=== PATIENT | male | born 1965 | race Caucasian/White ===

== ENCOUNTER 2019-08-20 15:54 | Outpatient (CLI) | payer OTHER, SELFPAY ==
--- NOTE | ~2019-08-20 | XR_ITS ---
EXAMINATION: XR knee LT 3V DATE: 08/20/2019 16:21 INDICATION: Left knee pain. TECHNIQUE: 4 views of left knee were obtained. COMPARISON: None. FINDINGS: Bone alignment is normal. There is mild osteoarthritis of patellofemoral compartment. No kn ee joint effusion. There is anterior knee soft tissue swelling. IMPRESSION: 1. Mild left knee osteoarthritis. Reviewed, dictated and finalized at location A.
== END 2019-08-20 15:55 | disposition home or self-care (01) ==
LOC: CHSIMG 15:58
PROVIDERS: PCP Family Medicine; Visit Provider Family Medicine
DX: M25.462 Effusion, left knee (principal)
CPT/HCPCS: 73562

== ENCOUNTER 2020-04-21 17:16 | Outpatient (CLI) | payer OTHER, SELFPAY ==
--- NOTE | ~2020-04-21 | XR_ITS ---
XR shoulder RT min 2V DATE: 04/21/2020 17:40 INDICATION: Worsening right shoulder pain following a fall 2-3 years ago TECHNIQUE: 4 views COMPARISON: None FINDINGS: No fracture or dislocation, periosteal reaction or bone destruction or abnormal soft tissue calcification of the right shoulder. There is mild degenerative spurring of the right acromioclavicu lar joint. IMPRESSION: Mild degenerative change at the right acromioclavicular joint Reviewed, dictated and finalized at location A.
--- NOTE | ~2020-04-21 | XR_ITS ---
XR lumbar spine 2-3V DATE: 04/21/2020 17:39 INDICATION: Chronic low back pain following a fall 2-3 years ago TECHNIQUE: AP, lateral, coned lateral lumbosacral views COMPARISON: 04/21/2010 lumbar spine FINDINGS: Mild levoscoliosis of the lower thoracic and lumbar spine. There is mild degenerative disc disease with mild degenerative spurring of the lumbar vertebra throu ghout the lumbar spine. No fracture or bone destruction or spondylolisthesis. The included lower thoracic and lumbar pedicles are intact. The sacroiliac joints are intact. IMPRESSION: Mild levoscoliosis Mild degenerative disc disease Reviewed, dictated and finalized at location A.
== END 2020-04-21 17:17 | disposition home or self-care (01) ==
LOC: CHSIMG 17:18
PROVIDERS: PCP Family Medicine; Visit Provider Family Medicine
DX: M25.511 Pain in right shoulder (principal); M54.5 Low back pain
CPT/HCPCS: 72100; 73030

== ENCOUNTER 2021-02-12 17:34 | Emergency (ER) | payer OTHER, SELFPAY ==
--- NOTE | ~2021-02-12 | XR_ITS ---
EXAMINATION: XR shoulder RT min 2V INDICATION: Right shoulder pain TECHNIQUE: Four views of the right shoulder are submitted. COMPARISON: 04/21/2020 FINDINGS: Normal alignment. No fracture. Glenohumeral and acromioclavicular joint spaces are normal. Soft tissues are unremarkable. IMPRESSION: 1. No acute osseous abnormality. Reviewed, dictated and finalized at location F. O ELECTRONICS TECHNICIAN
--- NOTE | ~2021-02-12 | XR_ITS ---
EXAMINATION: XR shoulder LT min 2V INDICATION: Left shoulder pain TECHNIQUE: Four views of the left shoulder are submitted. COMPARISON: None FINDINGS: Normal alignment. No fracture. Glenohumeral and acromioclavicular joint spaces are normal. There is lateral soft tissue swelling of the shoulder. IMPRESSION: 1. No acute osseous abnormality. Reviewed, dictated and finalized at location F. IRATORY TECHNICIAN
[2021-02-12 17:51] VITALS: BP 169/88; PULSE 82; RESP 20; TEMP 36.1; O2SAT 97
--- NOTE | 2021-02-12 18:56 | ED.UPPEXIN ---
HPI - Extremity Injury (Upper) General Chief Complaint: Extremity Injury, Upper Stated Complaint: fell afternoon/wants shoulder xray Source: patient Mode of arrival: ambulatory Limitations: no limitations History of Present Illness HPI narrative: this is a 55-year-old gentleman that fell on outstretched arms forward causing injury to his bilateral shoulders has good range of motion although slightly diminished on the right side there is no bicipital tenderness his good brisk radial pulses does have some numbness and tingling with no neck pain for the past week has tried some [id number] preparations with minimal relief. complaint: injury to: left, right and shoulder Onset (ago): day(s) Other injuries: none Handedness: right Place: outdoors Related Data Home Medications Medication Instructions Recorded Confirmed citalopram 20 mg tablet 20 mg PO DAILY 09/23/19 lisinopril 20 1 tablet PO DAILY 09/23/19 mg-hydrochlorothiazide 12.5 mg tablet metformin 500 mg tablet 500 mg PO BID 09/23/19 sitagliptin 100 mg tablet 100 mg PO DAILY 09/23/19 atorvastatin 20 mg PO DAILY 02/12/21 02/12/21 pioglitazone 30 mg PO DAILY 02/12/21 02/12/21 Allergies Allergy/AdvReac Type Severity Reaction Status Date / Time No Known Allergies Allergy Unverified 02/12/21 17:55 Review of Systems Review of Systems: All systems reviewed & are unremarkable except as noted in HPI and below PMFSH Past Medical History Medical History Seasonal allergies Family History Family History Other Diabetes mellitus Heart disease Hypertension Social History Social History Smoking status: Current some day smoker Alcohol intake: current Alcohol use details: Occasional Exam Const: General: no acute distress Orientation/consciousness: patient oriented x3 HENMT: Head: normal to inspection Eyes: Conjunctivae: conjunctivae normal Pupils: Equal, round and reactive pupils present EOM: EOMs intact bilaterally Neck: Neck: normal visual inspection Chest: Chest palpation & inspection: normal inspection of the chest Resp: Effort & Inspection: normal respiratory effort Cardio: Rate: regular rate Rhythm: regular rhythm GI: GI Palp: Yes Soft to palpation Percussion: Yes normal to percussion Back/Spine/Pelvis: Back: no CVA tenderness Skin: General skin exam: normal color Rashes: no rashes Neuro: General: patient oriented x3 and moves all extremities Extrem: Other: Bilateral shoulder tenderness with movement although has good range of motion bilaterally Psych: Mental Status: mental status grossly normal Affect: normal affect Attitude: cooperative Course Course Emergency Course: x-ray findings reviewed with patient, patient declined any pain medication at this time. Vital Signs Vital signs: Vital Signs Temperature 36.1 C L 02/12/21 17:51 Pulse Rate 82 02/12/21 17:51 Respiratory Rate 20 02/12/21 17:51 Blood Pressure 169/88 H 02/12/21 17:51 Pulse Oximetry 97 02/12/21 17:51 Temperature 36.1 C L 02/12/21 17:51 Pulse Rate 82 02/12/21 17:51 Respiratory Rate 20 02/12/21 17:51 Blood Pressure 169/88 H 02/12/21 17:51 Pulse Oximetry 97 02/12/21 17:51 Critical Care Time Critical Care Time Critical Care Time: No Discharge Plan Discharge Clinical Impression: Muscle strain, shoulder region Qualifiers: Encounter type: initial encounter Laterality: unspecified laterality Qualified Code(s): S46.919A - Strain of unspecified muscle, fascia and tendon at shoulder and upper arm level, unspecified arm, initial encounter Patient Disposition: Home, Self-Care Condition: Stable Instructions: Antibiotic Form, Shoulder Sprain (ED) Additional Instructions: take Tylenol or Motrin as needed and follow-up with primary
[2021-02-12 19:33] VITALS: BP 157/87; PULSE 77; RESP 18; TEMP 36.3; O2SAT 99
== END 2021-02-12 19:34 | disposition home or self-care (01) ==
PROVIDERS: Emergency Provider Emergency Medicine; PCP Family Medicine
DX: S46.919A Strain of unspecified muscle, fascia and tendon at shoulder and upper arm level, unspecified arm, initial encounter (principal); W19.XXXA Unspecified fall, initial encounter
CPT/HCPCS: 73030; 99282; 99284

== ENCOUNTER 2021-05-04 17:48 | Outpatient (CLI) | payer OTHER, SELFPAY ==
--- NOTE | ~2021-05-04 | XR_ITS ---
EXAMINATION: XR chest 2V DATE: 05/04/2021 18:16 INDICATION: Back pain radiating down right arm. TECHNIQUE: Frontal and lateral views of the chest were obtained. COMPARISON: Chest 2 views 09/20/2018 FINDINGS: The chest demonstrates clear lungs without pneumonia, pleural effusion, or pneumothorax. Th e heart size is normal. IMPRESSION: 1. No acute cardiopulmonary disease. Reviewed, dictated and finalized at location A.
--- NOTE | ~2021-05-04 | XR_ITS ---
EXAMINATION: XR lumbar spine 2-3V DATE: 05/04/2021 18:17 INDICATION: Low back pain. TECHNIQUE: 3 views of lumbar spine were obtained. COMPARISON: Lumbar spine radiographs 04/21/2020 FINDINGS: There is 9 degrees levocurvature of thoracolumbar spine. Vertebral body heights are normal. There is mildly decreased disc height at L3-L4. There are endplate osteophytes at most levels. There is multilevel mild facet joint osteoarthritis. IMPRESSION: 1. Mild lumbar spondylosis. Reviewed, dictated and finalized at location A. IMPRESSION: 1. Mild lumbar spondylosis.
--- NOTE | ~2021-05-04 | XR_ITS ---
EXAMINATION: XR thoracic spine 3V DATE: 05/04/2021 18:16 INDICATION: Back pain. TECHNIQUE: 3 views of thoracic spine were obtained. COMPARISON: Chest 2 views 09/20/2018 FINDINGS: There is 3 degrees levocurvature of upper thoracic spine and 3 degrees dextrocurvature of l ower thoracic spine. Vertebral body heights are normal. Intervertebral disc heights are normal. There are endplate osteophytes at most levels. IMPRESSION: 1. Mild thoracic spondylosis. Reviewed, dictated and finalized at location A.
[2021-05-04 18:05] LABS: Basophils Absolute Auto 0.05 K/mm3 (0.00-0.10); Basophils Percent Auto 0.6 % (0.0-1.0); Eosinophils Absolute Auto 0.21 K/mm3 (0.02-0.50); Eosinophils Percent Auto 2.6 % (1.0-6.0); Hematocrit 34.5 % (40.0-54.0); Hemoglobin 12.1 g/dL (14.0-18.0); Immature Granulocyte Absolute 0.03 K/mm3 (0.00-0.00); Immature Granulocyte Percent A 0.4 % (0.0-0.0); Lymphocytes Percent Auto 21.2 % (18.0-42.0); Mean Corpuscular HGB Conc 35.1 g/dL (32.0-36.0); Mean Corpuscular Hemoglobin 29.2 pg (27.0-31.0); Mean Corpuscular Volume 83.3 fL (78.0-102.0); Mean Platelet Volume 9.9 fl (8.7-11.0); Monocytes Absolute Auto 0.56 K/mm3 (0.10-0.90); Neutrophils Absolute Auto 5.5 K/mm3 (1.7-7.2); Neutrophils Percent Auto 68.2 % (50.0-70.0); Platelet Count Result 282 K/mm3 (150-420); Red Blood Count 4.14 M/mm3 (4.70-6.10); Red Cell Distribution Width 12.2 % (11.6-14.4)
[2021-05-04 18:48] LABS: Alanine Aminotransferase 20 U/L (16-63); Albumin Level 3.4 g/dL (3.4-5.0); Alkaline Phosphatase 80 U/L (46-116); Anion Gap 8 mmol/L (8-16); Aspartate Amino Transferase 10 U/L (15-37); Bilirubin,Total 0.5 mg/dL (0.00-1.00); Blood Urea Nitrogen 29 mg/dL (7-18); Calcium 8.5 mg/dL (8.5-10.1); Carbon Dioxide 29 mmol/L (21-32); Chloride 97 mmol/L (98-108); Creatine Kinase 52 U/L (39-308); Estimated Glomerular Filt Rate 41; Glucose 318 mg/dL (70-99); Osmolality Calculated 295 mOsm/kg (285-295); Potassium 3.7 mmol/L (3.5-5.1); Sodium 134 mmol/L (136-145); Total Protein 6.4 g/dL (6.4-8.2)
== END 2021-05-04 17:49 | disposition home or self-care (01) ==
LOC: CHSLAB 17:50
PROVIDERS: PCP Family Medicine; Visit Provider Family Medicine
DX: M54.50 Low back pain, unspecified (principal); M54.6 Pain in thoracic spine; I10 Essential (primary) hypertension; R94.31 Abnormal electrocardiogram [ECG] [EKG]
CPT/HCPCS: 36415; 71046; 72072; 72100; 80053; 82550; 82553; 84484; 85025

== ENCOUNTER 2021-05-13 13:40 | Outpatient (CLI) | payer OTHER, SELFPAY ==
[2021-05-13 13:52] LABS: Basophils Absolute Auto 0.06 K/mm3 (0.00-0.10); Basophils Percent Auto 0.7 % (0.0-1.0); Eosinophils Absolute Auto 0.29 K/mm3 (0.02-0.50); Eosinophils Percent Auto 3.3 % (1.0-6.0); Hematocrit 34.5 % (40.0-54.0); Hemoglobin 12.3 g/dL (14.0-18.0); Immature Granulocyte Absolute 0.05 K/mm3 (0.00-0.00); Immature Granulocyte Percent A 0.6 % (0.0-0.0); Lymphocytes Absolute Auto 1.19 K/mm3 (1.10-4.50); Lymphocytes Percent Auto 13.6 % (18.0-42.0); Mean Corpuscular HGB Conc 35.7 g/dL (32.0-36.0); Mean Corpuscular Hemoglobin 29.6 pg (27.0-31.0); Mean Corpuscular Volume 83.1 fL (78.0-102.0); Mean Platelet Volume 10.2 fl (8.7-11.0); Monocytes Absolute Auto 0.58 K/mm3 (0.10-0.90); Monocytes Percent Auto 6.6 % (2.0-11.0); Neutrophils Absolute Auto 6.6 K/mm3 (1.7-7.2); Neutrophils Percent Auto 75.2 % (50.0-70.0); Platelet Count Result 283 K/mm3 (150-420); Red Blood Count 4.15 M/mm3 (4.70-6.10); Red Cell Distribution Width 12.3 % (11.6-14.4); White Blood Count 8.7 K/mm3 (4.8-10.8)
[2021-05-13 14:05] LABS: Creatinine Urine 29.98 mg/dL (40-278)
[2021-05-13 14:38] LABS: Alanine Aminotransferase 19 U/L (16-63); Albumin Level 3.5 g/dL (3.4-5.0); Alkaline Phosphatase 94 U/L (46-116); Anion Gap 6 mmol/L (8-16); Aspartate Amino Transferase < 10 U/L (15-37); Bilirubin,Total 0.4 mg/dL (0.00-1.00); Blood Urea Nitrogen 21 mg/dL (7-18); Calcium 8.5 mg/dL (8.5-10.1); Carbon Dioxide 29 mmol/L (21-32); Chloride 95 mmol/L (98-108); Estimated Glomerular Filt Rate 42; Potassium 4.4 mmol/L (3.5-5.1); Sodium 130 mmol/L (136-145); Total Protein 6.4 g/dL (6.4-8.2)
[2021-05-13 14:42] LABS: Glucose 630 mg/dL (70-99); Osmolality Calculated 303 mOsm/kg (285-295)
== END 2021-05-13 13:41 | disposition home or self-care (01) ==
PROVIDERS: PCP Family Medicine; Visit Provider Family Medicine
DX: D64.9 Anemia, unspecified (principal); I12.9 Hypertensive chronic kidney disease with stage 1 through stage 4 chronic kidney disease, or unspecified chronic kidney disease; N18.30 Chronic kidney disease, stage 3 unspecified
CPT/HCPCS: 36415; 80053; 82043; 85025

== ENCOUNTER 2021-07-27 10:53 | Outpatient (CLI) | payer OTHER, SELFPAY ==
[2021-07-27 11:21] LABS: Basophils Absolute Auto 0.05 K/mm3 (0.00-0.10); Basophils Percent Auto 0.6 % (0.0-1.0); Eosinophils Absolute Auto 0.36 K/mm3 (0.02-0.50); Eosinophils Percent Auto 4.4 % (1.0-6.0); Hematocrit 36.4 % (40.0-54.0); Hemoglobin 12.9 g/dL (14.0-18.0); Immature Granulocyte Absolute 0.03 K/mm3 (0.00-0.00); Immature Granulocyte Percent A 0.4 % (0.0-0.0); Lymphocytes Absolute Auto 1.45 K/mm3 (1.10-4.50); Lymphocytes Percent Auto 17.7 % (18.0-42.0); Mean Corpuscular HGB Conc 35.4 g/dL (32.0-36.0); Mean Corpuscular Hemoglobin 29.7 pg (27.0-31.0); Mean Corpuscular Volume 83.7 fL (78.0-102.0); Mean Platelet Volume 10.1 fl (8.7-11.0); Monocytes Absolute Auto 0.57 K/mm3 (0.10-0.90); Neutrophils Absolute Auto 5.7 K/mm3 (1.7-7.2); Neutrophils Percent Auto 69.9 % (50.0-70.0); Platelet Count Result 233 K/mm3 (150-420); Red Blood Count 4.35 M/mm3 (4.70-6.10); Red Cell Distribution Width 12.3 % (11.6-14.4); White Blood Count 8.2 K/mm3 (4.8-10.8)
[2021-07-27 11:43] LABS: Hemoglobin A1C 8.3 % (<5.7)
[2021-07-27 12:16] LABS: Alanine Aminotransferase 35 U/L (16-63); Albumin Level 3.6 g/dL (3.4-5.0); Alkaline Phosphatase 86 U/L (46-116); Anion Gap 6 mmol/L (8-16); Aspartate Amino Transferase 14 U/L (15-37); Bilirubin,Total 0.6 mg/dL (0.00-1.00); Blood Urea Nitrogen 29 mg/dL (7-18); Calcium 8.6 mg/dL (8.5-10.1); Carbon Dioxide 29 mmol/L (21-32); Chloride 102 mmol/L (98-108); Estimated Glomerular Filt Rate 30; Glucose 231 mg/dL (70-99); Osmolality Calculated 296 mOsm/kg (285-295); Potassium 4.2 mmol/L (3.5-5.1); Sodium 137 mmol/L (136-145); Thyroid Stimulating Hormone 4.21 uIU/mL (0.36-3.74); Total Protein 6.4 g/dL (6.4-8.2)
[2021-07-28 10:05] LABS: Free T4 Free Thyroxine 0.86 ng/dL (0.76-1.46)
[2021-08-01 04:31] LABS: Metanephrine, Free 41 pg/mL (<=57); Normetanephrine, Free 45 pg/mL (<=148); Total, Free (MN + NMN) 86 pg/mL (<=205)
== END 2021-07-27 10:54 | disposition home or self-care (01) ==
LOC: CHSLAB 10:54
PROVIDERS: PCP Family Medicine; Visit Provider Family Medicine
DX: E11.42 Type 2 diabetes mellitus with diabetic polyneuropathy (principal); I10 Essential (primary) hypertension; R94.6 Abnormal results of thyroid function studies
CPT/HCPCS: 36415; 80053; 83036; 83835; 84439; 84443; 85025

== ENCOUNTER 2021-08-20 16:06 | Emergency (ER) | payer OTHER, SELFPAY ==
[2021-08-20 16:20] VITALS: BP 202/99; PULSE 67; RESP 20; TEMP 36.6; O2SAT 97
--- NOTE | 2021-08-20 16:36 | ECG_ITS ---
Measurements Intervals [place] Rate: 57 P: 25 FL: 142 QRS: 17 QRSD: 93 T: 70 QT: 393 QTc: 383 Interpretive Statements SINUS BRADYCARDIA INCOMPLETE RIGHT BUNDLE BRANCH BLOCK LEFT VENTRICULAR HYPERTROPHY WITH ST-T CHANGE MINIMAL Q WAVES- INFERIOR LEADS BORDERLINE ECG Electronically Signed On 08-20-2021 21:23:43 CDT by Bj Rocha D.O.
--- NOTE | 2021-08-20 16:39 | ED.WEAKNESS ---
HPI - Weakness General Chief complaint: Weakness Stated complaint: fatigue Time Seen by Provider: 08/20/21 16:39 Source: patient History of Present Illness HPI Narrative: 49-year-old male, ex-smoker, with hypertension, diabetes mellitusl, depression presents to the ER with a 3 month history of -- feeling tired and sluggish -- hypersomnia and unable to get up on time for his work. He overslept and did not go for work this morning. -- Hypertension with a current blood pressure of 202/99. He did not take his medicines this morning. -- His primary care physician has advised sleep studies which he has not done till date. MD Complaint: generalized weakness and lack of energy Onset (ago): month(s) ( For past 3 months) Duration: intermittent Location: generalized Migration: none Severity: mild Relieving factors: none Exacerbating factors: none Related Data Home Medications Medication Instructions Recorded Confirmed citalopram 20 mg tablet 20 mg PO DAILY 09/23/19 08/20/21 lisinopril 20 1 tablet PO BID 09/23/19 08/20/21 mg-hydrochlorothiazide 12.5 mg tablet amlodipine 10 mg tablet 1 tablet PO DAILY 08/20/21 08/20/21 atorvastatin 80 mg tablet 1 tablet PO DAILY 08/20/21 08/20/21 doxazosin 4 mg tablet 1 tablet PO DAILY 08/20/21 08/20/21 insulin detemir U-100 100 unit/mL 110 unit subcut DAILY 08/20/21 08/20/21 (3 mL) subcutaneous pen (Levemir FlexTouch U-100 Insulin) metoprolol succinate 100 mg 1 tablet PO DAILY 08/20/21 08/20/21 tablet,extended release 24 hr Allergies Allergy/AdvReac Type Severity Reaction Status Date / Time No Known Allergies Allergy Unverified 02/12/21 17:55 Review of Systems Review of Systems: All systems reviewed & are unremarkable except as noted in HPI and below Constitutional: Constitutional: Reports as per HPI and Reports no additional constitutional complaints Eyes: Eyes: Reports as per HPI and Reports no additional eye complaints ENT: Reports system reviewed and no additional complaints, except as documented and Reports as per HPI Cardiovascular: Cardiovascular: Reports as per HPI and Reports no additional cardiovascular complaints Respiratory: Respiratory: Reports as per HPI and Reports no additional respiratory complaints Comments: history of snoring and daytime hypersomnolence Gastrointestinal: Gastrointestinal: Reports as per HPI and Reports no additional gastrointestinal complaints Genitourinary: Genitourinary: Reports no additional male genitourinary complaints and Reports as per HPI Musculoskeletal: Musculoskeletal: Reports no additional musculoskeletal complaints and Reports as per HPI Integumentary/Breasts: Skin/Breast: Reports system reviewed and no additional complaints, except as docu and Reports as per HPI Neurologic: Reports system reviewed and no additional complaints, except as documented and Reports as per HPI Psychiatric: Psychiatric: Reports no additional psychiatric complaints and Reports as per HPI Endocrine: Endocrine: Reports no additional endocrine complaints and Reports as per HPI Hematologic/Lymphatic: Hematologic/Lymphatic: Reports no additional hematologic/lymphatic complaints and Reports as per HPI Allergic/Immunologic: Allergic/Immunologic: Reports no additional allergic/immunologic complaints and Reports as per HPI PMFSH Past Medical History Medical History Seasonal allergies Family History Family History Other Diabetes mellitus Heart disease Hypertension Social History Social History Smoking status: Current some day smoker Alcohol intake: current Alcohol use details: Occasional Exam Const: General: healthy appearing and no acute distress Nutritional Appearance: well nourished Orientation/consciousness: patient oriented x3 Limitations: no limi
[2021-08-20] MEDS: cloNIDine HCL 0.2 MG TABLET PO (16:57)
[2021-08-20 17:08] LABS: Basophils Absolute Auto 0.06 K/mm3 (0.00-0.10); Basophils Percent Auto 0.8 % (0.0-1.0); Eosinophils Absolute Auto 0.34 K/mm3 (0.02-0.50); Eosinophils Percent Auto 4.3 % (1.0-6.0); Hematocrit 33.1 % (40.0-54.0); Hemoglobin 11.7 g/dL (14.0-18.0); Immature Granulocyte Absolute 0.02 K/mm3 (0.00-0.00); Immature Granulocyte Percent A 0.3 % (0.0-0.0); Lymphocytes Absolute Auto 1.43 K/mm3 (1.10-4.50); Lymphocytes Percent Auto 17.9 % (18.0-42.0); Mean Corpuscular HGB Conc 35.3 g/dL (32.0-36.0); Mean Corpuscular Hemoglobin 29.8 pg (27.0-31.0); Mean Corpuscular Volume 84.2 fL (78.0-102.0); Mean Platelet Volume 10.4 fl (8.7-11.0); Monocytes Absolute Auto 0.61 K/mm3 (0.10-0.90); Monocytes Percent Auto 7.6 % (2.0-11.0); Neutrophils Absolute Auto 5.5 K/mm3 (1.7-7.2); Neutrophils Percent Auto 69.1 % (50.0-70.0); Platelet Count Result 237 K/mm3 (150-420); Red Blood Count 3.93 M/mm3 (4.70-6.10); Red Cell Distribution Width 11.9 % (11.6-14.4)
[2021-08-20 17:14] LABS: Add Urine Microscopic? YES; Appearance Urine Clear (Clear); Bilirubin Urine Negative (Negative); Blood Urine Negative (Negative); Color Urine Light Yellow (Yellow); Glucose Urine UA 3+ (Negative); Ketones Urine Negative (Negative); Leukocyte Esterase Ur Negative (Negative); Nitrate Urine Negative (Negative); Protein Urine 1+ (Negative); Urobilinogen Urine 0.2 mg/dL (0.2-1.0)
[2021-08-20 17:20] LABS: INR 0.9; Partial Thromboplastin Time 25.6 SEC (23.90-30.70); Prothrombin Time 9.9 Seconds (9.50-12.10)
[2021-08-20 17:21] LABS: Other Sediment Urine Spermatazoa /hpf; RBC Urine 0-2 /hpf (0-2)
[2021-08-20 17:25] LABS: Lactic Acid Reflex 1.4 mmol/L (0.4-2.0)
[2021-08-20 17:30] VITALS: BP 190/89; PULSE 57; RESP 18; O2SAT 98
[2021-08-20 17:40] LABS: Alanine Aminotransferase 21 U/L (16-63); Albumin Level 3.2 g/dL (3.4-5.0); Alkaline Phosphatase 87 U/L (46-116); Anion Gap 8 mmol/L (8-16); Aspartate Amino Transferase 15 U/L (15-37); Bilirubin,Total 0.4 mg/dL (0.00-1.00); Blood Urea Nitrogen 23 mg/dL (7-18); Calcium 8.5 mg/dL (8.5-10.1); Carbon Dioxide 26 mmol/L (21-32); Chloride 105 mmol/L (98-108); Estimated CRCL calculation 42 ml/min; Estimated Glomerular Filt Rate 41; Glucose 274 mg/dL (70-99); NT Pro B Type Natriuretic Pept 493 pg/mL (0-125); Osmolality Calculated 301 mOsm/kg (285-295); Sodium 139 mmol/L (136-145); Total Protein 6.4 g/dL (6.4-8.2)
[2021-08-20 17:41] LABS: Lipase 168 U/L (73-393); Thyroid Stimulating Hormone 2.85 uIU/mL (0.36-3.74); Troponin I 10.5 ng/L (0.00-60.4)
[2021-08-20 17:49] VITALS: BP 194/103; PULSE 60; RESP 20; O2SAT 97
[2021-08-20 17:50] VITALS: BP 179/90; PULSE 58; RESP 18; TEMP 36.2; O2SAT 99
== END 2021-08-20 17:56 | disposition home or self-care (01) ==
PROVIDERS: Emergency Provider Internal Medicine Critical Care Medicine; PCP Family Medicine
DX: I16.0 Hypertensive urgency (principal); N18.9 Chronic kidney disease, unspecified
CPT/HCPCS: 36415; 80053; 81001; 83605; 83690; 83880; 84443; 84484; 85025; 85610; 85730; 93005; 99284; A9270

== ENCOUNTER 2021-09-06 08:07 | Outpatient (CLI) | payer OTHER, SELFPAY ==
--- NOTE | ~2021-09-06 | MR_ITS ---
EXAMINATION: MR brain/brain stem wo/w con DATE: 09/06/2021 09:23 INDICATION: Headache. TECHNIQUE: Magnetic resonance imaging (MRI) of the brain and brainstem was performed without and with 15 mL MultiHance intravenous contrast. COMPARISON: Head CT 09/20/2018 FINDINGS: There are scattered areas of nonspecific increased T2-weighted signal intensity in the cere bral white matter, which is within normal limits for the patient's age. There is no intracranial hemo rrhage, acute infarction, or abnormal intracranial mass lesion. The ventricles are normal in size. Th e mastoid air cells are normal. There is mild mucosal thickening in the paranasal sinuses. The orbits are normal. IMPRESSION: 1. Normal aging brain. Reviewed, dictated and finalized at location A. IMPRESSION: 1. Normal aging brain.
== END 2021-09-06 08:08 | disposition home or self-care (01) ==
PROVIDERS: PCP Family Medicine; Visit Provider Family Medicine
DX: R51.9 Headache, unspecified (principal)
CPT/HCPCS: 70553; A9577

== ENCOUNTER 2021-10-04 11:38 | Outpatient (CLI) | payer OTHER, SELFPAY ==
--- NOTE | ~2021-10-04 | XR_ITS ---
XR cervical spine 4-5V DATE: 10/04/2021 12:05 INDICATION: Radiculopathy, right arm numbness. TECHNIQUE: AP, lateral, open-mouth and bilateral oblique views COMPARISON: None FINDINGS: There is straightening of cervical spine which may be due to muscle spasm. C1 and C2 are normally aligned and the odontoid process is intact. No fracture or dislocation, locked facet or prevertebral soft tissue swelling. There is mild loss of height of interspace at C5-6. There is moderately severe degenerative disease a t C6-7. Uncovertebral joint spurring is noted bilaterally at C6-7, encroaching upon the C7 neural foramina.. IMPRESSION: Moderately severe degenerative disc disease and uncovertebral joint spurring at C6-7 Mild loss of height at C5-6 interspace Straightening, which may be due to muscle spasm Reviewed, dictated and finalized at location B.
[2021-10-04 12:00] LABS: Basophils Absolute Auto 0.05 K/mm3 (0.00-0.10); Basophils Percent Auto 0.9 % (0.0-1.0); Eosinophils Absolute Auto 0.21 K/mm3 (0.02-0.50); Eosinophils Percent Auto 3.9 % (1.0-6.0); Hematocrit 33.6 % (40.0-54.0); Hemoglobin 11.7 g/dL (14.0-18.0); Immature Granulocyte Absolute 0.02 K/mm3 (0.00-0.00); Immature Granulocyte Percent A 0.4 % (0.0-0.0); Lymphocytes Absolute Auto 1.17 K/mm3 (1.10-4.50); Lymphocytes Percent Auto 21.5 % (18.0-42.0); Mean Corpuscular HGB Conc 34.8 g/dL (32.0-36.0); Mean Corpuscular Hemoglobin 29.9 pg (27.0-31.0); Mean Corpuscular Volume 85.9 fL (78.0-102.0); Mean Platelet Volume 10.2 fl (8.7-11.0); Monocytes Absolute Auto 0.77 K/mm3 (0.10-0.90); Monocytes Percent Auto 14.1 % (2.0-11.0); Neutrophils Absolute Auto 3.2 K/mm3 (1.7-7.2); Neutrophils Percent Auto 59.2 % (50.0-70.0); Platelet Count Result 221 K/mm3 (150-420); Red Blood Count 3.91 M/mm3 (4.70-6.10); White Blood Count 5.5 K/mm3 (4.8-10.8)
[2021-10-04 12:34] LABS: Alanine Aminotransferase 39 U/L (16-63); Albumin Level 3.6 g/dL (3.4-5.0); Alkaline Phosphatase 105 U/L (46-116); Anion Gap 5 mmol/L (8-16); Aspartate Amino Transferase 16 U/L (15-37); Bilirubin,Total 0.6 mg/dL (0.00-1.00); Blood Urea Nitrogen 38 mg/dL (7-18); Calcium 8.8 mg/dL (8.5-10.1); Carbon Dioxide 26 mmol/L (21-32); Chloride 103 mmol/L (98-108); Creatine Kinase 72 U/L (39-308); Estimated Glomerular Filt Rate 38; Glucose 176 mg/dL (70-99); Osmolality Calculated 291 mOsm/kg (285-295); Potassium 3.9 mmol/L (3.5-5.1); Sodium 134 mmol/L (136-145); Total Protein 6.9 g/dL (6.4-8.2); Troponin I 8.6 ng/L (0.00-60.4)
== END 2021-10-04 11:39 | disposition home or self-care (01) ==
LOC: CHSLAB 11:41
PROVIDERS: PCP Family Medicine; Visit Provider Family Medicine
DX: M79.601 Pain in right arm (principal); M54.12 Radiculopathy, cervical region
CPT/HCPCS: 36415; 72050; 80053; 82550; 82553; 84484; 85025

== ENCOUNTER 2021-10-18 09:48 | Outpatient (CLI) | payer OTHER, SELFPAY ==
--- NOTE | ~2021-10-18 | MR_ITS ---
EXAMINATION: MR cervical spine wo con DATE: 10/18/2021 10:40 INDICATION: Cervical radiculopathy. TECHNIQUE: Magnetic resonance imaging (MRI) of the cervical spine was performed without intravenous c ontrast. Sequences included sagittal T2-weighted FSE, sagittal T2-weighted FS FSE, sagittal T1-weight ed FSE, axial MERGE, and axial T2-weighted FSE. COMPARISON: Cervical spine radiographs 10/04/2021 FINDINGS: Bone alignment is normal. Vertebral body heights are normal. There is mildly decreased disc height at C5-C6 and moderately decreased disc height at C6-C7. The spinal cord signal intensity is n ormal. The following disc levels are specifically discussed: C2-C3: The disc does not extend beyond the endplate margin. There is no uncovertebral joint osteoarth ritis. There is mild right and severe left facet joint osteoarthritis. There is mild left neural fora jacek stenosis. There is no central canal stenosis. C3-C4: The disc is bulging. There is no uncovertebral joint osteoarthritis. There is moderate right a nd severe left facet joint osteoarthritis. There is mild bilateral neural foraminal stenosis. There i s no central canal stenosis. C4-C5: The disc is bulging. There is no uncovertebral joint osteoarthritis. There is moderate bilater al facet joint osteoarthritis. There is mild right neural foraminal stenosis. There is no central can al stenosis. C5-C6: The disc is bulging. There is no uncovertebral joint osteoarthritis. There is mild bilateral f acet joint osteoarthritis. There is no neural foraminal stenosis. There is mild central canal stenosi s. C6-C7: The disc is bulging. There is moderate right and mild left uncovertebral joint osteoarthritis. There is moderate bilateral facet joint osteoarthritis. There is mild bilateral neural foraminal bijan nosis. There is mild central canal stenosis. C7-T1: The disc does not extend beyond the endplate margin. There is no uncovertebral joint osteoarth ritis. There is moderate and mild left facet joint osteoarthritis. There is no neural foraminal steno sis. There is no central canal stenosis. IMPRESSION: 1. Moderate cervical spondylosis. Reviewed, dictated and finalized at location A.
== END 2021-10-18 09:49 | disposition home or self-care (01) ==
LOC: CHSIMG 09:50
PROVIDERS: PCP Family Medicine; Visit Provider Family Medicine
DX: M54.12 Radiculopathy, cervical region (principal)
CPT/HCPCS: 72141

== ENCOUNTER 2021-10-25 11:45 | Outpatient (CLI) | payer OTHER, SELFPAY ==
--- NOTE | ~2021-10-25 | US_ITS ---
EXAMINATION: US carotid duplex BI DATE: 10/25/2021 12:28 INDICATION: Hypertension. Dizziness. Right arm numbness. TECHNIQUE: Grayscale, color Doppler, and pulsed Doppler images of the cervical carotid arteries were obtained. The degree of vessel stenosis is placed in one of the following categories: normal, <50%, 5 0-69%, >=70% but less than near-occlusion, near-occlusion, or total occlusion. Note that percent sten osis relative to normal distal artery lumen diameter is indirectly measured from velocity measurement s as described by Jc, et al. Radiology 2003; 229:340-346. Notes: Normal: Peak systolic velocity <125 centimeters/sec and no plaque <50%. Peak systolic velocity <125 ( EDV <40; ICA/CCA PSV ratio <2.0; used these factors only a tandem lesions or low cardiac output or co ntralateral disease) 50-69 %: PSV 125-230 (EDV 40-100; ratio 2-4) >= 70% but less than near occlusion: PSV greater than 230 (EDV > 100; ratio> 4.0) Near Occlusion: PSV that is variable; markedly narrowed lumen Occlusion: Absent flow on color/spectral Doppler and no lumen on cunha scale. COMPARISON: None. FINDINGS: RIGHT: The right common carotid artery (CCA) peak systolic velocity (PSV) is 86 cm/s. The right internal car otid artery (ICA) PSV is 68 cm/s. The right ICA end-diastolic velocity (EDV) is 25 cm/s. The right IC A/CCA PSV ratio is 0.8. The external carotid artery (ECA) PSV is 86 cm/s. There is antegrade flow in the right vertebral artery. LEFT: The left CCA PSV is 62 cm/s. The left ICA PSV is 140 cm/s. The left ICA EDV is 49 cm/s. The left ICA/ CCA PSV ratio is 2.3. The ECA PSV is 127 cm/s. There is antegrade flow in the left vertebral artery. IMPRESSION: 1. Less than 50% stenosis in the right internal carotid artery by sonographic criteria. 2. 50-69% stenosis in the left internal carotid artery by sonographic criteria. Reviewed, dictated and finalized at location A. IMPRESSION: 1. Less than 50% stenosis in the right internal carotid artery by sonographic c riteria. 2. 50-69% stenosis in the left internal carotid artery by sonographic criteria.
== END 2021-10-25 11:46 | disposition home or self-care (01) ==
LOC: CHSIMG 11:45
PROVIDERS: PCP Family Medicine; Visit Provider Family Medicine
DX: R42 Dizziness and giddiness (principal); I10 Essential (primary) hypertension
CPT/HCPCS: 93880

== ENCOUNTER 2021-11-04 12:21 | Outpatient (CLI) | payer OTHER, SELFPAY ==
--- NOTE | ~2021-11-04 | CT_ITS ---
EXAMINATION: CT lung screening DATE: 11/04/2021 13:23 INDICATION: Personal history of nicotine dependence. Cough. TECHNIQUE: Computed tomography (CT) of the chest was performed without intravenous contrast. The dose -length product was 104.01 mGy-cm. Automated exposure control and iterative reconstruction technique were employed. COMPARISON: None FINDINGS: Small pericardial effusion. Borderline heart size. No significant pleural effusion. Small h iatal hernia. No thoracic lymphadenopathy. There is gynecomastia. Calcified granuloma left upper lobe . There is dependent atelectasis. Low lung volumes with crowding of the pulmonary vasculature. No end obronchial lesions. No pneumothorax. No noncalcified pulmonary nodules are identified. IMPRESSION: 1. Lung-RADS category 1: Negative. Continue annual screening with noncontrast low-dose chest CT in 12 months. 2: Small pericardial effusion. Reviewed, dictated and finalized at location B. IMPRESSION: 1. Lung-RADS category 1: Negative. Continue annual screening with noncontrast l ow-dose chest CT in 12 months. 2: Small pericardial effusion.
--- NOTE | 2021-11-04 01:00 | ECHO_ITS ---
Patient Info Name: Medhat Alonso Age: 55 years : 1965 Gender: Male Ht: 66 in Wt: 160 lbs BSA: 1.85 m2 HR: 84 bpm BP: 113 / 67 mmHg Heart Rhythm: Sinus Rhythm Technical Quality: Fair Exam Date: 11/04/2021 12:23 PM Exam Location: [facility] Patient Status: Outpatient Admit Date: 11/04/2021 Staff Ordering Physician: Tobias Mckenzie MD Access Liaison: Le Bhandari RDCS Attending Provider: Tobias Mckenzie MD Referring Physician: Magaly PADILLA; Exam Type: CA echo doppler color flow Study Info Indications - HTN, DIZZINESS Complete two-dimensional, color flow and Doppler transthoracic echocardiogram is performed. Summary 1. Complete two-dimensional, color flow and Doppler transthoracic echocardiogram is performed. 2. Left ventricular chamber dimension is normal. 3. Left ventricular systolic function is normal, estimated at 65-70%. 4. There is mildly increased left ventricular wall thickness. 5. The left ventricular diastolic function is grade I diastolic dysfunction. 6. E/e' 12 is mildly elevated. 7. There is mild aortic valve sclerosis. 8. The mitral valve has moderately calcified annulus. 9. There is trace mitral valve regurgitation. 10. There is trace tricuspid valve regurgitation. 11. No pulmonary hypertension, estimated pulmonary arterial systolic pressure is 23 mmHg. 12. There is trace pulmonic regurgitation. Left Ventricle E/e' 12 is mildly elevated. Left ventricular chamber dimension is normal. Left ventricular systolic function is normal, estimated at 65-70%. There is mildly increased left ventricular wall thickness. The left ventricular diastolic function is grade I diastolic dysfunction. Right Ventricle Right ventricular systolic function is normal and with normal TAPSE 1.8 cm. Right ventricular chamber dimension is normal. Left Atria Left atrial chamber dimension is normal. Right Atria Right atrial chamber dimension is normal. Aortic Valve The aortic valve is trileaflet. There is mild aortic valve sclerosis. There is no aortic valve stenosis. There is no aortic valve regurgitation. Pulmonic Valve There is trace pulmonic regurgitation. Mitral Valve The mitral valve has moderately calcified annulus. There is no mitral valve stenosis. There is trace mitral valve regurgitation. Tricuspid Valve There is trace tricuspid valve regurgitation. No pulmonary hypertension, estimated pulmonary arterial systolic pressure is 23 mmHg. Pericardium/Pleural There is no pericardial effusion. Inferior Vena Cava Normal inferior vena cava with >50% collapse upon inspiration consistent with normal right atrial pressure, 5 mmHg. Aorta The aortic root size at the sinus of Valsalva is normal. Left Ventricular Outflow Tract Name Value Normal LVOT 2D LVOT Diameter 1.9 cm LVOT Doppler LVOT Peak Velocity 109 cm/s LVOT Peak Gradient 5 mmHg LVOT Mean Gradient 2 mmHg LVOT VTI 21 cm LVOT VTI/AV VTI Ratio 0.8
== END 2021-11-04 12:22 | disposition home or self-care (01) ==
LOC: CHSIMG 12:22
PROVIDERS: PCP Family Medicine; Visit Provider Family Medicine
DX: R42 Dizziness and giddiness (principal); I10 Essential (primary) hypertension; Z12.2 Encounter for screening for malignant neoplasm of respiratory organs; Z87.891 Personal history of nicotine dependence
CPT/HCPCS: 71271; 93306

== ENCOUNTER 2022-08-07 09:22 | Outpatient (CLI) | payer OTHER, SELFPAY ==
[2022-08-07 09:34] LABS: Basophils Absolute Auto 0.06 K/mm3 (0.00-0.10); Basophils Percent Auto 0.6 % (0.0-1.0); Hematocrit 37.7 % (40.0-54.0); Hemoglobin 13.2 g/dL (14.0-18.0); Immature Granulocyte Absolute 0.03 K/mm3 (0.00-0.00); Immature Granulocyte Percent A 0.3 % (0.0-0.0); Lymphocytes Absolute Auto 1.53 K/mm3 (1.10-4.50); Lymphocytes Percent Auto 15.2 % (18.0-42.0); Mean Corpuscular Hemoglobin 29.2 pg (27.0-31.0); Mean Corpuscular Volume 83.4 fL (78.0-102.0); Mean Platelet Volume 10.2 fl (8.7-11.0); Monocytes Absolute Auto 0.62 K/mm3 (0.10-0.90); Monocytes Percent Auto 6.1 % (2.0-11.0); Neutrophils Absolute Auto 7.7 K/mm3 (1.7-7.2); Neutrophils Percent Auto 75.8 % (50.0-70.0); Platelet Count Result 229 K/mm3 (150-420); Red Blood Count 4.52 M/mm3 (4.70-6.10); Red Cell Distribution Width 12.5 % (11.6-14.4); White Blood Count 10.1 K/mm3 (4.8-10.8)
[2022-08-07 10:13] LABS: Alanine Aminotransferase 34 U/L (16-63); Albumin Level 3.4 g/dL (3.4-5.0); Alkaline Phosphatase 120 U/L (46-116); Anion Gap 6 mmol/L (8-16); Aspartate Amino Transferase 16 U/L (15-37); Bilirubin,Total 0.9 mg/dL (0.00-1.00); Blood Urea Nitrogen 27 mg/dL (7-18); Calcium 8.8 mg/dL (8.5-10.1); Carbon Dioxide 31 mmol/L (21-32); Chloride 99 mmol/L (98-108); Estimated Glomerular Filt Rate 40; Glucose 209 mg/dL (70-99); Osmolality Calculated 293 mOsm/kg (285-295); Potassium 4.1 mmol/L (3.5-5.1); Sodium 136 mmol/L (136-145); Thyroid Stimulating Hormone 1.48 uIU/mL (0.36-3.74); Total Protein 6.6 g/dL (6.4-8.2)
== END 2022-08-07 09:23 | disposition home or self-care (01) ==
LOC: CHSLAB 09:23
PROVIDERS: PCP Family Medicine; Visit Provider Family Medicine
DX: R55 Syncope and collapse (principal)
CPT/HCPCS: 36415; 80053; 84443; 85025

== ENCOUNTER 2022-08-24 07:09 | Outpatient (CLI) | payer OTHER, SELFPAY ==
--- NOTE | ~2022-08-24 | US_ITS ---
Procedure: Duplex Doppler examination of the bilateral carotids. Indication: Carotid artery stenosis or occlusion COMPARISON: 10/25/2021 Technique: Real time, color-flow and pulse wave Doppler examination of the bilateral carotids was performed. Findings: Robin scale ultrasonography of the right neck demonstrated small plaques at the proximal right interna l carotid artery. There was demonstration of normal color-flow and Doppler waveforms within the right common, internal and external carotid arteries. The peak systolic velocities in the right common, in ternal and external carotid arteries were demonstrated to be 97 cm/sec, 76 cm/sec and 80 cm/sec respe ctively. The right ICA/CCA ratio was 0.8.The proximal right internal carotid artery demonstrates 20% stenosis relative to the normal distal artery lumen diameter. Robin scale sonography of the left neck demonstrated moderate plaques at the left carotid bifurcation region. There was demonstration of normal color-flow and wave forms within the left common, internal and external carotid arteries. The peak systolic velocities in the left common, internal and external carotid arteries were demonstrated to be 71cm/sec, 181 cm/sec and 145 cm/sec respectively. The left ICA/CCA ratio was 2.9. The proximal left internal carotid artery demonstrates 60% stenosis relative t o the normal distal artery lumen diameter. There was antegrade flow demonstrated in the bilateral vertebral arteries. Impression: Findings consistent with moderate degree stenosis (50-69%) of the proximal left internal carotid fernando ry. Consider CTA for further evaluation as indicated. Antegrade flow in the bilateral vertebral arteries. Note: The methodology used is an indirect measurement validated against a direct method (such as the NASCET criteria) that compares diameters at the stenosis to the distal ICA. Reviewed, dictated and finalized at location M. Impression: Findings consistent with moderate degree stenosis (50-69%) of the proximal left internal carotid artery. Consider CTA for further evaluation as indicated. Antegrade flow in the bilateral vertebral arteries. Note: The methodology used is an indirect measurement validated against a direct meth od (such as the NASCET criteria) that compares diameters at the stenosis to the distal ICA.
== END 2022-08-24 07:10 | disposition home or self-care (01) ==
LOC: CHSIMG 07:11
PROVIDERS: PCP Family Medicine; Visit Provider Family Medicine
DX: I65.29 Occlusion and stenosis of unspecified carotid artery (principal)
CPT/HCPCS: 93880

== ENCOUNTER 2022-09-02 09:12 | Outpatient (CLI) | payer OTHER, SELFPAY ==
--- NOTE | ~2022-09-02 | MR_ITS ---
EXAMINATION: MRA neck wo con DATE: 09/02/2022 09:45 INDICATION: Moderate stenosis of left carotid artery. TECHNIQUE: Magnetic resonance angiography (MRA) of the neck was performed without intravenous contras t. COMPARISON: Ultrasound 08/24/2022 FINDINGS: There is 0% stenosis of the proximal right internal carotid artery relative to normal distal artery l umen diameter (NASCET criteria). There is 30% stenosis of the proximal left internal carotid artery relative to normal distal artery lumen diameter. IMPRESSION: 1. 0% stenosis of the proximal right internal carotid artery relative to normal distal artery lumen d iameter (NASCET criteria). 2. 30% stenosis of the proximal left internal carotid artery relative to normal distal artery lumen d iameter. Reviewed, dictated and finalized at location A. IMPRESSION: 1. 0% stenosis of the proximal right internal carotid artery relative to normal distal artery lumen diameter (NASCET criteria). 2. 30% stenosis of the proximal left internal carotid artery relative to normal distal artery lumen diameter.
== END 2022-09-02 09:13 | disposition home or self-care (01) ==
LOC: CHSIMG 09:13
PROVIDERS: PCP Family Medicine; Visit Provider Family Medicine
DX: I65.22 Occlusion and stenosis of left carotid artery (principal)
CPT/HCPCS: 70547

== ENCOUNTER 2023-05-10 07:15 | Outpatient (CLI) | payer OTHER, SELFPAY ==
[2023-05-10 07:31] LABS: Basophils Absolute Auto 0.08 K/mm3 (0.00-0.10); Basophils Percent Auto 0.8 % (0.0-1.0); Eosinophils Absolute Auto 0.36 K/mm3 (0.02-0.50); Eosinophils Percent Auto 3.7 % (1.0-6.0); Hematocrit 41.6 % (40.0-54.0); Hemoglobin 13.9 g/dL (14.0-18.0); Immature Granulocyte Absolute 0.03 K/mm3 (0.00-0.00); Immature Granulocyte Percent A 0.3 % (0.0-0.0); Lymphocytes Absolute Auto 1.27 K/mm3 (1.10-4.50); Lymphocytes Percent Auto 12.9 % (18.0-42.0); Mean Corpuscular HGB Conc 33.4 g/dL (32-36); Mean Corpuscular Hemoglobin 28.2 pg (27.0-31.0); Mean Corpuscular Volume 84.4 fL (78.0-102.0); Mean Platelet Volume 10.2 fl (8.7-11.0); Monocytes Percent Auto 8.1 % (2.0-11.0); Neutrophils Absolute Auto 7.32 K/mm3 (1.70-7.20); Neutrophils Percent Auto 74.2 % (50.0-70.0); Platelet Count Result 219 K/mm3 (150-420); Red Blood Count 4.93 M/mm3 (4.70-6.10); Red Cell Distribution Width 12.6 % (11.6-14.4); White Blood Count 9.9 K/mm3 (4.8-10.8)
[2023-05-10 07:42] LABS: Hemoglobin A1C 7.9 % (<5.7)
[2023-05-10 08:29] LABS: Alanine Aminotransferase 40 U/L (16-63); Albumin Level 3.5 g/dL (3.4-5.0); Alkaline Phosphatase 117 U/L (46-116); Anion Gap 6 mmol/L (4-12); Aspartate Amino Transferase 16 U/L (15-37); Bilirubin,Total 0.7 mg/dL (0.00-1.00); Blood Urea Nitrogen 26 mg/dL (7-18); Carbon Dioxide 31 mmol/L (21-32); Chloride 100 mmol/L (98-108); Estimated Glomerular Filt Rate 48; Glucose 213 mg/dL (70-99); Osmolality Calculated 294 mOsm/kg (285-295); Potassium 4.8 mmol/L (3.5-5.1); Sodium 137 mmol/L (136-145); Thyroid Stimulating Hormone 1.88 uIU/mL (0.36-3.74); Total Protein 6.3 g/dL (6.4-8.2)
== END 2023-05-10 07:16 | disposition home or self-care (01) ==
LOC: CHSLAB 07:17
PROVIDERS: PCP Family Medicine; Visit Provider Family Medicine
DX: E11.42 Type 2 diabetes mellitus with diabetic polyneuropathy (principal)
CPT/HCPCS: 36415; 80053; 83036; 84443; 85025

== ENCOUNTER 2024-04-07 06:51 | Outpatient (CLI) | payer MEDICARE, MEDICAID, SELFPAY ==
[2024-04-07 07:06] LABS: Basophils Absolute Auto 0.07 K/mm3 (0.00-0.10); Basophils Percent Auto 0.8 % (0.0-1.0); Eosinophils Absolute Auto 0.48 K/mm3 (0.02-0.50); Eosinophils Percent Auto 5.2 % (1.0-6.0); Hematocrit 35.7 % (40.0-54.0); Hemoglobin 11.9 g/dL (14.0-18.0); Immature Granulocyte Absolute 0.03 K/mm3 (0.00-0.00); Immature Granulocyte Percent A 0.3 % (0.0-0.0); Lymphocytes Absolute Auto 1.53 K/mm3 (1.10-4.50); Lymphocytes Percent Auto 16.7 % (18.0-42.0); Mean Corpuscular HGB Conc 33.3 g/dL (32-36); Mean Corpuscular Hemoglobin 29.3 pg (27.0-31.0); Mean Corpuscular Volume 87.9 fL (78.0-102.0); Mean Platelet Volume 9.6 fl (8.7-11.0); Monocytes Absolute Auto 0.62 K/mm3 (0.10-0.90); Monocytes Percent Auto 6.8 % (2.0-11.0); Neutrophils Absolute Auto 6.42 K/mm3 (1.70-7.20); Neutrophils Percent Auto 70.2 % (50.0-70.0); Platelet Count Result 231 K/mm3 (150-420); Red Blood Count 4.06 M/mm3 (4.70-6.10); Red Cell Distribution Width 12.4 % (11.6-14.4); White Blood Count 9.2 K/mm3 (4.8-10.8)
[2024-04-07 07:07] LABS: Add Urine Microscopic? YES; Appearance Urine Clear (Clear); Bilirubin Urine Negative (Negative); Blood Urine Negative (Negative); Color Urine Light Yellow (Yellow); Glucose Urine UA 2+ (Negative); Ketones Urine Negative (Negative); Leukocyte Esterase Ur Negative (Negative); Nitrate Urine Negative (Negative); Protein Urine 2+ (Negative); Urobilinogen Urine 0.2 mg/dL (0.2-1.0)
[2024-04-07 07:53] LABS: Creatinine Urine 76.64 mg/dL (40-278)
[2024-04-07 07:56] LABS: Bacteria Urine Trace /hpf; RBC Urine 0-2 /hpf (0-2); Squamous Epithelial Cell Urine None Seen /hpf (Few); WBC Urine 0-3 /hpf (0-3)
[2024-04-07 08:04] LABS: Alanine Aminotransferase 34 U/L (16-63); Alkaline Phosphatase 91 U/L (46-116); Anion Gap 5 mmol/L (4-12); Aspartate Amino Transferase 18 U/L (15-37); Bilirubin,Total 0.5 mg/dL (0.00-1.00); Blood Urea Nitrogen 21 mg/dL (7-18); Calcium 8.6 mg/dL (8.5-10.1); Carbon Dioxide 35 mmol/L (21-32); Chloride 102 mmol/L (98-108); Estimated Glomerular Filt Rate 49; Glucose 87 mg/dL (70-99); Osmolality Calculated 296 mOsm/kg (285-295); Potassium 3.8 mmol/L (3.5-5.1); Sodium 142 mmol/L (136-145); Total Protein 5.8 g/dL (6.4-8.2)
[2024-04-07 08:06] LABS: Microalbumin Urine Random 305.8 mg/L
[2024-04-07 08:56] LABS: Hemoglobin A1C > 13.0 % (<5.7)
== END 2024-04-07 06:52 | disposition home or self-care (01) ==
PROVIDERS: PCP Family Medicine; Visit Provider Family Medicine
DX: E11.9 Type 2 diabetes mellitus without complications (principal); I10 Essential (primary) hypertension
CPT/HCPCS: 36415; 80053; 81001; 82043; 83036; 85025

== ENCOUNTER 2024-04-17 11:54 | Inpatient (IN) | payer MEDICARE, MEDICAID, SELFPAY ==
[2024-04-17] VITALS (18 sets, daily range): BP systolic 139–193; BP diastolic 65–98; PULSE 55–71; RESP 13–19; TEMP 36.7–37; O2SAT 19–100
--- NOTE | 2024-04-17 12:00 | PC.NURSE ---
patient blood glucose 59 on arrival. patient given juice at this time. will recheck blood glucose after drinking juice.
[2024-04-17 12:13] LABS: Glucose Point of Care 59 mg/dl (65-105)
[2024-04-17 12:16] LABS: Basophils Percent Auto 0.6 % (0.2-1.2); Eosinophils Absolute Auto 0.2 K/mm3 (0-0.3); Eosinophils Percent Auto 2.9 % (0-4.4); Hematocrit 33.8 % (42.0-52.0); Immature Granulocyte Absolute 0.03 K/mm3 (0.00-0.031); Immature Granulocyte Percent A 0.4 % (0-0.5); Lymphocytes Absolute Auto 0.98 K/mm3 (0.9-3.2); Lymphocytes Percent Auto 13.7 % (18.3-44.2); Mean Corpuscular HGB Conc 32.5 g/dl (32-36); Mean Corpuscular Hemoglobin 29.7 pg (26-34); Mean Corpuscular Volume 91.4 fl (80-100); Mean Platelet Volume 9.8 fl (7.4-10.4); Monocytes Absolute Auto 0.6 K/mm3 (0.1-0.6); Monocytes Percent Auto 8.5 % (2.6-8.5); Neutrophils Absolute Auto 5.3 K/mm3 (1.3-6.7); Neutrophils Percent Auto 73.9 % (45.5-73.1); Platelet Count Result 202 k/mm3 (150-375); Red Cell Distribution Width 13.2 % (11.5-14.5); White Blood Count 7.2 K/mm3 (4.5-10.0)
[2024-04-17] MEDS: GLUCOSE ORAL GEL 15 GM OF GLUCSE IN 37.5 GM TUBE PO (12:36)
[2024-04-17] MEDS: DEXTROSE 50% 25 GM/50 ML SYRINGE IV PUSH ×3 (12:40→14:39)
--- NOTE | 2024-04-17 12:40 | PC.NURSE ---
patient requested that i call his children and they come to the hospital. spoke with Hernando, the patients son at this time.
[2024-04-17 12:49] LABS: Anion Gap 8 mmol/L (4-12); Blood Urea Nitrogen 24 mg/dL (9-20); Calcium 8.7 mg/dL (8.4-10.2); Carbon Dioxide 27 mmol/L (22-30); Chloride 104 mmol/L (98-107); Estimated CRCL calculation 45 ml/min; Estimated Glomerular Filt Rate 51; Glucose 32 mg/dL (65-110); Potassium 3.2 mmol/L (3.4-5.0); Sodium 139 mmol/L (137-145)
[2024-04-17 12:55] LABS: Glucose Point of Care 31 mg/dl (65-105)
[2024-04-17 12:55] LABS: Glucose Point of Care 238 mg/dl (65-105)
--- NOTE | 2024-04-17 12:55 | PC.NURSE ---
educated pt to use call light with any urge to provide UA.
[2024-04-17 13:17] LABS: Glucose Point of Care 142 mg/dl (65-105)
[2024-04-17 13:37] LABS: Glucose Point of Care 114 mg/dl (65-105)
[2024-04-17] MEDS: DEXTROSE 5% 1,000 ML 1,000 ML 100 ML IVPB (13:46)
[2024-04-17] MEDS: KCL 20 MEQ/SW 100 ML 100 ML 50 MEQ IVPB (14:04)
--- NOTE | 2024-04-17 14:04 | ED_ITS ---
HPI - Recheck/Abnormal Lab/Rx General Chief Complaint: Recheck/Abnormal Lab/Rx Stated Complaint: low blood sugar resolved Time Seen by Provider: 04/17/24 13:20 History of Present Illness HPI narrative: 58-year-old male with a past medical history including insulin-dependent diabetes with a regimen including 130 units of morning Lantus, 36 units of short-acting lispro t.i.d. a.c.. Patient presents to the emergency department today with altered mental status and hypoglycemia. At work he was found have a blood glucose of 22, did take his dose of Lantus and list for this morning but did have a meal. He was recently started on his high-dose list pro on Sunday just 3 days ago by his primary care provider after previously being off of it for multiple years. Patient has been on his 130 units Lantus dose for many years without difficulty or complication. He was found have a blood sugar 22 received D10 EN route and improved his blood sugar to 248. Patient's mentation significantly improved. Presently states he is awake and not having any complaints such as nausea, vomiting, abdominal pain, diarrhea. Repeat blood sugar shows precipitous drop once again so he was provide D25. Brought back to room 14. For medical resuscitation and evaluation. No head trauma or fall. Otherwise appears well not any acute distress. No labored breathing or altered respiration pattern. Related Data Home Medications ?Medication ?Instructions ?Recorded ?Confirmed ?Last Taken ?Type citalopram 20 mg tablet 20 mg PO DAILY 09/23/19 04/17/24 02/12/21 History lisinopril 20 1 tablet PO BID 09/23/19 04/17/24 02/12/21 History mg-hydrochlorothiazide 12.5 mg tablet atorvastatin 80 mg tablet 1 tablet PO DAILY 08/20/21 04/17/24 Unknown History doxazosin 4 mg tablet 1 tablet PO DAILY 08/20/21 04/17/24 Unknown History metoprolol succinate 100 mg 1 tablet PO DAILY 08/20/21 04/17/24 Unknown History tablet,extended release 24 hr amoxicillin 875 mg tablet 875 mg PO Q12H 04/17/24 04/17/24 04/17/24 History insulin glargine 100 unit/mL (3 130 unit subcut DAILY 04/17/24 04/17/24 04/17/24 History mL) subcutaneous pen (Lantus Solostar U-100 Insulin) insulin lispro 100 unit/mL 36 unit subcut TIDWM 04/17/24 04/17/24 04/17/24 History subcutaneous pen (Humalog KwikPen (U-100) Insulin) Allergies Allergy/AdvReac Type Severity Reaction Status Date / Time No Known Allergies Allergy Verified 04/17/24 12:07 Review of Systems 2 Review of Systems: As reviewed above in [facility] Past Medical History Medical History Depression Cataracts, bilateral Hyperlipidemia Hypertension Type 2 diabetes mellitus Seasonal allergies Family History Family History Other Diabetes mellitus Heart disease Hypertension Social History Social History Smoking status: Never smoker Alcohol intake: never Alcohol use details: Occasional Substance use: never Do You Feel Safe in your Home?: Yes Lack of Transportation: No Lack of Food: Never True Current Housing: I Have Housing Concerned About Future Housing: No Difficulty Paying Gas/Electric Bills: No Difficulty Paying for Meds: No Currently Unemployed: No Education: High School Diploma/GED Difficulty w/ Childcare or Family Care: No Spiritual care concerns: No Exam 2 Narrative: GENERAL: [Well-appearing, well-nourished, and in no acute distress.] HEAD: [Normocephalic, atraumatic.] EYES: [PERRLA and EOMI.] ENT: Nares clear, no rhinorrhea or epistaxis. Mucous membranes moist. NECK: Supple. CHEST: [Clear to auscultation. No respiratory distress.] HEART: [Regular rate and rhythm]. No murmur heard. [Normal peripheral pulses.] ABDOMEN: [Soft, nondistended], [nontender], [No rigidity or guarding] EXTREMITIES: Normal range of motion. [No edema.] SKIN: Warm and dry extremities, dirt and Grime and the fingers and hands bilaterally. NEURO: [No focal deficits]. Alert and oriented [x3.] PSYCH: [Normal mood and affect.] Course Vital Signs Vital signs: Vital Signs Temperature 36.7 C 04/17/24 11:54 Pulse Rate 59 L 04/17/24 11:54 Respiratory Rate 13 04/17/24 11:54 Blood Pressure 178/85 H 04/17/24 11:54 Pulse Oximetry 97 04/17/24 11:54 Oxygen Delivery Room Air 04/17/24 11:54 Temperature 36.9 C 04/17/24 22:00 Pulse Rate 68 04/17/24 22:00 Respiratory Rate 14 04/17/24 22:00 Blood Pressure 153/77 H 04/17/24 22:00 Pulse Oximetry 99 04/17/24 22:00 Oxygen Delivery Room Air 04/17/24 20:00 MDM - Recheck/Abnormal Lab/Rx MDM Narrative Medical decision making narrative: 58-year-old male with a history of insulin-dependent diabetes with regimen including 130 units of Lantus q.a.m., 36 units of list pro t.i.d. a.c.. Recently started the list pro 3 days ago after being previously off of it for multiple years. Presents to the ER today with altered mental status and found to be profoundly hypoglycemic at 22. Received D10 and the 25 in route with improvement to 248 however upon repeat checks in the emergency department precipitous drop back down into the low range were detected he was given additional D25 and started on a D5 infusion. Differential includes hypoglycemia secondary to insulin overdose, infectious pathology less likely, no clinical signs of sepsis, no suspicion for adrenal insufficiency. Workup including CBC, CMP, EKG and chest x-ray obtained. He was placed on cardiac exercise physiologist and pulse oximetry. Acute 30 minute glucose checks were ordered and he was placed on D5 drip after several rounds of glucose checks showing rapidly decreasing glucose. No other diabetic agents such as metformin or sulfonylurea are in his medications supply list, will hold off on octreotide at this time. Workup shows no leukocytosis or anemia worse than baseline. Normal platelet count. Electrolytes show minor hypokalemia, BUN and creatinine similar to his baseline. Urinalysis without signs of infection. Patient free, re-evaluated with maintaining good mentation and vital signs, did require additional boluses of dextrose and uptitration is D5 drip. Will repeat evaluations until stable glucose regimen achieved. Patient's repeat blood sugars kept continuously dropping so his D5 was upgraded to D10 at 100 cc/hour. Given his q.1 hour glucose checks and D10 infusion for refractory hypoglycemia likely secondary is insulin he will require ICU admission at this time. Spoke to the fiber optic technician who accepted him to the ICU at this time and spoke to the hospitalist currently being covered by the midlevel provider Barbara who agreed with the admission. Medical Records Attestation: I reviewed the patient's medical records. Lab Data Attestation: I reviewed the patient's lab results. 04/17/24 12:08 04/17/24 12:08 Labs: Lab Results 04/17/24 04/17/24 04/17/24 Range/Units 11:59 12:08 12:34 WBC 7.2 (4.5-10.0) K/mm3 RBC 3.70 L (4.6-6.20) M/mm3 Hgb 11.0 L (14.0-18.0) g/dL Hct 33.8 L (42.0-52.0) % MCV 91.4 (80-100) fl MCH 29.7 (26-34) pg MCHC 32.5 (32-36) g/dl RDW 13.2 (11.5-14.5) % Plt Count 202 (150-375) k/mm3 MPV 9.8 (7.4-10.4) fl Immature Gran % (Auto) 0.4 (0-0.5) % Neut % (Auto) 73.9 H (45.5-73.1) % Lymph % (Auto) 13.7 L (18.3-44.2) % [place] % (Auto) 8.5 (2.6-8.5) % Eos % (Auto) 2.9 (0-4.4) % Baso % (Auto) 0.6 (0.2-1.2) % Lymph # (Auto) 0.98 (0.9-3.2) K/mm3 [place] # (Auto) 0.6 (0.1-0.6) K/mm3 Eos # (Auto) 0.2 (0-0.3) K/mm3 Baso # (Auto) 0.0 (0.0-0.1) K/mm3 Abs Immat Gran (auto) 0.03 (0.00-0.031) K/mm3 Absolute Neuts (auto) 5.3 (1.3-6.7) K/mm3 Absolute Nucleated RBC 0.000 (0.0-0.012) K/mm3 Nucleated RBC % 0.0 (0.0-0.2) % Sodium 139 (137-145) mmol/L Potassium 3.2 L (3.4-5.0) mmol/L Chloride 104 (98-107) mmol/L Carbon Dioxide 27 (22-30) mmol/L Anion Gap 8 (4-12) mmol/L BUN 24 H (9-20) mg/dL Creatinine 1.42 H (0.7-1.3) mg/dL Estim Creat Clear Calc 45 ml/min Estimated GFR 51 L (59 - ) Glucose 32 L* (65-110) mg/dL POC Capillary Glucose 59 L* 31 L* (65-105) mg/dl Calcium 8.7 (8.4-10.2) mg/dL 04/17/24 04/17/24 04/17/24 Range/Units 12:52 13:15 13:34 WBC (4.5-10.0) K/mm3 RBC (4.6-6.20) M/mm3 Hgb (14.0-18.0) g/dL Hct (42.0-52.0) % MCV (80-100) fl MCH (26-34) pg MCHC (32-36) g/dl RDW (11.5-14.5) % Plt Count (150-375) k/mm3 MPV (7.4-10.4) fl Immature Gran % (Auto) (0-0.5) % Neut % (Auto) (45.5-73.1) % Lymph % (Auto) (18.3-44.2) % [place] % (Auto) (2.6-8.5) % Eos % (Auto) (0-4.4) % Baso % (Auto) (0.2-1.2) % Lymph # (Auto) (0.9-3.2) K/mm3 [place] # (Auto) (0.1-0.6) K/mm3 Eos # (Auto) (0-0.3) K/mm3 Baso # (Auto) (0.0-0.1) K/mm3 Abs Immat Gran (auto) (0.00-0.031) K/mm3 Absolute Neuts (auto) (1.3-6.7) K/mm3 Absolute Nucleated RBC (0.0-0.012) K/mm3 Nucleated RBC % (0.0-0.2) % Sodium (137-145) mmol/L Potassium (3.4-5.0) mmol/L Chloride (98-107) mmol/L Carbon Dioxide (22-30) mmol/L Anion Gap (4-12) mmol/L BUN (9-20) mg/dL Creatinine (0.7-1.3) mg/dL Estim Creat Clear Calc ml/min Estimated GFR (59 - ) Glucose (65-110) mg/dL POC Capillary Glucose 238 H 142 H 114 H (65-105) mg/dl Calcium (8.4-10.2) mg/dL 04/17/24 04/17/24 Range/Units 14:04 14:33 WBC (4.5-10.0) K/mm3 RBC (4.6-6.20) M/mm3 Hgb (14.0-18.0) g/dL Hct (42.0-52.0) % MCV (80-100) fl MCH (26-34) pg MCHC (32-36) g/dl RDW (11.5-14.5) % Plt Count (150-375) k/mm3 MPV (7.4-10.4) fl Immature Gran % (Auto) (0-0.5) % Neut % (Auto) (45.5-73.1) % Lymph % (Auto) (18.3-44.2) % [place] % (Auto) (2.6-8.5) % Eos % (Auto) (0-4.4) % Baso % (Auto) (0.2-1.2) % Lymph # (Auto) (0.9-3.2) K/mm3 [place] # (Auto) (0.1-0.6) K/mm3 Eos # (Auto) (0-0.3) K/mm3 Baso # (Auto) (0.0-0.1) K/mm3 Abs Immat Gran (auto) (0.00-0.031) K/mm3 Absolute Neuts (auto) (1.3-6.7) K/mm3 Absolute Nucleated RBC (0.0-0.012) K/mm3 Nucleated RBC % (0.0-0.2) % Sodium (137-145) mmol/L Potassium (3.4-5.0) mmol/L Chloride (98-107) mmol/L Carbon Dioxide (22-30) mmol/L Anion Gap (4-12) mmol/L BUN (9-20) mg/dL Creatinine (0.7-1.3) mg/dL Estim Creat Clear Calc ml/min Estimated GFR (59 - ) Glucose (65-110) mg/dL POC Capillary Glucose 98 62 L (65-105) mg/dl Calcium (8.4-10.2) mg/dL Critical Care Time Critical Care Time Critical Care Time: Yes Total Critical Care Time: 75 Discharge Plan Discharge Clinical Impression: Hypoglycemia due to insulin, Acute alteration in mental status, Mental status change resolved Patient Disposition: Still a Patient Condition: Improved Time of Disposition: 14:40
[2024-04-17 14:12] LABS: Glucose Point of Care 98 mg/dl (65-105)
--- NOTE | 2024-04-17 14:12 | PC.NURSE ---
checked patient blood glucose and it was 96. notified provider who states to continue checking it every 30min and continue D5% infusion.
[2024-04-17] MEDS: DEXTROSE 10% 500 ML 100 ML IV CONT (14:39)
[2024-04-17] MEDS: POTASSIUM CHLORIDE 20 MEQ PACKET (FOR LIQUID) 40 MEQ PO (14:57)
[2024-04-17 15:08] LABS: Glucose Point of Care 62 mg/dl (65-105)
[2024-04-17 15:08] LABS: Glucose Point of Care 140 mg/dl (65-105)
--- OUTSIDE RECORDS SUMMARY | 2024-04-17 15:23 | XMS_ITS | Clinical Summary ---
Author Organization [facility] Address [address] [place] [address] Phone Care Team Providers Care Relay Shop Supervisor Name Role Phone Tobias Mckenzie MD Primary Care Provider [phone] Allergies No known active allergies Medications Medication Sig Dispensed Refills Start Date End Date Status Blood Glucose Monitoring Suppl (ONE TOUCH ULTRA 2) w/Device kit TEST BLOOD SUGAR ONCE DAILY DX. 250.00 E11.9 05/13/2021 Active OneTouch Ultra test strip USE FOR GLUCOSE TESTING 1 TIME DAILY AND RECORD E11.9 05/13/2021 Active Levemir FlexTouch 100 UNIT/ML injection INJECT 20 UNITS SUBCUTANEOUS ROUTE DAILY 05/15/2021 Active NovoFine Plus Pen Needle 32G X 4 MM misc 05/15/2021 Active OneTouch Delica Lancets 30G misc USE TO TEST BLOOD SUGAR UP TO ONCE DAILY E11.9 05/13/2021 Active lisinopril-hydroCHL OROthiazide (PRINZIDE) 20-12.5 MG per tablet 05/17/2021 Active metoprolol succinate XL (TOPROL-XL) 100 MG 24 hr tablet Take 100 mg by mouth 1 (one) time each day 05/13/2021 Active Rybelsus 7 MG tablet TAKE 1 TABLET BY MOUTH IN THE MORNING 30 MINS BEFORE ANY FOOD, DRINK, OR MEDS WITH PLAIN WATER 05/13/2021 Active Active Problems Problem Noted Date Diagnosed Date Nonspecific abnormal results of function study o f kidney 05/25/2021 Essential hypertension 05/25/2021 Diabetes mellitus without me ntion of complication, type II or unspecified type, not stated as uncontrolled 05/25/2021 Social History Tobacco Use Types Packs/Day Years Used Date Smoking Tobacco: Former Smokeless Tobacco: Never Alcohol Use Standard Drinks/Week Comments Yes 1 (1 standard drink = 0.6 oz pur e alcohol) Sex and Gender Information Value Date Recorded Sex Assigned at Not on file Gender Identity Not on file Sexual Orientation Not on file Last Filed Vital Signs Vital Sign Reading Time Taken Comments Blood Pressure 132/70 05/25/2021 1:49 PM CDT Pulse 72 05/25/2021 1:49 PM CDT Temperature 36.9 C (98.4 F) 05/25/2021 1:49 PM CDT Respiratory Rate - - Oxygen Saturation - - Inhaled Oxygen Concentration - - Weight 73 kg (161 lb) 05/25/2021 1:49 PM CDT Height 167.6 cm (5' 6 ) 05/25/2021 1:49 PM CDT Body Mass Index 25.99 05/25/2021 1:49 PM CDT Plan of Treatment Health Maintenance Due Date Last Done Comments Influenza Vaccine (#1) 2023 Care Teams Relay Shop Supervisor Relationship Specialty Start Date End Date Tobias Mckenzie MD [address] [place], [place] [id number] PCP - General Internal Medicine 05/17/21
[2024-04-17 15:39] LABS: Glucose Point of Care 105 mg/dl (65-105)
--- NOTE | 2024-04-17 16:14 | ADMGEN ---
This patient, Medhat Alonso , was admitted to Intensive Care Unit-7. Patient/family oriented to hospital policies and general routines including ID bracelet, bed and alarms, visiting hours, pain management, procedures, bathroom and other care routines, personal items, smoking policy, room service/diet, and visiting hours. Information on how to activate the Rapid Response Team has been discussed. Patient/Family are encouraged to report perceived risks to care and to ask questions if they do not understand what they are told or what they should do.
--- NOTE | 2024-04-17 16:34 | P.HP_ITS ---
H&P: HPI History of Present Illness Date/Time: 04/17/24 16:34 Chief Complaint: hypoglycemia Narrative: This is a 58-year-old male with a significant past medical history of insulin- dependent diabetes who presented to the hospital with low blood sugar reading and altered mental status. Patient states that his insulin regimen includes 130 units of morning Lantus, 36 units of short-acting list pro t.i.d. with meals which was recently prescribed by his primary care doctor on of last week. Patient admits to taking all of his insulin this morning as prescribed. He then ate waffles with syrup for breakfast and even snacked on some crackers on the way to work. While at work he said that is when he fell out and was Altered. EMS was called and patient was found to have a blood sugar of 22 and he received D10 EN route with improvement in his blood sugar to 248. His mentation also improved at that time. He continued to drop while in the ED and was given multiple amps of D25 ultimately grew requiring a D10 infusion. Workup in the hospital included initial labs which showed a normal white blood cell count of 7.2, hemoglobin 11.0, potassium 3.2, creatinine 1.42, EGFR 51, blood sugars ranging 32-59. Patient was given 60 mEq of potassium while in the ED along with dextrose. he will be admitted to ICU due to frequent blood glucose checks on a D10 infusion. Assistant Manager Of Operations, Dr. Trinidad was informed of admission by ED physician. Review of Systems Review of Systems: All systems reviewed & are unremarkable except as noted in HPI and below PMFSH Past Medical History Medical History Depression Cataracts, bilateral Hyperlipidemia Hypertension Type 2 diabetes mellitus Seasonal allergies Family History Family History Other Diabetes mellitus Heart disease Hypertension Social History Social History Smoking status: Never smoker Alcohol intake: never Alcohol use details: Occasional Substance use: never Do You Feel Safe in your Home?: Yes Lack of Transportation: No Lack of Food: Never True Current Housing: I Have Housing Concerned About Future Housing: No Difficulty Paying Gas/Electric Bills: No Difficulty Paying for Meds: No Currently Unemployed: No Education: High School Diploma/GED Difficulty w/ Childcare or Family Care: No Spiritual care concerns: No Meds Home Medications and Allergies Home Medications ?Medication ?Instructions ?Recorded ?Confirmed ?Type citalopram 20 mg tablet 20 mg PO DAILY 09/23/19 04/17/24 History lisinopril 20 1 tablet PO BID 09/23/19 04/17/24 History mg-hydrochlorothiazide 12.5 mg tablet atorvastatin 80 mg tablet 1 tablet PO DAILY 08/20/21 04/17/24 History doxazosin 4 mg tablet 1 tablet PO DAILY 08/20/21 04/17/24 History metoprolol succinate 100 mg 1 tablet PO DAILY 08/20/21 04/17/24 History tablet,extended release 24 hr amoxicillin 875 mg tablet 875 mg PO Q12H 04/17/24 04/17/24 History insulin glargine 100 unit/mL (3 130 unit subcut DAILY 04/17/24 04/17/24 History mL) subcutaneous pen (Lantus Solostar U-100 Insulin) insulin lispro 100 unit/mL 36 unit subcut TIDWM 04/17/24 04/17/24 History subcutaneous pen (Humalog KwikPen (U-100) Insulin) Allergies Allergy/AdvReac Type Severity Reaction Status Date / Time No Known Allergies Allergy Verified 04/17/24 12:07 Vital Signs Vital Signs - 24 hr 04/17/24 11:54 04/17/24 12:44 04/17/24 12:45 Temperature 98.1 F Pulse Rate 59 L 60 61 Respiratory Rate 13 14 13 Blood Pressure 178/85 H Pulse Oximetry 97 100 100 Oxygen Delivery Room Air 04/17/24 12:49 04/17/24 12:55 04/17/24 13:01 Temperature Pulse Rate 61 59 L Respiratory Rate 16 14 Blood Pressure 155/75 H 160/79 H Pulse Oximetry 99 99 99 Oxygen Delivery 04/17/24 13:16 04/17/24 13:31 04/17/24 13:33 Temperature Pulse Rate 58 L 55 L 58 L Respiratory Rate 14 14 14 Blood Pressure 159/75 H 169/80 H Pulse Oximetry 99 100 99 Oxygen Delivery 04/17/24 14:09 04/17/24 14:16 04/17/24 14:46 Temperature Pulse Rate 61 62 59 L Respiratory Rate 13 14 15 Blood Pressure 176/85 H 139/92 H 193/93 H Pulse Oximetry 99 100 99 Oxygen Delivery 04/17/24 15:18 04/17/24 15:38 04/17/24 15:45 Temperature Pulse Rate 62 61 66 Respiratory Rate 19 13 15 Blood Pressure 189/98 H Pulse Oximetry 19 L Oxygen Delivery Exam Narrative: General: In no acute distress, well nourished Head: atraumatic, no encephalopathy Eyes: PERRLA, sclera clear ENT: moist mucous membranes, nasal passages clear Neck: supple, no JVD, no adenopathy, trachea midline Cardiac: Normal S1 and S2. No murmur, gallops or friction rubs, peripheral pulses intact. Respiratory: Lungs clear to auscultation, no adventitious lung sounds, currently on room air Gastrointestinal: soft, non-distended, non-tender, normoactive bowel sounds. Reported diarrhea this morning. : voiding without difficulty. Extremities: moves all extremities well, no edema Skin: clean, dry, intact. No wounds or lesions. Neuro: Alert and oriented x4, cranial nerves intact, no neuro deficits. Psych: normal mood, normal affect, interactive H&P: Results Labs Labs: Short CBC 04/17/24 Range/Units 12:08 WBC 7.2 (4.5-10.0) K/mm3 Hgb 11.0 L (14.0-18.0) g/dL Hct 33.8 L (42.0-52.0) % Plt Count 202 (150-375) k/mm3 BMP 04/17/24 12:08 Sodium 139 Potassium 3.2 L Chloride 104 Carbon Dioxide 27 BUN 24 H Creatinine 1.42 H Glucose 32 L* Calcium 8.7 Assessment and Plan Assessment and plan (1) Hypoglycemia: Code(s): E16.2 - Hypoglycemia, unspecified Status: Acute Assessment and Plan: patient's home regimen for insulin is 130 units of Lantus in the morning along with 36 units of short-acting list pro t.i.d. with meals which was recently prescribed by his PCP. * initial blood sugar 22 * patient was given multiple amps of D50 while in the ED with improvement in mentation * continue D10 infusion * encourage p.o. intake * q.1 hour Accu-Cheks * admit to ICU for closer monitoring * Hold insulins for now (2) Type 2 diabetes mellitus: Code(s): E11.9 - Type 2 diabetes mellitus without complications Status: Acute Assessment and Plan: recently increased insulin needs by primary care doctor 3 days ago. * Blood sugars ranging 97-105 on D10 infusion * Hgb A1C >13.0 on 04/07/2024 * q.1 hour Accu-Cheks * holding insulin for now due to hypoglycemic episode, see above plan of care * continue D10 infusion * hypoglycemic protocol in place * Diabetic diet ordered * admit to ICU for closer monitoring (3) Hypokalemia: Code(s): E87.6 - Hypokalemia Status: Acute Assessment and Plan: * potassium initially 3.2 * patient given 60 mEq of potassium while in the ED * continue to trend (4) Hypertension: Code(s): I10 - Essential (primary) hypertension Status: Acute Assessment and Plan: * blood pressures ranging 139/92 to 193/93 * continue amlodipine, lisinopril/hydrochlorothiazide, metoprolol (5) CKD (chronic kidney disease): Code(s): N18.9 - Chronic kidney disease, unspecified Status: Inactive Assessment and Plan: * creatinine 1.42, EGFR 51 * appears to be at baseline (6) Hyperlipidemia: Code(s): E78.5 - Hyperlipidemia, unspecified Status: Acute Assessment and Plan: * continue atorvastatin Quality VTE Prophylaxis VTE prophylaxis: pharmacologic ordered Hospitalist MIPS Advance Care Plan I have confirmed that the patient's Advanced Care Plan is present, code status is documented, or surrogate decision maker is listed in patient medical record.: Yes Medication Reconciliation I have utilized all available resources to obtain, update and review the patients current medications (includes all prescriptions, OTC, herbals, cannabis, and nutritional supplements).: Yes
[2024-04-17 16:38] LABS: Glucose Point of Care 97 mg/dl (65-105)
[2024-04-17 16:47] LABS: Add Urine Microscopic? YES; Appearance Urine Clear (Clear); Bacteria Urine None Seen /hpf; Bilirubin Urine Negative (Negative); Blood Urine Negative (Negative); Color Urine Yellow (Yellow); Glucose Urine UA 2+ mg/dL (Negative); Ketones Urine Negative (Negative); Leukocyte Esterase Ur Negative LEU/UL (Negative); Nitrate Urine Negative (Negative); Non Pathogenic Casts 0-2; Protein Urine 2+ mg/dL (Negative); RBC Urine 0-2 /hpf (0-2); Specific Grav Ur 1.011 (1.001-1.035); Squamous Epithelial Cell Urine None Seen /hpf (Few); WBC Urine 0-5 /hpf (0-3); pH Urine 6.5 (5.0-9.0)
[2024-04-17 17:13] LABS: Glucose Point of Care 88 mg/dl (65-105)
[2024-04-17 17:54] LABS: MRSA (PCR) NOT DETECTED (NOT DETECTE)
[2024-04-17 18:08] LABS: Glucose Point of Care 142 mg/dl (65-105)
[2024-04-17 19:17] LABS: Glucose Point of Care 117 mg/dl (65-105)
[2024-04-17] MEDS: DEXTROSE 10% 500 ML 70 ML IV CONT (20:19)
[2024-04-17 20:24] LABS: Glucose Point of Care 110 mg/dl (65-105)
[2024-04-17 21:25] LABS: Glucose Point of Care 125 mg/dl (65-105)
[2024-04-17] MEDS: lisinopriL 20 MG TABLET PO (22:00)
[2024-04-17] MEDS: hydroCHLOROthiazide 12.5 MG CAPSULE PO (22:00)
[2024-04-17 22:23] LABS: Glucose Point of Care 133 mg/dl (65-105)
[2024-04-17 23:26] LABS: Glucose Point of Care 112 mg/dl (65-105)
[2024-04-18] VITALS (12 sets, daily range): BP systolic 131–178; BP diastolic 60–94; PULSE 63–79; RESP 12–18; TEMP 36.6–37.1; O2SAT 19–99; BMI 26.3
[2024-04-18 01:34] LABS: Glucose Point of Care 131 mg/dl (65-105)
[2024-04-18 01:41] LABS: Glucose Point of Care 141 mg/dl (65-105)
[2024-04-18 03:56] LABS: Basophils Absolute Auto 0.1 K/mm3 (0.0-0.1); Basophils Percent Auto 0.7 % (0.2-1.2); Eosinophils Absolute Auto 0.3 K/mm3 (0-0.3); Eosinophils Percent Auto 3.1 % (0-4.4); Hematocrit 33.1 % (42.0-52.0); Immature Granulocyte Absolute 0.03 K/mm3 (0.00-0.031); Immature Granulocyte Percent A 0.4 % (0-0.5); Lymphocytes Percent Auto 14.4 % (18.3-44.2); Mean Corpuscular HGB Conc 33.2 g/dl (32-36); Mean Corpuscular Hemoglobin 29.9 pg (26-34); Mean Corpuscular Volume 89.9 fl (80-100); Mean Platelet Volume 10.2 fl (7.4-10.4); Monocytes Absolute Auto 0.6 K/mm3 (0.1-0.6); Monocytes Percent Auto 7.2 % (2.6-8.5); Neutrophils Absolute Auto 6.2 K/mm3 (1.3-6.7); Neutrophils Percent Auto 74.2 % (45.5-73.1); Platelet Count Result 209 k/mm3 (150-375); Red Blood Count 3.68 M/mm3 (4.6-6.20); Red Cell Distribution Width 13.2 % (11.5-14.5); White Blood Count 8.4 K/mm3 (4.5-10.0)
[2024-04-18 04:07] LABS: Alanine Aminotransferase 20 U/L (6-50); Albumin Level 3.4 g/dL (3.5-5.1); Alkaline Phosphatase 72 U/L (38-126); Anion Gap 9 mmol/L (4-12); Aspartate Amino Transferase 18 U/L (17-59); Bilirubin,Total 0.8 mg/dL (0.2-1.3); Blood Urea Nitrogen 22 mg/dL (9-20); Calcium 8.5 mg/dL (8.4-10.2); Carbon Dioxide 23 mmol/L (22-30); Chloride 104 mmol/L (98-107); Estimated CRCL calculation 45 ml/min; Estimated Glomerular Filt Rate 51; Glucose 112 mg/dL (65-110); Magnesium 1.8 mg/dL (1.6-2.3); Phosphorus 3.5 mg/dL (2.5-4.5); Sodium 136 mmol/L (137-145)
[2024-04-18 04:48] LABS: Glucose Point of Care 114 mg/dl (65-105)
[2024-04-18 05:46] LABS: Glucose Point of Care 134 mg/dl (65-105)
[2024-04-18 06:52] LABS: Glucose Point of Care 154 mg/dl (65-105)
[2024-04-18] MEDS: METOPROLOL SUCCINATE EXT REL 100 MG TABCR PO (07:57)
[2024-04-18] MEDS: lisinopriL 20 MG TABLET PO ×2 (07:57→21:42)
[2024-04-18] MEDS: DOXAZOSIN MESYLATE 4 MG TABLET PO (07:58)
[2024-04-18] MEDS: hydroCHLOROthiazide 12.5 MG CAPSULE PO ×2 (07:58→21:42)
[2024-04-18] MEDS: ACETAMINOPHEN 325 MG TABLET 650 MG PO ×2 (07:58→21:41)
[2024-04-18] MEDS: ATORVASTATIN 40 MG TABLET 80 MG PO (07:58)
[2024-04-18] MEDS: CITALOPRAM HYDROBROMIDE 20 MG TABLET PO (07:59)
[2024-04-18] MEDS: ENOXAPARIN 40 MG/0.4 ML SYRINGE SUB-Q (07:59)
[2024-04-18 08:14] LABS: Glucose Point of Care 162 mg/dl (65-105)
[2024-04-18 11:16] LABS: Glucose Point of Care 198 mg/dl (65-105)
--- NOTE | 2024-04-18 12:31 | WPDCNINT ---
Assessment and Plan Assessment and plan (1) Hypoglycemia: Code(s): E16.2 - Hypoglycemia, unspecified Status: Acute Assessment and Plan: Patient presented with low blood sugars, altered mental status, upon arrival of the EMS blood sugars was 22, patient was given D50. In the ER patient remained hypoglycemic, received another amp of D 50, started on D10 infusion and transferred to the ICU for further management -patient was also given glucagon -OFF D10 infusion (2) Type 2 diabetes mellitus: Code(s): E11.9 - Type 2 diabetes mellitus without complications Status: Acute Assessment and Plan: Patient with resistant diabetes, takes Lantus 130 units daily at home, 30 units of humalog with meals -discussed with wellness educator -will start patient on high-dose sliding scale and Lantus of 40 -will calculate his basal rate according to how much sliding scale meantime insulin he requires. 04/07/24: Hemoglobin A1c >13.0 (3) Hypertension: Code(s): I10 - Essential (primary) hypertension Status: Acute Assessment and Plan: Continue hydrochlorothiazide, metoprolol, lisinopril (4) Hyperlipidemia: Code(s): E78.5 - Hyperlipidemia, unspecified Status: Acute Assessment and Plan: Continue atorvastatin Plan DVT prophylaxis: Lovenox Stress ulcer prophylaxis: Not indicated Nutrition: Diabetic diet Code Status: Full code Critical Care Time Spent: 47 minutes Due to a high probability of clinically significant, life threatening deterioration, the patient required my highest level of preparedness to intervene emergently and I personally spent this critical care time directly and personally managing the patient. This critical care time included obtaining a history; examining the patient; pulse oximetry; ordering and review of studies; arranging urgent treatment with development of a management plan; evaluation of patient's response to treatment; frequent reassessment; and discussions with other providers. It was exclusive of separately billable procedures and treating other patients and teaching time. Please see Assessment and Plan section and the rest of the note for further information on patient assessment and treatment This dictation may have been done utilizing a voice recognition system. Attempts have been made to correct errors. However, there may be uncorrected grammatical, spelling, and recognitions errors present. Occupational Health Technician Consult Note Consult date: 04/18/24 Reason for consult: Hyperglycemia, excessive insulin intake HPI: Medhat Alonso is a 58 year old male past medical history of depression, hyperlipidemia, essential hypertension, diabetes type 2 presented the ED with low blood sugar reading on his machine and altered mental status. In the ER he stated that he takes Lantus 130 units in the morning and 36 units of short-acting lispro 3 times a day with meals. This was recently prescribed by his primary care doctor on 04/10/24. EMS was called and patient was found have a blood sugar of 22, received D10 EN route with improvement in his blood sugars. Patient was started on D10 infusion in the ER and was transferred to the ICU. In the ER WBC count was 87.2, hemoglobin of 11, platelets of 202. Sodium was 139, potassium 3.2, CO2 27, BUN 24, creatinine 1.42, blood sugars 32. UA was unremarkable except for 2+ protein 2+ glucose. Patient was started on D10 infusion in the ICU. Blood sugars improved, patient is off the D10 infusion. 04/18/2024: Patient seen and examined the ICU, is awake, alert, oriented. He denies any alcohol, illicit drugs or tobacco use. Denies any chest pain, shortness of breath, abdominal pain, nausea, vomiting at this time. He requests names of primary care doctors. Urine output has been adequate, patient is afebrile, blood sugars have been stable Review of Systems Review of Systems: All systems reviewed & are unremarkable except as noted in HPI and below PMFSH Past Medical History Medical History Depression Cataracts, bilateral Hyperlipidemia Hypertension Type 2 diabetes mellitus Seasonal allergies Family History Family History Other Diabetes mellitus Heart disease Hypertension Social History Social History Smoking status: Never smoker Alcohol intake: never Alcohol use details: Occasional Substance use: never Do You Feel Safe in your Home?: Yes Lack of Transportation: No Lack of Food: Never True Current Housing: I Have Housing Concerned About Future Housing: No Difficulty Paying Gas/Electric Bills: No Difficulty Paying for Meds: No Currently Unemployed: No Education: High School Diploma/GED Difficulty w/ Childcare or Family Care: No Spiritual care concerns: No Meds Home Medications and Allergies Home Medications ?Medication ?Instructions ?Recorded ?Confirmed ?Type citalopram 20 mg tablet 20 mg PO DAILY 09/23/19 04/17/24 History lisinopril 20 1 tablet PO BID 09/23/19 04/17/24 History mg-hydrochlorothiazide 12.5 mg tablet atorvastatin 80 mg tablet 1 tablet PO DAILY 08/20/21 04/17/24 History doxazosin 4 mg tablet 1 tablet PO DAILY 08/20/21 04/17/24 History metoprolol succinate 100 mg 1 tablet PO DAILY 08/20/21 04/17/24 History tablet,extended release 24 hr amoxicillin 875 mg tablet 875 mg PO Q12H 04/17/24 04/17/24 History insulin glargine 100 unit/mL (3 130 unit subcut DAILY 04/17/24 04/17/24 History mL) subcutaneous pen (Lantus Solostar U-100 Insulin) insulin lispro 100 unit/mL 36 unit subcut TIDWM 04/17/24 04/17/24 History subcutaneous pen (Humalog KwikPen (U-100) Insulin) Allergies Allergy/AdvReac Type Severity Reaction Status Date / Time No Known Allergies Allergy Verified 04/17/24 12:07 Vital Signs Vital Signs - 24 hr 04/17/24 12:44 04/17/24 12:45 04/17/24 12:49 Temperature Pulse Rate 60 61 Respiratory Rate 14 13 Blood Pressure Pulse Oximetry 100 100 99 Oxygen Delivery 04/17/24 12:55 04/17/24 13:01 04/17/24 13:16 Temperature Pulse Rate 61 59 L 58 L Respiratory Rate 16 14 14 Blood Pressure 155/75 H 160/79 H 159/75 H Pulse Oximetry 99 99 99 Oxygen Delivery 04/17/24 13:31 04/17/24 13:33 04/17/24 14:09 Temperature Pulse Rate 55 L 58 L 61 Respiratory Rate 14 14 13 Blood Pressure 169/80 H 176/85 H Pulse Oximetry 100 99 99 Oxygen Delivery 04/17/24 14:16 04/17/24 14:46 04/17/24 15:18 Temperature Pulse Rate 62 59 L 62 Respiratory Rate 14 15 19 Blood Pressure 139/92 H 193/93 H Pulse Oximetry 100 99 Oxygen Delivery 04/17/24 15:38 04/17/24 15:45 04/17/24 18:00 Temperature Pulse Rate 61 66 66 Respiratory Rate 13 15 Blood Pressure 189/98 H Pulse Oximetry 19 L Oxygen Delivery 04/17/24 20:00 04/17/24 20:00 04/17/24 20:00 Temperature 98.6 F Pulse Rate 66 71 71 Respiratory Rate 15 18 Blood Pressure 157/65 H Pulse Oximetry 19 L 98 Oxygen Delivery Room Air 04/17/24 22:00 04/17/24 22:00 04/18/24 00:00 Temperature 98.4 F Pulse Rate 68 68 66 Respiratory Rate 14 15 Blood Pressure 153/77 H Pulse Oximetry 99 19 L Oxygen Delivery Room Air 04/18/24 00:00 04/18/24 00:00 04/18/24 02:00 Temperature 97.9 F Pulse Rate 73 73 63 Respiratory Rate 13 Blood Pressure 154/69 H Pulse Oximetry 96 Oxygen Delivery 04/18/24 02:00 04/18/24 04:00 04/18/24 04:00 Temperature Pulse Rate 63 66 65 Respiratory Rate 13 15 Blood Pressure 139/60 Pulse Oximetry 94 19 L Oxygen Delivery Room Air 04/18/24 04:00 04/18/24 06:00 04/18/24 06:00 Temperature 98.7 F Pulse Rate 65 68 68 Respiratory Rate 12 12 Blood Pressure 156/84 H 166/94 H Pulse Oximetry 93 96 Oxygen Delivery 04/18/24 07:57 04/18/24 08:00 04/18/24 08:00 Temperature 98.2 F Pulse Rate 71 72 Respiratory Rate 16 Blood Pressure 178/94 H Pulse Oximetry 96 97 Oxygen Delivery Room Air 04/18/24 09:19 Temperature Pulse Rate Respiratory Rate Blood Pressure Pulse Oximetry 97 Oxygen Delivery Room Air Exam Narrative: General: Pleasant gentleman in no acute distress HEENT:? Pupils equal and reactive, sclera is clear Neck:? Supple Respiratory:? Clear to auscultation bilaterally, no wheezing, adequate air entry Cardiac:? S1-S2 is normal, regular rate and rhythm Abdomen:? Soft, nontender, nondistended, normoactive bowel sounds Extremities:? No edema, palpable pedal pulses Neuro:? Patient is awake, alert, oriented, nonfocal Skin:? No skin lesions noted Psych:? Normal mentation and affect Results Labs 04/18/24 03:46 04/18/24 03:45 Labs: Short CBC 04/18/24 Range/Units 03:46 WBC 8.4 (4.5-10.0) K/mm3 Hgb 11.0 L (14.0-18.0) g/dL Hct 33.1 L (42.0-52.0) % Plt Count 209 (150-375) k/mm3 BMP 04/17/24 04/18/24 12:08 03:45 Sodium 139 136 L Potassium 3.2 L 4.0 Chloride 104 104 Carbon Dioxide 27 23 BUN 24 H 22 H Creatinine 1.42 H 1.43 H Glucose 32 L* 112 H Calcium 8.7 8.5 Liver Function 04/18/24 Range/Units 03:45 Total Bilirubin 0.8 (0.2-1.3) mg/dL AST 18 (17-59) U/L ALT 20 (6-50) U/L Alkaline Phosphatase 72 (38-126) U/L Albumin 3.4 L (3.5-5.1) g/dL Urine 04/17/24 Range/Units 16:34 Urine Color Yellow (Yellow) Urine Appearance Clear (Clear) Urine pH 6.5 (5.0-9.0) Ur Specific [place] 1.011 (1.001-1.035) Urine Protein 2+ H (Negative) mg/dL Urine Glucose (UA) 2+ H (Negative) mg/dL Quality VTE Prophylaxis VTE prophylaxis: pharmacologic ordered Hospitalist MIPS Advance Care Plan I have confirmed that the patient's Advanced Care Plan is present, code status is documented, or surrogate decision maker is listed in patient medical record.: Yes Medication Reconciliation I have utilized all available resources to obtain, update and review the patients current medications (includes all prescriptions, OTC, herbals, cannabis, and nutritional supplements).: Yes
--- NOTE | 2024-04-18 13:12 | PC.NURSE ---
This RN gave report to receiving RNToni. The patient transferred to [facility] [place] room 322-02.
--- NOTE | 2024-04-18 13:15 | ADMGEN ---
This patient, Medhat Alonso, was transferred to [facility]. Patient/family oriented to hospital policies and general routines including ID bracelet, bed and alarms, visiting hours, pain management, procedures, bathroom and other care routines, personal items, smoking policy, room service/diet, and visiting hours. Information on how to activate the Rapid Response Team has been discussed. Patient/Family are encouraged to report perceived risks to care and to ask questions if they do not understand what they are told or what they should do.
--- OUTSIDE RECORDS SUMMARY | 2024-04-18 13:36 | XMS_ITS | Clinical Summary ---
Author Organization [facility] Address [address] [place] [address] Phone Care Team Providers Care Auditor Internal Name Role Phone Tobias Mckenzie MD Primary Care Provider [phone] Allergies No known active allergies Medications Medication [...] Comments Influenza Vaccine (#1) 2023 Care Teams Auditor Internal Relationship Specialty Start Date End Date Tobias Mckenzie MD [address], [place] [id number] PCP - General Internal Medicine 05/17/21
[2024-04-18] MEDS: hydrALAZINE HCL 20 MG/ML VIAL IV PUSH (14:18)
[2024-04-18] MEDS: INSULIN GLARGINE (*BKC) 100 UNITS/ML 40 UNITS SUB-Q (14:18)
[2024-04-18 16:42] LABS: Glucose Point of Care 237 mg/dl (65-105)
--- NOTE | 2024-04-18 16:49 | P.PNIM_ITS ---
Progress Note: A&P Assessment and Plan (1) Hypoglycemia: Code(s): E16.2 - Hypoglycemia, unspecified Status: Acute Assessment and Plan: patient's home regimen for insulin is 130 units of Lantus in the morning along with 36 units of short-acting list pro t.i.d. with meals which was recently prescribed by his PCP. * initial blood sugar 22 * patient was given multiple amps of D50 while in the ED with improvement in mentation * continue D10 infusion * encourage p.o. intake * q.1 hour Accu-Cheks * admit to ICU for closer monitoring * Hold insulins for now (2) Type 2 diabetes mellitus: Code(s): E11.9 - Type 2 diabetes mellitus without complications Status: Acute Assessment and Plan: recently increased insulin needs by primary care doctor 3 days ago. * Blood sugars ranging 97-105 on D10 infusion * Hgb A1C >13.0 on 04/07/2024 * q.1 hour Accu-Cheks * holding insulin for now due to hypoglycemic episode, see above plan of care * continue D10 infusion * hypoglycemic protocol in place * Diabetic diet ordered * admit to ICU for closer monitoring (3) Hypokalemia: Code(s): E87.6 - Hypokalemia Status: Acute Assessment and Plan: * potassium initially 3.2 * patient given 60 mEq of potassium while in the ED * continue to trend (4) Hypertension: Code(s): I10 - Essential (primary) hypertension Status: Acute Assessment and Plan: * blood pressures ranging 139/92 to 193/93 * continue amlodipine, lisinopril/hydrochlorothiazide, metoprolol (5) CKD (chronic kidney disease): Code(s): N18.9 - Chronic kidney disease, unspecified Status: Inactive Assessment and Plan: * creatinine 1.42, EGFR 51 * appears to be at baseline (6) Hyperlipidemia: Code(s): E78.5 - Hyperlipidemia, unspecified Status: Acute Assessment and Plan: * continue atorvastatin Plan patient presented with hypoglycemia with history diabetes patient is taking takes Lantus 130 units daily at home, 30 units of humalog with meals, when patient was seen by EMS his blood sugar was 22, patient was given D10 and started on D10 infusion, initially admitted into ICU, now his blood sugars trending up, will had adult educator consult the patient and will monitor. Subjective Date/time seen: 04/18/24 16:49 Interval history: patient presented with hypoglycemia with history diabetes patient is taking takes Lantus 130 units daily at home, 30 units of humalog with meals, when patient was seen by EMS his blood sugar was 22, patient was given D10 and started on D10 infusion, initially admitted into ICU, now his blood sugars trending up, will had adult educator consult the patient and will monitor. Review of Systems Review of Systems: All systems reviewed & are unremarkable except as noted in HPI and below Exam Narrative: Patient is comfortable, NAD HEENT: eyes are clear and none icteric LUNGS:CTA HEART: RR S1S2 ABD: BS+, Soft and nontender Lower extremities: no edema SKIN: nonjaundiced Neuro: grossly intact. Objective Data Vital Signs Vital Signs: Vital Signs - 24 hr 04/17/24 18:00 04/17/24 20:00 04/17/24 20:00 Temperature Pulse Rate 66 66 71 Respiratory Rate 15 Blood Pressure Pulse Oximetry 19 L Oxygen Delivery Room Air 04/17/24 20:00 04/17/24 22:00 04/17/24 22:00 Temperature 37.0 C 36.9 C Pulse Rate 71 68 68 Respiratory Rate 18 14 Blood Pressure 157/65 H 153/77 H Pulse Oximetry 98 99 Oxygen Delivery 04/18/24 00:00 04/18/24 00:00 04/18/24 00:00 Temperature 36.6 C Pulse Rate 66 73 73 Respiratory Rate 15 13 Blood Pressure 154/69 H Pulse Oximetry 19 L 96 Oxygen Delivery Room Air 04/18/24 02:00 04/18/24 02:00 04/18/24 04:00 Temperature Pulse Rate 63 63 66 Respiratory Rate 13 15 Blood Pressure 139/60 Pulse Oximetry 94 19 L Oxygen Delivery Room Air 04/18/24 04:00 04/18/24 04:00 04/18/24 06:00 Temperature 37.1 C Pulse Rate 65 65 68 Respiratory Rate 12 Blood Pressure 156/84 H Pulse Oximetry 93 Oxygen Delivery 04/18/24 06:00 04/18/24 07:57 04/18/24 08:00 Temperature 36.8 C Pulse Rate 68 71 72 Respiratory Rate 12 16 Blood Pressure 166/94 H 178/94 H Pulse Oximetry 96 96 Oxygen Delivery 04/18/24 08:00 04/18/24 09:19 04/18/24 13:29 Temperature Pulse Rate 72 Respiratory Rate 16 Blood Pressure Pulse Oximetry 97 97 97 Oxygen Delivery Room Air Room Air Room Air 04/18/24 13:50 04/18/24 14:15 04/18/24 14:51 Temperature 36.9 C Pulse Rate 66 79 Respiratory Rate Blood Pressure 158/74 H 160/87 H 131/63 Pulse Oximetry 99 97 Oxygen Delivery Intake/Output Intake/Output: Intake & Output 04/15/24 04/16/24 04/17/24 04/18/24 23:59 23:59 23:59 23:59 Intake Total 1006.2 608.3 Output Total 1400 750 Balance -393.8 -141.7 Meds/Results Medications: Active Medications Generic Name Dose Route Start Last Admin Trade Name Freq PRN Reason Stop Dose Admin Acetaminophen 650 mg 04/17/24 14:40 04/18/24 07:58 Acetaminophen 325 Mg Tablet PO 650 mg Q4H PRN Administration Mild Pain (1-3) or Fever Atorvastatin Calcium 80 mg 04/18/24 09:00 04/18/24 07:58 Atorvastatin 40 Mg Tablet PO 80 mg DAILY BART Administration Citalopram Hydrobromide 20 mg 04/18/24 09:00 04/18/24 07:59 Citalopram Hydrobromide 20 Mg Tablet PO 20 mg DAILY BART Administration Dextrose 12.5 gm 04/18/24 12:45 Dextrose 50% 25 Gm/50 Ml Syringe IV PUSH PRN PRN Hypoglycemia Protocol Doxazosin Mesylate 4 mg 04/18/24 09:00 04/18/24 07:58 Doxazosin Mesylate 4 Mg Tablet PO 4 mg DAILY BART Administration Enoxaparin Sodium 40 mg 04/18/24 09:00 04/18/24 07:59 Enoxaparin 40 Mg/0.4 Ml Syringe SUB-Q 40 mg DAILY BART Administration Glucagon 1 mg 04/18/24 12:45 Glucagon For Inj 1 Mg Vial IM PRN PRN Hypoglycemia Protocol Glucose 15 gm 04/18/24 12:45 Glucose Oral Gel 15 Gm Of Glucse In 37.5 Gm Tube PO PRN PRN Hypoglycemia Protocol Hydralazine HCl 20 mg 04/17/24 17:00 04/18/24 14:18 Hydralazine Hcl 20 Mg/Ml Vial IV PUSH 20 mg Q4HR PRN Administration Hypertension Hydrochlorothiazide 12.5 mg 04/17/24 21:00 04/18/24 07:58 Hydrochlorothiazide 12.5 Mg Capsule PO 12.5 mg Q12HR BART Administration Dextrose 1,000 mls @ 100 mls/hr 04/18/24 12:45 Dextrose 5% 1,000 Ml IVPB PRN PRN Hypoglycemia Protocol Insulin Aspart 2 - 4 units 04/18/24 21:00 Insulin Aspart (*Bkc) 100 Units/Ml SUB-Q HS [facility] Protocol Insulin Aspart 4 - 8 units 04/18/24 13:00 04/18/24 13:19 Insulin Aspart (*Bkc) 100 Units/Ml SUB-Q Not Given TIDWM [facility] Protocol Insulin Glargine 40 units 04/18/24 12:54 04/18/24 14:18 Insulin Glargine (*Bkc) 100 Units/Ml SUB-Q 40 units DAILY BART Administration Lisinopril 20 mg 04/17/24 21:00 04/18/24 07:57 Lisinopril 20 Mg Tablet PO 20 mg Q12HR BART Administration Metoprolol Succinate 100 mg 04/18/24 09:00 04/18/24 07:57 Metoprolol Succinate Ext Rel 100 Mg Tabcr PO 100 mg DAILY BART Administration Ondansetron HCl 4 mg 04/17/24 14:40 Ondansetron Inj 4 Mg/2 Ml Vial IV PUSH Q4H PRN Nausea Labs Labs: Laboratory Results - last 24 hr 04/17/24 04/17/24 04/17/24 16:34 17:06 18:04 WBC RBC Hgb Hct MCV MCH MCHC RDW Plt Count MPV Immature Gran % (Auto) Neut % (Auto) Lymph % (Auto) [place] % (Auto) Eos % (Auto) Baso % (Auto) Lymph # (Auto) [place] # (Auto) Eos # (Auto) Baso # (Auto) Abs Immat Gran (auto) Absolute Neuts (auto) Absolute Nucleated RBC Nucleated RBC % Sodium Potassium Chloride Carbon Dioxide Anion Gap BUN Creatinine Estim Creat Clear Calc Estimated GFR Glucose POC Capillary Glucose 88 142 H Calcium Phosphorus Magnesium Total Bilirubin AST ALT Alkaline Phosphatase Total Protein Albumin Urine Color Yellow Urine Appearance Clear Urine pH 6.5 Ur Specific [place] 1.011 Urine Protein 2+ H Urine Glucose (UA) 2+ H Urine Ketones Negative Ur Blood (Man) Negative Urine Nitrate Negative Urine Bilirubin Negative Urine Urobilinogen 1.0 Leukocyte Esterase Rfl Negative Urine RBC 0-2 Urine WBC 0-5 Ur Squamous Epith Cells None seen Urine Bacteria None seen Urine Casts 0-2 Nasal MRSA (PCR) Not detected 04/17/24 04/17/24 04/17/24 19:14 20:22 21:23 WBC RBC Hgb Hct MCV MCH MCHC RDW Plt Count MPV Immature Gran % (Auto) Neut % (Auto) Lymph % (Auto) [place] % (Auto) Eos % (Auto) Baso % (Auto) Lymph # (Auto) [place] # (Auto) Eos # (Auto) Baso # (Auto) Abs Immat Gran (auto) Absolute Neuts (auto) Absolute Nucleated RBC Nucleated RBC % Sodium Potassium Chloride Carbon Dioxide Anion Gap BUN Creatinine Estim Creat Clear Calc Estimated GFR Glucose POC Capillary Glucose 117 H 110 H 125 H Calcium Phosphorus Magnesium Total Bilirubin AST ALT Alkaline Phosphatase Total Protein Albumin Urine Color Urine Appearance Urine pH Ur Specific [place] Urine Protein Urine Glucose (UA) Urine Ketones Ur Blood (Man) Urine Nitrate Urine Bilirubin Urine Urobilinogen Leukocyte Esterase Rfl Urine RBC Urine WBC Ur Squamous Epith Cells Urine Bacteria Urine Casts Nasal MRSA (PCR) 04/17/24 04/17/24 04/18/24 22:17 23:24 00:40 WBC RBC Hgb Hct MCV MCH MCHC RDW Plt Count MPV Immature Gran % (Auto) Neut % (Auto) Lymph % (Auto) [place] % (Auto) Eos % (Auto) Baso % (Auto) Lymph # (Auto) [place] # (Auto) Eos # (Auto) Baso # (Auto) Abs Immat Gran (auto) Absolute Neuts (auto) Absolute Nucleated RBC Nucleated RBC % Sodium Potassium Chloride Carbon Dioxide Anion Gap BUN Creatinine Estim Creat Clear Calc Estimated GFR Glucose POC Capillary Glucose 133 H 112 H 141 H Calcium Phosphorus Magnesium Total Bilirubin AST ALT Alkaline Phosphatase Total Protein Albumin Urine Color Urine Appearance Urine pH Ur Specific [place] Urine Protein Urine Glucose (UA) Urine Ketones Ur Blood (Man) Urine Nitrate Urine Bilirubin Urine Urobilinogen Leukocyte Esterase Rfl Urine RBC Urine WBC Ur Squamous Epith Cells Urine Bacteria Urine Casts Nasal MRSA (PCR) 04/18/24 04/18/24 04/18/24 01:32 02:47 03:45 WBC RBC Hgb Hct MCV MCH MCHC RDW Plt Count MPV Immature Gran % (Auto) Neut % (Auto) Lymph % (Auto) [place] % (Auto) Eos % (Auto) Baso % (Auto) Lymph # (Auto) [place] # (Auto) Eos # (Auto) Baso # (Auto) Abs Immat Gran (auto) Absolute Neuts (auto) Absolute Nucleated RBC Nucleated RBC % Sodium 136 L Potassium 4.0 Chloride 104 Carbon Dioxide 23 Anion Gap 9 BUN 22 H Creatinine 1.43 H Estim Creat Clear Calc 45 Estimated GFR 51 L Glucose 112 H POC Capillary Glucose 131 H 114 H Calcium 8.5 Phosphorus 3.5 Magnesium 1.8 Total Bilirubin 0.8 AST 18 ALT 20 Alkaline Phosphatase 72 Total Protein 6.0 L Albumin 3.4 L Urine Color Urine Appearance Urine pH Ur Specific [place] Urine Protein Urine Glucose (UA) Urine Ketones Ur Blood (Man) Urine Nitrate Urine Bilirubin Urine Urobilinogen Leukocyte Esterase Rfl Urine RBC Urine WBC Ur Squamous Epith Cells Urine Bacteria Urine Casts Nasal MRSA (PCR) 04/18/24 04/18/24 04/18/24 03:46 05:44 06:50 WBC 8.4 RBC 3.68 L Hgb 11.0 L Hct 33.1 L MCV 89.9 MCH 29.9 MCHC 33.2 RDW 13.2 Plt Count 209 MPV 10.2 Immature Gran % (Auto) 0.4 Neut % (Auto) 74.2 H Lymph % (Auto) 14.4 L [place] % (Auto) 7.2 Eos % (Auto) 3.1 Baso % (Auto) 0.7 Lymph # (Auto) 1.20 [place] # (Auto) 0.6 Eos # (Auto) 0.3 Baso # (Auto) 0.1 Abs Immat Gran (auto) 0.03 Absolute Neuts (auto) 6.2 Absolute Nucleated RBC 0.000 Nucleated RBC % 0.0 Sodium Potassium Chloride Carbon Dioxide Anion Gap BUN Creatinine Estim Creat Clear Calc Estimated GFR Glucose POC Capillary Glucose 134 H 154 H Calcium Phosphorus Magnesium Total Bilirubin AST ALT Alkaline Phosphatase Total Protein Albumin Urine Color Urine Appearance Urine pH Ur Specific [place] Urine Protein Urine Glucose (UA) Urine Ketones Ur Blood (Man) Urine Nitrate Urine Bilirubin Urine Urobilinogen Leukocyte Esterase Rfl Urine RBC Urine WBC Ur Squamous Epith Cells Urine Bacteria Urine Casts Nasal MRSA (PCR) 04/18/24 04/18/24 04/18/24 07:57 11:13 16:35 WBC RBC Hgb Hct MCV MCH MCHC RDW Plt Count MPV Immature Gran % (Auto) Neut % (Auto) Lymph % (Auto) [place] % (Auto) Eos % (Auto) Baso % (Auto) Lymph # (Auto) [place] # (Auto) Eos # (Auto) Baso # (Auto) Abs Immat Gran (auto) Absolute Neuts (auto) Absolute Nucleated RBC Nucleated RBC % Sodium Potassium Chloride Carbon Dioxide Anion Gap BUN Creatinine Estim Creat Clear Calc Estimated GFR Glucose POC Capillary Glucose 162 H 198 H 237 H Calcium Phosphorus Magnesium Total Bilirubin AST ALT Alkaline Phosphatase Total Protein Albumin Urine Color Urine Appearance Urine pH Ur Specific [place] Urine Protein Urine Glucose (UA) Urine Ketones Ur Blood (Man) Urine Nitrate Urine Bilirubin Urine Urobilinogen Leukocyte Esterase Rfl Urine RBC Urine WBC Ur Squamous Epith Cells Urine Bacteria Urine Casts Nasal MRSA (PCR) Quality VTE Prophylaxis VTE prophylaxis: pharmacologic ordered
[2024-04-18] MEDS: INSULIN ASPART (*BKC) 100 UNITS/ML SUB-Q ×2 (16:57→21:42)
[2024-04-18 21:37] LABS: Glucose Point of Care 238 mg/dl (65-105)
[2024-04-19 03:48] VITALS: BP 176/78; PULSE 66; RESP 16; TEMP 36.8; O2SAT 100
[2024-04-19 05:51] VITALS: BP 180/88
[2024-04-19] MEDS: hydrALAZINE HCL 20 MG/ML VIAL IV PUSH (05:55)
[2024-04-19 06:42] VITALS: BP 139/59
[2024-04-19 06:57] LABS: Basophils Absolute Auto 0.1 K/mm3 (0.0-0.1); Basophils Percent Auto 0.7 % (0.2-1.2); Eosinophils Absolute Auto 0.3 K/mm3 (0-0.3); Eosinophils Percent Auto 4.4 % (0-4.4); Hematocrit 34.5 % (42.0-52.0); Hemoglobin 11.5 g/dL (14.0-18.0); Immature Granulocyte Absolute 0.03 K/mm3 (0.00-0.031); Immature Granulocyte Percent A 0.4 % (0-0.5); Lymphocytes Absolute Auto 1.14 K/mm3 (0.9-3.2); Lymphocytes Percent Auto 16.6 % (18.3-44.2); Mean Corpuscular HGB Conc 33.3 g/dl (32-36); Mean Corpuscular Hemoglobin 29.9 pg (26-34); Mean Corpuscular Volume 89.6 fl (80-100); Monocytes Absolute Auto 0.6 K/mm3 (0.1-0.6); Monocytes Percent Auto 8.9 % (2.6-8.5); Neutrophils Absolute Auto 4.7 K/mm3 (1.3-6.7); Platelet Count Result 194 k/mm3 (150-375); Red Blood Count 3.85 M/mm3 (4.6-6.20); Red Cell Distribution Width 13.2 % (11.5-14.5); White Blood Count 6.9 K/mm3 (4.5-10.0)
[2024-04-19 07:09] LABS: Alanine Aminotransferase 22 U/L (6-50); Albumin Level 3.5 g/dL (3.5-5.1); Alkaline Phosphatase 84 U/L (38-126); Anion Gap 8 mmol/L (4-12); Aspartate Amino Transferase 17 U/L (17-59); Blood Urea Nitrogen 26 mg/dL (9-20); Calcium 8.8 mg/dL (8.4-10.2); Carbon Dioxide 25 mmol/L (22-30); Chloride 105 mmol/L (98-107); Estimated CRCL calculation 46 ml/min; Estimated Glomerular Filt Rate 52; Glucose 156 mg/dL (65-110); Potassium 3.8 mmol/L (3.4-5.0); Sodium 138 mmol/L (137-145)
[2024-04-19 08:07] LABS: Glucose Point of Care 160 mg/dl (65-105)
[2024-04-19] MEDS: INSULIN GLARGINE (*BKC) 100 UNITS/ML 40 UNITS SUB-Q (09:11)
[2024-04-19] MEDS: CITALOPRAM HYDROBROMIDE 20 MG TABLET PO (09:15)
[2024-04-19] MEDS: ATORVASTATIN 40 MG TABLET 80 MG PO (09:15)
[2024-04-19] MEDS: lisinopriL 20 MG TABLET PO (09:15)
[2024-04-19] MEDS: hydroCHLOROthiazide 12.5 MG CAPSULE PO (09:15)
[2024-04-19] MEDS: DOXAZOSIN MESYLATE 4 MG TABLET PO (09:15)
[2024-04-19 09:16] VITALS: PULSE 72
[2024-04-19] MEDS: METOPROLOL SUCCINATE EXT REL 100 MG TABCR PO (09:16)
--- NOTE | 2024-04-19 09:21 | PM.DS ---
DS: Summary Time Spent with Patient Time attestation: Total time spent providing and/or coordinating discharge services: DS: Data Data Completed and Pending Labs on day of discharge: Labs from last 24 hours 04/19/24 04/19/24 04/18/24 07:53 06:38 21:27 WBC 6.9 RBC 3.85 L Hgb 11.5 L Hct 34.5 L MCV 89.6 MCH 29.9 MCHC 33.3 RDW 13.2 Plt Count 194 MPV 10.0 Immature Gran % (Auto) 0.4 Neut % (Auto) 69.0 Lymph % (Auto) 16.6 L [place] % (Auto) 8.9 H Eos % (Auto) 4.4 Baso % (Auto) 0.7 Lymph # (Auto) 1.14 [place] # (Auto) 0.6 Eos # (Auto) 0.3 Baso # (Auto) 0.1 Abs Immat Gran (auto) 0.03 Absolute Neuts (auto) 4.7 Absolute Nucleated RBC 0.000 Nucleated RBC % 0.0 Sodium 138 Potassium 3.8 Chloride 105 Carbon Dioxide 25 Anion Gap 8 BUN 26 H Creatinine 1.39 H Estim Creat Clear Calc 46 Estimated GFR 52 L Glucose 156 H POC Capillary Glucose 160 H 238 H Calcium 8.8 Total Bilirubin 1.0 AST 17 ALT 22 Alkaline Phosphatase 84 Total Protein 6.0 L Albumin 3.5 04/18/24 04/18/24 16:35 11:13 WBC RBC Hgb Hct MCV MCH MCHC RDW Plt Count MPV Immature Gran % (Auto) Neut % (Auto) Lymph % (Auto) [place] % (Auto) Eos % (Auto) Baso % (Auto) Lymph # (Auto) [place] # (Auto) Eos # (Auto) Baso # (Auto) Abs Immat Gran (auto) Absolute Neuts (auto) Absolute Nucleated RBC Nucleated RBC % Sodium Potassium Chloride Carbon Dioxide Anion Gap BUN Creatinine Estim Creat Clear Calc Estimated GFR Glucose POC Capillary Glucose 237 H 198 H Calcium Total Bilirubin AST ALT Alkaline Phosphatase Total Protein Albumin Discharge Plan Discharge Attending physician on discharge: Keyanna Keller Consulting providers: Dickson Pena Discharging Clinician: Tayo Barba Patient Disposition: Home, Self-Care Activity: as tolerated Diet: diabetic Discharge Instructions: patient to follow discharge care instruction from personal development educator, patient to follow up with primary care provider as soon possible, patient is instructed to avoid heavy meals, and carbs, (breads, pasta, rice and sweets) eat more fruits, vegetable, and fiber, patient is instructed if any symptoms redevelop to go to nearest. Patient Instructions: Antibiotic Form Patient Language: Romansh Stand Alone Forms: General Discharge Information Follow-up/Referrals: Tobias Mckenzie MD [Primary Care Provider] - Discharge Medications: New insulin aspart U-100 [Novolog U-100 Insulin aspart] 100 unit/mL Solution 2 - 4 unit subcut HS Qty: 10 0RF Protocol: Insulin Corrective High-Dose Condition: glucose < 70 mg/dl Dose/Route: Follow hypoglycemia order Condition: glucose 70-200 mg/dl Dose/Route: No additional insulin Condition: glucose 201-250 mg/dl Dose/Route: 2 units sub-Q Condition: glucose 251-300 mg/dl Dose/Route: 2 units sub-Q Condition: glucose 301-350 mg/dl Dose/Route: 3 units sub-Q Condition: glucose 351-400 mg/dl Dose/Route: 4 units sub-Q Condition: glucose > 400 mg/dl Dose/Route: Call dextrose [Glutose-15] 40 % Gel 15 g PO PRN PRN (Reason: Hypoglycemia) Qty: 1 0RF insulin aspart U-100 [Novolog U-100 Insulin aspart] 100 unit/mL Solution 4 - 8 unit subcut TIDWM Qty: 10 0RF Protocol: Insulin Corrective High-Dose Condition: glucose < 70 mg/dl Dose/Route: Follow hypoglycemia order Condition: glucose 70-200 mg/dl Dose/Route: No additional insulin Condition: glucose 201-250 mg/dl Dose/Route: 4 units sub-Q Condition: glucose 251-300 mg/dl Dose/Route: 5 units sub-Q Condition: glucose 301-350 mg/dl Dose/Route: 6 units sub-Q Condition: glucose 351-400 mg/dl Dose/Route: 8 units sub-Q Condition: glucose > 400 mg/dl Dose/Route: Call Protocol Text: *No Correction Dose at Bedtime* insulin glargine [Lantus U-100 Insulin] 100 unit/mL Solution 60 unit subcut QHS Qty: 10 0RF Glucagon Emergency Kit (human) 1 mg recon soln 1 mg subcut Q20M PRN (Reason: hypoglycemia) Qty: 1 0RF Rx Instructions: until target blood sugar attained Continued atorvastatin 80 mg tablet 1 tablet PO DAILY metoprolol succinate 100 mg tablet extended release 24 hr 1 tablet PO DAILY doxazosin 4 mg tablet 1 tablet PO DAILY lisinopril-hydrochlorothiazide 20-12.5 mg tablet 1 tablet PO BID citalopram 20 mg tablet 20 mg PO DAILY Held insulin glargine [Lantus Solostar U-100 Insulin] 100 unit/mL (3 mL) insulin pen 130 unit SUBCUT DAILY Hold Instructions: hold until seen by primary care. insulin lispro [Humalog KwikPen Insulin] 100 unit/mL insulin pen 36 unit SUBCUT TIDWM Hold Instructions: hold until seen by primary care. Discontinued amoxicillin 875 mg tablet 875 mg PO Q12H Date of admission: 04/18/24 13:31 Primary Care Provider: Tobias Mckenzie Admitting Provider: Keyanna Keller Attending physician on admission: Keyanna Keller Condition: Improved
[2024-04-19 11:53] LABS: Glucose Point of Care 263 mg/dl (65-105)
== END 2024-04-19 12:05 | disposition home or self-care (01) | DRG 639 ==
LOC: ANHED 13:38 → ANHICU 18:29 → ANH3MEDSUR 04-18 13:34 → ANHICU 04-18 13:34
PROVIDERS: Emergency Medicine; Hospitalist; Internal Medicine; Nurse Practitioner Acute Care; Admitting Provider Family Medicine; Emergency Provider Student in an Organized Health Care Education/Training Program; PCP Family Medicine; Visit Provider Family Medicine
DX: E11.649 Type 2 diabetes mellitus with hypoglycemia without coma (principal); I12.9 Hypertensive chronic kidney disease with stage 1 through stage 4 chronic kidney disease, or unspecified chronic kidney disease; N18.9 Chronic kidney disease, unspecified; E87.6 Hypokalemia; E11.22 Type 2 diabetes mellitus with diabetic chronic kidney disease; E78.5 Hyperlipidemia, unspecified; F32.A Depression, unspecified; Z79.4 Long term (current) use of insulin
CPT/HCPCS: 36415; 80048; 80053; 81001; 82948; 83735; 84100; 85025; 87641; 96365; 96366; 96375; 96376; 99285; A9270; G0378; J0360; J1650; J1815; J3480; J7070

== ENCOUNTER 2024-04-26 21:42 | Emergency (ER) | payer MEDICARE, MEDICAID, SELFPAY ==
[2024-04-26 21:43] VITALS: BP 198/83; PULSE 86; RESP 17; TEMP 36.8; O2SAT 99
[2024-04-26 21:49] VITALS: PULSE 86; RESP 17; O2SAT 99
[2024-04-26 21:55] LABS: Glucose Point of Care > 500 mg/dl (65-105)
--- OUTSIDE RECORDS SUMMARY | 2024-04-26 21:57 | XMS_ITS | Clinical Summary ---
Author Organization [facility] Address [address] [place] [address] Phone Care Team Providers Care Tablet Machine Operator Name Role Phone Tobias Mckenzie MD Primary Care Provider [phone] Allergies No known active allergies Medications Medication [...] Comments Influenza Vaccine (#1) 2023 Care Teams Tablet Machine Operator Relationship Specialty Start Date End Date Tobias Mckenzie MD [address] [place] [place], [place] [id number] PCP - General Internal Medicine 05/17/21
[2024-04-26 22:00] VITALS: PULSE 81; RESP 17; O2SAT 96
[2024-04-26 22:15] VITALS: PULSE 80; RESP 15; O2SAT 96
--- NOTE | 2024-04-26 22:18 | PC.NURSE ---
this RN called poison control at [id number] to report incident. they state peak onset is 1-2 hours and to monitor patient for at least 4 hours. notified provider of this
[2024-04-26 22:31] LABS: Glucose Point of Care 409 mg/dl (65-105)
[2024-04-26 22:32] LABS: Basophils Percent Auto 0.6 % (0.2-1.2); Eosinophils Absolute Auto 0.2 K/mm3 (0-0.3); Hematocrit 31.7 % (42.0-52.0); Hemoglobin 11.2 g/dL (14.0-18.0); Immature Granulocyte Absolute 0.01 K/mm3 (0.00-0.031); Immature Granulocyte Percent A 0.1 % (0-0.5); Lymphocytes Absolute Auto 1.18 K/mm3 (0.9-3.2); Lymphocytes Percent Auto 16.7 % (18.3-44.2); Mean Corpuscular HGB Conc 35.3 g/dl (32-36); Mean Corpuscular Hemoglobin 30.2 pg (26-34); Mean Corpuscular Volume 85.4 fl (80-100); Mean Platelet Volume 10.3 fl (7.4-10.4); Monocytes Absolute Auto 0.5 K/mm3 (0.1-0.6); Monocytes Percent Auto 6.4 % (2.6-8.5); Neutrophils Absolute Auto 5.2 K/mm3 (1.3-6.7); Neutrophils Percent Auto 73.2 % (45.5-73.1); Platelet Count Result 206 k/mm3 (150-375); Red Blood Count 3.71 M/mm3 (4.6-6.20); Red Cell Distribution Width 13.1 % (11.5-14.5); White Blood Count 7.1 K/mm3 (4.5-10.0)
--- NOTE | 2024-04-26 22:36 | ED.GENADULT ---
HPI - General Adult General Chief complaint: Recheck/Abnormal Lab/Rx Stated complaint: mixed up insulin pens Time Seen by Provider: 04/26/24 21:47 History of Present Illness HPI narrative: Patient 58-year-old gentleman presents emergency department with chief complaint of accidental overdose on insulin. The patient states he grabbed his short-acting insulin instead of lantus patient states he took 60 units of Humalog instead of 60 minutes Lantus patient's blood sugar was in the 400s patient currently has no complaint Related Data Home Medications ?Medication ?Instructions ?Recorded ?Confirmed ?Last Taken ?Type citalopram 20 mg tablet 20 mg PO DAILY 09/23/19 04/17/24 02/12/21 History lisinopril 20 1 tablet PO BID 09/23/19 04/17/24 02/12/21 History mg-hydrochlorothiazide 12.5 mg tablet atorvastatin 80 mg tablet 1 tablet PO DAILY 08/20/21 04/17/24 Unknown History doxazosin 4 mg tablet 1 tablet PO DAILY 08/20/21 04/17/24 Unknown History metoprolol succinate 100 mg 1 tablet PO DAILY 08/20/21 04/17/24 Unknown History tablet,extended release 24 hr insulin glargine 100 unit/mL (3 130 unit subcut DAILY 04/17/24 04/17/24 04/17/24 History mL) subcutaneous pen (Lantus Solostar U-100 Insulin) insulin lispro 100 unit/mL 36 unit subcut TIDWM 04/17/24 04/17/24 04/17/24 History subcutaneous pen (Humalog KwikPen (U-100) Insulin) Allergies Allergy/AdvReac Type Severity Reaction Status Date / Time No Known Allergies Allergy Verified 04/26/24 21:50 Review of Systems Review of Systems: A 10 system review of systems was completed on the patient and is negative except for what is stated in the HPI. Nursing and ancillary documentation was reviewed. [facility] Past Medical History Medical History Depression Cataracts, bilateral Hyperlipidemia Hypertension Type 2 diabetes mellitus Seasonal allergies Family History Family History Other Diabetes mellitus Heart disease Hypertension Social History Social History Smoking status: Never smoker Alcohol intake: never Alcohol use details: Occasional Substance use: never Do You Feel Safe in your Home?: Yes Lack of Transportation: No Lack of Food: Never True Current Housing: I Have Housing Concerned About Future Housing: No Difficulty Paying Gas/Electric Bills: No Difficulty Paying for Meds: No Currently Unemployed: No Education: High School Diploma/GED Difficulty w/ Childcare or Family Care: No Spiritual care concerns: No Exam Narrative: GENERAL: Well-appearing, well-nourished, and in no acute distress. HEAD: Normocephalic, atraumatic. EYES: PERRLA and EOMI. ENT: Nares clear, no rhinorrhea or epistaxis. Mucous membranes moist. NECK: Supple. CHEST: Clear to auscultation. No respiratory distress. HEART: Regular rate and rhythm. No murmur heard. Normal peripheral pulses. ABDOMEN: Soft, nontender, nondistended, normal active bowel sounds. EXTREMITIES: Normal range of motion. No edema. SKIN: Warm, dry, no rash. NEURO: No focal deficits. Alert and oriented x3. PSYCH: Normal mood and affect. Course Vital Signs Vital signs: Vital Signs Temperature 36.8 C 04/26/24 21:43 Pulse Rate 86 04/26/24 21:43 Respiratory Rate 17 04/26/24 21:43 Blood Pressure 198/83 H 04/26/24 21:43 Pulse Oximetry 99 04/26/24 21:43 Oxygen Delivery Room Air 04/26/24 21:43 Temperature 36.9 C 04/26/24 23:16 Pulse Rate 71 04/27/24 01:09 Respiratory Rate 18 04/27/24 01:09 Blood Pressure 145/75 H 04/27/24 01:09 Pulse Oximetry 98 04/27/24 01:09 Oxygen Delivery Room Air 04/26/24 21:43 Medical Decision Making Vital Signs Vital Signs: Vital Signs Temperature 36.8 C 04/26/24 21:43 Pulse Rate 86 04/26/24 21:43 Respiratory Rate 17 04/26/24 21:43 Blood Pressure 198/83 H 04/26/24 21:43 Pulse Oximetry 99 04/26/24 21:43 Oxygen Delivery Room Air 04/26/24 21:43 Temperature 36.9 C 04/26/24 23:16 Pulse Rate 71 04/27/24 01:09 Respiratory Rate 18 04/27/24 01:09 Blood Pressure 145/75 H 04/27/24 01:09 Pulse Oximetry 98 04/27/24 01:09 Oxygen Delivery Room Air 04/26/24 21:43 Lab Data 04/26/24 22:26 04/26/24 22:26 Labs: Lab Results 04/26/24 04/26/24 04/26/24 Range/Units 21:53 22:26 22:27 WBC 7.1 (4.5-10.0) K/mm3 RBC 3.71 L (4.6-6.20) M/mm3 Hgb 11.2 L (14.0-18.0) g/dL Hct 31.7 L (42.0-52.0) % MCV 85.4 (80-100) fl MCH 30.2 (26-34) pg MCHC 35.3 (32-36) g/dl RDW 13.1 (11.5-14.5) % Plt Count 206 (150-375) k/mm3 MPV 10.3 (7.4-10.4) fl Immature Gran % (Auto) 0.1 (0-0.5) % Neut % (Auto) 73.2 H (45.5-73.1) % Lymph % (Auto) 16.7 L (18.3-44.2) % [place] % (Auto) 6.4 (2.6-8.5) % Eos % (Auto) 3.0 (0-4.4) % Baso % (Auto) 0.6 (0.2-1.2) % Lymph # (Auto) 1.18 (0.9-3.2) K/mm3 [place] # (Auto) 0.5 (0.1-0.6) K/mm3 Eos # (Auto) 0.2 (0-0.3) K/mm3 Baso # (Auto) 0.0 (0.0-0.1) K/mm3 Abs Immat Gran (auto) 0.01 (0.00-0.031) K/mm3 Absolute Neuts (auto) 5.2 (1.3-6.7) K/mm3 Absolute Nucleated RBC 0.000 (0.0-0.012) K/mm3 Nucleated RBC % 0.0 (0.0-0.2) % Sodium 131 L (137-145) mmol/L Potassium 3.3 L (3.4-5.0) mmol/L Chloride 97 L (98-107) mmol/L Carbon Dioxide 22 (22-30) mmol/L Anion Gap 12 (4-12) mmol/L BUN 43 H D (9-20) mg/dL Creatinine 1.73 H (0.7-1.3) mg/dL Estim Creat Clear Calc Not Reportable Estimated GFR 41 L (59 - ) Glucose 427 H (65-110) mg/dL POC Capillary Glucose > 500 H* 409 H (65-105) mg/dl Calcium 8.2 L (8.4-10.2) mg/dL Total Bilirubin 0.8 (0.2-1.3) mg/dL AST 23 (17-59) U/L ALT 24 (6-50) U/L Alkaline Phosphatase 89 (38-126) U/L Total Protein 6.0 L (6.3-8.2) g/dL Albumin 3.6 (3.5-5.1) g/dL Urine Color (Yellow) Urine Appearance (Clear) Urine pH (5.0-9.0) Ur Specific [place] (1.001-1.035) Urine Protein (Negative) mg/dL Urine Glucose (UA) (Negative) mg/dL Urine Ketones (Negative) mg/dL Ur Blood (Man) (Negative) Urine Nitrate (Negative) Urine Bilirubin (Negative) Urine Urobilinogen (<2.0) mg/dL Leukocyte Esterase Rfl (Negative) SHERYL/UL Urine RBC (0-2) /hpf Urine WBC (0-3) /hpf Ur Squamous Epith Cells (Few) /hpf Urine Bacteria /hpf Urine Casts 04/26/24 04/26/24 04/26/24 Range/Units 22:49 22:50 23:34 WBC (4.5-10.0) K/mm3 RBC (4.6-6.20) M/mm3 Hgb (14.0-18.0) g/dL Hct (42.0-52.0) % MCV (80-100) fl MCH (26-34) pg MCHC (32-36) g/dl RDW (11.5-14.5) % Plt Count (150-375) k/mm3 MPV (7.4-10.4) fl Immature Gran % (Auto) (0-0.5) % Neut % (Auto) (45.5-73.1) % Lymph % (Auto) (18.3-44.2) % [place] % (Auto) (2.6-8.5) % Eos % (Auto) (0-4.4) % Baso % (Auto) (0.2-1.2) % Lymph # (Auto) (0.9-3.2) K/mm3 [place] # (Auto) (0.1-0.6) K/mm3 Eos # (Auto) (0-0.3) K/mm3 Baso # (Auto) (0.0-0.1) K/mm3 Abs Immat Gran (auto) (0.00-0.031) K/mm3 Absolute Neuts (auto) (1.3-6.7) K/mm3 Absolute Nucleated RBC (0.0-0.012) K/mm3 Nucleated RBC % (0.0-0.2) % Sodium (137-145) mmol/L Potassium (3.4-5.0) mmol/L Chloride (98-107) mmol/L Carbon Dioxide (22-30) mmol/L Anion Gap (4-12) mmol/L BUN (9-20) mg/dL Creatinine (0.7-1.3) mg/dL Estim Creat Clear Calc Estimated GFR (59 - ) Glucose (65-110) mg/dL POC Capillary Glucose 376 H 314 H (65-105) mg/dl Calcium (8.4-10.2) mg/dL Total Bilirubin (0.2-1.3) mg/dL AST (17-59) U/L ALT (6-50) U/L Alkaline Phosphatase (38-126) U/L Total Protein (6.3-8.2) g/dL Albumin (3.5-5.1) g/dL Urine Color Yellow (Yellow) Urine Appearance Clear (Clear) Urine pH 5.5 (5.0-9.0) Ur Specific [place] 1.026 (1.001-1.035) Urine Protein 1+ H (Negative) mg/dL Urine Glucose (UA) 3+ H (Negative) mg/dL Urine Ketones Negative (Negative) mg/dL Ur Blood (Man) Negative (Negative) Urine Nitrate Negative (Negative) Urine Bilirubin Negative (Negative) Urine Urobilinogen 0.2 (<2.0) mg/dL Leukocyte Esterase Rfl Negative (Negative) SHERYL/UL Urine RBC 0-2 (0-2) /hpf Urine WBC 0-5 (0-3) /hpf Ur Squamous Epith Cells None seen (Few) /hpf Urine Bacteria None seen /hpf Urine Casts 0-2 04/27/24 04/27/24 Range/Units 00:29 01:34 WBC (4.5-10.0) K/mm3 RBC (4.6-6.20) M/mm3 Hgb (14.0-18.0) g/dL Hct (42.0-52.0) % MCV (80-100) fl MCH (26-34) pg MCHC (32-36) g/dl RDW (11.5-14.5) % Plt Count (150-375) k/mm3 MPV (7.4-10.4) fl Immature Gran % (Auto) (0-0.5) % Neut % (Auto) (45.5-73.1) % Lymph % (Auto) (18.3-44.2) % [place] % (Auto) (2.6-8.5) % Eos % (Auto) (0-4.4) % Baso % (Auto) (0.2-1.2) % Lymph # (Auto) (0.9-3.2) K/mm3 [place] # (Auto) (0.1-0.6) K/mm3 Eos # (Auto) (0-0.3) K/mm3 Baso # (Auto) (0.0-0.1) K/mm3 Abs Immat Gran (auto) (0.00-0.031) K/mm3 Absolute Neuts (auto) (1.3-6.7) K/mm3 Absolute Nucleated RBC (0.0-0.012) K/mm3 Nucleated RBC % (0.0-0.2) % Sodium (137-145) mmol/L Potassium (3.4-5.0) mmol/L Chloride (98-107) mmol/L Carbon Dioxide (22-30) mmol/L Anion Gap (4-12) mmol/L BUN (9-20) mg/dL Creatinine (0.7-1.3) mg/dL Estim Creat Clear Calc Estimated GFR (59 - ) Glucose (65-110) mg/dL POC Capillary Glucose 260 H 254 H (65-105) mg/dl Calcium (8.4-10.2) mg/dL Total Bilirubin (0.2-1.3) mg/dL AST (17-59) U/L ALT (6-50) U/L Alkaline Phosphatase (38-126) U/L Total Protein (6.3-8.2) g/dL Albumin (3.5-5.1) g/dL Urine Color (Yellow) Urine Appearance (Clear) Urine pH (5.0-9.0) Ur Specific [place] (1.001-1.035) Urine Protein (Negative) mg/dL Urine Glucose (UA) (Negative) mg/dL Urine Ketones (Negative) mg/dL Ur Blood (Man) (Negative) Urine Nitrate (Negative) Urine Bilirubin (Negative) Urine Urobilinogen (<2.0) mg/dL Leukocyte Esterase Rfl (Negative) SHERYL/UL Urine RBC (0-2) /hpf Urine WBC (0-3) /hpf Ur Squamous Epith Cells (Few) /hpf Urine Bacteria /hpf Urine Casts Discharge Plan Discharge Clinical Impression: Accidental overdose of insulin Patient Disposition: Home, Self-Care Condition: Stable Instructions: Antibiotic Form, Normal Exam (ED) Additional Instructions: Please make sure that you use the correct insulin pen when giving yourself insulin Patient Language: Y[place]ut Prescriptions: No Action atorvastatin 80 mg tablet 1 tablet PO DAILY metoprolol succinate 100 mg tablet extended release 24 hr 1 tablet PO DAILY doxazosin 4 mg tablet 1 tablet PO DAILY lisinopril-hydrochlorothiazide 20-12.5 mg tablet 1 tablet PO BID citalopram 20 mg tablet 20 mg PO DAILY insulin glargine [Lantus Solostar U-100 Insulin] 100 unit/mL (3 mL) insulin pen 130 unit SUBCUT DAILY insulin lispro [Humalog KwikPen Insulin] 100 unit/mL insulin pen 36 unit SUBCUT TIDWM Glucagon Emergency Kit (human) 1 mg recon soln 1 mg subcut Q20M PRN (Reason: hypoglycemia) Qty: 1 0RF Rx Instructions: until target blood sugar attained insulin glargine [Lantus U-100 Insulin] 100 unit/mL Solution 60 unit subcut QHS Qty: 10 0RF dextrose [Glutose-15] 40 % Gel 15 g PO PRN PRN (Reason: Hypoglycemia) Qty: 1 0RF insulin aspart U-100 [Novolog U-100 Insulin aspart] 100 unit/mL Solution 4 - 8 unit subcut TIDWM Qty: 10 0RF Protocol: Insulin Corrective High-Dose Condition: glucose < 70 mg/dl Dose/Route: Follow hypoglycemia order Condition: glucose 70-200 mg/dl Dose/Route: No additional insulin Condition: glucose 201-250 mg/dl Dose/Route: 4 units sub-Q Condition: glucose 251-300 mg/dl Dose/Route: 5 units sub-Q Condition: glucose 301-350 mg/dl Dose/Route: 6 units sub-Q Condition: glucose 351-400 mg/dl Dose/Route: 8 units sub-Q Condition: glucose > 400 mg/dl Dose/Route: Call MD Protocol Text: *No Correction Dose at Bedtime* insulin aspart U-100 [Novolog U-100 Insulin aspart] 100 unit/mL Solution 2 - 4 unit subcut HS Qty: 10 0RF Protocol: Insulin Corrective High-Dose Condition: glucose < 70 mg/dl Dose/Route: Follow hypoglycemia order Condition: glucose 70-200 mg/dl Dose/Route: No additional insulin Condition: glucose 201-250 mg/dl Dose/Route: 2 units sub-Q Condition: glucose 251-300 mg/dl Dose/Route: 2 units sub-Q Condition: glucose 301-350 mg/dl Dose/Route: 3 units sub-Q Condition: glucose 351-400 mg/dl Dose/Route: 4 units sub-Q Condition: glucose > 400 mg/dl Dose/Route: Call MD Follow-up/Referrals: UNKNOWN,DOCTOR [Primary Care Provider] - Time of Disposition: 01:58
--- NOTE | 2024-04-26 22:39 | PC.NURSE ---
pt reports that they are unable to urinate at this time and kindly declines a straight catheter.
[2024-04-26 22:42] LABS: Alanine Aminotransferase 24 U/L (6-50); Albumin Level 3.6 g/dL (3.5-5.1); Alkaline Phosphatase 89 U/L (38-126); Anion Gap 12 mmol/L (4-12); Aspartate Amino Transferase 23 U/L (17-59); Bilirubin,Total 0.8 mg/dL (0.2-1.3); Blood Urea Nitrogen 43 mg/dL (9-20); Calcium 8.2 mg/dL (8.4-10.2); Carbon Dioxide 22 mmol/L (22-30); Chloride 97 mmol/L (98-107); Estimated Glomerular Filt Rate 41; Glucose 427 mg/dL (65-110); Potassium 3.3 mmol/L (3.4-5.0); Sodium 131 mmol/L (137-145)
[2024-04-26 22:54] LABS: Glucose Point of Care 376 mg/dl (65-105)
[2024-04-26 22:59] LABS: Add Urine Microscopic? YES; Appearance Urine Clear (Clear); Bacteria Urine None Seen /hpf; Bilirubin Urine Negative (Negative); Blood Urine Negative (Negative); Color Urine Yellow (Yellow); Glucose Urine UA 3+ mg/dL (Negative); Ketones Urine Negative (Negative); Leukocyte Esterase Ur Negative LEU/UL (Negative); Nitrate Urine Negative (Negative); Non Pathogenic Casts 0-2; Protein Urine 1+ mg/dL (Negative); RBC Urine 0-2 /hpf (0-2); Specific Grav Ur 1.026 (1.001-1.035); Squamous Epithelial Cell Urine None Seen /hpf (Few); Urobilinogen Urine 0.2 mg/dL (<2.0); WBC Urine 0-5 /hpf (0-3); pH Urine 5.5 (5.0-9.0)
[2024-04-26 23:16] VITALS: BP 151/5; PULSE 85; RESP 20; TEMP 36.9; O2SAT 98
[2024-04-26] MEDS: ACETAMINOPHEN 500 MG TABLET 1000 MG PO (23:21)
[2024-04-26 23:36] LABS: Glucose Point of Care 314 mg/dl (65-105)
[2024-04-27 00:31] LABS: Glucose Point of Care 260 mg/dl (65-105)
[2024-04-27 01:09] VITALS: BP 145/75; PULSE 71; RESP 18; O2SAT 98
[2024-04-27 01:36] LABS: Glucose Point of Care 254 mg/dl (65-105)
== END 2024-04-27 02:08 | disposition home or self-care (01) ==
PROVIDERS: Emergency Provider Emergency Medicine
DX: T38.3X1A Poisoning by insulin and oral hypoglycemic [antidiabetic] drugs, accidental (unintentional), initial encounter (principal); I10 Essential (primary) hypertension; E11.9 Type 2 diabetes mellitus without complications; E78.5 Hyperlipidemia, unspecified; F32.A Depression, unspecified; H26.9 Unspecified cataract; Z79.4 Long term (current) use of insulin; Z79.899 Other long term (current) drug therapy
CPT/HCPCS: 36415; 80053; 81001; 82948; 85025; 99283; A9270

== ENCOUNTER 2024-07-12 14:13 | Emergency (ER) | payer MEDICARE, MEDICAID, SELFPAY ==
[2024-07-12] VITALS (13 sets, daily range): BP systolic 162–239; BP diastolic 84–105; PULSE 74–85; RESP 12–20; TEMP 36.7; O2SAT 94–98
--- NOTE | ~2024-07-12 | XR_ITS ---
EXAMINATION: XR chest 1V portable Exam Date/Time: 07/12/2024 14:53 CDT HISTORY: Onset this AM, Lt. side chest pain/ SOB Comparison: 05/04/2021; CT lung screening 11/04/2021. RESULT: Lines, tubes, and devices: None. Lungs and pleura: Low lines with crowding. Streaky subsegmental bibasilar opacities. Cardiomediastinal silhouette: Stable. Other: No acute osseous or upper abdominal finding. IMPRESSION: Subsegmental bibasilar atelectasis/consolidation. Reviewed, dictated and finalized at location K.
--- OUTSIDE RECORDS SUMMARY | 2024-07-12 14:14 | XMS_ITS | Clinical Summary ---
Author Organization [facility] Address [address] [place] [address] Phone Care Team Providers Care Director Data Analytics Name Role Phone Tobias Mckenzie MD Primary Care Provider [phone] Allergies No known active allergies Medications Blood Glucose Monitoring Suppl (ONE TOUCH ULTRA 2) w/Device kit TEST BLOOD SUGAR ONCE DAILY DX. 250.00 E11.9 2 Active OneTouch Ultra test strip USE FOR GLUCOSE TESTING 1 TIME DAILY AND RECORD E11.9 2 Active Levemir FlexTouch 100 UNIT/ML injection INJECT 20 UNITS SUBCUTANEOUS ROUTE DAILY 2 Active NovoFine Plus Pen Needle 32G X 4 MM misc 2 Active OneTouch Delica Lancets 30G misc USE TO TEST BLOOD SUGAR UP TO ONCE DAILY E11.9 2 Active lisinopril-hydr oCHLOROthiazide (PRINZIDE) 20-12.5 MG per tablet 2 Active metoprolol succinate XL (TOPROL-XL) 100 MG 24 hr tablet Take 100 mg by mouth 1 (one) time each day 2 Active Rybelsus 7 MG tablet TAKE 1 TABLET BY MOUTH IN THE MORNING 30 MINS BEFORE ANY FOOD, DRINK, OR MEDS WITH PLAIN WATER 2 Active Active Problems Problem Noted Date Diagnosed [...] Recorded Sex Assigned at Not on file Legal Sex Male 9:32 AM MDT Gender Identity Not on file Sexual Orientation [...] 1:49 PM CDT Height 167.6 cm (5' 6) 05/25/2021 1:49 PM CDT Body Mass Index 25.99 05/25/2021 1:49 PM CDT Plan of Treatment Health Maintenance Due Date Last Done Comments Influenza Vaccine (Season Ended) [address] [place] [address] [employer] Care Teams Director Data Analytics Relationship Specialty Start Date End Date Tobias Mckenzie MD [address] [place] [address] PCP - General Internal Medicine 05/17/21
--- NOTE | 2024-07-12 14:19 | ECG_ITS ---
Test Date: 2024-07-12 14:24:33 Measurements Intervals [place] Rate: 74 P: 28 IN: 139 QRS: 21 QRSD: 91 T: 99 QT: 392 QTc: 437 Interpretive Statements SINUS RHYTHM INCOMPLETE RIGHT BUNDLE BRANCH BLOCK LEFT VENTRICULAR HYPERTROPHY WITH ST-T CHANGE NONSPECIFIC ST & T-WAVE ABNORMALITY- LATERAL LEADS BORDERLINE ECG No previous ECG available for comparison Electronically Signed On 07-14-2024 06:07:29 CDT by Bj Rocha D.O.
--- NOTE | 2024-07-12 14:22 | ED_ITS ---
HPI - Chest Pain General Chief Complaint: Chest Pain Stated Complaint: chest pain Time Seen by Provider: 07/12/24 14:19 Source: patient Mode of arrival: ambulatory Limitations: no limitations History of Present Illness HPI narrative: 58-year-old male, ex-smoker with history of hypertension, CKD, diabetes mellitus, dyslipidemia, depression presents to the ED with -- left-sided chest pain which woke him up from his sleep at 2:00 a.m.. The pain radiated to the right shoulder. No nausea /vomiting. No shortness of breath. No lightheadedness. The pain resolved and he went back to sleep. -- Around 1 hour ago the patient was walking when he developed left-sided chest pain radiating to the right shoulder. No nausea/ vomiting. No lightheadedness. No shortness of breath. Pain was noted to be 8/10 and currently it is 3/10. -- Hypertension with a blood pressure of 197/98. MD complaint: chest pain Onset (ago): hour(s) ( 10 hours) Timing of current episode: episodic Prior episodes: No Onset: during rest Pain location: left chest Pain radiation: right shoulder Severity: moderate Pain scale (0-10): 8 Quality: aching Relieving factors: nothing Exacerbating factors: nothing Treatment prior to arrival: none Risk Factors Coronary artery disease risk factors: diabetes, smoking history, hyperlipidemia and hypertension Thoracic aortic dissection risk factors: longstanding hypertension Related Data Home Medications ?Medication ?Instructions ?Recorded ?Confirmed ?Last Taken ?Type citalopram 20 mg tablet 20 mg PO DAILY 09/23/19 04/17/24 02/12/21 History lisinopril 20 1 tablet PO BID 09/23/19 04/17/24 02/12/21 History mg-hydrochlorothiazide 12.5 mg tablet atorvastatin 80 mg tablet 1 tablet PO DAILY 08/20/21 04/17/24 Unknown History doxazosin 4 mg tablet 1 tablet PO DAILY 08/20/21 04/17/24 Unknown History metoprolol succinate 100 mg 1 tablet PO DAILY 08/20/21 04/17/24 Unknown History tablet,extended release 24 hr insulin glargine 100 unit/mL (3 130 unit subcut DAILY 04/17/24 04/17/24 04/17/24 History mL) subcutaneous pen (Lantus Solostar U-100 Insulin) insulin lispro 100 unit/mL 36 unit subcut TIDWM 04/17/24 04/17/24 04/17/24 History subcutaneous pen (Humalog KwikPen (U-100) Insulin) Allergies Allergy/AdvReac Type Severity Reaction Status Date / Time No Known Allergies Allergy Verified 04/26/24 21:50 Review of Systems 2 Review of Systems: All systems reviewed & are unremarkable except as noted in HPI and below Constitutional: Constitutional: Reports as per HPI and Reports no additional constitutional complaints Eyes: Eyes: Reports as per HPI and Reports no additional eye complaints ENT: Reports system reviewed and no additional complaints, except as documented and Reports as per HPI Cardiovascular: Cardiovascular: Reports as per HPI, Reports no additional cardiovascular complaints and Reports chest pain Respiratory: Respiratory: Reports as per HPI and Reports no additional respiratory complaints Gastrointestinal: Gastrointestinal: Reports as per HPI and Reports no additional gastrointestinal complaints Genitourinary: Genitourinary: Reports no additional male genitourinary complaints and Reports as per HPI Musculoskeletal: Musculoskeletal: Reports no additional musculoskeletal complaints and Reports as per HPI Integumentary/Breasts: Skin/Breast: Reports system reviewed and no additional complaints, except as docu and Reports as per HPI Neurologic: Reports system reviewed and no additional complaints, except as documented and Reports as per HPI Psychiatric: Psychiatric: Reports no additional psychiatric complaints and Reports as per HPI Endocrine: Endocrine: Reports no additional endocrine complaints and Reports as per HPI Hematologic/Lymphatic: Hematologic/Lymphatic: Reports no additional hematologic/lymphatic complaints and Reports as per HPI Allergic/Immunologic: Allergic/Immunologic: Reports no additional allergic/immunologic complaints and Reports as per HPI [facility] Past Medical History Medical History Depression Cataracts, bilateral Hyperlipidemia Hypertension Type 2 diabetes mellitus Seasonal allergies Family History Family History Other Diabetes mellitus Heart disease Hypertension Social History Social History Smoking status: Never smoker Alcohol intake: never Alcohol use details: Occasional Substance use: never Do You Feel Safe in your Home?: Yes Lack of Transportation: No Lack of Food: Never True Current Housing: I Have Housing Concerned About Future Housing: No Difficulty Paying Gas/Electric Bills: No Difficulty Paying for Meds: No Currently Unemployed: No Education: High School Diploma/GED Difficulty w/ Childcare or Family Care: No Spiritual care concerns: No Exam 2 Narrative: blood pressure is 197/98. With a heart rate of 80. Oxygen saturation of 96% on room air. Const: General: no acute distress Nutritional Appearance: well nourished Orientation/consciousness: patient oriented x3 Limitations: no limitations HENMT: Head: normal to inspection Ears: external ears normal F alexander/Nose/Sinus: Normal external nose present Face and sinus: normal facial exam Mouth: Yes Normal oral and palatal mucosa present Throat: posterior oropharynx normal Eyes: Conjunctivae: conjunctivae normal Pupils: Equal, round and reactive pupils present EOM: EOMs intact bilaterally Direct Ophthalmoscopy: no photophobia Neck: Neck: normal visual inspection, no lymphadenopathy and no meningeal signs Chest: Chest palpation & inspection: normal inspection of the chest Resp: Effort & Inspection: normal respiratory effort Auscultation: d iminished lung sounds Cardio: Rate: regular rate Rhythm: regular rhythm GI: Auscultation: normal bowel sounds Other: No tenderness/ rigidity /rebound. : General: Yes no CVA tenderness Back/Spine/Pelvis: Back: no CVA tenderness Skin: General skin exam: normal color Rashes: no rashes Wounds: no wounds Neuro: General: patient oriented x3, moves all extremities, no meningeal signs, no focal motor deficits and CN's II-XI intact bilaterally Cranial nerves: Yes Nystagmus not present Speech: normal speech Extrem: General: normal to inspection and no clubbing, cyanosis or edema Psych: Mental Status: mental status grossly normal Affect: normal affect Attitude: cooperative Course Course Emergency Course: Anterior STEMI hypertensive urgency Vital Signs Vital signs: Vital Signs Temperature 36.7 C 07/12/24 14:20 Pulse Rate 80 07/12/24 14:20 Respiratory Rate 20 07/12/24 14:20 Blood Pressure 197/98 H 07/12/24 14:20 Pulse Oximetry 96 07/12/24 14:20 Oxygen Delivery Room Air 07/12/24 14:20 Temperature 36.7 C 07/12/24 14:28 Pulse Rate 85 07/12/24 14:51 Respiratory Rate 15 07/12/24 14:31 Blood Pressure 206/101 H 07/12/24 14:30 Pulse Oximetry 97 07/12/24 14:31 Oxygen Delivery Room Air 07/12/24 14:28 MDM - Chest Pain MDM Narrative Medical decision making narrative: anterior STEMI hypertensive urgency Differential Diagnosis Differential diagnosis: Likely unstable angina pectoris Medical Records Data Attestation: I reviewed the patient's medical records. Lab Data Attestation: I reviewed the patient's lab results. 07/12/24 14:45 07/12/24 14:45 Labs: Lab Results 07/12/24 Range/Units 14:45 WBC Pending RBC Pending Hgb Pending Hct Pending MCV Pending MCH Pending MCHC Pending RDW Pending Plt Count Pending MPV Pending Immature Gran % (Auto) Pending Neut % (Auto) Pending Lymph % (Auto) Pending Ocean % (Auto) Pending Eos % (Auto) Pending Baso % (Auto) Pending Lymph # (Auto) Pending Ocean # (Auto) Pending Eos # (Auto) Pending Baso # (Auto) Pending Abs Immat Gran (auto) Pending Absolute Neuts (auto) Pending Absolute Nucleated RBC Pending Nucleated RBC % Pending PT 9.7 (9.50-12.1) Seconds INR 0.9 APTT 25.0 (23.9-30.70) Sec Sodium Pending Potassium Pending Chloride Pending Carbon Dioxide Pending Anion Gap Pending BUN Pending Creatinine Pending Estim Creat Clear Calc Pending Estimated GFR Pending Glucose Pending Calculated Osmolality Pending Lactic Acid Pending Calcium Pending Magnesium Pending Total Bilirubin Pending AST Pending ALT Pending Alkaline Phosphatase Pending Troponin I Pending NT-Pro-B Natriuret Pep Pending Total Protein Pending Albumin Pending Discharge Plan Discharge Clinical Impression: Acute ST elevation myocardial infarction (STEMI) of anterior wall, Hypertensive urgency Patient Disposition: Still a Patient Condition: Unstable Additional Instructions: transfer [facility] to [facility]. Patient has been accepted by micro computer data processor Dr. Rodriguez and Dr. Buchanan Patient Language: Urdu Prescriptions: No Action atorvastatin 80 mg tablet 1 tablet PO DAILY metoprolol succinate 100 mg tablet extended release 24 hr 1 tablet PO DAILY doxazosin 4 mg tablet 1 tablet PO DAILY lisinopril-hydrochlorothiazide 20-12.5 mg tablet 1 tablet PO BID citalopram 20 mg tablet 20 mg PO DAILY insulin glargine [Lantus Solostar U-100 Insulin] 100 unit/mL (3 mL) insulin pen 130 unit SUBCUT DAILY insulin lispro [Humalog KwikPen Insulin] 100 unit/mL insulin pen 36 unit SUBCUT TIDWM Glucagon Emergency Kit (human) 1 mg recon soln 1 mg subcut Q20M PRN (Reason: hypoglycemia) Qty: 1 0RF Rx Instructions: until target blood sugar attained insulin glargine [Lantus U-100 Insulin] 100 unit/mL Solution 60 unit subcut QHS Qty: 10 0RF dextrose [Glutose-15] 40 % Gel 15 g PO PRN PRN (Reason: Hypoglycemia) Qty: 1 0RF insulin aspart U-100 [Novolog U-100 Insulin aspart] 100 unit/mL Solution 4 - 8 unit subcut TIDWM Qty: 10 0RF Protocol: Insulin Corrective High-Dose Condition: glucose < 70 mg/dl Dose/Route: Follow hypoglycemia order Condition: glucose 70-200 mg/dl Dose/Route: No additional insulin Condition: glucose 201-250 mg/dl Dose/Route: 4 units sub-Q Condition: glucose 251-300 mg/dl Dose/Route: 5 units sub-Q Condition: glucose 301-350 mg/dl Dose/Route: 6 units sub-Q Condition: glucose 351-400 mg/dl Dose/Route: 8 units sub-Q Condition: glucose > 400 mg/dl Dose/Route: Call MD Protocol Text: *No Correction Dose at Bedtime* insulin aspart U-100 [Novolog U-100 Insulin aspart] 100 unit/mL Solution 2 - 4 unit subcut HS Qty: 10 0RF Protocol: Insulin Corrective High-Dose Condition: glucose < 70 mg/dl Dose/Route: Follow hypoglycemia order Condition: glucose 70-200 mg/dl Dose/Route: No additional insulin Condition: glucose 201-250 mg/dl Dose/Route: 2 units sub-Q Condition: glucose 251-300 mg/dl Dose/Route: 2 units sub-Q Condition: glucose 301-350 mg/dl Dose/Route: 3 units sub-Q Condition: glucose 351-400 mg/dl Dose/Route: 4 units sub-Q Condition: glucose > 400 mg/dl Dose/Route: Call Follow-up/Referrals: Juliane Dale MD [Primary Care Provider] - Time of Disposition: 15:01
[2024-07-12] MEDS: ASPIRIN 81 MG CHEWABLE TABLET 324 MG PO (14:42)
[2024-07-12] MEDS: NITROGLYCERIN SL 0.4 MG TABLET SUBLINGUAL (14:43)
--- NOTE | 2024-07-12 14:47 | PC.NURSE ---
nitro #1 pain 03/17 239/105
[2024-07-12 14:49] LABS: Basophils Absolute Auto 0.05 K/mm3 (0.00-0.10); Basophils Percent Auto 0.7 % (0.0-1.0); Eosinophils Absolute Auto 0.28 K/mm3 (0.02-0.50); Eosinophils Percent Auto 3.7 % (1.0-6.0); Hematocrit 36.8 % (40.0-54.0); Immature Granulocyte Absolute 0.03 K/mm3 (0.00-0.00); Immature Granulocyte Percent A 0.4 % (0.0-0.0); Lymphocytes Absolute Auto 1.17 K/mm3 (1.10-4.50); Lymphocytes Percent Auto 15.6 % (18.0-42.0); Mean Corpuscular HGB Conc 35.3 g/dL (32-36); Mean Corpuscular Hemoglobin 28.8 pg (27.0-31.0); Mean Corpuscular Volume 81.4 fL (78.0-102.0); Mean Platelet Volume 10.7 fl (8.7-11.0); Monocytes Absolute Auto 0.57 K/mm3 (0.10-0.90); Monocytes Percent Auto 7.6 % (2.0-11.0); Neutrophils Absolute Auto 5.38 K/mm3 (1.70-7.20); Platelet Count Result 222 K/mm3 (150-420); Red Blood Count 4.52 M/mm3 (4.70-6.10); Red Cell Distribution Width 11.9 % (11.6-14.4); White Blood Count 7.5 K/mm3 (4.8-10.8)
[2024-07-12] MEDS: METOPROLOL TARTRATE 25 MG TABLET PO (14:51)
[2024-07-12] MEDS: HEPARIN SODIUM 5,000 UNITS/ML VIAL 4000 UNITS IV PUSH (14:52)
[2024-07-12] MEDS: HEPARIN SOD/D5W 100 UNITS/ML 25,000 UNITS/250 ML BAG 9.14 UNITS IV CONT (14:53)
[2024-07-12 14:59] LABS: Alanine Aminotransferase 17 U/L (6-50); Albumin Level 3.3 g/dL (3.5-5.1); Alkaline Phosphatase 103 U/L (38-126); Anion Gap 3 mmol/L (4-12); Aspartate Amino Transferase 22 U/L (17-59); Blood Urea Nitrogen 23 mg/dL (9-20); Calcium 7.9 mg/dL (8.4-10.2); Carbon Dioxide 26 mmol/L (22-30); Chloride 99 mmol/L (98-107); Estimated CRCL calculation 39 ml/min; Estimated Glomerular Filt Rate 43; Glucose 468 mg/dL (65-110); INR 0.9; Lactic Acid Reflex 1.3 mmol/L (0.4-2.0); Magnesium 1.6 mg/dL (1.6-2.3); Osmolality Calculated 290 mOsm/kg (285-295); Prothrombin Time 9.7 Seconds (9.50-12.1); Sodium 128 mmol/L (137-145); Total Protein 6.1 g/dL (6.3-8.2)
[2024-07-12] MEDS: NITROGLYCERIN/D5W 200 MCG/ML 50 MG/250 ML BTL IV CONT (15:10)
[2024-07-12 15:11] LABS: NT Pro B Type Natriuretic Pept 2230 pg/mL (19.9-100)
[2024-07-12 15:17] LABS: Troponin I 0.092 ng/mL (0.000-0.034)
[2024-07-12] MEDS: INSULIN HUMAN REGULAR (*BKC) 1,000 UNITS/10 ML VIAL 10 UNITS IV PUSH (15:25)
--- NOTE | 2024-07-12 16:01 | PM.IMHP ---
H&P: HPI History of Present Illness Date/Time: Date of service 07/12/24 16:01 Chief Complaint: Chest pain Narrative: This is 58-year-old patient history of hypertension, diabetes, chronic kidney previous tobacco use disease who apparently woke up with chest pain today. Then pain resolved. He went for a walk and then he started to have severe central chest pain radiating to the left arm which made him come to the emergency room. EKG shows ST elevation V1, V2 and minimal ST depression 1 in aVL. His systolic blood pressure was severely elevated as well. Was started on IV nitroglycerin, given heparin as well as aspirin. He arrived to the geophysical laboratory chief and he was pain free. He stated that he takes his blood pressure medicine and insulin. Troponin 0.09. Creatinine 1.66, sodium 128 and glucose is elevated at 468. Review of Systems Review of Systems: All systems reviewed & are unremarkable except as noted in HPI and below Constitutional: Constitutional: Denies chills, Denies fatigue, Denies fever(s), Denies headache(s) and Denies snoring Eyes: Eyes: Denies eye discharge and Denies loss of vision ENT: Denies dizziness, Denies headache(s), Denies nasal discharge and Denies sore throat Cardiovascular: Cardiovascular: Reports as per HPI, Reports chest pain, Denies syncope, Denies rapid heart rate, Denies leg edema, Denies dyspnea, Denies dyspnea on exertion, Denies orthopnea and Denies paroxysmal nocturnal dyspnea Respiratory: Respiratory: Denies chest congestion, Denies cough, Denies dyspnea, Denies dyspnea on exertion, Denies snoring and Denies wheezing Gastrointestinal: Gastrointestinal: Denies abdominal pain, Denies diarrhea, Denies nausea and Denies vomiting Genitourinary: Genitourinary: Denies hematuria, Denies dysuria, Denies flank pain and Denies urinary frequency Musculoskeletal: Musculoskeletal: Denies myalgias, Denies arthralgias and Denies joint swelling Neurologic: Denies Abnormal speech present, Denies dizziness, Denies syncope, Denies headache(s), Denies focal weakness and Denies loss of vision Psychiatric: Psychiatric: Denies anxiety and Denies depression Endocrine: Endocrine: Denies cold intolerance, Denies fatigue and Denies heat intolerance Hematologic/Lymphatic: Hematologic/Lymphatic: Denies easy bleeding and Denies easy bruising Allergic/Immunologic: Allergic/Immunologic: Denies urticaria and Denies wheezing [facility] Past Medical History Medical History Depression Cataracts, bilateral Hyperlipidemia Hypertension Type 2 diabetes mellitus Seasonal allergies Family History Family History Other Diabetes mellitus Heart disease Hypertension Social History Social History Smoking status: Never smoker Alcohol intake: never Alcohol use details: Occasional Substance use: never Do You Feel Safe in your Home?: Yes Lack of Transportation: No Lack of Food: Never True Current Housing: I Have Housing Concerned About Future Housing: No Difficulty Paying Gas/Electric Bills: No Difficulty Paying for Meds: No Currently Unemployed: No Education: High School Diploma/GED Difficulty w/ Childcare or Family Care: No Spiritual care concerns: No Meds Home Medications and Allergies Home Medications ?Medication ?Instructions ?Recorded ?Confirmed ?Type citalopram 20 mg tablet 20 mg PO DAILY 09/23/19 04/17/24 History lisinopril 20 1 tablet PO BID 09/23/19 04/17/24 History mg-hydrochlorothiazide 12.5 mg tablet atorvastatin 80 mg tablet 1 tablet PO DAILY 08/20/21 04/17/24 History doxazosin 4 mg tablet 1 tablet PO DAILY 08/20/21 04/17/24 History metoprolol succinate 100 mg 1 tablet PO DAILY 08/20/21 04/17/24 History tablet,extended release 24 hr insulin glargine 100 unit/mL (3 130 unit subcut DAILY 04/17/24 04/17/24 History mL) subcutaneous pen (Lantus Solostar U-100 Insulin) insulin lispro 100 unit/mL 36 unit subcut TIDWM 04/17/24 04/17/24 History subcutaneous pen (Humalog KwikPen (U-100) Insulin) dextrose 40 % oral gel (Glutose-15) 15 g PO PRN PRN Hypoglycemia #1 04/19/24 Rx tube glucagon 1 mg solution for 1 mg subcut Q20M PRN hypoglycemia 04/19/24 Rx injection (Glucagon Emergency Kit) #1 ea insulin aspart U-100 100 unit/mL 2 - 4 unit subcut HS #10 mL 04/19/24 Rx subcutaneous solution (Novolog U-100 Insulin aspart) insulin aspart U-100 100 unit/mL 4 - 8 unit subcut TIDWM #10 mL 04/19/24 Rx subcutaneous solution (Novolog U-100 Insulin aspart) insulin glargine 100 unit/mL 60 unit (0.6 mL) subcut QHS #10 mL 04/19/24 Rx subcutaneous solution (Lantus U-100 Insulin) Allergies Allergy/AdvReac Type Severity Reaction Status Date / Time No Known Allergies Allergy Verified 07/12/24 15:15 Vital Signs Vital Signs - 24 hr 07/12/24 14:20 07/12/24 14:24 07/12/24 14:28 Temperature 36.7 C 36.7 C Pulse Rate 80 75 78 Respiratory Rate 20 13 18 Blood Pressure 197/98 H 197/98 H Pulse Oximetry 96 97 97 Oxygen Delivery Room Air Room Air 07/12/24 14:30 07/12/24 14:31 07/12/24 14:45 Temperature Pulse Rate 75 74 83 Respiratory Rate 17 15 17 Blood Pressure 206/101 H 239/105 H Pulse Oximetry 97 97 95 Oxygen Delivery 07/12/24 14:46 07/12/24 14:51 07/12/24 15:00 Temperature Pulse Rate 80 85 82 Respiratory Rate 12 20 Blood Pressure 163/88 H Pulse Oximetry 98 94 Oxygen Delivery 07/12/24 15:01 07/12/24 15:10 07/12/24 15:12 Temperature Pulse Rate 83 78 74 Respiratory Rate 13 Blood Pressure 162/84 H 163/88 H Pulse Oximetry 95 Oxygen Delivery 07/12/24 15:52 Temperature Pulse Rate 85 Respiratory Rate Blood Pressure Pulse Oximetry Oxygen Delivery H&P: Results Labs Labs: Short CBC 07/12/24 Range/Units 14:45 WBC 7.5 (4.8-10.8) K/mm3 Hgb 13.0 L (14.0-18.0) g/dL Hct 36.8 L (40.0-54.0) % Plt Count 222 (150-420) K/mm3 BMP 07/12/24 14:45 Sodium 128 L Potassium 4.0 Chloride 99 Carbon Dioxide 26 BUN 23 H D Creatinine 1.66 H Glucose 468 H Calcium 7.9 L Cardiac Enzymes 07/12/24 Range/Units 14:45 Troponin I 0.092 H* (0.000-0.034) ng/mL Liver Function 07/12/24 Range/Units 14:45 Total Bilirubin 1.0 (0.2-1.3) mg/dL AST 22 (17-59) U/L ALT 17 (6-50) U/L Alkaline Phosphatase 103 (38-126) U/L Albumin 3.3 L (3.5-5.1) g/dL Assessment and Plan Assessment and plan (1) Chest pain: Code(s): R07.9 - Chest pain, unspecified Status: Acute Assessment and Plan: In regards to chest pain, EKG is concerning because of a ST elevation lead V1 and V2 and therefore will hand him to the geophysical laboratory chief to define coronary anatomy. Risks and benefits of cardiac catheterization discussed with patient agrees to proceed. (2) Hypertensive urgency: Code(s): I16.0 - Hypertensive urgency Status: Acute (3) Type 2 diabetes mellitus: Code(s): E11.9 - Type 2 diabetes mellitus without complications Status: Acute
--- NOTE | 2024-07-12 16:08 | P.PCNCC_ITS ---
Cardiac Cath Procedure Note Date of procedure:: 07/12/24 Performing physician:: Norma Rodriguez MD Date of service 07/12/2024 Indication:: Possible knee anterior STEMI Brief clinical history:: This is 58-year-old patient history of hypertension, diabetes, chronic kidney previous tobacco use disease who apparently woke up with chest pain today. Then pain resolved. He went for a walk and then he started to have severe central chest pain radiating to the left arm which made him come to the emergency room. EKG shows ST elevation V1, V2 and minimal ST depression 1 in aVL. His systolic blood pressure was severely elevated as well. Was started on IV nitroglycerin, given heparin as well as aspirin. He arrived to the quality control lab technician and he was pain free. He stated that he takes his blood pressure medicine and insulin. Troponin 0.09. Creatinine 1.66, sodium 128 and glucose is elevated at 468. Procedure Procedure performed:: 1-Moderate sedation that started at 4:16 p.m. and ended at 4:33 p.m. total duration 17 minutes using 2mg of Versed and 50mcg fentanyl. The registered nurse was venkat ponce. 2-Selective left and right coronary angiogram. 3-Left heart catheterization with measurement of LVEDP and measurement of gradient across aortic valve. 4-Right common femoral arterial angiogram. 5-Deployment of 6 [place]og[place]ese Angio-Seal. Sedation/Medication given:: Moderate sedation. Access site:: Right common femoral artery. Estimated blood loss:: 10cc Procedure note:: After informed consent patient was brought in to quality control lab technician with the was draped and prepped in usual manner. Moderate sedation was given and the right groin was infiltrated using 1% lidocaine. Five Togolese sheath was obtained using micropuncture needle and the modified Seldinger technique. Selective left coronary angiogram was done using JL4 catheter with the tip of the catheter placed in the left main coronary artery. Selective right coronary angiogram was done using JR4 catheter with the tip of the catheter placed to the right coronary artery. After that 5 Tog[place]ese pigtail catheter was advanced across the aortic valve into the left ventricle with measurement of LVEDP and measurement of gradient across aortic valve. Right common femoral arterial angiogram was done. Findings:: 1- left coronary artery is a large artery that divides into large LAD, large circumflex artery. Left main has diffuse 20%. 2- left anterior descending artery is a large. High-grade stenosis in the mid segment. Prior to the stenosis is there is a medium diagonal branch that has ostial 90% followed by a 2nd diagonal branch that also has ostial 80%. 3- leftcircumflex artery is medium caliber. Mid to distal 90%. Medium-sized OM2 branch has diffuse 80-90% proximally. 4- right coronary artery is large and dominant. Diffuse 40% proximal. In the mid segment focal lesion of about 50-60%. High-grade stenosis proximal PDA about 70% and in the mid RPLV of about 70%. 5- LVEDP was 12 mmhgand no gradient across aortic valve. 6- opening arterial pressure was 112/77 and closing pressure was 115/59 7- right femoral artery angiogram shows no significant disease in the right common femoral artery. Conclusion:: -severe coronary artery disease involving LAD, major diagonal 1 and diagonal 2, mid left circumflex artery, medium-sized OM, right coronary artery, right PDA and RPL. Assessment and Plan Assessment and plan (1) Chest pain: Code(s): R07.9 - Chest pain, unspecified Status: Acute Assessment and Plan: Severe 3 vessel disease on cardiac catheterization Plan --given severe 3 vessel disease patient will need CABG. -family requested the patient to be transferred to [facility]. -will resume heparin 6 hours after cardiac catheterization. -continue aspirin. -continue IV nitroglycerin to control hypertension. -optimize sugar control.
--- NOTE | 2024-07-12 16:09 | P.SEDATION_ITS ---
Moderate Sedation Note-Pt Data Patient Data Diagnosis: Possible STEMI Present Complaint: Chest pain Procedure to be performed/Plan: Coronary angiogram Allergies Allergy/AdvReac Type Severity Reaction Status Date / Time No Known Allergies Allergy Verified 07/12/24 15:15 Home Medications ?Medication ?Instructions ?Recorded ?Confirmed ?Type citalopram 20 mg tablet 20 mg PO DAILY 09/23/19 04/17/24 History lisinopril 20 1 tablet PO BID 09/23/19 04/17/24 History mg-hydrochlorothiazide 12.5 mg tablet atorvastatin 80 mg tablet 1 tablet PO DAILY 08/20/21 04/17/24 History doxazosin 4 mg tablet 1 tablet PO DAILY 08/20/21 04/17/24 History metoprolol succinate 100 mg 1 tablet PO DAILY 08/20/21 04/17/24 History tablet,extended release 24 hr insulin glargine 100 unit/mL (3 130 unit subcut DAILY 04/17/24 04/17/24 History mL) subcutaneous pen (Lantus Solostar U-100 Insulin) insulin lispro 100 unit/mL 36 unit subcut TIDWM 04/17/24 04/17/24 History subcutaneous pen (Humalog KwikPen (U-100) Insulin) dextrose 40 % oral gel (Glutose-15) 15 g PO PRN PRN Hypoglycemia #1 04/19/24 Rx tube glucagon 1 mg solution for 1 mg subcut Q20M PRN hypoglycemia 04/19/24 Rx injection (Glucagon Emergency Kit) #1 ea insulin aspart U-100 100 unit/mL 2 - 4 unit subcut HS #10 mL 04/19/24 Rx subcutaneous solution (Novolog U-100 Insulin aspart) insulin aspart U-100 100 unit/mL 4 - 8 unit subcut TIDWM #10 mL 04/19/24 Rx subcutaneous solution (Novolog U-100 Insulin aspart) insulin glargine 100 unit/mL 60 unit (0.6 mL) subcut QHS #10 mL 04/19/24 Rx subcutaneous solution (Lantus U-100 Insulin) Sedation/Anesthesia: No previous sedation/anesthesia problems (including family history). [facility] Past Medical History Medical History Depression Cataracts, bilateral Hyperlipidemia Hypertension Type 2 diabetes mellitus Seasonal allergies Family History Family History Other Diabetes mellitus Heart disease Hypertension Social History Social History Smoking status: Never smoker Alcohol intake: never Alcohol use details: Occasional Substance use: never Do You Feel Safe in your Home?: Yes Lack of Transportation: No Lack of Food: Never True Current Housing: I Have Housing Concerned About Future Housing: No Difficulty Paying Gas/Electric Bills: No Difficulty Paying for Meds: No Currently Unemployed: No Education: High School Diploma/GED Difficulty w/ Childcare or Family Care: No Spiritual care concerns: No Mod Sed Physical Exam Physical Exam Pre Procedural Exam: Normal: Appearance, Eyes, Ears, Nose, Neck, Throat, Airway, Lungs, Heart Size, Heart Rate, Heart Rhythm, Neuro Exam, Abdomen, Liver, Kidneys, Spleen, Breasts, Genitalia, Extremities and Skin Hours since solid foods: 8 Hours since liquid intake: 8 Mallampati Classification: class 1 Internal Medicine - PN: Obj Da Vital Signs Vital Signs: Vital Signs - 24 hr 07/12/24 14:20 07/12/24 14:24 07/12/24 14:28 Temperature 36.7 C 36.7 C Pulse Rate 80 75 78 Respiratory Rate 20 13 18 Blood Pressure 197/98 H 197/98 H Pulse Oximetry 96 97 97 Oxygen Delivery Room Air Room Air 07/12/24 14:30 07/12/24 14:31 07/12/24 14:45 Temperature Pulse Rate 75 74 83 Respiratory Rate 17 15 17 Blood Pressure 206/101 H 239/105 H Pulse Oximetry 97 97 95 Oxygen Delivery 07/12/24 14:46 07/12/24 14:51 07/12/24 15:00 Temperature Pulse Rate 80 85 82 Respiratory Rate 12 20 Blood Pressure 163/88 H Pulse Oximetry 98 94 Oxygen Delivery 07/12/24 15:01 07/12/24 15:10 07/12/24 15:12 Temperature Pulse Rate 83 78 74 Respiratory Rate 13 Blood Pressure 162/84 H 163/88 H Pulse Oximetry 95 Oxygen Delivery 07/12/24 15:52 Temperature Pulse Rate 85 Respiratory Rate Blood Pressure Pulse Oximetry Oxygen Delivery Meds/Results Radiology Results: ITS Impressions Chest X-Ray 07/12/24 14:58 IMPRESSION: Subsegmental bibasilar atelectasis/consolidation. Labs 07/12/24 14:45 07/12/24 14:45 Labs: Laboratory Results - last 24 hr 07/12/24 14:45 WBC 7.5 RBC 4.52 L Hgb 13.0 L Hct 36.8 L MCV 81.4 MCH 28.8 MCHC 35.3 RDW 11.9 Plt Count 222 MPV 10.7 Immature Gran % (Auto) 0.4 H Neut % (Auto) 72.0 H Lymph % (Auto) 15.6 L [place] % (Auto) 7.6 Eos % (Auto) 3.7 Baso % (Auto) 0.7 Lymph # (Auto) 1.17 [place] # (Auto) 0.57 Eos # (Auto) 0.28 Baso # (Auto) 0.05 Abs Immat Gran (auto) 0.03 H Absolute Neuts (auto) 5.38 Absolute Nucleated RBC 0.00 Nucleated RBC % 0.0 PT 9.7 INR 0.9 APTT 25.0 Sodium 128 L Potassium 4.0 Chloride 99 Carbon Dioxide 26 Anion Gap 3 L BUN 23 H D Creatinine 1.66 H Estim Creat Clear Calc 39 Estimated GFR 43 L Glucose 468 H Calculated Osmolality 290 Lactic Acid 1.3 Calcium 7.9 L Magnesium 1.6 Total Bilirubin 1.0 AST 22 ALT 17 Alkaline Phosphatase 103 Troponin I 0.092 H* NT-Pro-B Natriuret Pep 2230 H Total Protein 6.1 L Albumin 3.3 L ASA Classification/Sedation ASA Classification/Sedation ASA Class: I Emergent: No Risks: Risks, benefits and alternatives explained and patient/family accepted plan for sedation. Patient re-evaluated immediately prior to sedation.
== END 2024-07-12 15:25 | disposition short-term general hospital (02) ==
PROVIDERS: Emergency Provider Internal Medicine Critical Care Medicine; PCP Internal Medicine
DX: I21.09 ST elevation (STEMI) myocardial infarction involving other coronary artery of anterior wall (principal); I16.0 Hypertensive urgency; E78.5 Hyperlipidemia, unspecified; I12.9 Hypertensive chronic kidney disease with stage 1 through stage 4 chronic kidney disease, or unspecified chronic kidney disease; E11.22 Type 2 diabetes mellitus with diabetic chronic kidney disease; N18.9 Chronic kidney disease, unspecified; Z87.891 Personal history of nicotine dependence
CPT/HCPCS: 36415; 71045; 80053; 83605; 83735; 83880; 84484; 85025; 85610; 85730; 93005; 96374; 96375; 99285; A9270; J1644; J1815; J2305

== ENCOUNTER 2024-07-12 16:06 | Inpatient (IN) | payer MEDICARE, SELFPAY ==
[2024-07-12] VITALS (26 sets, daily range): BP systolic 125–197; BP diastolic 55–100; PULSE 59–73; RESP 12–22; TEMP 36.5–36.8; O2SAT 93–99; BMI 29.4
--- NOTE | 2024-07-12 16:02 | HP_ITS ---
This report was moved to the correct visit on 07/25/2024. The original report was signed by Norma Rodriguez MD on 07/12/24 9434. H&P: HPI History of Present Illness Date/Time: Date of service 07/12/24 16:01 Chief Complaint: Chest pain Narrative: This is 58-year-old patient history of hypertension, diabetes, chronic kidney previous tobacco use disease who apparently woke up with chest pain today. Then pain resolved. He went for a walk and then he started to have severe central chest pain radiating to the left arm which made him come to the emergency room. EKG shows ST elevation V1, V2 and minimal ST depression 1 in aVL. His systolic blood pressure was severely elevated as well. Was started on IV nitroglycerin, given heparin as well as aspirin. He arrived to the tailings dam laborer and he was pain free. He stated that he takes his blood pressure medicine and insulin. Troponin 0.09. Creatinine 1.66, sodium 128 and glucose is elevated at 468. Review of Systems Review of Systems: All systems reviewed & are unremarkable except as noted in HPI and below Constitutional: Constitutional: Denies chills, Denies fatigue, Denies fever(s), Denies headache(s) and Denies snoring Eyes: Eyes: Denies eye discharge and Denies loss of vision ENT: Denies dizziness, Denies headache(s), Denies nasal discharge and Denies sore throat Cardiovascular: Cardiovascular: Reports as per HPI, Reports chest pain, Denies syncope, Denies rapid heart rate, Denies leg edema, Denies dyspnea, Denies dyspnea on exertion, Denies orthopnea and Denies paroxysmal nocturnal dyspnea Respiratory: Respiratory: Denies chest congestion, Denies cough, Denies dyspnea, Denies dyspnea on exertion, Denies snoring and Denies wheezing Gastrointestinal: Gastrointestinal: Denies abdominal pain, Denies diarrhea, Denies nausea and Denies vomiting Genitourinary: Genitourinary: Denies hematuria, Denies dysuria, Denies flank pain and Denies urinary frequency Musculoskeletal: Musculoskeletal: Denies myalgias, Denies arthralgias and Denies joint swelling Neurologic: Denies Abnormal speech present, Denies dizziness, Denies syncope, Denies headache(s), Denies focal weakness and Denies loss of vision Psychiatric: Psychiatric: Denies anxiety and Denies depression Endocrine: Endocrine: Denies cold intolerance, Denies fatigue and Denies heat intolerance Hematologic/Lymphatic: Hematologic/Lymphatic: Denies easy bleeding and Denies easy bruising Allergic/Immunologic: Allergic/Immunologic: Denies urticaria and Denies wheezing PMFSH Past Medical History Medical History Depression Cataracts, bilateral Hyperlipidemia Hypertension Type 2 diabetes mellitus Seasonal allergies Family History Family History Other Diabetes mellitus Heart disease Hypertension Social History Social History Smoking status: Never smoker Alcohol intake: never Alcohol use details: Occasional Substance use: never Do You Feel Safe in your Home?: Yes Lack of Transportation: No Lack of Food: Never True Current Housing: I Have Housing Concerned About Future Housing: No Difficulty Paying Gas/Electric Bills: No Difficulty Paying for Meds: No Currently Unemployed: No Education: High School Diploma/GED Difficulty w/ Childcare or Family Care: No Spiritual care concerns: No Meds Home Medications and Allergies Home Medications ?Medication ?Instructions ?Recorded ?Confirmed ?Type citalopram 20 mg tablet 20 mg PO DAILY 09/23/19 04/17/24 History lisinopril 20 1 tablet PO BID 09/23/19 04/17/24 History mg-hydrochlorothiazide 12.5 mg tablet atorvastatin 80 mg tablet 1 tablet PO DAILY 08/20/21 04/17/24 History doxazosin 4 mg tablet 1 tablet PO DAILY 08/20/21 04/17/24 History metoprolol succinate 100 mg 1 tablet PO DAILY 08/20/21 04/17/24 History tablet,extended release 24 hr insulin glargine 100 unit/mL (3 130 unit subcut DAILY 04/17/24 04/17/24 History mL) subcutaneous pen (Lantus Solostar U-100 Insulin) insulin lispro 100 unit/mL 36 unit subcut TIDWM 04/17/24 04/17/24 History subcutaneous pen (Humalog KwikPen (U-100) Insulin) dextrose 40 % oral gel (Glutose-15) 15 g PO PRN PRN Hypoglycemia #1 04/19/24 Rx tube glucagon 1 mg solution for 1 mg subcut Q20M PRN hypoglycemia 04/19/24 Rx injection (Glucagon Emergency Kit) #1 ea insulin aspart U-100 100 unit/mL 2 - 4 unit subcut HS #10 mL 04/19/24 Rx subcutaneous solution (Novolog U-100 Insulin aspart) insulin aspart U-100 100 unit/mL 4 - 8 unit subcut TIDWM #10 mL 04/19/24 Rx subcutaneous solution (Novolog U-100 Insulin aspart) insulin glargine 100 unit/mL 60 unit (0.6 mL) subcut QHS #10 mL 04/19/24 Rx subcutaneous solution (Lantus U-100 Insulin) Allergies Allergy/AdvReac Type Severity Reaction Status Date / Time No Known Allergies Allergy Verified 07/12/24 15:15 Vital Signs Vital Signs - 24 hr 07/12/2513:20 07/12/2513:24 07/12/2513:28 Temperature 36.7 C 36.7 C Pulse Rate 80 75 78 Respiratory Rate 20 13 18 Blood Pressure 197/98 H 197/98 H Pulse Oximetry 96 97 97 Oxygen Delivery Room Air Room Air 07/12/2513:30 07/12/2513:31 07/12/2513:45 Temperature Pulse Rate 75 74 83 Respiratory Rate 17 15 17 Blood Pressure 206/101 H 239/105 H Pulse Oximetry 97 97 95 Oxygen Delivery 07/12/2513:46 07/12/2513:51 07/12/2514:00 Temperature Pulse Rate 80 85 82 Respiratory Rate 12 20 Blood Pressure 163/88 H Pulse Oximetry 98 94 Oxygen Delivery 07/12/2514:01 07/12/2514:10 07/12/2514:12 Temperature Pulse Rate 83 78 74 Respiratory Rate 13 Blood Pressure 162/84 H 163/88 H Pulse Oximetry 95 Oxygen Delivery 07/12/2514:52 Temperature Pulse Rate 85 Respiratory Rate Blood Pressure Pulse Oximetry Oxygen Delivery H&P: Results Labs Labs: Short CBC 07/12/24 Range/Units 14:45 WBC 7.5 (4.8-10.8) K/mm3 Hgb 13.0 L (14.0-18.0) g/dL Hct 36.8 L (40.0-54.0) % Plt Count 222 (150-420) K/mm3 BMP 07/12/24 14:45 Sodium 128 L Potassium 4.0 Chloride 99 Carbon Dioxide 26 BUN 23 H D Creatinine 1.66 H Glucose 468 H Calcium 7.9 L Cardiac Enzymes 07/12/24 Range/Units 14:45 Troponin I 0.092 H* (0.000-0.034) ng/mL Liver Function 07/12/24 Range/Units 14:45 Total Bilirubin 1.0 (0.2-1.3) mg/dL AST 22 (17-59) U/L ALT 17 (6-50) U/L Alkaline Phosphatase 103 (38-126) U/L Albumin 3.3 L (3.5-5.1) g/dL Assessment and Plan Assessment and plan (1) Chest pain: Code(s): R07.9 - Chest pain, unspecified Status: Acute Assessment and Plan: In regards to chest pain, EKG is concerning because of a ST elevation lead V1 and V2 and therefore will hand him to the tailings dam laborer to define coronary anatomy. Risks and benefits of cardiac catheterization discussed with patient agrees to proceed. (2) Hypertensive urgency: Code(s): I16.0 - Hypertensive urgency Status: Acute (3) Type 2 diabetes mellitus: Code(s): E11.9 - Type 2 diabetes mellitus without complications Status: Acute Please be advised this is a medical document. It is intended for [id number] communication. It is written in medical language and may contain unfamiliar abbreviations or verbiage. Medical documents are intended to carry relevant information, facts as evident, and the clinical opinion of the practitioner at the time of the encounter. This report may have been done utilizing a voice recognition system. Attempts have been made to correct errors. However, there may be uncorrected grammatical, spelling, and recognition errors present. The file time of this note does not necessarily represent the time the patient was seen. Report Initialized date/time: Norma Rodriguez MD 07/12/24 / 1606 Electronically signed by: Norma Rodriguez MD 07/12/24 3913
--- NOTE | 2024-07-12 16:09 | HP_ITS ---
This report was moved to the correct visit on 07/25/2024. The original report was signed by Norma Rodriguez MD on 07/12/24 1609.. Moderate Sedation Note-Pt Data Patient Data Diagnosis: Possible STEMI Present Complaint: Chest pain Procedure to be performed/Plan: Coronary angiogram Allergies Allergy/AdvReac Type Severity Reaction Status Date / Time No Known Allergies Allergy Verified 07/12/24 15:15 Home Medications ?Medication ?Instructions ?Recorded ?Confirmed ?Type citalopram 20 mg tablet 20 mg PO DAILY 09/23/19 04/17/24 History lisinopril 20 1 tablet PO BID 09/23/19 04/17/24 History mg-hydrochlorothiazide 12.5 mg tablet atorvastatin 80 mg tablet 1 tablet PO DAILY 08/20/21 04/17/24 History doxazosin 4 mg tablet 1 tablet PO DAILY 08/20/21 04/17/24 History metoprolol succinate 100 mg 1 tablet PO DAILY 08/20/21 04/17/24 History tablet,extended release 24 hr insulin glargine 100 unit/mL (3 130 unit subcut DAILY 04/17/24 04/17/24 History mL) subcutaneous pen (Lantus Solostar U-100 Insulin) insulin lispro 100 unit/mL 36 unit subcut TIDWM 04/17/24 04/17/24 History subcutaneous pen (Humalog KwikPen (U-100) Insulin) dextrose 40 % oral gel (Glutose-15) 15 g PO PRN PRN Hypoglycemia #1 04/19/24 Rx tube glucagon 1 mg solution for 1 mg subcut Q20M PRN hypoglycemia 04/19/24 Rx injection (Glucagon Emergency Kit) #1 ea insulin aspart U-100 100 unit/mL 2 - 4 unit subcut HS #10 mL 04/19/24 Rx subcutaneous solution (Novolog U-100 Insulin aspart) insulin aspart U-100 100 unit/mL 4 - 8 unit subcut TIDWM #10 mL 04/19/24 Rx subcutaneous solution (Novolog U-100 Insulin aspart) insulin glargine 100 unit/mL 60 unit (0.6 mL) subcut QHS #10 mL 04/19/24 Rx subcutaneous solution (Lantus U-100 Insulin) Sedation/Anesthesia: No previous sedation/anesthesia problems (including family history). PMFSH Past Medical History Medical History Depression Cataracts, bilateral Hyperlipidemia Hypertension Type 2 diabetes mellitus Seasonal allergies Family History Family History Other Diabetes mellitus Heart disease Hypertension Social History Social History Smoking status: Never smoker Alcohol intake: never Alcohol use details: Occasional Substance use: never Do You Feel Safe in your Home?: Yes Lack of Transportation: No Lack of Food: Never True Current Housing: I Have Housing Concerned About Future Housing: No Difficulty Paying Gas/Electric Bills: No Difficulty Paying for Meds: No Currently Unemployed: No Education: High School Diploma/GED Difficulty w/ Childcare or Family Care: No Spiritual care concerns: No Mod Sed Physical Exam Physical Exam Pre Procedural Exam: Normal: Appearance, Eyes, Ears, Nose, Neck, Throat, Airway, Lungs, Heart Size, Heart Rate, Heart Rhythm, Neuro Exam, Abdomen, Liver, Kidneys, Spleen, Breasts, Genitalia, Extremities and Skin Hours since solid foods: 8 Hours since liquid intake: 8 Mallampati Classification: class 1 Internal Medicine - PN: Obj Da Vital Signs Vital Signs: Vital Signs - 24 hr 07/12/2513:20 07/12/2513:24 07/12/2513:28 Temperature 36.7 C 36.7 C Pulse Rate 80 75 78 Respiratory Rate 20 13 18 Blood Pressure 197/98 H 197/98 H Pulse Oximetry 96 97 97 Oxygen Delivery Room Air Room Air 07/12/2513:30 07/12/2513:31 07/12/2513:45 Temperature Pulse Rate 75 74 83 Respiratory Rate 17 15 17 Blood Pressure 206/101 H 239/105 H Pulse Oximetry 97 97 95 Oxygen Delivery 07/12/2513:46 07/12/2513:51 07/12/2514:00 Temperature Pulse Rate 80 85 82 Respiratory Rate 12 20 Blood Pressure 163/88 H Pulse Oximetry 98 94 Oxygen Delivery 07/12/2514:01 07/12/2514:10 07/12/2514:12 Temperature Pulse Rate 83 78 74 Respiratory Rate 13 Blood Pressure 162/84 H 163/88 H Pulse Oximetry 95 Oxygen Delivery 07/12/2514:52 Temperature Pulse Rate 85 Respiratory Rate Blood Pressure Pulse Oximetry Oxygen Delivery Meds/Results Radiology Results: ITS Impressions Chest X-Ray 07/12/24 14:58 IMPRESSION: Subsegmental bibasilar atelectasis/consolidation. Labs 07/12/24 14:45 07/12/24 14:45 Labs: Laboratory Results - last 24 hr 07/12/24 14:45 WBC 7.5 RBC 4.52 L Hgb 13.0 L Hct 36.8 L MCV 81.4 MCH 28.8 MCHC 35.3 RDW 11.9 Plt Count 222 MPV 10.7 Immature Gran % (Auto) 0.4 H Neut % (Auto) 72.0 H Lymph % (Auto) 15.6 L [place] % (Auto) 7.6 Eos % (Auto) 3.7 Baso % (Auto) 0.7 Lymph # (Auto) 1.17 [place] # (Auto) 0.57 Eos # (Auto) 0.28 Baso # (Auto) 0.05 Abs Immat Gran (auto) 0.03 H Absolute Neuts (auto) 5.38 Absolute Nucleated RBC 0.00 Nucleated RBC % 0.0 PT 9.7 INR 0.9 APTT 25.0 Sodium 128 L Potassium 4.0 Chloride 99 Carbon Dioxide 26 Anion Gap 3 L BUN 23 H D Creatinine 1.66 H Estim Creat Clear Calc 39 Estimated GFR 43 L Glucose 468 H Calculated Osmolality 290 Lactic Acid 1.3 Calcium 7.9 L Magnesium 1.6 Total Bilirubin 1.0 AST 22 ALT 17 Alkaline Phosphatase 103 Troponin I 0.092 H* NT-Pro-B Natriuret Pep 2230 H Total Protein 6.1 L Albumin 3.3 L ASA Classification/Sedation ASA Classification/Sedation ASA Class: I Emergent: No Risks: Risks, benefits and alternatives explained and patient/family accepted plan for sedation. Patient re-evaluated immediately prior to sedation. Please be advised this is a medical document. It is intended for [id number] communication. It is written in medical language and may contain unfamiliar abbreviations or verbiage. Medical documents are intended to carry relevant information, facts as evident, and the clinical opinion of the practitioner at the time of the encounter. This report may have been done utilizing a voice recognition system. Attempts have been made to correct errors. However, there may be uncorrected grammatical, spelling, and recognition errors present. The file time of this note does not necessarily represent the time the patient was seen. Report Initialized date/time: Norma Rodriguez MD 07/12/241608 Electronically signed by: Norma Rodriguez MD 07/12/24 2513
--- NOTE | 2024-07-12 16:09 | CARDIO_ITS ---
This report was moved to the correct visit on 07/25/2024. The original report was signed by Norma Rodriguez MD on 07/12/24 1580. ADDENDUMalso patient has medium to large size ramus that has proximal 70% Addendum Documented By: Norma Rodriguez MD 07/12/241833 Addendum Signed By: <Electronically signed by Norma Rodriguez MD> 07/12/241833 Cardiac Cath Procedure Note Date of procedure:: 07/12/24 Performing physician:: Norma Rodriguez MD Date of service 07/12/2024 Indication:: Possible knee anterior STEMI Brief clinical history:: This is 58-year-old patient history of hypertension, diabetes, chronic kidney previous tobacco use disease who apparently woke up with chest pain today. Then pain resolved. He went for a walk and then he started to have severe central chest pain radiating to the left arm which made him come to the emergency room. EKG shows ST elevation V1, V2 and minimal ST depression 1 in aVL. His systolic blood pressure was severely elevated as well. Was started on IV nitroglycerin, given heparin as well as aspirin. He arrived to the helper animal laboratory and he was pain free. He stated that he takes his blood pressure medicine and insulin. Troponin 0.09. Creatinine 1.66, sodium 128 and glucose is elevated at 468. Procedure Procedure performed:: 1-Moderate sedation that started at 4:16 p.m. and ended at 4:33 p.m. total duration 17 minutes using 2mg of Versed and 50mcg fentanyl. The registered nurse was venkat ponce. 2-Selective left and right coronary angiogram. 3-Left heart catheterization with measurement of LVEDP and measurement of gradient across aortic valve. 4-Right common femoral arterial angiogram. 5-Deployment of 6 Israeli Angio-Seal. Sedation/Medication given:: Moderate sedation. Access site:: Right common femoral artery. Estimated blood loss:: 10cc Procedure note:: After informed consent patient was brought in to helper animal laboratory with the was draped and prepped in usual manner. Moderate sedation was given and the right groin was infiltrated using 1% lidocaine. Five Israeli sheath was obtained using micropuncture needle and the modified Seldinger technique. Selective left coronary angiogram was done using JL4 catheter with the tip of the catheter placed in the left main coronary artery. Selective right coronary angiogram was done using JR4 catheter with the tip of the catheter placed to the right coronary artery. After that 5 Israeli pigtail catheter was advanced across the aortic valve into the left ventricle with measurement of LVEDP and measurement of gradient across aortic valve. Right common femoral arterial angiogram was done. Findings:: 1- left coronary artery is a large artery that divides into large LAD, large circumflex artery. Left main has diffuse 20%. 2- left anterior descending artery is a large. High-grade stenosis in the mid segment. Prior to the stenosis is there is a medium diagonal branch that has ostial 90% followed by a 2nd diagonal branch that also has ostial 80%. 3- leftcircumflex artery is medium caliber. Mid to distal 90%. Medium-sized OM2 branch has diffuse 80-90% proximally. 4- right coronary artery is large and dominant. Diffuse 40% proximal. In the mid segment focal lesion of about 50-60%. High-grade stenosis proximal PDA about 70% and in the mid RPLV of about 70%. 5- LVEDP was 12 mmhgand no gradient across aortic valve. 6- opening arterial pressure was 112/77 and closing pressure was 115/59 7- right femoral artery angiogram shows no significant disease in the right common femoral artery. Conclusion:: -severe coronary artery disease involving LAD, major diagonal 1 and diagonal 2, mid left circumflex artery, medium-sized OM, right coronary artery, right PDA and RPL. Assessment and Plan Assessment and plan (1) Chest pain: Code(s): R07.9 - Chest pain, unspecified Status: Acute Assessment and Plan: Severe 3 vessel disease on cardiac catheterization Plan --given severe 3 vessel disease patient will need CABG. -family requested the patient to be transferred to [facility]. -will resume heparin 6 hours after cardiac catheterization. -continue aspirin. -continue IV nitroglycerin to control hypertension. -optimize sugar control. Please be advised this is a medical document. It is intended for [id number] communication. It is written in medical language and may contain unfamiliar abbreviations or verbiage. Medical documents are intended to carry relevant information, facts as evident, and the clinical opinion of the practitioner at the time of the encounter. This report may have been done utilizing a voice recognition system. Attempts have been made to correct errors. However, there may be uncorrected grammatical, spelling, and recognition errors present. The file time of this note does not necessarily represent the time the patient was seen. Report Initialized date/time: Norma Rodriguez MD 07/12/24 / 1608 Electronically signed by: Norma Rodriguez MD 07/12/24 3918
--- OUTSIDE RECORDS SUMMARY | 2024-07-12 16:11 | XMS_ITS | Clinical Summary ---
Author Organization [facility] Address [address] [place] [address] Phone Care Team Providers Care Resource Efficiency Manager Name Role Phone Tobias Mckenzie MD Primary Care Provider [phone] Allergies No known active allergies Medications Blood [...] Comments Influenza Vaccine (Season Ended) [address] [place] [address] [place] [employer] Care Teams Resource Efficiency Manager Relationship Specialty Start Date End Date Tobias Mckenzie MD [address] [place] [address] PCP - General Internal Medicine 05/17/21
--- NOTE | 2024-07-12 17:44 | ADMGEN ---
This patient, Medhat Alonso Sr., was admitted to Intensive Care Unit-3 at 1700 from the cardiac label press operator. Patient/family oriented to hospital policies and general routines including ID bracelet, bed and alarms, visiting hours, pain management, procedures, bathroom and other care routines, personal items, smoking policy, room service/diet, and visiting hours. Information on how to activate the Rapid Response Team has been discussed. Patient/Family are encouraged to report perceived risks to care and to ask questions if they do not understand what they are told or what they should do.
[2024-07-12 18:01] LABS: Basophils Absolute Auto 0.1 K/mm3 (0.0-0.1); Basophils Percent Auto 0.7 % (0.2-1.2); Eosinophils Absolute Auto 0.3 K/mm3 (0-0.3); Eosinophils Percent Auto 3.8 % (0-4.4); Hematocrit 37.9 % (42.0-52.0); Hemoglobin 13.5 g/dL (14.0-18.0); Immature Granulocyte Absolute 0.02 K/mm3 (0.00-0.031); Immature Granulocyte Percent A 0.2 % (0-0.5); Lymphocytes Absolute Auto 1.84 K/mm3 (0.9-3.2); Mean Corpuscular HGB Conc 35.6 g/dl (32-36); Mean Corpuscular Hemoglobin 29.4 pg (26-34); Mean Corpuscular Volume 82.6 fl (80-100); Mean Platelet Volume 10.4 fl (7.4-10.4); Monocytes Absolute Auto 0.7 K/mm3 (0.1-0.6); Neutrophils Absolute Auto 5.8 K/mm3 (1.3-6.7); Neutrophils Percent Auto 66.3 % (45.5-73.1); Platelet Count Result 242 k/mm3 (150-375); Red Blood Count 4.59 M/mm3 (4.6-6.20); Red Cell Distribution Width 12.2 % (11.5-14.5); White Blood Count 8.8 K/mm3 (4.5-10.0)
--- NOTE | 2024-07-12 18:14 | PC.NURSE ---
Dr. Rodriguez called at 1811 and would like Heparin gtt. stated [id number] after cardiac cath instead of 6 hours. RN to change heparin order and start gtt. x2 hours after cardiac cath.
[2024-07-12] MEDS: SODIUM CHLORIDE 0.9% IV 1,000 ML 125 ML IV CONT (18:23)
[2024-07-12] MEDS: NITROGLYCERIN/D5W 200 MCG/ML 50 MG/250 ML BTL IV CONT (18:24)
[2024-07-12] MEDS: HEPARIN SOD/D5W 100 UNITS/ML 25,000 UNITS/250 ML BAG 9 UNITS IV CONT (19:20)
[2024-07-12] MEDS: lisinopriL 20 MG TABLET PO (19:21)
[2024-07-12] MEDS: METOPROLOL SUCCINATE EXT REL 100 MG TABCR PO (19:21)
--- NOTE | 2024-07-12 19:25 | ECG_ITS ---
Test Date: 2024-07-12 19:17:25 Measurements Intervals [place] Rate: 60 P: 23 DE: 150 QRS: 7 QRSD: 91 T: 154 QT: 407 QTc: 408 Interpretive Statements SINUS RHYTHM INCOMPLETE RIGHT BUNDLE BRANCH BLOCK LEFT VENTRICULAR HYPERTROPHY WITH ST-T CHANGE BORDERLINE ECG No previous ECG available for comparison Electronically Signed On 07-13-2024 07:01:48 CDT by Bj Rocha D.O.
[2024-07-12] MEDS: hydroCHLOROthiazide 12.5 MG CAPSULE PO (19:38)
[2024-07-12] MEDS: DOXAZOSIN MESYLATE 4 MG TABLET PO (19:38)
[2024-07-12 19:51] LABS: MRSA (PCR) NOT DETECTED (NOT DETECTE)
--- NOTE | 2024-07-12 20:07 | PC.NURSE ---
Dr Rodriguez called to make aware that [facility] will not release bed until the patient is off the nitro drip. Order received to stop nitro drip NOW and to order hydralazine 10mg q3H PRN for systolic BP >170.
--- NOTE | 2024-07-12 20:25 | PC.NURSE ---
2015 attempted to call report to Ez CANSECO at [facility]. Nurse in room, charge nurse stated he will call back. Charge nurse made aware that we are calling for ambulance transport.
--- NOTE | 2024-07-12 20:36 | PC.NURSE ---
Report given to Ez CANSECO. will call when ambulance arrives for transfer; current ETA 2100.
[2024-07-12] MEDS: CITALOPRAM HYDROBROMIDE 20 MG TABLET PO (20:46)
[2024-07-12] MEDS: INSULIN GLARGINE (*BKC) 100 UNITS/ML 40 UNITS SUB-Q (20:46)
[2024-07-12] MEDS: ATORVASTATIN 40 MG TABLET 80 MG PO (20:46)
[2024-07-12] MEDS: INSULIN ASPART (*BKC) 100 UNITS/ML SUB-Q (20:46)
[2024-07-12 20:58] LABS: Glucose Point of Care 342 mg/dl (65-105)
--- NOTE | 2024-07-12 21:51 | PC.NURSE ---
Report given to [email or web address] personnel.
--- NOTE | 2024-07-12 22:19 | PC.NURSE ---
Patient left per [facility] ambulance at 2203, son Medhat Orta and daughter Yolanda called to make aware.
--- NOTE | 2024-07-13 12:13 | P.TS_ITS ---
Transfer Discharge Sum: Prov Provider Date of admission: 07/12/24 16:06 Primary care physician: Juliane Dale MD Admitting clinician: Norma Rodriguez MD Consults: ICU Attending physician on discharge: Norma Rodriguez Discharging clinician: Norma Rodriguez Anticipated date of transfer: 07/12/24 Receiving [facility]facility[facility] DS: Admitting Diagnosis Discharge Date 07/12/24 Admitting Diagnosis STEMI DS: Discharge Diagnosis Discharge Diagnosis (1) STEMI (ST elevation myocardial infarction): Code(s): I21.3 - ST elevation (STEMI) myocardial infarction of unspecified site Status: Acute Assessment and Plan: Patient underwent cardiac catheterization that showed severe three-vessel disease. Plan -[facility] Discharge Sum: Med Medications Active and Home Medications: Home Medications citalopram 20 mg tablet 20 mg PO HS 09/23/19 [History Confirmed 07/12/24] lisinopril 20 mg-hydrochlorothiazide 12.5 mg tablet 1 tablet PO BID 09/23/19 [History Confirmed 07/12/24] atorvastatin 80 mg tablet 1 tablet PO HS 08/20/21 [History Confirmed 07/12/24] doxazosin 4 mg tablet 1 tablet PO DAILY 08/20/21 [History Confirmed 07/12/24] metoprolol succinate 100 mg tablet,extended release 24 hr 1 tablet PO DAILY 08/20/21 [History Confirmed 07/12/24] insulin glargine 100 unit/mL (3 mL) subcutaneous pen (Lantus Solostar U-100 Insulin) 130 unit subcut DAILY 04/17/24 [History Confirmed 07/12/24] insulin lispro 100 unit/mL subcutaneous pen (Humalog KwikPen (U-100) Insulin) 36 unit subcut TIDWM 04/17/24 [History Confirmed 07/12/24] dextrose 40 % oral gel (Glutose-15) 15 g PO PRN PRN Hypoglycemia #1 tube 04/19/24 [Rx Confirmed 07/12/24] glucagon 1 mg solution for injection (Glucagon Emergency Kit) 1 mg subcut Q20M PRN hypoglycemia #1 ea 04/19/24 [Rx Confirmed 07/12/24] insulin aspart U-100 100 unit/mL subcutaneous solution (Novolog U-100 Insulin aspart) 2 - 4 unit subcut HS #10 mL 04/19/24 [Rx Confirmed 07/12/24] insulin aspart U-100 100 unit/mL subcutaneous solution (Novolog U-100 Insulin aspart) 4 - 8 unit subcut TIDWM #10 mL 04/19/24 [Rx Confirmed 07/12/24] insulin glargine 100 unit/mL subcutaneous solution (Lantus U-100 Insulin) 60 unit (0.6 mL) subcut QHS #10 mL 04/19/24 [Rx Confirmed 07/12/24] Transfer Discharge Sum: Hosp Hospital Course Hospital course: Medhat Alonso Sr. is a 58 year old male with history of diabetes, hypertension, hyperlipidemia chronic kidney disease who presented to the hospital with chest pain. It woke him up from sleep. Then it went away. He went out for a walk and then came back with severe crushing pain. Came to the ER his blood pressure was severely elevated. Started on IV nitroglycerin. EKG showed V1 and V2 elevation. He was transferred from [facility] to [facility] and underwent cardiac catheterization that showed severe 3 vessel disease as described in details in the cardiac catheterization. Initially I called [place] transfer system and spend significant amount of time and then the family informed me that they do not want to go to [place] and then decided to go to [place]. I did extensive phone calls to transfer the patient to [place]. I was on the phone for almost 2 hours coordinating transfer. I did speak to Dr. bo CT surgery at [place] and explained to him the case. Then I did speak to the accepting hospitalist Dr. Sanders in details as well. In addition to that I did extensive history explanation to the receiving call center. Then after that I spent a lot of time with his nurses to try verification of his home medications. Also clarifying the orders post catheterization. Time Spent with Patient Time attestation: Total time spent providing and/or coordinating transfer services was 180 minutes. Time spent here coordination of care and transfer. Time also spent here on managing his medications. Exam Const: General: comfortable Orientation/consciousness: patient oriented x3 HENMT: Head: normocephalic and atraumatic Ears: external ears normal Face/Nose/Sinus: Normal nares present Face and sinus: no erythema Mouth: No mouth trauma Eyes: Eyelids: no eyelid abnormalities Neck: Thyroid: thyroid normal Chest: Chest palpation & inspection: normal inspection of the chest Resp: Effort & Inspection: no nasal flaring and not tachypneic Cardio: Jugular venous distension: no JVD Heart sounds: no murmurs GI: Inspection: no abdominal wall ecchymosis : Male General Exam: Yes edema Back/Spine/Pelvis: Back: No CVA tenderness Skin: General skin exam: normal color Neuro: General: patient oriented x3 Cognition (Neuro): normal cognition Extrem: General: no edema Psych: Appearance: grossly normal DS: Data Data Completed and Pending Completed studies during hospitalization: Cardiac catheterization Labs on day of discharge: Labs from last 24 hours 07/12/24 07/12/24 07/12/24 20:44 18:32 17:55 WBC 8.8 RBC 4.59 L Hgb 13.5 L Hct 37.9 L MCV 82.6 MCH 29.4 MCHC 35.6 RDW 12.2 Plt Count 242 MPV 10.4 Immature Gran % (Auto) 0.2 Neut % (Auto) 66.3 Lymph % (Auto) 21.0 [place] % (Auto) 8.0 Eos % (Auto) 3.8 Baso % (Auto) 0.7 Lymph # (Auto) 1.84 [place] # (Auto) 0.7 H Eos # (Auto) 0.3 Baso # (Auto) 0.1 Abs Immat Gran (auto) 0.02 Absolute Neuts (auto) 5.8 Absolute Nucleated RBC 0.000 Nucleated RBC % 0.0 POC Capillary Glucose 342 H Nasal MRSA (PCR) Not detected Procedures/Treatments: Cardiac catheterization
[2024-07-16 08:53] LABS: Glucose Point of Care 267 mg/dl (65-105)
== END 2024-07-12 22:22 | disposition short-term general hospital (02) | DRG 282 ==
LOC: ANHICU 16:10
PROVIDERS: Admitting Provider Internal Medicine Cardiovascular Disease; PCP Internal Medicine; Visit Provider Internal Medicine Cardiovascular Disease
PROC: 4A023N7 Measurement of Cardiac Sampling and Pressure, Left Heart, Percutaneous Approach (ICD-10-PCS; CPT 93452; principal; 2024-07-12 16:20)
PROC: 4A023N7 Measurement of Cardiac Sampling and Pressure, Left Heart, Percutaneous Approach (ICD-10-PCS; 2024-07-12 16:20)
DX: I21.09 ST elevation (STEMI) myocardial infarction involving other coronary artery of anterior wall (principal); I16.0 Hypertensive urgency; I25.10 Atherosclerotic heart disease of native coronary artery without angina pectoris; E78.5 Hyperlipidemia, unspecified; I12.9 Hypertensive chronic kidney disease with stage 1 through stage 4 chronic kidney disease, or unspecified chronic kidney disease; E11.22 Type 2 diabetes mellitus with diabetic chronic kidney disease; N18.9 Chronic kidney disease, unspecified; Z87.891 Personal history of nicotine dependence; Z79.4 Long term (current) use of insulin
CPT/HCPCS: 36415; 82948; 85025; 87641; 93005; 93458; A9270; C1760; C1887; C1894; G0269; J1644; J1815; J2003; J2250; J2305; J3010; J7030; J7040

== ENCOUNTER 2024-08-03 10:27 | Emergency (ER) | payer MEDICARE, MEDICAID, SELFPAY ==
[2024-08-03] VITALS (68 sets, daily range): BP systolic 144–184; BP diastolic 85–100; PULSE 67–88; RESP 10–19; TEMP 36.4–36.7; O2SAT 95–99
--- NOTE | ~2024-08-03 | XR_ITS ---
Portable chest x-ray Comparison: 07/12/2024 Clinical History: Chest pain Findings: There is retrocardiac airspace disease. Right lung clear. Cardiomediastinal silhouette is stable. Bones and soft tissues are unremarkable. Impression: Left lower lobe atelectasis versus pneumonia. Correlate clinically. Reviewed, dictated and finalized at [facility]. Impression: Left lower lobe atelectasis versus pneumonia. Correlate clinically.
--- NOTE | ~2024-08-03 | CT_ITS ---
Clinical Indication: Chest pain, shortness of breath CT Scan of the Chest with Contrast: Technique: Contiguous sections were acquired throughout the chest after intravenous administration of 100 cc of Omnipaque 350. Dose reduction technique was used on this scan by utilizing automated expos ure control and iterative reconstruction technique. The dose-length product (DLP) was 462.10 mGy-cm. COMPARISON: 11/04/2021 Findings: There is no evidence of any significant mediastinal, hilar or axillary lymphadenopathy. There is no f illing defect in the pulmonary arterial tree to suggest pulmonary embolus. There is no evidence of ao rtic dissection or aneurysm. No pericardial effusion. Moderate left pleural effusion present. Small right pleural effusion present. There is associated mil d bibasilar atelectatic change. Images through the upper abdomen reveal no abnormalities. Impression: No evidence of pulmonary embolus, aortic dissection, or aortic aneurysm. Moderate left pleural effusion and small right pleural effusion, with mild bibasilar atelectatic lilly ge. Reviewed, dictated and finalized at location . Impression: No evidence of pulmonary embolus, aortic dissection, or aortic aneurysm. Moderate left pleural effusion and small right pleural effusion, with mild biba silar atelectatic change.
--- NOTE | 2024-08-03 10:31 | ECG_ITS ---
Test Date: 2024-08-03 10:29:46 Measurements Intervals [place] Rate: 80 P: 17 GA: 144 QRS: 3 QRSD: 96 T: 202 QT: 405 QTc: 470 Interpretive Statements SINUS RHYTHM POSSIBLE LEFT ATRIAL ENLARGEMENT INCOMPLETE RIGHT BUNDLE BRANCH BLOCK ST-T WAVE ABNORMALITY IN DIFFUSE LEADS- CONSIDER ISCHEMIA BASELINE ARTIFACT- I, II, III, AVL ABNORMAL ECG Compared to ECG 07/12/2024 19:17:25 ST-T wave abnormality now present Possible ischemia now present Electronically Signed On 08-04-2024 06:30:41 CDT by Bj Rocha D.O.
[2024-08-03 11:06] LABS: Basophils Absolute Auto 0.06 K/mm3 (0.00-0.10); Basophils Percent Auto 0.7 % (0.0-1.0); Eosinophils Absolute Auto 0.25 K/mm3 (0.02-0.50); Eosinophils Percent Auto 3.1 % (1.0-6.0); Hematocrit 32.1 % (40.0-54.0); Hemoglobin 10.9 g/dL (14.0-18.0); Immature Granulocyte Absolute 0.02 K/mm3 (0.00-0.00); Immature Granulocyte Percent A 0.2 % (0.0-0.0); Lymphocytes Absolute Auto 0.94 K/mm3 (1.10-4.50); Lymphocytes Percent Auto 11.5 % (18.0-42.0); Mean Corpuscular Hemoglobin 28.4 pg (27.0-31.0); Mean Corpuscular Volume 83.6 fL (78.0-102.0); Mean Platelet Volume 9.3 fl (8.7-11.0); Monocytes Absolute Auto 0.56 K/mm3 (0.10-0.90); Monocytes Percent Auto 6.9 % (2.0-11.0); Neutrophils Absolute Auto 6.33 K/mm3 (1.70-7.20); Neutrophils Percent Auto 77.6 % (50.0-70.0); Platelet Count Result 453 K/mm3 (150-420); Red Blood Count 3.84 M/mm3 (4.70-6.10); Red Cell Distribution Width 13.7 % (11.6-14.4); White Blood Count 8.2 K/mm3 (4.8-10.8)
--- NOTE | 2024-08-03 11:13 | ED.CHESTPAIN ---
HPI - Chest Pain General Chief Complaint: Chest Pain Stated Complaint: chest pain Time Seen by Provider: 08/03/24 10:29 Source: patient Mode of arrival: ambulatory Limitations: no limitations History of Present Illness HPI narrative: Patient is a 58-year-old male with 5 times bypass in the past month. Patient is here with a chest pain that crossed his chest a couple of times this morning and is resolved at this time. No shortness of breath or cough. No nausea vomiting or diarrhea. No numbness is or tingling. MD complaint: chest pain Pertinent past history: coronary artery disease and other ( Lipids, hypertension, diabetes 2) Onset (ago): day(s) ( 1) Timing of current episode: episodic and now resolved Prior episodes: Yes Onset: during rest Pain location: substernal, left chest and right chest Pain radiation: none Severity: mild Pain scale (0-10): 3 Quality: heaviness and sharp Relieving factors: nothing Exacerbating factors: nothing Context: recent surgery and recent immobilization Associated symptoms: other ( none however he did feel little under the weather yesterday) Treatment prior to arrival: none Risk Factors Coronary artery disease risk factors: diabetes, smoking history, hyperlipidemia and hypertension Thoracic aortic dissection risk factors: none Related Data Home Medications ?Medication ?Instructions ?Recorded ?Confirmed ?Last Taken ?Type citalopram 20 mg tablet 20 mg PO HS 09/23/19 07/12/24 07/11/24 History lisinopril 20 1 tablet PO BID 09/23/19 07/12/24 07/11/24 History mg-hydrochlorothiazide 12.5 mg tablet atorvastatin 80 mg tablet 1 tablet PO HS 08/20/21 07/12/24 07/11/24 History doxazosin 4 mg tablet 1 tablet PO DAILY 08/20/21 07/12/24 07/11/24 History metoprolol succinate 100 mg 1 tablet PO DAILY 08/20/21 07/12/24 07/11/24 History tablet,extended release 24 hr insulin glargine 100 unit/mL (3 130 unit subcut DAILY 04/17/24 07/12/24 04/17/24 History mL) subcutaneous pen (Lantus Solostar U-100 Insulin) insulin lispro 100 unit/mL 36 unit subcut TIDWM 04/17/24 07/12/24 04/17/24 History subcutaneous pen (Humalog KwikPen (U-100) Insulin) Allergies Allergy/AdvReac Type Severity Reaction Status Date / Time No Known Allergies Allergy Verified 08/03/24 10:34 Review of Systems Review of Systems: All systems reviewed & are unremarkable except as noted in HPI and below Constitutional: Constitutional: Reports no additional constitutional complaints Eyes: Eyes: Reports no additional eye complaints ENT: Reports system reviewed and no additional complaints, except as documented Cardiovascular: Cardiovascular: Reports no additional cardiovascular complaints Respiratory: Respiratory: Reports no additional respiratory complaints Gastrointestinal: Gastrointestinal: Reports no additional gastrointestinal complaints Genitourinary: Genitourinary: Reports no additional male genitourinary complaints Musculoskeletal: Musculoskeletal: Reports no additional musculoskeletal complaints Integumentary/Breasts: Skin/Breast: Reports system reviewed and no additional complaints, except as docu Neurologic: Reports system reviewed and no additional complaints, except as documented Psychiatric: Psychiatric: Reports no additional psychiatric complaints Endocrine: Endocrine: Reports no additional endocrine complaints Hematologic/Lymphatic: Hematologic/Lymphatic: Reports no additional hematologic/lymphatic complaints Allergic/Immunologic: Allergic/Immunologic: Reports no additional allergic/immunologic complaints [facility] Past Medical History Medical History Depression Cataracts, bilateral Hyperlipidemia Hypertension Type 2 diabetes mellitus Seasonal allergies Family History Family History Father Cerebrovascular accident Other Diabetes mellitus Heart disease Hypertension Social History Social History Smoking packs per day: 1 Smoking cigarettes per day: 20.0 Years smoked: 40 Smoking pack-years: 40.00 Smoking status: Former smoker Tobacco type: cigarettes Additional smoking assessment comments: Off and on 1 PPD smoker x40 years. Alcohol intake: never Alcohol use details: Occasional Substance use: never Substance use type: does not use Do You Feel Safe in your Home?: Yes Lack of Transportation: No Lack of Food: Never True Current Housing: I Have Housing Concerned About Future Housing: No Difficulty Paying Gas/Electric Bills: No Difficulty Paying for Meds: No Currently Unemployed: No Education: Decline to Answer Difficulty w/ Childcare or Family Care: No Spiritual care concerns: No Exam Const: General: healthy appearing Nutritional Appearance: well nourished Orientation/consciousness: patient oriented x3 Limitations: no limitations HENMT: Head: normal to inspection Ears: external ears normal Face/Nose/Sinus: Normal external nose present Eyes: Conjunctivae: conjunctivae normal Pupils: Equal, round and reactive pupils present EOM: EOMs intact bilaterally Neck: Neck: normal visual inspection Chest: Chest palpation & inspection: normal inspection of the chest Resp: Effort & Inspection: normal respiratory effort, not labored, no retractions, not tachypneic and no use of accessory muscles Auscultation: not clear to auscultation bilaterally, no crackles, no rales, no rhonchi, no wheezes, breath sounds absent ( left lower lobe region) and diminished lung sounds ( left lower lobe region) Cardio: Rate: regular rate Rhythm: regular rhythm Heart sounds: no murmurs GI: Inspection: non-distended GI Palp: Yes Soft to palpation and No Tenderness to palpation present (GI) Auscultation: normal bowel sounds : General: Yes bladder normal to palpation Back/Spine/Pelvis: Back: no CVA tenderness Skin: General skin exam: normal color Rashes: no rashes Wounds: no wounds Neuro: General: patient oriented x3, moves all extremities, no meningeal signs, no focal motor deficits and CN's II-XI intact bilaterally Extrem: General: normal to inspection Psych: Mental Status: mental status grossly normal Affect: normal affect Attitude: cooperative Course Vital Signs Vital signs: Vital Signs Temperature 36.7 C 08/03/24 10:27 Pulse Rate 80 08/03/24 10:27 Respiratory Rate 16 08/03/24 10:27 Blood Pressure 180/99 H 08/03/24 10:27 Pulse Oximetry 98 08/03/24 10:27 Oxygen Delivery Room Air 08/03/24 10:27 Temperature 36.7 C 08/03/24 10:27 Pulse Rate 70 08/03/24 14:12 Respiratory Rate 18 08/03/24 13:32 Blood Pressure 169/86 H 08/03/24 14:05 Pulse Oximetry 97 08/03/24 14:05 Oxygen Delivery Room Air 08/03/24 10:27 MDM - Chest Pain MDM Narrative Medical decision making narrative: patient is a 58-year-old male with some chest pain after CABG in the past month. Chest pain has resolved at this time. We will do a cardiac workup at this time. cardiothoracic surgeon wanted this patient to be admitted so we will proceed with transfer. Lab Data Attestation: I reviewed the patient's lab results. 08/03/24 11:01 08/03/24 11:01 Labs: Lab Results 08/03/24 08/03/24 08/03/24 Range/Units 10:51 11:01 13:00 WBC 8.2 (4.8-10.8) K/mm3 RBC 3.84 L (4.70-6.10) M/mm3 Hgb 10.9 L (14.0-18.0) g/dL Hct 32.1 L (40.0-54.0) % MCV 83.6 (78.0-102.0) fL MCH 28.4 (27.0-31.0) pg MCHC 34.0 (32-36) g/dL RDW 13.7 (11.6-14.4) % Plt Count 453 H (150-420) K/mm3 MPV 9.3 (8.7-11.0) fl Immature Gran % (Auto) 0.2 H (0.0-0.0) % Neut % (Auto) 77.6 H (50.0-70.0) % Lymph % (Auto) 11.5 L (18.0-42.0) % [place] % (Auto) 6.9 (2.0-11.0) % Eos % (Auto) 3.1 (1.0-6.0) % Baso % (Auto) 0.7 (0.0-1.0) % Lymph # (Auto) 0.94 L (1.10-4.50) K/mm3 [place] # (Auto) 0.56 (0.10-0.90) K/mm3 Eos # (Auto) 0.25 (0.02-0.50) K/mm3 Baso # (Auto) 0.06 (0.00-0.10) K/mm3 Abs Immat Gran (auto) 0.02 H (0.00-0.00) K/mm3 Absolute Neuts (auto) 6.33 (1.70-7.20) K/mm3 Absolute Nucleated RBC 0.00 (0.00-0.00) K/mm3 Nucleated RBC % 0.0 (0-0.0) % PT 10.9 (9.50-12.1) Seconds INR 1.0 APTT 26.2 (23.9-30.70) Sec D-Dimer 3.65 H (0.19-0.50) mg/L Sodium 135 L (137-145) mmol/L Potassium 3.3 L (3.4-5.0) mmol/L Chloride 103 (98-107) mmol/L Carbon Dioxide 25 (22-30) mmol/L Anion Gap 7 (4-12) mmol/L BUN 20 (9-20) mg/dL Creatinine 1.22 (0.7-1.3) mg/dL Estim Creat Clear Calc 53 ml/min Estimated GFR > 60 (59 - ) Glucose 237 H (65-110) mg/dL Calculated Osmolality 290 (285-295) mOsm/kg Calcium 8.6 (8.4-10.2) mg/dL Total Bilirubin 0.8 (0.2-1.3) mg/dL AST 24 (17-59) U/L ALT 19 (6-50) U/L Alkaline Phosphatase 116 (38-126) U/L Troponin I 0.394 H* 0.373 H* (0.000-0.034) ng/mL NT-Pro-B Natriuret Pep 5830 H (19.9-100) pg/mL Total Protein 6.3 (6.3-8.2) g/dL Albumin 3.5 (3.5-5.1) g/dL Lipase 45 (23-300) U/L Imaging Data Attestation: I personally reviewed and interpreted this imaging study as follows: Radiologist's impression: chest x-ray shows left lower lobe atelectasis versus pneumonia process CTA chest shows Impression: No evidence of pulmonary embolus, aortic dissection, or aortic aneurysm. Moderate left pleural effusion and small right pleural effusion, with mild bibasilar atelectatic change. ECG Data EKG #1: Attestation: I personally reviewed and interpreted this ECG as follows: ECG completion date: 08/03/24 ECG completion time: 11:36 Prior ECG tracings: available for review Interpretation: Multiple T-wave inversions which are similar to prior EKG; also ST elevation in V1 is chronic EKG Interpretation: normal rate, sinus rhythm, no ectopy, non-specific ST changes, normal QRS, normal QT and left axis Discharge Plan Discharge Clinical Impression: Pleural effusion, Elevated troponin, Elevated brain natriuretic peptide (BNP) level CAD (coronary artery disease) Qualifiers: Coronary Disease-Associated Artery/Lesion type: unspecified vessel or lesion type [place] vs. transplanted heart: [place] heart Associated angina: unspecified whether angina present Qualified Code(s): I25.10 - Atherosclerotic heart disease of [place] coronary artery without angina pectoris Chest pain Qualifiers: Chest pain type: unspecified Qualified Code(s): R07.9 - Chest pain, unspecified Patient Disposition: Acute Care Hospital Condition: Stable Patient Language: Lithuanian Prescriptions: No Action atorvastatin 80 mg tablet 1 tablet PO HS metoprolol succinate 100 mg tablet extended release 24 hr 1 tablet PO DAILY doxazosin 4 mg tablet 1 tablet PO DAILY lisinopril-hydrochlorothiazide 20-12.5 mg tablet 1 tablet PO BID citalopram 20 mg tablet 20 mg PO HS insulin glargine [Lantus Solostar U-100 Insulin] 100 unit/mL (3 mL) insulin pen 130 unit SUBCUT DAILY insulin lispro [Humalog KwikPen Insulin] 100 unit/mL insulin pen 36 unit SUBCUT TIDWM Glucagon Emergency Kit (human) 1 mg recon soln 1 mg subcut Q20M PRN (Reason: hypoglycemia) Qty: 1 0RF Rx Instructions: until target blood sugar attained insulin glargine [Lantus U-100 Insulin] 100 unit/mL Solution 60 unit subcut QHS Qty: 10 0RF dextrose [Glutose-15] 40 % Gel 15 g PO PRN PRN (Reason: Hypoglycemia) Qty: 1 0RF insulin aspart U-100 [Novolog U-100 Insulin aspart] 100 unit/mL Solution 4 - 8 unit subcut TIDWM Qty: 10 0RF Protocol: Insulin Corrective High-Dose Condition: glucose < 70 mg/dl Dose/Route: Follow hypoglycemia order Condition: glucose 70-200 mg/dl Dose/Route: No additional insulin Condition: glucose 201-250 mg/dl Dose/Route: 4 units sub-Q Condition: glucose 251-300 mg/dl Dose/Route: 5 units sub-Q Condition: glucose 301-350 mg/dl Dose/Route: 6 units sub-Q Condition: glucose 351-400 mg/dl Dose/Route: 8 units sub-Q Condition: glucose > 400 mg/dl Dose/Route: Call MD Protocol Text: *No Correction Dose at Bedtime* insulin aspart U-100 [Novolog U-100 Insulin aspart] 100 unit/mL Solution 2 - 4 unit subcut HS Qty: 10 0RF Protocol: Insulin Corrective High-Dose Condition: glucose < 70 mg/dl Dose/Route: Follow hypoglycemia order Condition: glucose 70-200 mg/dl Dose/Route: No additional insulin Condition: glucose 201-250 mg/dl Dose/Route: 2 units sub-Q Condition: glucose 251-300 mg/dl Dose/Route: 2 units sub-Q Condition: glucose 301-350 mg/dl Dose/Route: 3 units sub-Q Condition: glucose 351-400 mg/dl Dose/Route: 4 units sub-Q Condition: glucose > 400 mg/dl Dose/Route: Call Follow-up/Referrals: UNKNOWN,DOCTOR [Primary Care Provider] - Time of Disposition: 14:43
[2024-08-03 11:20] LABS: Alanine Aminotransferase 19 U/L (6-50); Albumin Level 3.5 g/dL (3.5-5.1); Alkaline Phosphatase 116 U/L (38-126); Anion Gap 7 mmol/L (4-12); Aspartate Amino Transferase 24 U/L (17-59); Bilirubin,Total 0.8 mg/dL (0.2-1.3); Blood Urea Nitrogen 20 mg/dL (9-20); Calcium 8.6 mg/dL (8.4-10.2); Carbon Dioxide 25 mmol/L (22-30); Chloride 103 mmol/L (98-107); Estimated CRCL calculation 53 ml/min; Estimated Glomerular Filt Rate > 60; Glucose 237 mg/dL (65-110); Lipase 45 U/L (23-300); Osmolality Calculated 290 mOsm/kg (285-295); Potassium 3.3 mmol/L (3.4-5.0); Sodium 135 mmol/L (137-145); Total Protein 6.3 g/dL (6.3-8.2)
[2024-08-03 11:29] LABS: NT Pro B Type Natriuretic Pept 5830 pg/mL (19.9-100)
[2024-08-03 11:34] LABS: Troponin I 0.394 ng/mL (0.000-0.034)
[2024-08-03] MEDS: AZITHROMYCIN 250 MG TABLET 500 MG PO (11:37)
[2024-08-03] MEDS: POTASSIUM CHLORIDE 20 MEQ ER TABLET PO (11:37)
[2024-08-03 13:04] LABS: D Dimer 3.65 mg/L (0.19-0.50)
[2024-08-03 13:28] LABS: Partial Thromboplastin Time 26.2 Sec (23.9-30.70); Prothrombin Time 10.9 Seconds (9.50-12.1)
[2024-08-03 13:31] LABS: Troponin I 0.373 ng/mL (0.000-0.034)
[2024-08-03] MEDS: ASPIRIN 81 MG CHEWABLE TABLET PO (14:58)
[2024-08-03] MEDS: FUROSEMIDE INJ 40 MG/4 ML VIAL IV PUSH (15:42)
--- NOTE | 2024-08-04 12:54 | PC.NURSE ---
blood culture, no growth preliminary
--- NOTE | 2024-08-09 12:43 | PC.NURSE ---
final blood culture report; no growth after 5 days.
== END 2024-08-03 17:44 | disposition short-term general hospital (02) ==
PROVIDERS: Emergency Provider Emergency Medicine
DX: J90 Pleural effusion, not elsewhere classified (principal); R79.89 Other specified abnormal findings of blood chemistry; I25.810 Atherosclerosis of coronary artery bypass graft(s) without angina pectoris; I25.10 Atherosclerotic heart disease of native coronary artery without angina pectoris; E11.9 Type 2 diabetes mellitus without complications; I10 Essential (primary) hypertension; Z87.891 Personal history of nicotine dependence; Z95.1 Presence of aortocoronary bypass graft
CPT/HCPCS: 36415; 71045; 71275; 80053; 83690; 83880; 84484; 85025; 85380; 85610; 85730; 87040; 93005; 96374; 99285; A9270; J1938; Q9967

== ENCOUNTER 2024-08-23 07:00 | Emergency (ER) | payer MEDICARE, SELFPAY ==
[2024-08-23] VITALS (44 sets, daily range): BP systolic 153–198; BP diastolic 91–118; PULSE 71–79; RESP 0–20; TEMP 36.3–37; O2SAT 96–100
--- NOTE | ~2024-08-23 | XR_ITS ---
EXAMINATION: XR chest 2V 08/23/2024 08:03 INDICATION: Left-sided chest pain PROCEDURE: 2 view chest COMPARISON: 08/03/2024 FINDINGS: Bibasilar infiltrates, suspicious for pneumonia. The cardiomediastinal silhouette is within normal limits. There are no pleural effusions. There is no pneumothorax suspected. Status post me ottoniel sternotomy for CABG. IMPRESSION: 1: Bibasilar infiltrates, suspicious for pneumonia.. Reviewed, dictated and finalized at location A.
--- NOTE | ~2024-08-23 | CT_ITS ---
EXAMINATION: CTA chest PE protocol DATE: 08/23/2024 11:35 CDT INDICATION: Left-sided chest pain TECHNIQUE: Computed tomographic angiography (CTA) of the chest was performed with 100 mL Omnipaque-35 0 intravenous contrast. The dose-length product was 230.97 mGy-cm. Maximum intensity projection 3D-re constructions of the aorta and other arteries were constructed by the technologist on a separate work station. Automated exposure control and iterative reconstruction technique were employed. COMPARISON: CT dated 08/03/2024 FINDINGS: Cardiomegaly. Small left pleural effusion. Trace pericardial effusion. Study is technically adequate without evidence for pulmonary embolism. Small hiatal hernia. No thoracic lymphadenopathy. There are faint groundglass opacities of both lungs which may reflect mild edema or hypersensitivity pneumonitis. Status post median sternotomy for CABG. Mild thoracic spondylosis. No acute osseous abno rmality. IMPRESSION: 1. Faint groundglass opacities of both lungs which may represent mild edema or hypersensitivity pneum onitis. 2: No evidence for pulmonary embolism. 3: Small left pleural effusion. Reviewed, dictated and finalized at location A. IMPRESSION: 1. Faint groundglass opacities of both lungs which may represent mild edema or hypersensitivity pneumonitis. 2: No evidence for pulmonary embolism. 3: Small left pleural effusion.
--- NOTE | 2024-08-23 07:00 | ECG_ITS ---
Test Date: 2024-08-23 07:03:48 Measurements Intervals [place] Rate: 77 P: 27 [place]: 151 QRS: 22 QRSD: 113 T: 209 QT: 359 QTc: 407 Interpretive Statements SINUS RHYTHM MODERATE T-WAVE ABNORMALITY, CONSIDER LATERAL ISCHEMIA [-0.1+ mV T-WAVE IN I/aVL/V5/V6] Compared to ECG 08/03/2024 10:29:46 Incomplete right bundle-branch block no longer present T-wave abnormality still present Possible ischemia still present Electronically Signed On 08-25-2024 10:41:52 CDT by Charlie Espinosa M.D.
--- OUTSIDE RECORDS SUMMARY | 2024-08-23 07:02 | XMS_ITS | Clinical Summary ---
Author Organization [facility] Address [address] [place] [address] Phone Care Team Providers Care Supervisor Testing Name Role Phone Tobias Mckenzie MD Primary Care Provider [phone] Allergies No known active allergies Medications Blood [...] Date Last Done Comments Influenza Vaccine (#1) 2024 [place] [address] [place] Care Teams Supervisor Testing Relationship Specialty Start Date End Date Tobias Mckenzie MD [address] [place] [address] PCP - General Internal Medicine 05/17/21
--- OUTSIDE RECORDS SUMMARY | 2024-08-23 07:02 | XMS_ITS | Clinical Summary ---
Author Organization [facility] Address [address] [place] [address] Care Team Providers Care [employer] Chemist Name Role Phone None, Provider MD Primary Care Provider Unavaila ble Allergies No known active allergies Medications Insulin Glargine-yfgn 100 UNIT/ML SolutionIndic ations:Diabet es Mellitus Inject 60 Units into the skin nightly. Indications: Diabetes 04/20/19 25 Active doxazosin (CARDURA) 4 MG tabletIndicat ions:Hyperten batool Take 1 tablet (4 mg total) by mouth nightly at bedtime. Indications: High Blood Pressure 04/13/19 25 Active citalopram (CELEXA) 20 MG tabletIndicat ions:Depressi on Take 1 tablet (20 mg total) by mouth daily. Indications: Depression 04/13/19 25 Active atorvastatin (LIPITOR) 80 MG tabletIndicat ions:Hypercho lesterolemia Take 1 tablet (80 mg total) by mouth daily. Indications: High Amount of Cholesterol in the Blood 04/13/19 25 Active metoprolol succinate ER (TOPROL-XL) 50 MG 24 hr tabletIndicat ions:Coronary Artery Bypass Graft Take 1 tablet (50 mg total) by mouth daily. Indications: Coronary Bypass Surgery 30 tablet 2 07/23/19 25 Active aspirin 81 MG chewable tabletIndicat ions:Coronary Artery Bypass Graft Chew 1 tablet (81 mg total) by mouth daily. Indications: Coronary Bypass Surgery 30 tablet 2 07/23/19 25 Active ferrous sulfate EC 324 (65 Fe) MG tabletIndicat ions:Anemia Associated With Surgery Take 1 tablet (324 mg total) by mouth 2 (two) times daily with meals. Indications: Anemia Associated With Surgery 30 tablet 07/22/19 25 Active pantoprazole EC (PROTONIX) 40 MG tabletIndicat ions:Coronary Artery Bypass Graft Take 1 tablet (40 mg total) by mouth daily. Indications: Coronary Bypass Surgery 30 tablet 07/23/19 25 Active traMADol (ULTRAM) 50 MG tabletIndicat ions:Acute Pain < 7 Day Supply Take 1 tablet (50 mg total) by mouth every 6 (six) hours as needed for Pain. Indications: Acute Pain < 7 Day Supply 28 tablet 07/22/19 25 Active insulin lispro (HUMALOG/ADME LOG) 100 UNIT/ML injection (VIAL)Indicat ions:Diabetes Mellitus Inject 10 Units into the skin 3 (three) times daily before meals. 6-10 units according to meals 07/23/19 25 Active insulin glargine (LANTUS) 100 UNIT/ML injection (VIAL)Indicat ions:Diabetes Mellitus Inject 60 Units into the skin nightly at bedtime. Indications: Diabetes 07/23/19 25 Active acetaminophen (TYLENOL) 500 MG tabletIndicat ions:Pain Take 2 tablets (1,000 mg total) by mouth every 6 (six) hours as needed. Indications: Pain 07/23/19 25 Active lisinopril (PRINIVIL) 2.5 MG tabletIndicat ions:Hyperten batool Take 1 tablet (2.5 mg total) by mouth daily. Indications: High Blood Pressure 30 tablet 08/06/19 25 Active ONETOUCH ULTRA test strip 1 strip by Other route as needed. 07/24/19 25 Active nitroglycerin (NITROSTAT) 0.[address] 1 tablet (0.4 mg total) under the tongue every 5 (five) minutes as needed for Chest Pain. Maximum of 3 doses. 25 tablet 08/15/19 25 026 Active furosemide (LASIX) 40 MG tabletIndicat ions:Edema Take 1 tablet (40 mg total) by mouth every other day. Indications: Edema Pt may take an additional tablet as needed for swelling and shortness of breath. Or 3 to 5 pound weight gain 135 tablet 08/16/19 25 Active HUMALOG KWIKPEN 100 UNIT/ML injection (PEN) Inject 36 Units into the skin 3 (three) times daily before meals. 04/15/19 25 025 Discontinued(Er ror) furosemide (LASIX) 40 MG tabletIndicat ions:Edema Take 1 tablet (40 mg total) by mouth daily. Indications: Edema 30 tablet 1 07/22/19 25 025 Discontinued furosemide (LASIX) 40 MG tabletIndicat ions:Edema TAKE 1 TABLET (40 MG TOTAL) BY MOUTH DAILY. INDICATIONS: EDEMA 90 tablet 08/13/19 25 025 Discontinued furosemide (LASIX) 40 MG tabletIndicat ions:Edema Take 1 tablet (40 mg total) by mouth every other day. Indications: Edema 90 tablet 08/15/19 25 025 Discontinued(Re order) Active Problems Problem Noted Date Diagnosed Date Coronary artery disease invo lving zuni coronary artery of zuni heart without angina pectoris 08/14/2024 Mixed hyperlipidemia 08/14/2024 Chest pain 08/03/2024 STEMI (ST elevation myocardi al infarction) ([facility]) 07/12/2024 Essential hypertension 05/25/2021 Nonspecific abnormal results of function study o f kidney 05/25/2021 Encounters Date Type Department Care Team Description 08/14/2024 10:32 AM CDT - 08/14/2024 11:59 PM CDT Hospital Encounter [facility] [address] Charis Harden PA-C Discharge Disposition: Home or Self Care (Routine Discharge) 08/14/2024 10:30 AM CDT - 08/14/2024 10:31 AM CDT Hospital Encounter [facility] [place] [address] Charis Harden PA-C Discharge Disposition: Home or Self Care (Routine Discharge) 08/14/2024 10:00 AM CDT Office Visit [address] [address] Catalino Louie MD Follow Up (07/15/24 CABG x 5 ) 08/14/2024 9:30 AM CDT Office Visit [address] [address] Patrick Reyes MD France, Hallie A, PA-C Follow Up (hosp) 08/14/2024 Telephone [facility], [address] [address] Manda Taylor RN Results; Medication Request (See notes) 08/14/2024 Travel 08/07/2024 10:00 AM CDT Home Care Visit [address] [address] Catrina Harwdick RN SN OASIS DISCHARGE/ASSESSMENT 08/07/2024 Hospital Follow-up Call [facility] [place] [address] Jennifer Dave LPN Follow Up Call (REESE 08/03-08/05/24) 08/04/2024 8:15 AM CDT Home Care Visit [address] [address] Nida Saleh, SYSTEMS PROGRAM MANAGER VISIT 08/03/2024 6:36 PM CDT - 08/05/2024 12:08 PM CDT Hospital Encounter [facility] [place] [address] Jaz George MD Daniels, Darcy L, NP Discharge Disposition: Home or Self Care (Routine Discharge) 08/03/2024 Travel 07/31/2024 10:15 AM CDT Home Care Visit [address] [place], [place] [id number] Mela Amin LPN SN HOME VISIT 07/28/2024 3:44 PM CDT - 07/28/2024 11:59 PM CDT Hospital Encounter [address] [address] Catalino Louie MD Discharge Disposition: Home or Self Care (Routine Discharge) 07/28/2024 10:00 AM CDT Home Care Visit [facility] Home Care [address] [place] [address] Valentine Perez LPN SN HOME VISIT 07/28/2024 Orders Only [facility] [address] [place] [address] Catalino Louie MD 07/24/2024 9:00 AM CDT Home Care Visit [facility] Home Care [address] [place] [address] Mela Amin LPN SN HOME VISIT 07/23/2024 Hospital Follow-up Call [facility] [place] [address] Jennifer Dave LPN 07/22/2024 8:45 AM CDT Home Care Visit [facility] Home [address] [address] Nida Saleh, SYSTEMS PROGRAM MANAGER VISIT 07/22/2024 8:30 AM CDT Home Care Visit [address] [address] Annamaria Dunn RN SN OASIS START OF CARE 07/22/[address] [facility], [address] [address] Catalino Louie MD Follow Up Call 07/22/2024 Plan of Care Documentation [facility] Home [address] Care [place], [place] [id number] 07/18/2024 9:00 AM CDT Home Care Visit [facility] Care [address] [address] Nida Saleh, SYSTEMS PROGRAM MANAGER VISIT 07/15/2024 7:30 AM CDT - 07/15/2024 2:19 PM CDT Surgery [facility] [place] [address] Catalino Louie MD CORONARY ARTERY BYPASS GRAFTS TIMES FIVE USING LEFT INTERNAL MAMMARY ARTERY AND ENDOSCOPICALLY HARVESTED BILATERAL GREATER SAPHENOUS VEINS; TRANSESOPHAGEAL ECHOCARDIOGRAM, AORTIC SCAN, CARDIOPULMONARY BYPASS 07/15/2024 7:28 AM CDT Anesthesia Event [facility] [place] [address] Eusebia Sánchez MD 07/12/2024 10:36 PM CDT - 07/21/2024 3:55 PM CDT Hospital Encounter [facility] [place] [address] Jaida Sanders MD Malcolm, MD Manny Daniel, Sher Ceballos, HAZEL Collier, Charity Carrasquillo, STEPHON Bernabe, Bari Dominguez MD Discharge Disposition: Home with Home Health Care 07/12/2024 Travel from Last 3 Months Family History Medical History Relation Comments Coronary artery disease Father in his 6 0's Relation Status Comments Father Social History Tobacco Use Types Packs/Day Years Used Date Smoking Tobacco: Former Cigarettes Smokeless Tobacco: Never Tobacco Cessation:Counseling Given: No Comments:Quit c 2020 Alcohol Use Standard Drinks/Week Comments Not Currently 0 (1 standard drink = 0.6 oz pur e alcohol) quit c 2020 OASIS D0700: Social Isolation Answer Da te Recorded Frequency of experiencing loneliness or isolatio n Sometimes 08/07/2024 OASIS A1250: Transportation Answer Date Recorded Lack of Transportation (Medical) No 08/07/2024 Lack of Transportation (Non-Medical) No 08/07/2024 Patient Unable or Declines to Respond No 08/07/2024 OASIS B1300: Health Literacy Answer Rolo e Recorded Frequency of needing help to read materials from doctor or pharmacy Rarely 08/07/2024 [facility] Utilities Answer Date Recorded In the past 12 months has e [employer], gas, oil, or water [employer] threatened to shut off services in your home? Patient declined 08/03/2024 Humiliation, Afraid, Rape, and Kick questionnair e Answer Date Recorded Within the last year, have y ou been afraid of your partner or ex-partner? No 08/03/2024 Within the last year, have y ou been humiliated or emotionally abused in other ways by your partner or ex-partner? No Within the last year, have y ou been kicked, hit, slapped, or otherwise physically hurt by your partner or ex-partner? No 08/03/2024 Within the last year, have y ou been raped or forced to have any kind of sexual activity by your partner or ex-partner? No 08/03/2024 Overall Financial Resource Strain (CARDIA) Answe r Date Recorded How hard is it for you to pa y for the very basics like food, housing, medical care, and heating? Not hard at all 08/03/2024 Hunger Vital Sign Answer Date Recorded Within the past 12 months, y ou worried that your food would run out before you got the money to buy more. Never true 08/04/19 25 Within the past 12 months, t he food you bought just didn't last and you didn't have money to get more. Never true 08/03/2024 PRAPARE - Transportation Answer Date Re corded In the past 12 months, has l ack of transportation kept you from medical appointments or from getting medications? No 07/07 In the past 12 months, has l ack of transportation kept you from meetings, work, or from getting things needed for daily living? No 08/03/2024 Housing Stability Vital Sign Answer Rolo e Recorded In the last 12 months, was t here a time when you were not able to pay the mortgage or rent on time? Yes 08/03/2024 In the past 12 months, how m any times have you moved where you were living? 1 08/03/2024 At any time in the past 12 m [facility], were you homeless or living in a fdc (including now)? No 08/03/2024 Sex and Gender Information Value Date Recorded Sex Assigned at Male 07/12/2024 10:54 PM CDT Legal Sex Male 7:04 PM CDT Gender Identity Male 07/12/2024 10:54 PM CDT Sexual Orientation Straight 07/12/2024 10 :54 PM CDT Last Filed Vital Signs Vital Sign Reading Time Taken Comments Blood Pressure 142/84 08/14/2024 9:47 AM CDT Pulse 83 08/14/2024 9:47 AM CDT Temperature 36.7 C (98 F) 08/14/2024 9:47 AM CDT Respiratory Rate 18 08/14/2024 9:47 AM CDT Oxygen Saturation 98% 08/14/2024 9:47 AM CDT Inhaled Oxygen Concentration - - Weight 74.4 kg (164 lb 0.4 oz) 08/14/2024 9:47 A M CDT Height 167.6 cm (5' 6) 08/14/2024 9:47 AM CDT Body Mass Index 26.47 08/14/2024 9:47 AM CDT Plan of Treatment Upcoming Encounters Date Type Department Care Team (Late st Contact Info) Description 02/19/2025 10:15 AM THERMODYNAMICS TEACHER [facility] [address] [place], [place] [phone] Patrick Reyes MD [facility] [address] [place], [place] [id number] Health Maintenance Due Date Last Done Comments Colorectal Cancer Screening Colonoscopy (10 Years) 1964 Annual Physical 12/30/1967 Hepatitis C 1982 DTaP, Tdap and Td Vaccines ( 1 - Tdap) 12/30/1983 Pneumococcal Vaccine: 50+ Ye ars (1 of 2 - PCV) 12/30/1983 Zoster Vaccines (1 of 2) 2014 COVID-19 Vaccine ( - 2023-2 5 season) 2023 Meningococcal B Vaccine Aged Out No l onger eligible based on patient's age to complete this topic Meningococcal Vaccine Aged Out No eduar cale eligible based on patient's age to complete this topic RSV Immunizations Under 20 Months Aged Out No longer eligible based on patient's age to complete this topic Goals Goal Patient Goal Type Associated Problems Recent Progress Patient-Stated? Author Family - family caregiver with be involved in care transitions and discharge planning Lifestyle No Huang Henson, RN Medical Devices Implanted Type Area Bottom Wheeler Device Identifier Shelf Expiration Date Model / Serial / Lot Wire Sterum Suture Kit Myowire #7 1/2 Ccs-1 - [id number] Implanted:Qty: 1 on 07/15/2024 by Chaparro Cloud RNFA at [facility] Wire N/A: Sternum [employer] 09/06/2027 [id number] / / [id number] Description:2 WIRES IMPLANTE D Wire Sternotomy Suture Kit - [id number] Implanted:Qty: 1 on 07/15/2024 by Catalino Louie MD at [facility] Wire N/A: Sternum [employer] 03/08/2027 [id number] / / [id number] Description:5 WIRES IMPLANTE D Procedures Procedure Name Priority Date/Time Associated Diagnosis Comments XR CHEST PA+LAT Routine 08/14/2024 10:48 AM CDT Acute cough PRO-BRAIN NATRIURETIC PEPTIDE Routine 08/14/2024 10:41 AM CDT Acute cough Shortness of breath BASIC METABOLIC PANEL Routine 08/14/2024 10:41 AM CDT Coronary artery disease involving zuni coronary artery of zuni heart without angina pectoris POCT GLUCOSE - DOCKED DEVICE Routine 08/05/2024 11:25 AM CDT POCT GLUCOSE - DOCKED DEVICE Routine 08/05/2024 5:35 AM CDT MAGNESIUM Routine 08/05/2024 4:02 AM CDT BASIC METABOLIC PANEL Routine 08/05/2024 4:02 AM CDT CBC W/DIFF AUTOMATED Routine 08/05/2024 4:02 AM CDT TROPONIN, QUANT TIMED 08/05/2024 4:02 AM CDT TROPONIN, QUANT TIMED 08/04/2024 7:50 PM CDT POCT GLUCOSE - DOCKED DEVICE Routine 08/04/2024 7:06 PM CDT POCT GLUCOSE - DOCKED DEVICE Routine 08/04/2024 4:43 PM CDT USE ECHO 2D FU LTD W CON Today 08/04/2024 4:24 PM CDT POCT GLUCOSE - DOCKED DEVICE Routine 08/04/2024 11:26 AM CDT TROPONIN, QUANT TIMED 08/04/2024 11:12 AM CDT ECG 12-LEAD Routine 08/04/2024 10:33 AM CDT POCT GLUCOSE - DOCKED DEVICE Routine 08/04/2024 6:36 AM CDT XR CHEST PORTABLE TIMED 08/04/2024 5:4 6 AM CDT HEMOGLOBIN, GLYCOSYLATED Routine 08/04/2024 5:33 AM CDT LIPID PANEL Routine 08/04/2024 5:33 AM CDT TROPONIN, QUANT Routine 08/04/2024 5:33 AM CDT CBC W/DIFF AUTOMATED Routine 08/04/2024 5:33 AM CDT BASIC METABOLIC PANEL Routine 08/04/2024 5:33 AM CDT PROCALCITONIN (PCT) Routine 08/04/2024 5 :30 AM CDT MAGNESIUM Routine 08/04/2024 5:30 AM CDT TROPONIN, QUANT TIMED 08/03/2024 9:15 PM CDT MAGNESIUM Routine 08/03/2024 9:15 PM CDT CBC W/DIFF AUTOMATED Routine 08/03/2024 9:15 PM CDT BASIC METABOLIC PANEL Routine 08/03/2024 9:15 PM CDT POCT GLUCOSE - DOCKED DEVICE Routine 08/03/2024 7:30 PM CDT POCT GLUCOSE - DOCKED DEVICE Routine 08/03/2024 6:47 PM CDT BASIC METABOLIC PANEL Routine 07/28/2024 11:15 AM CDT Cardiac pacemaker in situ Coronary atherosclerosis of zuni coronary artery CBC W/DIFF AUTOMATED Routine 07/28/2024 11:15 AM CDT Cardiac pacemaker in situ Coronary atherosclerosis of zuni coronary artery POCT GLUCOSE - DOCKED DEVICE Routine 07/21/2024 12:29 PM CDT POCT GLUCOSE - DOCKED DEVICE Routine 07/21/2024 10:59 AM CDT XR CHEST PA+LAT Routine 07/21/2024 9:58 AM CDT COMPREHENSIVE METABOLIC PANEL Routine 07/21/2024 4:45 AM CDT CBC W/DIFF AUTOMATED Routine 07/21/2024 4:45 AM CDT POCT GLUCOSE - DOCKED DEVICE Routine 07/20/2024 8:40 PM CDT POCT GLUCOSE - DOCKED DEVICE Routine 07/20/2024 5:35 PM CDT POCT GLUCOSE - DOCKED DEVICE Routine 07/20/2024 12:01 PM CDT POCT GLUCOSE - DOCKED DEVICE Routine 07/20/2024 8:17 AM CDT COMPREHENSIVE METABOLIC PANEL Routine 07/20/2024 4:42 AM CDT CBC W/DIFF AUTOMATED Routine 07/20/2024 4:42 AM CDT POCT GLUCOSE - DOCKED DEVICE Routine 07/19/2024 9:12 PM CDT POTASSIUM, SERUM STAT 07/19/2024 4:11 PM CDT POCT GLUCOSE - DOCKED DEVICE Routine 07/19/2024 4:06 PM CDT POCT GLUCOSE - DOCKED DEVICE Routine 07/19/2024 12:52 PM CDT XR CHEST PORTABLE STAT 07/19/2024 8:5 5 AM CDT POCT GLUCOSE - DOCKED DEVICE Routine 07/19/2024 8:47 AM CDT COMPREHENSIVE METABOLIC PANEL Routine 07/19/2024 4:18 AM CDT CBC W/DIFF AUTOMATED Routine 07/19/2024 4:18 AM CDT MAGNESIUM Routine 07/19/2024 4:18 AM CDT POCT GLUCOSE - DOCKED DEVICE Routine 07/18/2024 8:49 PM CDT POCT GLUCOSE - DOCKED DEVICE Routine 07/18/2024 4:28 PM CDT POCT GLUCOSE - DOCKED DEVICE Routine 07/18/2024 1:02 PM CDT POCT GLUCOSE - DOCKED DEVICE Routine 07/18/2024 11:59 AM CDT POCT GLUCOSE - DOCKED DEVICE Routine 07/18/2024 11:04 AM CDT POCT GLUCOSE - DOCKED DEVICE Routine 07/18/2024 9:01 AM CDT POCT GLUCOSE - DOCKED DEVICE Routine 07/18/2024 7:58 AM CDT POCT GLUCOSE - DOCKED DEVICE Routine 07/18/2024 6:55 AM CDT POCT GLUCOSE - DOCKED DEVICE Routine 07/18/2024 6:05 AM CDT COMPREHENSIVE METABOLIC PANEL Routine 07/18/2024 4:07 AM CDT CBC W/DIFF AUTOMATED Routine 07/18/2024 4:07 AM CDT MAGNESIUM Routine 07/18/2024 4:07 AM CDT POCT GLUCOSE - DOCKED DEVICE Routine 07/18/2024 3:59 AM CDT POCT GLUCOSE - DOCKED DEVICE Routine 07/18/2024 3:08 AM CDT POCT GLUCOSE - DOCKED DEVICE Routine 07/18/2024 2:03 AM CDT POCT GLUCOSE - DOCKED DEVICE Routine 07/17/2024 11:58 PM CDT POCT GLUCOSE - DOCKED DEVICE Routine 07/17/2024 10:52 PM CDT POCT GLUCOSE - DOCKED DEVICE Routine 07/17/2024 9:46 PM CDT POCT GLUCOSE - DOCKED DEVICE Routine 07/17/2024 7:40 PM CDT POCT GLUCOSE - DOCKED DEVICE Routine 07/17/2024 6:03 PM CDT POCT GLUCOSE - DOCKED DEVICE Routine 07/17/2024 4:25 PM CDT POCT GLUCOSE - DOCKED DEVICE Routine 07/17/2024 3:12 PM CDT POCT GLUCOSE - DOCKED DEVICE Routine 07/17/2024 2:04 PM CDT POCT GLUCOSE - DOCKED DEVICE Routine 07/17/2024 1:11 PM CDT POCT GLUCOSE - DOCKED DEVICE Routine 07/17/2024 12:17 PM CDT POCT GLUCOSE - DOCKED DEVICE Routine 07/17/2024 10:00 AM CDT POCT GLUCOSE - DOCKED DEVICE Routine 07/17/2024 7:14 AM CDT POCT GLUCOSE - DOCKED DEVICE Routine 07/17/2024 5:18 AM CDT POCT GLUCOSE - DOCKED DEVICE Routine 07/17/2024 4:07 AM CDT POCT GLUCOSE - DOCKED DEVICE Routine 07/17/2024 3:13 AM CDT COMPREHENSIVE METABOLIC PANEL Routine 07/17/2024 3:13 AM CDT CBC W/DIFF AUTOMATED Routine 07/17/2024 3:13 AM CDT MAGNESIUM Routine 07/17/2024 3:13 AM CDT POCT GLUCOSE - DOCKED DEVICE Routine 07/17/2024 1:34 AM CDT POCT GLUCOSE - DOCKED DEVICE Routine 07/16/2024 11:14 PM CDT POCT GLUCOSE - DOCKED DEVICE Routine 07/16/2024 9:09 PM CDT POCT GLUCOSE - DOCKED DEVICE Routine 07/16/2024 7:13 PM CDT POCT GLUCOSE - DOCKED DEVICE Routine 07/16/2024 5:02 PM CDT POCT GLUCOSE - DOCKED DEVICE Routine 07/16/2024 3:19 PM CDT XR CHEST PORTABLE STAT 07/16/2024 3:1 0 PM CDT POCT GLUCOSE - DOCKED DEVICE Routine 07/16/2024 1:19 PM CDT POCT GLUCOSE - DOCKED DEVICE Routine 07/16/2024 12:09 PM CDT POCT GLUCOSE - DOCKED DEVICE Routine 07/16/2024 11:06 AM CDT POCT GLUCOSE - DOCKED DEVICE Routine 07/16/2024 9:58 AM CDT POCT GLUCOSE - DOCKED DEVICE Routine 07/16/2024 8:09 AM CDT POCT GLUCOSE - DOCKED DEVICE Routine 07/16/2024 6:21 AM CDT ECG 12-LEAD Routine 07/16/2024 4:40 AM CDT POCT GLUCOSE - DOCKED DEVICE Routine 07/16/2024 4:11 AM CDT CG8 PLUS-ISTAT Routine 07/16/2024 3:47 AM CDT MAGNESIUM Routine 07/16/2024 3:45 AM CDT COMPREHENSIVE METABOLIC PANEL Routine 07/16/2024 3:45 AM CDT CBC, AUTO, NO DIFF Routine 07/16/2024 3: 45 AM CDT POCT GLUCOSE - DOCKED DEVICE Routine 07/16/2024 1:53 AM CDT POCT GLUCOSE - DOCKED DEVICE Routine 07/15/2024 11:43 PM CDT POCT GLUCOSE - DOCKED DEVICE Routine 07/15/2024 10:01 PM CDT POCT GLUCOSE - DOCKED DEVICE Routine 07/15/2024 8:03 PM CDT POCT GLUCOSE - DOCKED DEVICE Routine 07/15/2024 6:30 PM CDT CG8 PLUS-ISTAT Routine 07/15/2024 5:56 PM CDT POCT GLUCOSE - DOCKED DEVICE Routine 07/15/2024 5:00 PM CDT POCT GLUCOSE - DOCKED DEVICE Routine 07/15/2024 4:08 PM CDT CG8 PLUS-ISTAT Routine 07/15/2024 4:05 PM CDT LACTIC ACID STAT 07/15/2024 3:30 PM CDT GLUCOSE BLOOD, QNT STAT 07/15/2024 3: 30 PM CDT ELECTROLYTE PANEL STAT 07/15/2024 3:3 0 PM CDT PLATELET COUNT, AUTO STAT 07/15/2024 3:30 PM CDT HEMOGLOBIN AND HEMATOCRIT STAT 07/15/2024 3:30 PM CDT XR CHEST PORTABLE STAT 07/15/2024 3:2 6 PM CDT USE TRANSESOPHAGEAL ECHO Routine 07/15/2024 3:20 PM CDT BLOOD GAS, ARTERIAL LAB STAT 07/15/2024 3:11 PM CDT POCT GLUCOSE - DOCKED DEVICE Routine 07/15/2024 3:01 PM CDT CG8 PLUS-ISTAT Routine 07/15/2024 1:43 PM CDT POCT ACTIVATED CLOTTING TIME - DOCKED DEVICE Routine 07/15/2024 1:41 PM CDT CG8 PLUS-ISTAT Routine 07/15/2024 12:49 PM CDT POCT ACTIVATED CLOTTING TIME - DOCKED DEVICE Routine 07/15/2024 12:40 PM CDT CG8 PLUS-ISTAT Routine 07/15/2024 12:14 PM CDT POCT ACTIVATED CLOTTING TIME - DOCKED DEVICE Routine 07/15/2024 12:10 PM CDT CG8 PLUS-ISTAT Routine 07/15/2024 11:52 AM CDT POCT ACTIVATED CLOTTING TIME - DOCKED DEVICE Routine 07/15/2024 11:40 AM CDT CG8 PLUS-ISTAT Routine 07/15/2024 11:13 AM CDT POCT ACTIVATED CLOTTING TIME - DOCKED DEVICE Routine 07/15/2024 11:10 AM CDT CG8 PLUS-ISTAT Routine 07/15/2024 10:33 AM CDT POCT ACTIVATED CLOTTING TIME - DOCKED DEVICE Routine 07/15/2024 10:25 AM CDT POCT ACTIVATED CLOTTING TIME - DOCKED DEVICE Routine 07/15/2024 9:22 AM CDT CG8 PLUS-ISTAT Routine 07/15/2024 7:59 AM CDT POCT ACTIVATED CLOTTING TIME - DOCKED DEVICE Routine 07/15/2024 7:57 AM CDT INTRODUCER Routine 07/15/2024 7:50 AM CDT ART LINE PLACEMENT Routine 07/15/2024 7: 35 AM CDT CORONARY ARTERY BYPASS 7:28 AM CDT STEMI (ST elevation myocardial infarction) ([facility]) POCT GLUCOSE - DOCKED DEVICE Routine 07/15/2024 6:31 AM CDT POCT GLUCOSE - DOCKED DEVICE Routine 07/15/2024 5:07 AM CDT HEPARIN, ANTI XA, UFH TIMED 07/15/2024 3:00 AM CDT PARTIAL THROMBOPLASTIN TIME,PTT Routine 07/15/2024 3:00 AM CDT LIPID PANEL Routine 07/15/2024 3:00 AM CDT HEMOGLOBIN, GLYCOSYLATED Routine 07/15/2024 3:00 AM CDT COMPREHENSIVE METABOLIC PANEL Routine 07/15/2024 3:00 AM CDT CBC W/DIFF AUTOMATED Routine 07/15/2024 3:00 AM CDT PROTHROMBIN TIME, VENOUS Routine 07/15/2024 3:00 AM CDT BLOOD GAS, ARTERIAL LAB Routine 07/15/2024 12:25 AM CDT XR CHEST PA+LAT Today 07/14/2024 8:39 PM CDT POCT GLUCOSE - DOCKED DEVICE Routine 07/14/2024 7:55 PM CDT POCT GLUCOSE - DOCKED DEVICE Routine 07/14/2024 3:29 PM CDT MRSA SCREENING Routine 07/14/2024 2:10 PM CDT TYPE & SCREEN Routine 07/14/2024 1:03 PM CDT BASIC METABOLIC PANEL Routine 07/14/2024 1:03 PM CDT CBC W/DIFF AUTOMATED Routine 07/14/2024 1:03 PM CDT HEPARIN, ANTI XA, UFH TIMED 07/14/2024 1:03 PM CDT POCT GLUCOSE - DOCKED DEVICE Routine 07/14/2024 10:34 AM CDT USE ECHOCARDIOGRAM W CON Today 07/14/2024 9:19 AM CDT HEPARIN, ANTI XA, UFH TIMED 07/14/2024 6:03 AM CDT PROTHROMBIN TIME, VENOUS Routine 07/14/2024 6:03 AM CDT POCT GLUCOSE - DOCKED DEVICE Routine 07/14/2024 5:38 AM CDT HEPARIN, ANTI XA, UFH TIMED 07/13/2024 11:15 PM CDT POCT GLUCOSE - DOCKED DEVICE Routine 07/13/2024 7:51 PM CDT POCT GLUCOSE - DOCKED DEVICE Routine 07/13/2024 3:30 PM CDT HEPARIN, ANTI XA, UFH TIMED 07/13/2024 2:55 PM CDT TROPONIN, QUANT TIMED 07/13/2024 12:43 PM CDT POCT GLUCOSE - DOCKED DEVICE Routine 07/13/2024 11:43 AM CDT USV CAROTID DUPLEX TODD Today 11:32 AM CDT HEPARIN, ANTI XA, UFH TIMED 07/13/2024 8:19 AM CDT TSH W/REFLEX Routine 07/13/2024 8:19 AM CDT BASIC METABOLIC PANEL Routine 07/13/2024 8:19 AM CDT PROTHROMBIN TIME, VENOUS Routine 07/13/2024 8:19 AM CDT CBC W/DIFF AUTOMATED Routine 07/13/2024 8:19 AM CDT POCT GLUCOSE - DOCKED DEVICE Routine 07/13/2024 6:26 AM CDT TROPONIN, QUANT TIMED 07/13/2024 3:20 AM CDT LIPID PANEL Routine 07/13/2024 3:20 AM CDT ECG 12-LEAD Routine 07/13/2024 3:00 AM CDT XR CHEST PORTABLE Routine 07/13/2024 1:1 1 AM CDT HEPARIN, ANTI XA, UFH TIMED 07/13/2024 1:10 AM CDT PRO-BRAIN NATRIURETIC PEPTIDE Routine 07/12/2024 11:45 PM CDT TROPONIN, QUANT TIMED 07/12/2024 11:45 PM CDT HEMOGLOBIN, GLYCOSYLATED Routine 07/12/2024 11:45 PM CDT MAGNESIUM Routine 07/12/2024 11:45 PM CDT COMPREHENSIVE METABOLIC PANEL Routine 07/12/2024 11:45 PM CDT PROTHROMBIN TIME, VENOUS STAT 07/12/2024 11:45 PM CDT HEPARIN, ANTI XA, UFH STAT 07/12/2024 11:45 PM CDT CBC W/DIFF AUTOMATED STAT 07/12/2024 11:45 PM CDT POCT GLUCOSE - DOCKED DEVICE Routine 07/12/2024 10:58 PM CDT from Last 3 Months Results * XR CHEST PA+LAT (08/14/2024 10:48 AM CDT) Only the most recent of3 resultswithin the time period is included. Anatomical Region Laterality Modality Chest Radiographic Litzy ging 08/14/2024 10:5 3 AM CDT Impressions 08/14/2024 10:53 AM CDT IMPRESSION: No acute findings Ordered By: CHARIS HARDEN Interpreted By: Robbie Carrasco MD, 08/14/2024 10:53 AM Narrative 08/14/2024 10:53 AM CDT [place] [id number] 2 VIEWS OF THE CHEST Clinical history: Cough Comparison: August 04, 2024 2 views of the chest demonstrate the cardiac silhouette to be normal in size and appears stable. The pulmonary vessels appear normal. The Lungs are clear. No consolidations or effusions are seen. Procedure Note Robbie Carrasco MD - 08/14/[address] [id number] 2 VIEWS OF THE CHEST Clinical history: Cough Comparison: August 04, 2024 2 views of the chest demonstrate the cardiac silhouette to be normal insize and appears stable. The pulmonary vessels appear normal. The Lungsare clear. No consolidations or effusions are seen. IMPRESSION: No acute findings Ordered By: CHARIS HARDEN Interpreted By: Robbie Carrasco MD, 08/14/2024 10:53 AM us Charis Harden PA-C GENERAL IMAGING Final Resul t * (ABNORMAL) PRO BNP ([facility]) (08/14/2024 10:41 AM CDT) Only the most recent of2 resultswithin the time period is included. PRO-B TYPE NATRIURETIC PEPTIDE 4,479(H) <125 PG/ML 08/14/2024 11:26 AM CDT [facility] Comment: CUT POINTS ESTABLISHED BY [employer] ON NT PROBNP (ICON) STUDY (2006). AGE INDEPENDENT: <300 PG/ML HAS A 99% NEGATIVE PREDICTIVE VALUE FOR EXCLUDING ACUTE CHF <50 YEARS: >450 PG/ML IS CONSISTENT WITH ACUTE CHF 50-75 YEARS: >900 PG/ML IS CONSISTENT WITH ACUTE CHF >75 YEARS: >1800 PG/ML IS CONSISTENT WITH ACUTE CHF IN PATIENTS WITH RENAL INSUFFICIENCY (GFR <60), >1200 PG/ML YIELDS A DIAGNOSTIC SENSITIVITY AND SPECIFICITY OF 89% AND 72% FOR ACUTE CHF. 08/14/2024 10:4 1 AM CDT us Charis Harden PA-C LABORATORY Final Resul t [facility] [address] [place] [address], * (ABNORMAL) BASIC METABOLIC PANEL (08/14/2024 10:41 AM CDT) Only the most recent of7 resultswithin the time period is included. GLUCOSE 394(H) 70 - 99 MG/DL 08/14/2024 11:26 AM CDT [facility] BUN 30(H) 7 - 18 MG/DL 08/14/2024 11:26 AM CDT [facility] CREATININE S/P/B 1.78(H) 0.7 - 1.3 MG/DL 08/14/2024 11:26 AM CDT [facility] SODIUM S/P/B 133(L) 136 - 145 MMOL/L 08/14/2024 11:26 AM CDT [facility] POTASSIUM S/P/B 4.4 3.5 - 5.1 MMOL/L 08/14/2024 11:26 AM CDT [facility] CHLORIDE S/P/B 102 97 - 115 MMOL/L 08/14/2024 11:26 AM CDT [facility] CO2 27.5 21 - 32 MMOL/L 08/14/2024 11:26 AM CDT [facility] CALCIUM S/P/B 9.0 8.5 - 10.1 MG/DL 08/14/2024 11:26 AM CDT [facility] ANION GAP 3.5 2 - 10 MMOL/L 08/14/2024 11:26 AM CDT [facility] BUN CREATININE RATIO 16.9 6 - 26 08/14/2024 11:26 AM CDT [facility] GFR ESTIMATE 43(L) >90 ML/MIN/1.7 3 M2 08/14/2024 11:26 AM CDT [facility] Comment: NOTE: eGFR is not calculated for patients <18 years of age or gender unknown. This is an estimated GFR calculation using the new CKD EPI creatinine equation without race and so does not require a correction factor for race. This estimated GFR should not be used for calculating drug doses. 08/14/2024 10:4 1 AM CDT Charis Harden PA-C LABORATORY Final Resul t [facility] [address] [place] [address], [place] [phone] * (ABNORMAL) POCT glucose (08/05/2024 11:25 AM CDT) Only the most recent of77 resultswithin the time period is included. GLUCOSE POC 125(H) 70 - 99 mg/dL 08/05/2024 11:29 AM CDT [facility] 08/05/2024 11:2 5 AM CDT Charity Collier [employer] POCT ORDERABLES - DEVICE Pam carrasquillo Result [facility] [address] [place] [address], * (ABNORMAL) CBC W/DIFF AUTOMATED (08/05/2024 4:02 AM CDT) Only the most recent of13 resultswithin the time period is included. WBC 6.69 4.5 - 11.0 x10'3/uL 08/05/2024 4:16 AM CDT [facility] RBC 3.55(L) 4.70 - 6.10 x10'6/uL 08/05/2024 4:16 AM CDT [facility] HGB 10.0(L) 14.0 - 18.0 G/DL 08/05/2024 4:16 AM CDT [facility] HCT 30.1(L) 43.0 - 54.0 % 08/05/2024 4:16 AM CDT [facility] MCV 84.8 80.0 - 94.0 FL 08/05/2024 4:16 AM CDT [facility] MCH 28.2 27.0 - 31.0 PG 08/05/2024 4:16 AM CDT [facility] MCHC 33.2 32.0 - 36.0 G/DL 08/05/2024 4:16 AM CDT [facility] RDW 13.9 11.5 - 14.5 % 08/05/2024 4:16 AM CDT [facility] PLT 369 130 - 400 x10'3/uL 08/05/2024 4:16 AM CDT [facility] MPV 9.7 9.3 - 12.2 FL 08/05/2024 4:16 AM CDT [facility] DIFFERENTIAL TYPE AUTOMATED DIFFERENTIAL 08/05/2024 4:16 AM CDT [facility] NEUTROPHILS % 65.2 % 08/05/2024 4:16 AM CDT [facility] LYMPHOCYTES % 19.4 % 08/05/2024 4:16 AM CDT [facility] MONOCYTES % 8.8 % 08/05/2024 4:16 AM CDT [facility] EOSINOPHILS 5.8 % 08/05/2024 4:16 AM CDT [facility] BASOPHILS 0.7 % 08/05/2024 4:16 AM CDT [facility] IMMATURE GRANS % 0.1 % 08/06/19 4:16 AM CDT [facility] ABS. NEUTROPHILS 4.35 1.80 - 7.70 x10'3/uL 08/05/2024 4:16 AM CDT [facility] ABS. LYMPHOCYTES 1.30 1.00 - 4.80 x10'3/uL 08/05/2024 4:16 AM CDT [facility] ABS. MONOCYTES 0.59 0.30 - 0.82 x10'3/uL 08/05/2024 4:16 AM CDT [facility] ABS. EOSINOPHILS 0.39 0.04 - 0.54 x10'3/uL 08/05/2024 4:16 AM CDT [facility] ABS. BASOPHILS 0.05 0.01 - 0.08 x10'3/uL 08/05/2024 4:16 AM CDT [facility] ABS. IMMATURE GRANULOCYTES 0.01 0.00 - 0.49 x10'3/uL 08/05/2024 4:16 AM T [facility] 08/05/2024 4:02 AM CDT us Charity Collier [employer] LABORATORY Final Result Performing Organization Address City/[facility] Co de Phone Number [facility] [address] [place] [address], [place] [phone] * (ABNORMAL) TROPONIN, QUANT (08/05/2024 4:02 AM CDT) Only the most recent of8 resultswithin the time period is included. TROPONIN I HIGH SENSITIVITY 185(HH) <79 ng/L 08/05/2024 5:08 AM CDT [facility] Comment: NOT CALLED PER CRITICAL VALUE POLICY HIGH DOSES OF BIOTIN, TROPONIN-SPECIFIC AUTOANTIBODIES, AND ANTIBODY THERAPY CONTAINING HAMA MAY INTERFERE WITH THIS TEST RESULT. CORRELATION TO CLINICAL HISTORY AND PRESENTATION RECOMMENDED. 08/05/2024 4:02 AM CDT Dariela Cobos [employer] LABORATORY Final Result Performing Organization Address [facility] Co de Phone Number [facility] [address] [place] [address], [place] [phone] * MAGNESIUM (08/05/2024 4:02 AM CDT) Only the most recent of8 resultswithin the time period is included. MAGNESIUM 2.2 1.8 - 2.4 MG/DL 08/05/2024 4:33 AM CDT [facility] 08/05/2024 4:02 AM CDT Charity Collier [employer] LABORATORY Final Result Performing Organization Address City/[facility]/ZIP Co de Phone Number [facility] [address] [place] [address], [place] [phone] * USE ECHO 2D FU LTD W CON (08/04/2024 4:24 PM CDT) Anatomical Region Laterality Modality NA Echocardiogram 08/04/2024 3:37 PM CDT Narrative 08/05/2024 7:41 AM CDT Echocardiography Report Pat.Name: MEDHAT ALONSO.ID: [id number] .Date: 08/04/2024 MD: [id number] NATASHA Olmedo EWDPROV EWDPROV Exam Time: 3:37:00 PM Study Type:ECHO WITH CARDIAC DOPPLER COMP Height: 66.1 in Weight: 153 lb BSA: 1.79 m2 Age: 11 1965,58Y Sex: M BP: 129/82 HR: 78 bpm Sonogrphr: Flor Downey RDCS, [facility] Pat. Stat.:Inpatient Room: [facility] Reason for Study:Coronary artery disease, Coronary bypass surgery, NSTEMI Procedures: 2D, M-mode, Doppler, Color Flow, Definity was used to enhance endocardial definition. Limited, The study quality is technically difficult. Race: W ++++++++++++++++++++++++++++++++++++ SUMMARY: ++++++++++++++++++++++++++++++++++++ The left ventricular size is normal. Estimated left ventricular ejection fraction is 60-65%. Moderate to severe concentric left ventricular hypertrophy. Left ventricular diastolic function is not reliably assessed. There is hypokinesis of the lateral wall. The right ventricular size is normal. Right ventricular systolic function is mildly depressed. The left atrial volume is mildly increased (34- 41ml/M2). Right atrial size is normal. Mild mitral regurgitation. Mild tricuspid regurgitation. Right ventricular systolic pressure is 30-40 mmHg. ++++++++++++++++++++++++++++++++++++ FINDINGS: ++++++++++++++++++++++++++++++++++++ LV: The left ventricular size is normal. Estimated left ventricular ejection fraction is 60-65%. Moderate to severe concentric left ventricular hypertrophy. Left ventricular diastolic function is not reliably assessed. WM: There is hypokinesis of the lateral wall. RV: The right ventricular size is normal. Right ventricular systolic function is mildlydepressed. LA: The left atrial volume is mildly increased (34- 41ml/M2). RA: Right atrial size is normal. NAVDEEP: No evidence of pericardial effusion. PA: Estimated right atrial pressure of 3 mmHg. SVn: Systemic veins are normal. AV: The aortic valve is trileaflet. No evidence of aortic valve stenosis. No evidence of aortic valve regurgitation. MV: Mild mitral regurgitation. No evidence of mitral stenosis. PV: Trace pulmonic regurgitation. No evidence of pulmonic valve stenosis. TV: Mild tricuspid regurgitation. Right ventricular systolic pressure is 30-40 mmHg. No evidence of tricuspid valve stenosis. ++++++++++++++++++++++++++++++++++++ MEASUREMENTS: ++++++++++++++++++++++++++++++++++++ 2D LVPW LVPWd 1.65 cm Left Atrium LA VOLBP 39.1 ml Major [place] (Sys 5.81 cm Major [place] (Sys 6.21 cm Ratios IVS Ventricular Septum IVSd 2 cm Left Ventricle LVIDd 2.51 cm (4.3-5.1)* Left Ventricle 8.84 cm LVIDs 2.5 cm (2-4) Left Ventricle 8.71 cm LV Area kay 32.1 cm2 Left Ventricle 7.6 cm LV EDV 0.6 ml Left Ventricle 7.79 cm LV Area kay 27.9 cm2 LV Mass 182 gram LV EDV 0.4 ml LVA% 44.2 % LV Area sys 17.9 cm2 LVA% 43.8 % LV ESV 0.2 ml Left Ventricle 1.31 LV Area sys 15.7 cm2 LV SV 58.1 ml LV ESV 0.2 ml LV SV 45.7 ml LV EF 60.9 % LV SV BP 51.2 ml LV EF 62.1 % LVEDV BP 83.6 ml LV EF BP 61.2 % LVESV BP 32.4 ml LA Single Plane Area (Systole) 22.8 cm2 Left Atrium Are 22 cm2 LV Area-Length Biplane LVEDV 0.5 ml/cm LVESV 0.2 ml/cm LV Area-Length Single Plane LVEDV 0.6 ml/cm LVESV 0.2 ml/cm LVEDV 0.5 ml/cm LVESV 0.2 ml/cm LVOT Cardiovascular 4.08 cm2 Cardiovascular 2.28 cm Right Atrium Major [place] (Sys 5.35 cm RA Single Plane Right Atrium Ar 14 cm2 Volume (Systole 17.3 ml/m2 Right Ventricle Major [place] ([place] 7.23 cm RVIDd 2.72 cm MMODE Tricuspid Valve Tricuspid annul 1.07 cm DOPPLER LVOT LVOTpkPG 5.2 mmHg LVOT SV 68.1 ml LVOT TVI 16.7 cm PSV 114 cm/s LVOTmnPG 2 mmHg AV Forward Flow AV TVI 20.6 cm AV pkPG 6 mmHg AV pkVel 122 cm/s (100-170) Area (TVI) 3.31 cm2 (3-5) AV mnPG 3.2 mmHg Area (Gregorio) 3.81 cm2 (3-5) PV Forward Flow PV TVI 21.6 cm PV mnPG 2.3 mmHg PV pkVel 106 cm/s (60-90)* PV AC 131 msec PV pkPG 4.5 mmHg TV Regurg Flow TV pkPG 26.4 mmHg TV pkVel 257 cm/s (30-70)* AV Antegrade Flow AV AC/ET 0.28 Ratio of LVOT M 0.93 AC 65 millisecond Ratio of LVOT V 0.812 AV ET 232 millisecond Left Atrium CO 1.8 l/min CO 1 l/min Left Atrial Eje 29.7 % Left Atrial Eje 21.5 % Major [place] (End 5.2 cm Major [place] (End 5.5 cm Left Atrial ED 31.9 ml/m2 Left Atrial ED 28.5 ml/m2 Major [place]wick (End 6.6 cm Major [place] (End 5.6 cm Left Atrial ES 45.3 ml/m2 Left Atrial ES 36.3 ml/m2 Global Longitud 19.8 % Global Longitud 5 % HR 76 bpm HR 75 bpm SV 13.4 ml/m2 SV 7.8 ml/m2 LA Biplane CO 1.7 l/min Left Atrial ES 43.9 ml/m2 Left Atrial Eje 29.2 % Global Longitud 12.4 % Major [place] (End 5.5 cm HR 76 bpm Left Atrial ED 31.1 ml/m2 SV 12.8 ml/m2 [place] (End 6.6 cm Left Ventricle Left Ventricula 135 mmHg CO 2.3 l/min CO 3.2 l/min LVEF 35.1 % LVEF 41.2 % Left Ventricle 7.5 cm Left Ventricle 7.7 cm LVEDV 49.5 ml/m2 LVEDV 57.7 ml/m2 Left Ventricle 7 cm Left Ventricle 7.5 cm LVESV 32.1 ml/m2 LVESV 34 ml/m2 Global Longitud -10.8 % Global Longitud -7.1 % HR 75 bpm HR 76 bpm LV Mass 53.4 g/m2 LV Mass 65.8 g/m2 SV 17.4 ml/m2 SV 23.8 ml/m2 LV Biplane CO 2.7 l/min LVESV 34.4 ml/m2 LVEF 36.6 % Global Longitud -9 % Left Ventricle 7.7 cm HR 76 bpm LVEDV 54.2 ml/m2 LV Mass 60.5 g/m2 Left Ventricle 7.5 cm SV 19.8 ml/m2 LV Triplane Global Longitud -9 % Pulmonic Valve PV ET 312 millisecond PV Antegrade Flow PV AT/ET 0.42 Right Atrium CO 1.9 l/min Volume (Systole 31.5 ml/m2 Cardiac ejectio 44 % Global Longitud 25.3 % [place] (End 4 cm HR 75 bpm Volume (Diastol 17.6 ml/m2 SV 13.9 ml/m2 Major [place] (End 4.9 cm Right Ventricle Right Ventricul 10.6 square centimeters per square meter Global Longitud 3.4 % [place] (End 6.8 cm Global Longitud -0.2 % Major [place] (End 7.1 cm Global Longitud 7.6 % Right Ventricul 10.2 square centimeters per square meter HR 75 bpm Right Ventricul 4.1 % <Electronic Signature> 08/05/2024 07:41 AM Patrick Reyes M.D. Procedure Note Patrick Reyes MD - 08/05/2024 Echocardiography Report Pat.Name: MEDHAT ALONSO Erica.ID: [id number] .Date: 08/04/2024 Refer.: [id number] NATASHA CHAMBERSDPROV EWDPROV Exam Time: 3:37:00 PM Study Type:ECHO WITH CARDIAC DOPPLER COMP Height: 66.1 in Weight: 153 lb BSA: 1.79 m2 Age: 11 1965,58Y Sex: M BP: 129/82 HR: 78 bpm Sonogrphr: Flor Downey RDCS, [facility] Pat. Stat.:Inpatient Room: [facility] Reason for Study:Coronary artery disease, Coronary bypass surgery, NSTEMI Procedures: 2D, M-mode, Doppler, Color Flow, Definity was used to enhance endocardial definition. Limited, The study quality is technically difficult. Race: W ++++++++++++++++++++++++++++++++++++ SUMMARY: ++++++++++++++++++++++++++++++++++++ The left ventricular size is normal. Estimated left ventricular ejection fraction is 60-65%. Moderate to severe concentric left ventricular hypertrophy. Left ventricular diastolic function is not reliably assessed. There is hypokinesis of the lateral wall. The right ventricular size is normal. Right ventricular systolic function is mildly depressed. The left atrial volume is mildly increased (34- 41ml/M2). Right atrial size is normal. Mild mitral regurgitation. Mild tricuspid regurgitation. Right ventricular systolic pressure is 30-40 mmHg. ++++++++++++++++++++++++++++++++++++ FINDINGS: ++++++++++++++++++++++++++++++++++++ LV: The left ventricular size is normal. Estimated left ventricular ejection fraction is 60-65%. Moderate to severe concentric left ventricular hypertrophy. Left ventricular diastolic function is not reliably assessed. WM: There is hypokinesis of the lateral wall. RV: The right ventricular size is normal. Right ventricular systolic function is mildlydepressed. LA: The left atrial volume is mildly increased (34- 41ml/M2). RA: Right atrial size is normal. NAVDEEP: No evidence of pericardial effusion. PA: Estimated right atrial pressure of 3 mmHg. SVn: Systemic veins are normal. AV: The aortic valve is trileaflet. No evidence of aortic valve stenosis. No evidence of aortic valve regurgitation. MV: Mild mitral regurgitation. No evidence of mitral stenosis. PV: Trace pulmonic regurgitation. No evidence of pulmonic valve stenosis. TV: Mild tricuspid regurgitation. Right ventricular systolic pressure is 30-40 mmHg. No evidence of tricuspid valve stenosis. ++++++++++++++++++++++++++++++++++++ MEASUREMENTS: ++++++++++++++++++++++++++++++++++++ 2D LVPW LVPWd 1.65 cm Left Atrium LA VOLBP 39.1 ml [place] (Sys 5.81 cm [place] (Sys 6.21 cm Ratios IVS Ventricular Septum IVSd 2 cm Left Ventricle LVIDd 2.51 cm (4.3-5.1)* Left Ventricle 8.84 cm LVIDs 2.5 cm (2-4) Left Ventricle 8.71 cm LV Area kay 32.1 cm2 Left Ventricle 7.6 cm LV EDV 0.6 ml Left Ventricle 7.79 cm LV Area kya 27.9 cm2 LV Mass 182 gram LV EDV 0.4 ml LVA% 44.2 % LV Area sys 17.9 cm2 LVA% 43.8 % LV ESV 0.2 ml Left Ventricle 1.31 LV Area sys 15.7 cm2 LV SV 58.1 ml LV ESV 0.2 ml LV SV 45.7 ml LV EF 60.9 % LV SV BP 51.2 ml LV EF 62.1 % LVEDV BP 83.6 ml LV EF BP 61.2 % LVESV BP 32.4 ml LA Single Plane Area (Systole) 22.8 cm2 Left Atrium Are 22 cm2 LV Area-Length Biplane LVEDV 0.5 ml/cm LVESV 0.2 ml/cm LV Area-Length Single Plane LVEDV 0.6 ml/cm LVESV 0.2 ml/cm LVEDV 0.5 ml/cm LVESV 0.2 ml/cm LVOT Cardiovascular 4.08 cm2 Cardiovascular 2.28 cm Right Atrium Major [place] (Sys 5.35 cm RA Single Plane Right Atrium Ar 14 cm2 Volume (Systole 17.3 ml/m2 Right Ventricle Major [place] ([place] 7.23 cm RVIDd 2.72 cm MMODE Tricuspid Valve Tricuspid annul 1.07 cm DOPPLER LVOT LVOTpkPG 5.2 mmHg LVOT SV 68.1 ml LVOT TVI 16.7 cm PSV 114 cm/s LVOTmnPG 2 mmHg AV Forward Flow AV TVI 20.6 cm AV pkPG 6 mmHg AV pkVel 122 cm/s (100-170) Area (TVI) 3.31 cm2 (3-5) AV mnPG 3.2 mmHg Area (Gregorio) 3.81 cm2 (3-5) PV Forward Flow PV TVI 21.6 cm PV mnPG 2.3 mmHg PV pkVel 106 cm/s (60-90)* PV AC 131 msec PV pkPG 4.5 mmHg TV Regurg Flow TV pkPG 26.4 mmHg TV pkVel 257 cm/s (30-70)* AV Antegrade Flow AV AC/ET 0.28 Ratio of LVOT M 0.93 AC 65 millisecond Ratio of LVOT V 0.812 AV ET 232 millisecond Left Atrium CO 1.8 l/min CO 1 l/min Left Atrial Eje 29.7 % Left Atrial Eje 21.5 % [place] (End 5.2 cm [place] (End 5.5 cm Left Atrial ED 31.9 ml/m2 Left Atrial ED 28.5 ml/m2 Major [place] (End 6.6 cm Major [place] (End 5.6 cm Left Atrial ES 45.3 ml/m2 Left Atrial ES 36.3 ml/m2 Global Longitud 19.8 % Global Longitud 5 % HR 76 bpm HR 75 bpm SV 13.4 ml/m2 SV 7.8 ml/m2 LA Biplane CO 1.7 l/min Left Atrial ES 43.9 ml/m2 Left Atrial Eje 29.2 % Global Longitud 12.4 % Major [place] (End 5.5 cm HR 76 bpm Left Atrial ED 31.1 ml/m2 SV 12.8 ml/m2 [place] (End 6.6 cm Left Ventricle Left Ventricula 135 mmHg CO 2.3 l/min CO 3.2 l/min LVEF 35.1 % LVEF 41.2 % Left Ventricle 7.5 cm Left Ventricle 7.7 cm LVEDV 49.5 ml/m2 LVEDV 57.7 ml/m2 Left Ventricle 7 cm Left Ventricle 7.5 cm LVESV 32.1 ml/m2 LVESV 34 ml/m2 Global Longitud -10.8 % Global Longitud -7.1 % HR 75 bpm HR 76 bpm LV Mass 53.4 g/m2 LV Mass 65.8 g/m2 SV 17.4 ml/m2 SV 23.8 ml/m2 LV Biplane CO 2.7 l/min LVESV 34.4 ml/m2 LVEF 36.6 % Global Longitud -9 % Left Ventricle 7.7 cm HR 76 bpm LVEDV 54.2 ml/m2 LV Mass 60.5 g/m2 Left Ventricle 7.5 cm SV 19.8 ml/m2 LV Triplane Global Longitud -9 % Pulmonic Valve PV ET 312 millisecond PV Antegrade Flow PV AT/ET 0.42 Right Atrium CO 1.9 l/min Volume (Systole 31.5 ml/m2 Cardiac ejectio 44 % Global Longitud 25.3 % Major [place] (End 4 cm HR 75 bpm Volume (Diastol 17.6 ml/m2 SV 13.9 ml/m2 Major [place] (End 4.9 cm Right Ventricle Right Ventricul 10.6 square centimeters per square meter Global Longitud 3.4 % Major [place] (End 6.8 cm Global Longitud -0.2 % Major [place] (End 7.1 cm Global Longitud 7.6 % Right Ventricul 10.2 square centimeters per square meter HR 75 bpm Right Ventricul 4.1 % <Electronic Signature> 08/05/2024 07:41 AM Patrick Reyes M.D. us Patrick Reyes MD ECHO Final Resul t * ECG 12 lead (08/04/2024 10:33 AM CDT) Only the most recent of3 resultswithin the time period is included. 08/04/2024 10:3 3 AM CDT Narrative 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1965 Requested By: PATRICK REYES Order Number: [id number] Reading MD: Patrick Reyes Measurements Intervals [place] Rate: 78 P: 7 MD: 155 QRS: 7 QRSD: 97 T: 193 QT: 409 QTc: 468 Interpretive Statements SINUS RHYTHM [address] DEVIATION AND MODERATE T-WAVE ABNORMALITY, CONSIDER ANTEROLATERAL ISCHEMIA [-0.1+ mV T WAVE IN V3-V6] Procedure Note Patrick Reyes MD - 08/05/[address] Test Date: 2024-08-04 Pat Name: MEDHAT ALONSO Department: 40 Room: G30082 Gender: Male 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 Anatomical Region Laterality Modality Chest Radiographic Litzy ging 08/04/2024 7:29 AM CDT Impressions 08/04/2024 7:31 AM CDT IMPRESSION: No significant enlargement of pleural effusions. Trace haziness of the left base may indicate a small persistent effusion and atelectasis, with no significant change from 07/21/2024. Correlate for any pneumonia signs or symptoms. Referred By: SHAYE KAUR Interpreted By: Rico Dorado MD, 08/04/2024 7:29 AM Narrative 08/04/2024 7:31 AM CDT [place] [id number] Examination: XR CHEST PORTABLE Exam time: 08/04/2024 5:46 AM Clinical history: Pleural effusion evaluation Comparison: 07/21/2024 Technique: One frontal view of the chest. Findings: No enlargement of pleural effusion. Trace haziness at the left base may indicate a small persistent effusion and atelectasis. No new findings. Stable heart, mediastinum, and bony structures. Procedure Note Rico Dorado MD - 08/04/[address] [id number] Examination: XR CHEST PORTABLE Exam time: 08/04/2024 5:46 AM Clinical history: Pleural effusion evaluation Comparison: 07/21/2024 Technique: One frontal view of the chest. Findings: No enlargement of pleural effusion. Trace haziness at the leftbase may indicate a small persistent effusion and atelectasis. No newfindings. Stable heart, mediastinum, and bony structures. IMPRESSION: No significant enlargement of pleural effusions. Trace haziness of theleft base may indicate a small persistent effusion and atelectasis, withno significant change from 07/21/2024. Correlate for any pneumonia signsor symptoms. Referred By: SHAYE KAUR Interpreted By: Rico Dorado MD, 08/04/2024 7:29 AM Dariela Cobos NP GENERAL IMAGING Final Result * (ABNORMAL) HEMOGLOBIN, GLYCOSYLATED (08/04/2024 5:33 AM CDT) Only the most recent of3 resultswithin the time period is included. HGB A1C 10.4(H) <5.7 % 08/04/2024 9:35 AM CDT [facility] Comment: ADA GUIDELINES 2010 5.7 TO 6.4% INCREASED RISK OF DIABETES > OR = 6.5% CONSISTENT WITH DIABETES ESTIMATED AVG GLUCOSE 252 mg/dL 08/04/2024 9:35 AM CDT [facility] 08/04/2024 5:33 AM CDT Jaz George MD LABORATORY Final Resu lt [facility] [address] [place] [address], * (ABNORMAL) LIPID PANEL (08/04/2024 5:33 AM CDT) Only the most recent of3 resultswithin the time period is included. Pathologist [facility] CHOLESTEROL 83 <200 MG/DL 08/04/2024 7:25 AM CDT [facility] TRIGLYCERIDES 205(H) <150 MG/DL 08/04/2024 7:25 AM CDT [facility] HDL 28(L) >40.0 MG/DL 08/04/2024 7:25 AM CDT [facility] LDL (CALCULATED) 14 <100 MG/DL 08/04/2024 7:25 AM CDT [facility] Comment:CALCULATED USING THE [employer] EQUATION NON HDL CHOLESTEROL 55 <130 MG/DL 08/04/2024 7:25 AM CDT [facility] CHOL/HDL RATIO 3.0 0.0 - 4.5 08/04/2024 7:25 AM CDT [facility] VLDL CALCULATION 41 5 - 55 MG/DL 08/04/2024 7:25 AM CDT [facility] LIPID INTERPRETATION 08/04/2024 7:25 AM CDT [facility] Comment: [facility] CONCENSUS REPORT RECOMMENDATIONS: ADULT CHILD LOW RISK: CHOLESTEROL <200 <170 TRIGLYCERIDE <150 --- HDL >=60 --- LDL <100 <110 BORDERLINE: CHOLESTEROL 200-239 170-199 TRIGLYCERIDE 150-199 --- HDL 40-59 --- LDL 100-159 110-129 HIGH RISK: CHOLESTEROL >=240 >=200 TRIGLYCERIDE >=200 --- HDL <40 --- LDL >=160 >=130 08/04/2024 5:33 AM CDT Jaz George MD LABORATORY Final Resu lt Performing Organization Address City/[facility]/ZIP Co de Phone Number [facility] [address] [place] [address], [place] [phone] * PROCALCITONIN (PCT) (08/04/2024 5:30 AM CDT) PROCALCITONIN <0.05 0.00 - 0.49 NG/ML 08/04/2024 9:53 AM CDT [facility] 08/04/2024 5:30 AM CDT Charity Collier NP LABORATORY Final Result Performing Organization Address City/[facility]/ZIP Co de Phone Number [facility] [address] [place] [address], [place] [phone] * (ABNORMAL) COMPREHENSIVE METABOLIC PANEL (07/21/2024 4:45 AM CDT) Only the most recent of8 resultswithin the time period is included. GLUCOSE 123(H) 70 - 99 MG/DL 07/21/2024 5:29 AM CDT [facility] BUN 41(H) 7 - 18 MG/DL 07/21/2024 5:29 AM T [facility] CREATININE S/P/B 1.83(H) 0.7 - 1.3 MG/DL 07/21/2024 5:29 AM CDT [facility] SODIUM S/P/B 137 136 - 145 MMOL/L 07/21/2024 5:29 AM CDT [facility] POTASSIUM S/P/B 3.9 3.5 - 5.1 MMOL/L 07/21/2024 5:29 AM T [facility] CHLORIDE S/P/B 107 97 - 115 MMOL/L 07/21/2024 5:29 AM T [facility] CO2 26.2 21 - 32 MMOL/L 07/21/2024 5:29 AM T [facility] CALCIUM S/P/B 8.1(L) 8.5 - 10.1 MG/DL 07/21/2024 5:29 AM T [facility] BILIRUBIN TOTAL S/P/B 0.6 0.2 - 1.2 MG/DL 07/21/2024 5:29 AM T [facility] Comment: THIS ASSAY IS NOT RECOMMENDED FOR PATIENTS UNDERGOING TREATMENT WITH ELTROMBOPAG DUE TO THE POTENTIAL FOR FALSELY ELEVATED RESULTS. TOTAL PROTEIN S/P/B 5.6(L) 6.4 - 8.2 G/DL 07/21/2024 5:29 AM T [facility] ALBUMIN S/P/B 2.2(L) 3.4 - 5.0 G/DL 07/21/2024 5:29 AM T [facility] AST 23 15 - 37 U/L 07/21/2024 5:29 AM T [facility] ALT 22 16 - 60 U/L 07/21/2024 5:29 AM CDT [facility] ALKALINE PHOSPHATASE S/P/B 96 50 - 136 U/L 07/21/2024 5:29 AM CDT [facility] ANION GAP 3.8 2 - 10 MMOL/L 07/21/2024 5:29 AM CDT [facility] BUN CREATININE RATIO 22.4 6 - 26 07/21/2024 5:29 AM CDT [facility] A/G RATIO 0.6(L) 1.0 - 2.0 RATIO 07/21/2024 5:29 AM CDT [facility] GFR ESTIMATE 42(L) >90 ML/MIN/1.7 3 M2 07/21/2024 5:29 AM CDT [facility] Comment: NOTE: eGFR is not calculated for patients <18 years of age or gender unknown. This is an estimated GFR calculation using the new CKD EPI creatinine equation without race and so does not require a correction factor for race. This estimated GFR should not be used for calculating drug doses. 07/21/2024 4:45 AM CDT Bari Bernabe MD LABORATORY Final Result [facility] [address] [place] [address], [place] [phone] * POTASSIUM, SERUM (07/19/2024 4:11 PM CDT) POTASSIUM S/P/B 3.9 3.5 - 5.1 MMOL/L 07/19/2024 4:28 PM CDT [facility] 07/19/2024 4:11 PM CDT Bari Bernabe MD LABORATORY Final Result [facility] [address] [place] [address], * (ABNORMAL) CG8 Plus-ISTAT (07/16/2024 3:47 AM CDT) Only the most recent of10 resultswithin the time period is included. [facility] TECH CODE [id number] 07/16/2024 3:51 AM CDT [facility] PH ARTERIAL 7.33(L) 7.35 - 7.45 07/16/2024 3:51 AM CDT [facility] PCO2 38.1 35.0 - 45.0 MM HG 07/16/2024 3:51 AM CDT [facility] PO2 38(LL) 80.0 - 100.0 MM HG 07/16/2024 3:51 AM CDT [facility] Comment:POINT OF CARE TESTIN G, CRITICAL RESULT GIVEN TO MANAGER PRODUCT MARKETING. BASE DEFICIT 6.0 MEQ/L 07/16/2024 3:51 AM CDT [facility] BICARB ARTERIAL 20.0(L) 22.0 - 26.0 MEQ/L 07/16/2024 3:51 AM CDT [facility] TOTAL CO2 ARTERIAL 21 MEQ/L 07/16/2024 3:51 AM CDT [facility] O2 Saturation 68.0(LL) 90.0 - 100.0 % 07/16/2024 3:51 AM CDT [facility] Comment:POINT OF CARE TESTIN G, CRITICAL RESULT GIVEN TO MANAGER PRODUCT MARKETING. SODIUM BLOOD GAS 139 135.0 - 145.0 MMOL/L 07/16/2024 3:51 AM CDT [facility] POTASSIUM BLOOD GAS 4.3 3.5 - 4.5 MMOL/L 07/16/2024 3:51 AM CDT [facility] CALCIUM BLOOD GAS 1.2 1.1 - 1.3 MMOL/L 07/16/2024 3:51 AM CDT [facility] GLUCOSE POC 103 70 - 110 MG/DL 07/16/2024 3:51 AM CDT [facility] HEMATOCRIT BLOOD GAS 25.0(L) 43.0 - 54.0 % 07/16/2024 3:51 AM CDT [facility] HEMOGLOBIN BLOOD GAS 8.5(L) 14.0 - 18.0 G/DL 07/16/2024 3:51 AM CDT [facility] 07/16/2024 3:47 AM CDT Charity Collier NP POINT OF CARE TEST ORDERABLES Final Result [facility] [address] [place] [address], [place] [phone] * (ABNORMAL) CBC, AUTO, NO DIFF (07/16/2024 3:45 AM CDT) WBC 13.15(H) 4.5 - 11.0 x10'3/uL 07/16/2024 4:31 AM CDT [facility] RBC 3.22(L) 4.70 - 6.10 x10'6/uL 07/16/2024 4:31 AM CDT [facility] HGB 9.3(L) 14.0 - 18.0 G/DL 07/16/2024 4:31 AM CDT [facility] HCT 27.9(L) 43.0 - 54.0 % 07/16/2024 4:31 AM CDT [facility] MCV 86.6 80.0 - 94.0 FL 07/16/2024 4:31 AM CDT [facility] MCH 28.9 27.0 - 31.0 PG 07/16/2024 4:31 AM CDT [facility] MCHC 33.3 32.0 - 36.0 G/DL 07/16/2024 4:31 AM CDT [facility] RDW 13.0 11.5 - 14.5 % 07/16/2024 4:31 AM CDT [facility] PLT 160 130 - 400 x10'3/uL 07/16/2024 4:31 AM CDT [facility] MPV 11.0 9.3 - 12.2 FL 07/16/2024 4:31 AM CDT [facility] 07/16/2024 3:45 AM CDT us Catalino Louie MD LABORATORY Final Result [facility] [address] [place] [address], [place] [phone] * (ABNORMAL) HEMOGLOBIN AND HEMATOCRIT (07/15/2024 3:30 PM CDT) [facility] Signature HGB 10.9(L) 14.0 - 18.0 G/DL 07/15/2024 3:59 PM CDT [facility] HCT 31.7(L) 43.0 - 54.0 % 07/15/2024 3:59 PM CDT [facility] 07/15/2024 3:30 PM CDT us Catalino Louie MD LABORATORY Final Result [facility] [address] [place] [address], [place] [phone] * PLATELET COUNT, AUTO (07/15/2024 3:30 PM CDT) PLT 169 130 - 400 x10'3/uL 07/15/2024 3:59 PM CDT [facility] MPV 10.5 9.3 - 12.2 FL 07/15/2024 3:59 PM CDT [facility] 07/15/2024 3:30 PM CDT us Catalino Louie MD LABORATORY Final Result [facility] [address] [place] [address], [place] [phone] * LACTIC ACID (07/15/2024 3:30 PM CDT) Pathologist [facility] LACTIC ACID VENOUS 1.6 0.4 - 2.0 MMOL/L 07/15/2024 4:04 PM CDT [facility] 07/15/2024 3:30 PM CDT us Catalino Louie MD LABORATORY Final Result [facility] [address] [place] [address], [place] [phone] * ELECTROLYTE PANEL (07/15/2024 3:30 PM CDT) SODIUM S/P/B 139 136 - 145 MMOL/L 07/15/2024 4:00 PM CDT [facility] POTASSIUM S/P/B 3.9 3.5 - 5.1 MMOL/L 07/15/2024 4:00 PM CDT [facility] CHLORIDE S/P/B 114 97 - 115 MMOL/L 07/15/2024 4:00 PM CDT [facility] CO2 21.6 21 - 32 MMOL/L 07/15/2024 4:00 PM CDT [facility] ANION GAP 3.4 2 - 10 MMOL/L 07/15/2024 4:00 PM CDT [facility] 07/15/2024 3:30 PM CDT us Catalino Louie MD LABORATORY Final Result [facility] [address] [place] [address], [place] [phone] * (ABNORMAL) GLUCOSE BLOOD, QNT (07/15/2024 3:30 PM CDT) GLUCOSE 139(H) 70 - 99 MG/DL 07/15/2024 4:00 PM CDT [facility] 07/15/2024 3:30 PM CDT us Catalino Louie MD LABORATORY Final Result Performing Organization Address City/[facility] Co de Phone Number [facility] [address] [place] [address], [place] [phone] * USE TRANSESOPHAGEAL ECHO (07/15/2024 3:20 PM CDT) Anatomical Region Laterality Modality Cardiac Echocardiogram 07/15/2024 6:47 AM CDT Narrative 07/16/2024 11:40 AM CDT ALEJANDRO Report Pat.Name: ROBLESGARRICKMEDHATID: [id number] .Date: 07/15/2024 Exam Time: 6:47:00 AM Study Type:TRANSESOPHAGEAL ECHO (ALEJANDRO) Height: 66 in Weight: 158 lb BSA: 1.81 m2 Age: 11 1965,58Y Sex: M Pat. Stat.:Inpatient Room: 218 Reason for Study:Coronary artery disease, Coronary bypass surgery Procedures: 2D, Color Flow, Intraoperative, Transesophageal, ALEJANDRO X8-2t F0B2DL Race: W ++++++++++++++++++++++++++++++++++++ SUMMARY: ++++++++++++++++++++++++++++++++++++ The left ventricular size is normal. The left ventricular systolic function is normal. The right ventricle size is normal. The right ventricular function is normal. Trace to mild mitral regurgitation. ++++++++++++++++++++++++++++++++++++ FINDINGS: ++++++++++++++++++++++++++++++++++++ ALEJANDRO: The patient was counseled and an informed consent was obtained. The transesophageal probe was passed by anesthesia. Patient was under general anesthesia. Procedure was performed in the OR with anesthesia personnel present. LV: The left ventricular size is normal. The left ventricular systolic function is normal. RV: The right ventricle size is normal. The right ventricular function is normal. AV: The aortic valve is trileaflet. There is no aortic stenosis. There is no evidence of aortic regurgitation. MV: Trace to mild mitral regurgitation. PV: Trace pulmonic regurgitation. TV: A trace of tricuspid regurgitation. ++++++++++++++++++++++++++++++++++++ ALEJANDRO: ++++++++++++++++++++++++++++++++++++ Meds: Propofol or Diprivan administered by Anesthesia Staff <Electronic Signature> 07/16/2024 11:40 AM Patrick Reyes M.D. Procedure Note Patrick Reyes MD - 07/16/2024 ALEJANDRO Report Pat.Name: MEDHAT ALONSO.ID: [id number] .Date: 07/15/2024 Exam Time: 6:47:00 AM Study Type:TRANSESOPHAGEAL ECHO (ALEJANDRO) Height: 66 in Weight: 158 lb BSA: 1.81 m2 Age: 11 1965,58Y Sex: M Pat. Stat.:Inpatient Room: [facility] Reason for Study:Coronary artery disease, Coronary bypass surgery Procedures: 2D, Color Flow, Intraoperative, Transesophageal, ALEJANDRO X8-2t F0B2DL Race: W ++++++++++++++++++++++++++++++++++++ SUMMARY: ++++++++++++++++++++++++++++++++++++ The left ventricular size is normal. The left ventricular systolic function is normal. The right ventricle size is normal. The right ventricular function is normal. Trace to mild mitral regurgitation. ++++++++++++++++++++++++++++++++++++ FINDINGS: ++++++++++++++++++++++++++++++++++++ ALEJANDRO: The patient was counseled and an informed consent was obtained. The transesophageal probe was passed by anesthesia. Patient was under general anesthesia. Procedure was performed in the OR with anesthesia personnel present. LV: The left ventricular size is normal. The left ventricular systolic function is normal. RV: The right ventricle size is normal. The right ventricular function is normal. AV: The aortic valve is trileaflet. There is no aortic stenosis. There is no evidence of aortic regurgitation. MV: Trace to mild mitral regurgitation. PV: Trace pulmonic regurgitation. TV: A trace of tricuspid regurgitation. ++++++++++++++++++++++++++++++++++++ ALEJANDRO: ++++++++++++++++++++++++++++++++++++ Meds: Propofol or Diprivan administered by Anesthesia Staff <Electronic Signature> 07/16/2024 11:40 AM Patrick Reyes M.D. us Catalino Louie MD ECHO Final Result * (ABNORMAL) ARTERIAL BLOOD GAS (07/15/2024 3:11 PM CDT) Only the most recent of2 resultswithin the time period is included. PH ARTERIAL 7.36 7.35 - 7.45 07/15/2024 3:39 PM CDT [facility] PCO2 39.0 35.0 - 45.0 MMHG 07/15/2024 3:39 PM CDT [facility] PO2 80.0(L) 83.0 - 108.0 MMHG 07/15/2024 3:39 PM CDT [facility] TOTAL CO2 ARTERIAL 23.2 19.0 - 24.0 MMOL/L 07/15/2024 3:39 PM CDT [facility] BASE DEFICIT 3.1(H) 0.0 - 3.0 MMOL/L 07/15/2024 3:39 PM CDT [facility] O2 SATURATION 95 94.0 - 98.0 % 07/15/2024 3:39 PM CDT [facility] BICARB ARTERIAL 22.0 21.0 - 28.0 MMOL/L 07/15/2024 3:39 PM CDT [facility] O2 ADMIN ARTERIAL 80% 07/15/2024 3:36 PM CDT [facility] DRAW SITE ARTERIAL ARTERIAL LINE DRAW 07/15/2024 3:36 PM CDT [facility] 07/15/2024 3:11 PM CDT us Catalino Louie MD LABORATORY Final Result [facility] [address] [place] [address], * (ABNORMAL) POCT activated clotting time (07/15/2024 1:41 PM CDT) Only the most recent of8 resultswithin the time period is included. ACTIVATED CLOTTING TIME (ACT HMT OR LMT) 108(L) 113 - 149 SEC 07/15/2024 4:29 PM CDT [facility] 07/15/2024 1:41 PM CDT Catalino Louie MD POCT ORDERABLES - DEVICE Fin al Result [facility] [address] [place] [address], * Introducer (07/15/2024 7:50 AM CDT) Narrative Eusebia Sánchez MD - 07/15/2024 7:50 AM CDT Eusebia Sánchez MD 07/15/2024 8:22 AM [place]/Introducer Placement: Date/Time: 07/15/2024 7:50 AM Patient Location: OR Placed Outside of This Facility?: No Procedure: Introducer with [place] Hannah Technique Used: Maximum Sterile Technique used, hand hygiene, Chlorhexadine skin prep, blood return present and guidewires used accounted for Location: Internal jugular Size: 9.0 [place] Orientation: Right Insertion Attempts: 1 Therapy Type: PA pressures, central IV access, central fluids, vasopressors, blood products and CVC Securement Method: Sutured and skin barrier Additional Notes: Patient taken to OR for heart surgery. Prior, the patient was consented for central line and pulmonary artery placement. Placed in trendelenburg, chlroprep prep, sterile towels placed. Sterile gown, gloves, and mask. Seeker needle used. 18G introducer needle used to locate IJ vein. + seldinger technique. Catheter placed and sutured in x 2. Introducer port aspirated and flushed well. Sterile drape placed over line to place PA catheter. All ports flushed on catheter, balloon tested, then catheter placed in pulmonary artery. Catheter left in at 45 cm with good PA waveform. No immediate complications. Sterile tegaderm dressing applied. Eusebia Sánchez MD MD ANESTHESIA Final Result * Art Line (07/15/2024 7:35 AM CDT) Narrative Eusebia Sánchez MD - 07/15/2024 7:35 AM CDT Eusebia Sánchez MD 07/15/2024 8:22 AM Art Line Date/Time: 07/15/2024 7:35 AM Performed by: Eusebia Sánchez MD Authorized by: Eusebia Sánchez MD Patient Location: OR Placed Outside of This Facility?: No Size: 20 Orientation: Left Location: Radial Local Anesthetic: Injectable Insertion Attempts: 1 Ultrasound-guided Placement: No Secure Method: Taped Patient Tolerance: Tolerated well Consent obtained pre-operatively for arterial line placement in operating room prior to surgery. Radial pulse palpated on left wrist. Area prepped with Chlor-Prep. 20G Arrow catheter placed in left radial artery x 1 attempts. Secured with tegaderm. Wrist rest applied. No immediate complications. Eusebia Sánchez MD MD ANESTHESIA Final Result * HEPARIN, ANTI XA, UFH (07/15/2024 3:00 AM CDT) Only the most recent of8 resultswithin the time period is included. HEPARIN ANTI XA UFH 0.35 0.30 - 0.70 IU/ML 07/15/2024 3:55 AM CDT [facility] Comment: UFH Therapeutic Anti Xa Ranges: Medical Therapeutic Range: 0.30 - 0.70 IU/mL Cardiac Therapeutic Range: 0.30 - 0.50 IU/mL Neuro Therapeutic Range: 0.20 - 0.40 IU/mL 07/15/2024 3:00 AM CDT Charity Collier NP LABORATORY Final Result [facility] [address] [place] [address], [place] [phone] * (ABNORMAL) THROMBOPLASTIN TIME PARTIAL,PTT (07/15/2024 3:00 AM CDT) PTT 72.9(H) 25.1 - 36.5 SEC 07/15/2024 3:55 AM CDT [facility] 07/15/2024 3:00 AM CDT Catalino Louie MD LABORATORY Final Result [facility] [address] [place] [address], * PROTIME/INR, VENOUS (07/15/2024 3:00 AM CDT) Only the most recent of4 resultswithin the time period is included. PROTIME 10.3 10.2 - 12.9 SEC 07/15/2024 3:55 AM CDT [facility] INR 0.9 07/15/2024 3:55 AM CDT [facility] Comment: Recommended INR Therapeutic Goals: 2.0-3.0 Routine Therapy 2.5-3.5 Mechanical Prosthetic Valves (High Risk) 07/15/2024 3:00 AM CDT Freida Sandra MD LABORATORY Final Re sult [facility] [address] [place] [address], * MRSA SCREENING (07/14/2024 2:10 PM CDT) SPEC DESCRIPTION NASAL 07/14/2024 2:13 PM CDT [facility] SPECIAL REQUESTS NO SPECIAL REQUEST 07/14/2024 2:13 PM CDT [facility] CULTURE RESULT NO METHICILLIN RESISTANT STAPHYLOCOCCUS AUREUS ISOLATED 07/15/2024 11:28 AM CDT [facility] SPECIMEN FROM INTERNAL NOSE / Unknown 07/14/2024 2:10 PM CDT 07/14/2024 2:17 PM CDT Catalino Louie MD MICROBIOLOGY - GENERAL ORDER ZAINAB Final Result [facility] [address] [place] [address], [place] [phone] * TYPE & SCREEN - Verify expiration date is current (07/14/2024 1:03 PM CDT) UNITS ORDERED 4 07/14/2024 2:41 PM CDT [facility] ABO/RH O POSITIVE 07/14/2024 2:41 PM CDT [facility] ANTIBODY SCREEN NEGATIVE 2:41 PM CDT [facility] SAMPLE EXPIRATION 07/17/2024,23 59 07/14/2024 2:41 PM CDT [facility] BLOOD UNIT NUMBER [id number] 07/15/2024 3:12 AM CDT [facility] PRODUCT: PC LEUKOPOOR 07/15/2024 3:12 AM CDT [facility] UNIT DIVISION 00 07/15/2024 3:12 AM CDT [facility] BLOOD UNIT STATUS UNIT RELEASED 07/18/2024 7:09 AM CDT [facility] TRANSFUSION STATUS OK TO TRANSFUSE 07/15/2024 3:12 AM CDT [facility] CROSSMATCH COMPATIBLE-EX M 07/15/2024 3:12 AM CDT [facility] BLOOD UNIT NUMBER [id number] 07/15/2024 3:12 AM CDT [facility] PRODUCT: PC LEUKOPOOR 07/15/2024 3:12 AM CDT [facility] UNIT DIVISION 00 07/15/2024 3:12 AM CDT [facility] BLOOD UNIT STATUS UNIT RELEASED 07/15/2024 3:58 PM CDT [facility] TRANSFUSION STATUS OK TO TRANSFUSE 07/15/2024 3:12 AM CDT [facility] CROSSMATCH COMPATIBLE-EX M 07/15/2024 3:12 AM CDT [facility] BLOOD UNIT NUMBER [id number] 07/15/2024 3:12 AM CDT [facility] PRODUCT: PC LEUKOPOOR 07/15/2024 3:12 AM CDT [facility] UNIT DIVISION 07/15/2024 3:12 AM CDT [facility] BLOOD UNIT STATUS UNIT RELEASED 07/15/2024 3:51 PM CDT [facility] TRANSFUSION STATUS OK TO TRANSFUSE 07/15/2024 3:12 AM CDT [facility] CROSSMATCH COMPATIBLE-EX M 07/15/2024 3:12 AM CDT [facility] BLOOD UNIT NUMBER [id number] 07/15/2024 3:12 AM CDT [facility] PRODUCT: PC LEUKOPOOR 07/15/2024 3:12 AM CDT [facility] UNIT DIVISION 07/15/2024 3:12 AM CDT [facility] BLOOD UNIT STATUS UNIT RELEASED 07/16/2024 7:25 AM CDT [facility] TRANSFUSION STATUS OK TO TRANSFUSE 07/15/2024 3:12 AM CDT [facility] CROSSMATCH COMPATIBLE-EX M 07/15/2024 3:12 AM CDT [facility] 07/14/2024 1:03 PM CDT Catalino Louie MD BLOOD BANK TEST ORDERABLES F inal Result [facility] [address] [place] [address], [place] [phone] * USE ECHOCARDIOGRAM W CON (07/14/2024 9:19 AM CDT) Anatomical Region Laterality Modality NA Echocardiogram 07/14/2024 8:39 AM CDT Narrative 07/14/2024 10:14 AM CDT Echocardiography Report Pat.Name: GAVIN MEDHAT Aaron Maldonado.ID: [id number] .Date: 07/14/2024 Refer.MD: [id number] OMAR JOSEPH EWDPROV EWDPROV Exam Time: 8:39:00 AM Study Type:ECHO WITH CARDIAC DOPPLER COMP Height: 66 in Weight: 159 lb BSA: 1.81 m2 Age: 11 1965,58Y Sex: M BP: 144/82 HR: 61 bpm Sonogrphr: Taylor Gates Pat. Stat.:Inpatient Room: [facility] Reason for Study:Coronary artery disease History / Clinical:preop CABG Procedures: 2D, M-mode, Doppler, Color Flow, Definity was used to enhance endocardial definition. The study quality is technically adequate. Race: W ++++++++++++++++++++++++++++++++++++ SUMMARY: ++++++++++++++++++++++++++++++++++++ The left ventricular size is normal. Estimated left ventricular ejection fraction is 55-60%. There is mild asymmetrical septal left ventricular hypertrophy. Left ventricular diastolic function is not reliably assessed. The right ventricular size is normal. Right ventricular systolic function is normal. The left atrial volume is moderately increased (42-48 ml/M2). Right atrial size is normal. Trivial pericardial effusion, without tamponade physiology. Unable to reliably quantitate pulmonary systolic pressure. Trace to mild mitral regurgitation. Pulmonary artery systolic pressure is not reliably assessed. ++++++++++++++++++++++++++++++++++++ FINDINGS: ++++++++++++++++++++++++++++++++++++ LV: The left ventricular size is normal. The left ventricular systolic function is normal. Estimated left ventricular ejection fraction is 55-60%. There is mild asymmetrical septal left ventricular hypertrophy. Left ventricular diastolic function is not reliably assessed. WM: Wall motion appears normal in all segments. RV: The right ventricular size is normal. Right ventricular systolic function is normal. IVS: No evidence of ventricular septal defect. LA: The left atrial volume is moderately increased (42-48 ml/M2). RA: Right atrial size is normal. IAS: Atrial septum appears intact. NAVDEEP: Trivial pericardial effusion, without tamponade physiology. AO: Aorta is normal. PA: Estimated right atrial pressure of 3 mmHg. Unable to reliably quantitate pulmonary systolic pressure. SVn: Systemic veins are normal. AV: The aortic valve is trileaflet. No evidence of aortic valve stenosis. No evidence of aortic valve regurgitation. MV: Trace to mild mitral regurgitation. No evidence of mitral stenosis. Mild thickening of mitral valve leaflets. PV: No significant pulmonic regurgitation. No evidence of pulmonic valve stenosis. Pulmonic valve not well visualized. TV: A trace of tricuspid regurgitation. Pulmonary artery systolic pressure is not reliably assessed. No evidence of tricuspid valve stenosis. ++++++++++++++++++++++++++++++++++++ MEASUREMENTS: ++++++++++++++++++++++++++++++++++++ DOPPLER LVOT LVOTpkPG 4 mmHg LVOTmnPG 2 mmHg LVOTpkVel 96.9 cm/s (70-110)+ LVOT SV 77 ml LVOT TVI 20.2 cm Pulmonary Veins PVnpkVeld 38.6 cm/s PVnVs/Vd 1.2 PVnpkVels 47.4 cm/s AV Forward Flow AV TVI 22.6 cm AV pkPG 5 mmHg AV pkVel 107 cm/s (100-170)+ Area (TVI) 3.4 cm2 (3-5) AV mnPG 3 mmHg Area (Gregorio) 3.44 cm2 (3-5) MV Forward Flow MV DeTm 176 msec MV pkE 64.7 cm/s (60-130) MV E/A 0.8 MV pkA 81.4 cm/s MV Regurg Flow MV pkPG 82 mmHg MV pkVel 452 cm/s (60-130)* PV Forward Flow PV pkVel 88.7 cm/s (60-90) PV AC 127 msec PV pkPG 3 mmHg Lat E' Lat e 4.46 cm/s Lat E/E' Lat E/e 14.5 Med E' Med e 4.46 cm/s Med E/E' Med E/e 14.5 Aortic Valve Aortic Valve Ar 1.88 Aortic Valve Ve 0.91 PV Antegrade Flow Acceleration Sl 592 cm/s2 Right At[facility] [employer]'s Disk 20 Right Ventricle Right Ventricle 12.3 cm/s 2D Left Ventricle LVIDd 4.4 cm (3.6-5.2)+ LV ESV 55.7 ml LVIDs 2.9 cm (2.3-3.9)+ LV ESV 47.6 ml LngAxd 8.64 cm LVESV BP 51.4 ml LngAxd 8.48 cm LV EF 57.8 % LV EDV 132 ml LV EF 61.1 % LV EDV 122 ml LV EF BP 59.8 % LVEDV BP 128 ml LV SV 76.3 ml LngAxs 7.5 cm LV SV 74.5 ml LngAxs 7.47 cm LV SV BP 76.6 ml LVPW LVPWd 0.9 cm Ventricular Septum IVSd 0.9 cm Left Atrium LA a-p 3.5 cm (2.8-3.4)* LA VOLBP 81.2 ml Aorta Ao Rtd 3.2 cm (zsc 1.5) Ao Asc 3.3 cm (zs 3.3)* LVOT LVOT 2.2 cm LVOTArea 3.8 cm2 Ratios IVS LA Biplane LAVol I BP 44.9 ml/m2 RA Single Plane Right Atrium MO 8.88 mm Right Atrium Sy 23.2 ml Right Atrium Sy 45.5 mm Right Atrium Sy 12.8 ml/m2 Right Atrium Sy 11 cm2 Right Ventricle Right Ventricle 27 mm Right Ventricle 19 mm Major [place] 76 mm MMODE TA Tricuspid Annul 21.2 mm <Electronic Signature> 07/14/2024 10:14 AM Patrick Reyes M.D. Procedure Note Patrick Reyes MD - 07/14/2024 Echocardiography Report Pat.Name: MEDHAT ALONSO Pat.ID: [id number] .Date: 07/14/2024 Refer.: [id number] OMAR JOSEPH EWDPROV EWDPROV Exam Time: 8:39:00 AM Study Type:ECHO WITH CARDIAC DOPPLER COMP Height: 66 in Weight: 159 lb BSA: 1.81 m2 Age: 11 1965,58Y Sex: M BP: 144/82 HR: 61 bpm Sonogrphr: Taylor Gates Pat. Stat.:Inpatient Room: [facility] Reason for Study:Coronary artery disease History / Clinical:preop CABG Procedures: 2D, M-mode, Doppler, Color Flow, Definity was used to enhance endocardial definition. The study quality is technically adequate. Race: W ++++++++++++++++++++++++++++++++++++ SUMMARY: ++++++++++++++++++++++++++++++++++++ The left ventricular size is normal. Estimated left ventricular ejection fraction is 55-60%. There is mild asymmetrical septal left ventricular hypertrophy. Left ventricular diastolic function is not reliably assessed. The right ventricular size is normal. Right ventricular systolic function is normal. The left atrial volume is moderately increased (42-48 ml/M2). Right atrial size is normal. Trivial pericardial effusion, without tamponade physiology. Unable to reliably quantitate pulmonary systolic pressure. Trace to mild mitral regurgitation. Pulmonary artery systolic pressure is not reliably assessed. ++++++++++++++++++++++++++++++++++++ FINDINGS: ++++++++++++++++++++++++++++++++++++ LV: The left ventricular size is normal. The left ventricular systolic function is normal. Estimated left ventricular ejection fraction is 55-60%. There is mild asymmetrical septal left ventricular hypertrophy. Left ventricular diastolic function is not reliably assessed. WM: Wall motion appears normal in all segments. RV: The right ventricular size is normal. Right ventricular systolic function is normal. IVS: No evidence of ventricular septal defect. LA: The left atrial volume is moderately increased (42-48 ml/M2). RA: Right atrial size is normal. IAS: Atrial septum appears intact. NAVDEEP: Trivial pericardial effusion, without tamponade physiology. AO: Aorta is normal. PA: Estimated right atrial pressure of 3 mmHg. Unable to reliably quantitate pulmonary systolic pressure. SVn: Systemic veins are normal. AV: The aortic valve is trileaflet. No evidence of aortic valve stenosis. No evidence of aortic valve regurgitation. MV: Trace to mild mitral regurgitation. No evidence of mitral stenosis. Mild thickening of mitral valve leaflets. PV: No significant pulmonic regurgitation. No evidence of pulmonic valve stenosis. Pulmonic valve not well visualized. TV: A trace of tricuspid regurgitation. Pulmonary artery systolic pressure is not reliably assessed. No evidence of tricuspid valve stenosis. ++++++++++++++++++++++++++++++++++++ MEASUREMENTS: ++++++++++++++++++++++++++++++++++++ DOPPLER LVOT LVOTpkPG 4 mmHg LVOTmnPG 2 mmHg LVOTpkVel 96.9 cm/s (70-110)+ LVOT SV 77 ml LVOT TVI 20.2 cm Pulmonary Veins PVnpkVeld 38.6 cm/s PVnVs/Vd 1.2 PVnpkVels 47.4 cm/s AV Forward Flow AV TVI 22.6 cm AV pkPG 5 mmHg AV pkVel 107 cm/s (100-170)+ Area (TVI) 3.4 cm2 (3-5) AV mnPG 3 mmHg Area (Gregorio) 3.44 cm2 (3-5) MV Forward Flow MV DeTm 176 msec MV pkE 64.7 cm/s (60-130) MV E/A 0.8 MV pkA 81.4 cm/s MV Regurg Flow MV pkPG 82 mmHg MV pkVel 452 cm/s (60-130)* PV Forward Flow PV pkVel 88.7 cm/s (60-90) PV AC 127 msec PV pkPG 3 mmHg Lat E' Lat e 4.46 cm/s Lat E/E' Lat E/e 14.5 Med E' Med e 4.46 cm/s Med E/E' Med E/e 14.5 Aortic Valve Aortic Valve Ar 1.88 Aortic Valve Ve 0.91 PV Antegrade Flow Acceleration Sl 592 cm/s2 Right Atrium Soto's Disk 20 Right Ventricle Right Ventricle 12.3 cm/s 2D Left Ventricle LVIDd 4.4 cm (3.6-5.2)+ LV ESV 55.7 ml LVIDs 2.9 cm (2.3-3.9)+ LV ESV 47.6 ml LngAxd 8.64 cm LVESV BP 51.4 ml LngAxd 8.48 cm LV EF 57.8 % LV EDV 132 ml LV EF 61.1 % LV EDV 122 ml LV EF BP 59.8 % LVEDV BP 128 ml LV SV 76.3 ml LngAxs 7.5 cm LV SV 74.5 ml LngAxs 7.47 cm LV SV BP 76.6 ml LVPW LVPWd 0.9 cm Ventricular Septum IVSd 0.9 cm Left Atrium LA a-p 3.5 cm (2.8-3.4)* LA VOLBP 81.2 ml Aorta Ao Rtd 3.2 cm (zsc 1.5) Ao Asc 3.3 cm (zsc 3.3)* LVOT LVOT 2.2 cm LVOTArea 3.8 cm2 Ratios IVS LA Biplane LAVol I BP 44.9 ml/m2 RA Single Plane Right Atrium MO 8.88 mm Right Atrium Sy 23.2 ml Right Atrium Sy 45.5 mm Right Atrium Sy 12.8 ml/m2 Right Atrium Sy 11 cm2 Right Ventricle Right Ventricle 27 mm Right Ventricle 19 mm Major [place] 76 mm MMODE TA Tricuspid Annul 21.2 mm <Electronic Signature> 07/14/2024 10:14 AM Patrick Reyes M.D. us Freida Sandra MD ECHO Final Re sult * [facility] CAROTID DUPLEX TODD (07/13/2024 11:32 AM CDT) Anatomical Region Laterality Modality Neck Vascular Ultraso und 07/13/2024 10:2 9 AM CDT Narrative 07/14/2024 4:43 PM CDT CAROTID ARTERY DUPLEX IMAGING VASCULAR LAB Pat.Name: Medhat Alonso Erica.ID: [id number] .Date: 07/13/2024 Exam Time: 10:29:00 AM Study Type:ARMANDO VS Duplex Carotid BIDOB Age: 11 1965,58Y Sex: M Sonogrphr: Sher Nieto RVT Pat. Stat.:Inpatient Room: [facility] History / Clinical:preop CABG Procedures: Robin scale, Color Doppler imaging, Doppler Spectral Analysis Race: W ++++++++++++++++++++++++++++++++++++ SUMMARY: ++++++++++++++++++++++++++++++++++++ [facility] E[facility] Carotid Criteria 50-69% = PSV 180-230 and/or Ratio 2.0 - 4.0 >70% = PSV >230 and Ratio >4.0 or EDV >100 Stent Criteria >80% = PSV >340 and Ratio >4.0 The right subclavian artery is not assessed. The left subclavian artery is not assessed. Right side: The right bifurcation-internal carotid artery has heterogeneous plaque. Internal carotid maximum velocity is 66/17 cm/s, with a ratio of 0.93 . The common carotid artery has heterogeneous plaque present. The external carotid artery has heterogeneous plaque proximally. Vertebral artery flow is antegrade. No defined ulceration noted. Left side: The left bifurcation-internal carotid artery has heterogeneous plaque. Internal carotid maximum velocity is 168/38 cm/s , with a ratio of 2.13 . The common carotid artery has heterogeneous plaque present. The external carotid artery has heterogeneous plaque proximally. Vertebral artery flow is antegrade. No defined ulceration noted. CONCLUSION: Less than 50% stenosis in the right internal carotid artery. 50-69% stenosis in the left internal carotid artery by ratio criteria. Antegrade flow in the bilateral vertebral arteries. ++++++++++++++++++++++++++++++++++++ MEASUREMENTS: ++++++++++++++++++++++++++++++++++++ DOPPLER Right Prox CCA Prox CCA PSV 87 cm/s Right Dist CCA Dist CCA PSV 71 cm/s Right Prox ICA Prox ICA PSV 66 cm/s Prox ICA EDV 17 cm/s Right Mid ICA Mid ICA PSV 59 cm/s Mid ICA EDV 19 cm/s Right Dist ICA Dist ICA PSV 43 cm/s Dist ICA EDV 13 cm/s Right Prox ECA Prox ECA PSV 74 cm/s Right Vertebral Vertebral PSV 45 cm/s Right ICA/CCA RATIO ICA/CCA RATIO P 0.93 Left Prox CCA Prox CCA PSV 81 cm/s Left Dist CCA Dist CCA PSV 79 cm/s Left Prox ICA Prox ICA PSV 168 cm/s Prox ICA EDV 38 cm/s Left Mid ICA Mid ICA PSV 78 cm/s Mid ICA EDV 16 cm/s Left Dist ICA Dist ICA PSV 27 cm/s Dist ICA EDV 4 cm/s Left Prox ECA Prox ECA PSV 137 cm/s Left Vertebral Vertebral PSV 41 cm/s Left ICA/CCA RATIO ICA/CCA RATIO P 2.13 <Electronic Signature> 07/14/2024 04:43 PM Amaris Bustamante M.D. Procedure Note Amaris Bustamante MD - 07/14/2024 CAROTID ARTERY DUPLEX IMAGING VASCULAR LAB Pat.Name: Medhat Alonso Pat.ID: [id number] St.Date: 07/13/2024 Exam Time: 10:29:00 AM Study Type:ARMANDO VS Duplex Carotid BIDOB Age: 11 1965,58Y Sex: M Sonogrphr: Sher Nieto, RVT Pat. Stat.:Inpatient Room: 408 History / Clinical:preop CABG Procedures: Robin scale, Color Doppler imaging, Doppler Spectral Analysis Race: W ++++++++++++++++++++++++++++++++++++ SUMMARY: ++++++++++++++++++++++++++++++++++++ [facility] E[facility] Carotid Criteria 50-69% = PSV 180-230 and/or Ratio 2.0 - 4.0 >70% = PSV >230 and Ratio >4.0 or EDV >100 Stent Criteria >80% = PSV >340 and Ratio >4.0 The right subclavian artery is not assessed. The left subclavian artery is not assessed. Right side: The right bifurcation-internal carotid artery has heterogeneous plaque. Internal carotid maximum velocity is 66/17 cm/s, with a ratio of 0.93 . The common carotid artery has heterogeneous plaque present. The external carotid artery has heterogeneous plaque proximally. Vertebral artery flow is antegrade. No defined ulceration noted. Left side: The left bifurcation-internal carotid artery has heterogeneous plaque. Internal carotid maximum velocity is 168/38 cm/s , with a ratio of 2.13 . The common carotid artery has heterogeneous plaque present. The external carotid artery has heterogeneous plaque proximally. Vertebral artery flow is antegrade. No defined ulceration noted. CONCLUSION: Less than 50% stenosis in the right internal carotid artery. 50-69% stenosis in the left internal carotid artery by ratio criteria. Antegrade flow in the bilateral vertebral arteries. ++++++++++++++++++++++++++++++++++++ MEASUREMENTS: ++++++++++++++++++++++++++++++++++++ DOPPLER Right Prox CCA Prox CCA PSV 87 cm/s Right Dist CCA Dist CCA PSV 71 cm/s Right Prox ICA Prox ICA PSV 66 cm/s Prox ICA EDV 17 cm/s Right Mid ICA Mid ICA PSV 59 cm/s Mid ICA EDV 19 cm/s Right Dist ICA Dist ICA PSV 43 cm/s Dist ICA EDV 13 cm/s Right Prox ECA Prox ECA PSV 74 cm/s Right Vertebral Vertebral PSV 45 cm/s Right ICA/CCA RATIO ICA/CCA RATIO P 0.93 Left Prox CCA Prox CCA PSV 81 cm/s Left Dist CCA Dist CCA PSV 79 cm/s Left Prox ICA Prox ICA PSV 168 cm/s Prox ICA EDV 38 cm/s Left Mid ICA Mid ICA PSV 78 cm/s Mid ICA EDV 16 cm/s Left Dist ICA Dist ICA PSV 27 cm/s Dist ICA EDV 4 cm/s Left Prox ECA Prox ECA PSV 137 cm/s Left Vertebral Vertebral PSV 41 cm/s Left ICA/CCA RATIO ICA/CCA RATIO P 2.13 <Electronic Signature> 07/14/2024 04:43 PM Amaris Bustamante M.D. Catalino Louie MD [facility] Final Result * TSH W/REFLEX (07/13/2024 8:19 AM CDT) TSH 1.970 0.358 - 3.74 uIU/ML 07/13/2024 9:07 AM CDT [facility] Comment: HIGH DOSES OF BIOTIN MAY INTERFERE WITH THIS TEST RESULT. CORRELATION TO CLINICAL HISTORY AND PRESENTATION RECOMMENDED. 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
[2024-08-23 07:45] LABS: Hematocrit 35.2 % (40.0-54.0); Hemoglobin 12.1 g/dL (14.0-18.0); Immature Granulocyte Percent A 0.3 % (0.0-0.0); Lymphocytes Absolute Auto 0.97 K/mm3 (1.10-4.50); Mean Corpuscular HGB Conc 34.4 g/dL (32-36); Mean Corpuscular Hemoglobin 28.3 pg (27.0-31.0); Mean Corpuscular Volume 82.2 fL (78.0-102.0); Nucleated Red Blood Cells Absolute Auto 0.00 K/mm3 (0.00-0.00); Nucleated Red Blood Cells Perc 0.0 % (0-0.0); Platelet Count Result 233 K/mm3 (150-420); Red Blood Count 4.28 M/mm3 (4.70-6.10); White Blood Count 7.0 K/mm3 (4.8-10.8)
--- NOTE | 2024-08-23 07:46 | ED_ITS ---
HPI - Chest Pain General Chief Complaint: Chest Pain Stated Complaint: chest pain Time Seen by Provider: 08/23/24 07:22 Source: patient Mode of arrival: ambulatory Limitations: no limitations History of Present Illness HPI narrative: 58 year old male presents to the Emergency Department complaining of left sided chest pain. Onset yesterday. Pain is intermittent. Described as sharp stabbing pain that lasts for a second and resolves. Denies radiation of pain. Denies shortness of breath, nausea, vomiting, diaphoresis. History of CVD, CABG, IDDM, hyperlipidemia. Patient had recent CABG 5 vessel. Denies pain currently, but states he did have a pain during history [lasted a second]. MD complaint: chest pain Pertinent past history: coronary artery disease and CABG Onset (ago): day(s) Timing of current episode: episodic and now resolved Prior episodes: Yes Onset: during rest Pain location: left chest Pain radiation: none Severity: mild Quality: sharp Relieving factors: nothing (spontaneous) Exacerbating factors: nothing Risk Factors Coronary artery disease risk factors: diabetes, smoking history, hyperlipidemia and hypertension Related Data Home Medications ?Medication ?Instructions ?Recorded ?Confirmed ?Last Taken ?Type citalopram 20 mg tablet 20 mg PO HS 09/23/19 07/12/24 07/11/24 History lisinopril 20 1 tablet PO BID 09/23/19 07/12/24 07/11/24 History mg-hydrochlorothiazide 12.5 mg tablet atorvastatin 80 mg tablet 1 tablet PO HS 08/20/21 07/12/24 07/11/24 History doxazosin 4 mg tablet 1 tablet PO DAILY 08/20/21 07/12/24 07/11/24 History metoprolol succinate 100 mg 1 tablet PO DAILY 08/20/21 07/12/24 07/11/24 History tablet,extended release 24 hr insulin glargine 100 unit/mL (3 130 unit subcut DAILY 04/17/24 07/12/24 04/17/24 History mL) subcutaneous pen (Lantus Solostar U-100 Insulin) insulin lispro 100 unit/mL 36 unit subcut TIDWM 04/17/24 07/12/24 04/17/24 History subcutaneous pen (Humalog KwikPen (U-100) Insulin) Allergies Allergy/AdvReac Type Severity Reaction Status Date / Time No Known Allergies Allergy Verified 08/03/24 10:34 Review of Systems 2 Review of Systems: All systems reviewed & are unremarkable except as noted in HPI and below Constitutional: Constitutional: Reports as per HPI, Denies chills and Denies fever(s) Eyes: Eyes: Reports as per HPI ENT: Reports system reviewed and no additional complaints, except as documented Cardiovascular: Cardiovascular: Reports as per HPI and Reports chest pain Respiratory: Respiratory: Reports as per HPI, Denies cough and Denies dyspnea Gastrointestinal: Gastrointestinal: Reports as per HPI, Denies abdominal pain, Denies diarrhea, Denies nausea and Denies vomiting Genitourinary: Genitourinary: Reports no additional male genitourinary complaints Musculoskeletal: Musculoskeletal: Reports no additional musculoskeletal complaints and Denies back pain Integumentary/Breasts: Skin/Breast: Reports system reviewed and no additional complaints, except as docu Neurologic: Reports system reviewed and no additional complaints, except as documented Psychiatric: Psychiatric: Reports no additional psychiatric complaints Endocrine: Endocrine: Reports no additional endocrine complaints Hematologic/Lymphatic: Hematologic/Lymphatic: Reports no additional hematologic/lymphatic complaints Allergic/Immunologic: Allergic/Immunologic: Reports no additional allergic/immunologic complaints [facility] Past Medical History Medical History Depression Cataracts, bilateral Hyperlipidemia Hypertension Type 2 diabetes mellitus Seasonal allergies Family History Family History Father Cerebrovascular accident Other Diabetes mellitus Heart disease Hypertension Social History Social History Smoking packs per day: 1 Smoking cigarettes per day: 20.0 Years smoked: 40 Smoking pack-years: 40.00 Smoking status: Former smoker Tobacco type: cigarettes Additional smoking assessment comments: Off and on 1 PPD smoker x40 years. Alcohol intake: never Alcohol use details: Occasional Substance use: never Substance use type: does not use Do You Feel Safe in your Home?: Yes Lack of Transportation: No Lack of Food: Never True Current Housing: I Have Housing Concerned About Future Housing: No Difficulty Paying Gas/Electric Bills: No Difficulty Paying for Meds: No Currently Unemployed: No Education: Decline to Answer Difficulty w/ Childcare or Family Care: No Spiritual care concerns: No Exam 2 Const: General: no acute distress and alert; No diaphoretic Nutritional Appearance: well nourished Orientation/consciousness: patient oriented x3 Limitations: no limitations HENMT: Head: normal to inspection Ears: external ears normal F alexander/Nose/Sinus: Normal external nose present Face and sinus: normal facial exam Mouth: Yes Normal oral and palatal mucosa present Teeth and gingiva: dentition normal Throat: posterior oropharynx normal Eyes: Pupils: Equal, round and reactive pupils present EOM: EOMs intact bilaterally Direct Ophthalmoscopy: no photophobia Neck: Neck: normal visual inspection Other: no JVD Chest: Chest palpation & inspection: normal inspection of the chest and no tenderness Resp: Effort & Inspection: normal respiratory effort Auscultation: clear to auscultation bilaterally Cardio: Rate: regular rate Rhythm: regular rhythm Heart sounds: no murmurs GI: Inspection: non-distended GI Palp: Yes Soft to palpation and No Tenderness to palpation present (GI) : General: Yes bladder normal to palpation Back/Spine/Pelvis: Back: no CVA tenderness Skin: General skin exam: normal color Rashes: no rashes Neuro: General: patient oriented x3, moves all extremities and no meningeal signs Cranial nerves: Yes Nystagmus not present Speech: normal speech G ait exam (Neuro): Normal gait present Other: grossly normal Extrem: General: normal to inspection and no clubbing, cyanosis or edema Psych: Mental Status: mental status grossly normal Affect: normal affect Course Vital Signs Vital signs: Vital Signs Oxygen Delivery Room Air 08/23/24 07:00 Temperature 36.3 C L 08/23/24 07:03 Pulse Rate 75 08/23/24 11:01 Respiratory Rate 14 08/23/24 11:01 Blood Pressure 179/94 H 08/23/24 10:46 Pulse Oximetry 100 08/23/24 11:01 Oxygen Delivery Room Air 08/23/24 07:03 MDM - Chest Pain MDM Narrative Medical decision making narrative: 58 y/o male presents to the ED c/o left sided sharp chest pains that last for a second. Onset yesterday. Intermittent. Non-radiating. No sob, nausea, diaphoresis. No pain at present, although had a pain during history which last a second. PE: unremarkable CBC: H/H 12.1/35.2, Plt 233; wbc 7 with 72 S, 14 L, 7 M CMP: Na 130, K 4.1, Cl 99, CO2 26, Glc 467, BUN 23, Cr 1.5; LFT's normal FSBS: (0923) 424 / (0958) 326 / (1030) 306 / (1145) 247 [patient states this is his normal] TNI: 0.032 CK: 40 EKG: NSR, 77, T wave inversion inferior /lateral. No change from 08/03/24 [actually improved less T wave inversion] d-dimer: 2.15 CXR: bibasilar infiltrates suspicious for pneumonia CTA Chest: no PE. Faint ground glass opacities both lungs suspicious for edema or pneumonitis. Small L pleural effusion Tx: surveillance system monitor, pulse ox, saline lock. NS w/o x 2 L, Insulin 10 U Reg IVP. Rocephin 2 gm IVPB. *reviewed and discussed results with patient. Discussed further management. Patient voices understanding and agreement. Rx and Instructions Differential Diagnosis Differential diagnosis: Likely pneumothorax, stable angina, atypical chest pain, costochondritis and chest pain Medical Records Data Attestation: I reviewed the patient's medical records. Lab Data 08/23/24 07:40 08/23/24 07:40 Labs: Lab Results 08/23/24 08/23/24 08/23/24 Range/Units 07:40 09:23 09:58 WBC 7.0 (4.8-10.8) K/mm3 RBC 4.28 L (4.70-6.10) M/mm3 Hgb 12.1 L (14.0-18.0) g/dL Hct 35.2 L (40.0-54.0) % MCV 82.2 (78.0-102.0) fL MCH 28.3 (27.0-31.0) pg MCHC 34.4 (32-36) g/dL RDW 13.2 (11.6-14.4) % Plt Count 233 (150-420) K/mm3 MPV 10.0 (8.7-11.0) fl Immature Gran % (Auto) 0.3 H (0.0-0.0) % Neut % (Auto) 72.1 H (50.0-70.0) % Lymph % (Auto) 13.9 L (18.0-42.0) % [place] % (Auto) 6.7 (2.0-11.0) % Eos % (Auto) 6.0 (1.0-6.0) % Baso % (Auto) 1.0 (0.0-1.0) % Lymph # (Auto) 0.97 L (1.10-4.50) K/mm3 [place] # (Auto) 0.47 (0.10-0.90) K/mm3 Eos # (Auto) 0.42 (0.02-0.50) K/mm3 Baso # (Auto) 0.07 (0.00-0.10) K/mm3 Abs Immat Gran (auto) 0.02 H (0.00-0.00) K/mm3 Absolute Neuts (auto) 5.04 (1.70-7.20) K/mm3 Absolute Nucleated RBC 0.00 (0.00-0.00) K/mm3 Nucleated RBC % 0.0 (0-0.0) % D-Dimer 2.15 H (0.19-0.50) mg/L Sodium 130 L (137-145) mmol/L Potassium 4.1 (3.4-5.0) mmol/L Chloride 99 (98-107) mmol/L Carbon Dioxide 26 (22-30) mmol/L Anion Gap 5 (4-12) mmol/L BUN 23 H (9-20) mg/dL Creatinine 1.50 H (0.7-1.3) mg/dL Estim Creat Clear Calc 43 ml/min Estimated GFR 48 L (59 - ) Glucose 467 H (65-110) mg/dL POC Capillary Glucose 424 H 326 H (65-105) mg/dl Calculated Osmolality 293 (285-295) mOsm/kg Calcium 8.2 L (8.4-10.2) mg/dL Total Bilirubin 0.8 (0.2-1.3) mg/dL AST 23 (17-59) U/L ALT 26 (6-50) U/L Alkaline Phosphatase 122 (38-126) U/L Total Creatine Kinase 40 L (55-170) U/L Troponin I 0.032 (0.000-0.034) ng/mL Total Protein 6.1 L (6.3-8.2) g/dL Albumin 3.4 L (3.5-5.1) g/dL 08/23/24 Range/Units 10:30 WBC (4.8-10.8) K/mm3 RBC (4.70-6.10) M/mm3 Hgb (14.0-18.0) g/dL Hct (40.0-54.0) % MCV (78.0-102.0) fL MCH (27.0-31.0) pg MCHC (32-36) g/dL RDW (11.6-14.4) % Plt Count (150-420) K/mm3 MPV (8.7-11.0) fl Immature Gran % (Auto) (0.0-0.0) % Neut % (Auto) (50.0-70.0) % Lymph % (Auto) (18.0-42.0) % [place] % (Auto) (2.0-11.0) % Eos % (Auto) (1.0-6.0) % Baso % (Auto) (0.0-1.0) % Lymph # (Auto) (1.10-4.50) K/mm3 [place] # (Auto) (0.10-0.90) K/mm3 Eos # (Auto) (0.02-0.50) K/mm3 Baso # (Auto) (0.00-0.10) K/mm3 Abs Immat Gran (auto) (0.00-0.00) K/mm3 Absolute Neuts (auto) (1.70-7.20) K/mm3 Absolute Nucleated RBC (0.00-0.00) K/mm3 Nucleated RBC % (0-0.0) % D-Dimer (0.19-0.50) mg/L Sodium (137-145) mmol/L Potassium (3.4-5.0) mmol/L Chloride (98-107) mmol/L Carbon Dioxide (22-30) mmol/L Anion Gap (4-12) mmol/L BUN (9-20) mg/dL Creatinine (0.7-1.3) mg/dL Estim Creat Clear Calc ml/min Estimated GFR (59 - ) Glucose (65-110) mg/dL POC Capillary Glucose 306 H (65-105) mg/dl Calculated Osmolality (285-295) mOsm/kg Calcium (8.4-10.2) mg/dL Total Bilirubin (0.2-1.3) mg/dL AST (17-59) U/L ALT (6-50) U/L Alkaline Phosphatase (38-126) U/L Total Creatine Kinase (55-170) U/L Troponin I (0.000-0.034) ng/mL Total Protein (6.3-8.2) g/dL Albumin (3.5-5.1) g/dL Critical Care Time Critical Care Time Critical Care Time: Yes Total Critical Care Time: 60 Discharge Plan Discharge Clinical Impression: Atypical chest pain, Pneumonia, Hyperglycemia, Diabetes mellitus Patient Disposition: Home Condition: Stable Instructions: Antibiotic Form, Chest Pain (ED), Pneumonia (ED), Diabetic Hyperglycemia (ED) Additional Instructions: Monitor blood glucose closely for better control Follow diabetic diet Take medication as prescribed Follow up Primary Care Provider next week Return as needed Patient Language: [place]i Prescriptions: New amoxicillin-pot clavulanate 875-125 mg tablet 1 tablet PO Q12H Qty: 20 0RF No Action atorvastatin 80 mg tablet 1 tablet PO HS metoprolol succinate 100 mg tablet extended release 24 hr 1 tablet PO DAILY doxazosin 4 mg tablet 1 tablet PO DAILY lisinopril-hydrochlorothiazide 20-12.5 mg tablet 1 tablet PO BID citalopram 20 mg tablet 20 mg PO HS insulin glargine [Lantus Solostar U-100 Insulin] 100 unit/mL (3 mL) insulin pen 130 unit SUBCUT DAILY insulin lispro [Humalog KwikPen Insulin] 100 unit/mL insulin pen 36 unit SUBCUT TIDWM Glucagon Emergency Kit (human) 1 mg recon soln 1 mg subcut Q20M PRN (Reason: hypoglycemia) Qty: 1 0RF Rx Instructions: until target blood sugar attained insulin glargine [Lantus U-100 Insulin] 100 unit/mL Solution 60 unit subcut QHS Qty: 10 0RF dextrose [Glutose-15] 40 % Gel 15 g PO PRN PRN (Reason: Hypoglycemia) Qty: 1 0RF insulin aspart U-100 [Novolog U-100 Insulin aspart] 100 unit/mL Solution 4 - 8 unit subcut TIDWM Qty: 10 0RF Protocol: Insulin Corrective High-Dose Condition: glucose < 70 mg/dl Dose/Route: Follow hypoglycemia order Condition: glucose 70-200 mg/dl Dose/Route: No additional insulin Condition: glucose 201-250 mg/dl Dose/Route: 4 units sub-Q Condition: glucose 251-300 mg/dl Dose/Route: 5 units sub-Q Condition: glucose 301-350 mg/dl Dose/Route: 6 units sub-Q Condition: glucose 351-400 mg/dl Dose/Route: 8 units sub-Q Condition: glucose > 400 mg/dl Dose/Route: Call MD Protocol Text: *No Correction Dose at Bedtime* insulin aspart U-100 [Novolog U-100 Insulin aspart] 100 unit/mL Solution 2 - 4 unit subcut HS Qty: 10 0RF Protocol: Insulin Corrective High-Dose Condition: glucose < 70 mg/dl Dose/Route: Follow hypoglycemia order Condition: glucose 70-200 mg/dl Dose/Route: No additional insulin Condition: glucose 201-250 mg/dl Dose/Route: 2 units sub-Q Condition: glucose 251-300 mg/dl Dose/Route: 2 units sub-Q Condition: glucose 301-350 mg/dl Dose/Route: 3 units sub-Q Condition: glucose 351-400 mg/dl Dose/Route: 4 units sub-Q Condition: glucose > 400 mg/dl Dose/Route: Call MD Follow-up/Referrals: UNKNOWN,DOCTOR [Non-Staff] - Juliane Dale MD [Physician] - Stand Alone Forms: Work/School Release IP Time of Disposition: 12:23
[2024-08-23 07:56] LABS: Alanine Aminotransferase 26 U/L (6-50); Albumin Level 3.4 g/dL (3.5-5.1); Alkaline Phosphatase 122 U/L (38-126); Anion Gap 5 mmol/L (4-12); Aspartate Amino Transferase 23 U/L (17-59); Bilirubin,Total 0.8 mg/dL (0.2-1.3); Blood Urea Nitrogen 23 mg/dL (9-20); Calcium 8.2 mg/dL (8.4-10.2); Carbon Dioxide 26 mmol/L (22-30); Chloride 99 mmol/L (98-107); Creatine Kinase 40 U/L (55-170); Estimated CRCL calculation 43 ml/min; Estimated Glomerular Filt Rate 48; Glucose 467 mg/dL (65-110); Osmolality Calculated 293 mOsm/kg (285-295); Potassium 4.1 mmol/L (3.4-5.0); Sodium 130 mmol/L (137-145); Total Protein 6.1 g/dL (6.3-8.2)
[2024-08-23 08:08] LABS: Troponin I 0.032 ng/mL (0.000-0.034)
--- OUTSIDE RECORDS SUMMARY | 2024-08-23 08:13 | XMS_ITS | Clinical Summary ---
Author Organization [facility] Address [address] [place] [address] Care Team Providers Care Heel Shaper Name Role Phone None, Provider MD Primary [...] Diagnosed Date Coronary artery disease invo lving [place] coronary artery of [place] heart without angina pectoris 08/14/2024 Mixed hyperlipidemia 08/14/2024 Chest pain 08/03/2024 STEMI (ST elevation myocardi al infarction) ([facility]) 07/12/2024 Essential hypertension 05/25/2021 Nonspecific abnormal results of function study o f kidney 05/25/2021 Encounters Date Type Department Care Team Description 08/14/2024 10:32 AM CDT - 08/14/2024 11:59 PM CDT Hospital Encounter [facility] [place] [address] Charis Harden PA-C Discharge Disposition: Home or Self Care (Routine Discharge) 08/14/2024 10:30 AM CDT - 08/14/2024 10:31 AM CDT Hospital Encounter [facility] [place] [address] Charis Harden PA-C Discharge Disposition: Home or Self Care (Routine Discharge) 08/14/2024 10:00 AM CDT Office Visit [address] [address] Catalino Louie MD Follow Up (07/15/24 CABG x 5 ) 08/14/2024 9:30 AM CDT Office Visit [address] [address] Patrick Reyes MD France, Hallie A, PA-C Follow Up (hosp) 08/14/2024 Telephone [facility], [address] [address] Manda Taylor RN Results; Medication Request (See notes) 08/14/2024 Travel 08/07/2024 10:00 AM CDT Home Care Visit [address] [address] Catrina Hardwick RN SN OASIS DISCHARGE/ASSESSMENT 08/07/2024 Hospital Follow-up Call [facility] [place] [address] Jennifer Dave LPN Follow Up Call ([facility] 08/03-08/05/24) 08/04/2024 8:15 AM CDT Home Care Visit [address] [address] Nida Saleh, ROUTE SALES ASSOCIATE VISIT 08/03/2024 6:36 PM CDT - 08/05/2024 12:08 PM CDT Hospital Encounter [facility] [place] [address] Jaz George MD Daniels, Darcy L, NP Discharge Disposition: Home or Self Care (Routine Discharge) 08/03/2024 Travel 07/31/2024 10:15 AM CDT Home Care Visit [address] [place], [place] [id number] Mela Amin LPN SN HOME VISIT 07/28/2024 3:44 PM CDT - 07/28/2024 11:59 PM CDT Hospital Encounter [address] [address] Catalino Louie MD Discharge Disposition: Home or Self Care (Routine Discharge) 07/28/2024 10:00 AM CDT Home Care Visit [facility] Home Care [address] [place] [address] Valentine Perez LPN SN HOME VISIT 07/28/2024 Orders Only [facility] [address] [place] [address] Catalino Louie MD 07/24/2024 9:00 AM CDT Home Care Visit [facility] Home Care [address] [place] [address] Mela Amin LPN SN HOME VISIT 07/23/2024 Hospital Follow-up Call [facility] [place] [address] Jennifer Dave LPN 07/22/2024 8:45 AM CDT Home Care Visit [facility] Home [address] [address] Nida Saleh, ROUTE SALES ASSOCIATE VISIT 07/22/2024 8:30 AM CDT Home Care Visit [address] [address] Annamaria Dunn RN SN OASIS START OF CARE 07/22/2024 Telephone [facility], [address] [address] Catalino Louie MD Follow Up Call 07/22/2024 Plan of Care Documentation [facility] Home [address] Care [place], [place] [phone] 07/18/2024 9:00 AM CDT Home Care Visit [facility] Care [address] [address] Nida Saleh, ROUTE SALES ASSOCIATE VISIT 07/15/2024 7:30 AM CDT - 07/15/2024 2:19 PM CDT Surgery [facility] [place] [address] Catalino Louie MD CORONARY ARTERY BYPASS GRAFTS TIMES FIVE USING LEFT INTERNAL MAMMARY ARTERY AND ENDOSCOPICALLY HARVESTED BILATERAL GREATER SAPHENOUS VEINS; TRANSESOPHAGEAL ECHOCARDIOGRAM, AORTIC SCAN, CARDIOPULMONARY BYPASS 07/15/2024 7:28 AM CDT Anesthesia Event [facility] [place] [address] Eusebia Sánchez MD 07/12/2024 10:36 PM CDT - 07/21/2024 3:55 PM CDT Hospital Encounter [facility] [place] [address] Jaida Sanders MD Malcolm, MD Manny Daniel, [...] materials from doctor or pharmacy Rarely 08/07/2024 [facility] Utilities Answer Date Recorded In the past 12 months has e [employer], gas, oil, or water [employer] threatened to shut off services in your [...] any time in the past 12 m [facility], were you homeless or living in a skilled nursing (including now)? 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 [facility] [address] [place], [place] [phone] Patrick Reyes MD [facility] [address] [place], [place] [id number] Health Maintenance Due Date Last Done Comments [...] Henson, RN Medical Devices Implanted Type Area Campaign Associate Device Identifier Shelf Expiration Date Model / Serial / Lot Wire Sterum Suture Kit My[employer]ire #7 1/2 Ccs-1 - [id number] Implanted:Qty: 1 on 07/15/2024 by Chaparro Cloud RNFA at [facility] Wire N/A: Sternum [employer] 09/06/2027 [id number] / / [id number] Description:2 WIRES IMPLANTE D Wire Sternotomy Suture Kit - [id number] Implanted:Qty: 1 on 07/15/2024 by Catalino Louie MD at [facility] Wire N/A: Sternum [employer] 03/08/2027 [id number] / / [id number] Description:5 WIRES IMPLANTE D Procedures Procedure Name Priority Date/Time Associated Diagnosis Comments XR CHEST PA+LAT Routine 08/14/2024 10:48 AM CDT Acute cough PRO-BRAIN NATRIURETIC PEPTIDE Routine 08/14/2024 10:41 AM CDT Acute cough Shortness of breath BASIC METABOLIC PANEL Routine 08/14/2024 10:41 AM CDT Coronary artery disease involving [place] coronary artery of [place] heart without angina pectoris POCT GLUCOSE - [...] Cardiac pacemaker in situ Coronary atherosclerosis of [place] coronary artery CBC W/DIFF AUTOMATED Routine 07/28/2024 11:15 AM CDT Cardiac pacemaker in situ Coronary atherosclerosis of [place] coronary artery POCT GLUCOSE - DOCKED DEVICE [...] AM CDT STEMI (ST elevation myocardial infarction) ([facility]) POCT GLUCOSE - DOCKED DEVICE Routine 07/15/2024 [...] 10:53 AM Narrative 08/14/2024 10:53 AM CDT [place] [address] 2 VIEWS OF THE CHEST Clinical history: Cough Comparison: August 04, 2024 2 views of the chest demonstrate the cardiac silhouette to be normal in size and appears stable. The pulmonary vessels appear normal. The Lungs are clear. No consolidations or effusions are seen. Procedure Note Robbie Carrasco MD - 08/14/[address] [address] 2 VIEWS OF THE CHEST Clinical history: [...] Final Resul t * (ABNORMAL) PRO BNP ([facility]) (08/14/2024 10:41 AM CDT) Only the most recent of2 resultswithin the time period is included. PRO-B TYPE NATRIURETIC PEPTIDE 4,479(H) <125 PG/ML 08/14/2024 11:26 AM CDT [facility] Comment: CUT POINTS ESTABLISHED BY INTERNATIONAL [...] Charis Harden PA-C LABORATORY Final Resul t [facility] [address] [place] [address], * (ABNORMAL) BASIC METABOLIC PANEL (08/14/2024 10:41 AM CDT) Only the most recent of7 resultswithin the time period is included. GLUCOSE 394(H) 70 - 99 MG/DL 08/14/2024 11:26 AM CDT [facility] BUN 30(H) 7 - 18 MG/DL 08/14/2024 11:26 AM CDT [facility] CREATININE S/P/B 1.78(H) 0.7 - 1.3 MG/DL 08/14/2024 11:26 AM CDT [facility] SODIUM S/P/B 133(L) 136 - 145 MMOL/L 08/14/2024 11:26 AM CDT [facility] POTASSIUM S/P/B 4.4 3.5 - 5.1 MMOL/L 08/14/2024 11:26 AM CDT [facility] CHLORIDE S/P/B 102 97 - 115 MMOL/L 08/14/2024 11:26 AM CDT [facility] CO2 27.5 21 - 32 MMOL/L 08/14/2024 11:26 AM CDT [facility] CALCIUM S/P/B 9.0 8.5 - 10.1 MG/DL 08/14/2024 11:26 AM CDT [facility] ANION GAP 3.5 2 - 10 MMOL/L 08/14/2024 11:26 AM CDT [facility] BUN CREATININE RATIO 16.9 6 - 26 08/14/2024 11:26 AM CDT [facility] GFR ESTIMATE 43(L) >90 ML/MIN/1.7 3 M2 08/14/2024 11:26 AM CDT [facility] Comment: NOTE: eGFR is not calculated [...] Charis Harden PA-C LABORATORY Final Resul t [facility] [address] [place] [address], [place] [phone] * (ABNORMAL) POCT glucose (08/05/2024 11:25 AM CDT) Only the most recent of77 resultswithin the time period is included. GLUCOSE POC 125(H) 70 - 99 mg/dL 08/05/2024 11:29 AM CDT [facility] 08/05/2024 11:2 5 AM CDT Charity Collier SOFTWARE DEVELOPMENT ANALYST POCT ORDERABLES - DEVICE Pam carrasquillo Result [facility] [address] [place] [address], * (ABNORMAL) CBC W/DIFF AUTOMATED (08/05/2024 4:02 AM CDT) Only the most recent of13 resultswithin the time period is included. WBC 6.69 4.5 - 11.0 x10'3/uL 08/05/2024 4:16 AM CDT [facility] RBC 3.55(L) 4.70 - 6.10 x10'6/uL 08/05/2024 4:16 AM CDT [facility] HGB 10.0(L) 14.0 - 18.0 G/DL 08/05/2024 4:16 AM CDT [facility] HCT 30.1(L) 43.0 - 54.0 % 08/05/2024 4:16 AM CDT [facility] MCV 84.8 80.0 - 94.0 FL 08/05/2024 4:16 AM CDT [facility] MCH 28.2 27.0 - 31.0 PG 08/05/2024 4:16 AM CDT [facility] MCHC 33.2 32.0 - 36.0 G/DL 08/05/2024 4:16 AM CDT [facility] RDW 13.9 11.5 - 14.5 % 08/05/2024 4:16 AM CDT [facility] PLT 369 130 - 400 x10'3/uL 08/05/2024 4:16 AM CDT [facility] MPV 9.7 9.3 - 12.2 FL 08/05/2024 4:16 AM CDT [facility] DIFFERENTIAL TYPE AUTOMATED DIFFERENTIAL 08/05/2024 4:16 AM CDT [facility] NEUTROPHILS % 65.2 % 08/05/2024 4:16 AM CDT [facility] LYMPHOCYTES % 19.4 % 08/05/2024 4:16 AM CDT [facility] MONOCYTES % 8.8 % 08/05/2024 4:16 AM CDT [facility] EOSINOPHILS 5.8 % 08/05/2024 4:16 AM CDT [facility] BASOPHILS 0.7 % 08/05/2024 4:16 AM CDT [facility] IMMATURE GRANS % 0.1 % 08/06/19 4:16 AM CDT [facility] ABS. NEUTROPHILS 4.35 1.80 - 7.70 x10'3/uL 08/05/2024 4:16 AM CDT [facility] ABS. LYMPHOCYTES 1.30 1.00 - 4.80 x10'3/uL 08/05/2024 4:16 AM CDT [facility] ABS. MONOCYTES 0.59 0.30 - 0.82 x10'3/uL 08/05/2024 4:16 AM CDT [facility] ABS. EOSINOPHILS 0.39 0.04 - 0.54 x10'3/uL 08/05/2024 4:16 AM CDT [facility] ABS. BASOPHILS 0.05 0.01 - 0.08 x10'3/uL 08/05/2024 4:16 AM CDT [facility] ABS. IMMATURE GRANULOCYTES 0.01 0.00 - 0.49 x10'3/uL 08/05/2024 4:16 AM T [facility] 08/05/2024 4:02 AM CDT us Charity Collier SOFTWARE DEVELOPMENT ANALYST LABORATORY Final Result Performing Organization Address City/[facility] Co de Phone Number [facility] [address] [place] [address], [place] [phone] * (ABNORMAL) TROPONIN, QUANT (08/05/2024 4:02 AM CDT) Only the most recent of8 resultswithin the time period is included. TROPONIN I HIGH SENSITIVITY 185(HH) <79 ng/L 08/05/2024 5:08 AM CDT [facility] Comment: NOT CALLED PER CRITICAL VALUE POLICY HIGH DOSES OF BIOTIN, TROPONIN-SPECIFIC AUTOANTIBODIES, AND ANTIBODY THERAPY CONTAINING HAMA MAY INTERFERE WITH THIS TEST RESULT. CORRELATION TO CLINICAL HISTORY AND PRESENTATION RECOMMENDED. 08/05/2024 4:02 AM CDT Dariela Cobos SOFTWARE DEVELOPMENT ANALYST LABORATORY Final Result Performing Organization Address [facility] Co de Phone Number [facility] [address] [place] [address], [place] [phone] * MAGNESIUM (08/05/2024 4:02 AM CDT) Only the most recent of8 resultswithin the time period is included. MAGNESIUM 2.2 1.8 - 2.4 MG/DL 08/05/2024 4:33 AM CDT [facility] 08/05/2024 4:02 AM CDT Charity Collier SOFTWARE DEVELOPMENT ANALYST LABORATORY Final Result Performing Organization Address City/[facility]/ZIP Co de Phone Number [facility] [address] [place] [address], [place] [phone] * USE ECHO 2D FU LTD W CON (08/04/2024 4:24 PM CDT) Anatomical Region Laterality Modality NA Echocardiogram 08/04/2024 3:37 PM CDT Narrative 08/05/2024 7:41 AM CDT Echocardiography Report Pat.Name: MEDHAT ALONSO.ID: [id number] .Date: 08/04/2024 MD: [id number] NATASHA Olmedo EWDPROV EWDPROV Exam Time: 3:37:00 PM Study Type:ECHO WITH CARDIAC DOPPLER COMP Height: 66.1 in Weight: 153 lb BSA: 1.79 m2 Age: 11 1965,58Y Sex: M BP: 129/82 HR: 78 bpm Sonogrphr: Flor Downey RDCS, [facility] Pat. Stat.:Inpatient Room: [facility] Reason for Study:Coronary artery disease, Coronary bypass [...] Left Atrium LA VOLBP 39.1 ml Major [place] (Sys 5.81 cm [place] (Sys 6.21 cm Ratios IVS Ventricular Septum [...] cm2 Cardiovascular 2.28 cm Right Atrium [place] (Sys 5.35 cm RA Single Plane Right Atrium Ar 14 cm2 Volume (Systole 17.3 ml/m2 Right Ventricle [place] ([place] 7.23 cm RVIDd 2.72 cm MMODE [...] % Left Atrial Eje 21.5 % [place] (End 5.2 cm [place] (End 5.5 cm Left Atrial ED 31.9 ml/m2 Left Atrial ED 28.5 ml/m2 [place] (End 6.6 cm [place] (End 5.6 cm Left Atrial ES 45.3 ml/m2 Left Atrial ES 36.3 ml/m2 Global Longitud 19.8 % Global Longitud 5 % HR 76 bpm HR 75 bpm SV 13.4 ml/m2 SV 7.8 ml/m2 LA Biplane CO 1.7 l/min Left Atrial ES 43.9 ml/m2 Left Atrial Eje 29.2 % Global Longitud 12.4 % [place] (End 5.5 cm HR 76 bpm Left Atrial ED 31.1 ml/m2 SV 12.8 ml/m2 [place] (End 6.6 cm Left Ventricle Left Ventricula [...] 44 % Global Longitud 25.3 % [place] (End 4 cm HR 75 bpm Volume (Diastol 17.6 ml/m2 SV 13.9 ml/m2 [place] (End 4.9 cm Right Ventricle Right Ventricul 10.6 square centimeters per square meter Global Longitud 3.4 % [place] (End 6.8 cm Global Longitud -0.2 % [place] (End 7.1 cm Global Longitud 7.6 % Right Ventricul 10.2 square centimeters per square meter HR 75 bpm Right Ventricul 4.1 % <Electronic Signature> 08/05/2024 07:41 AM Patrick Reyes M.D. Procedure Note Patrick Reyes MD - 08/05/2024 Echocardiography Report Pat.Name: MEDHAT ALONSO Erica.ID: [id number] .Date: 08/04/2024 Refer.: [id number] NATASHA CHAMBERSDPROV EWDPROV Exam Time: 3:37:00 PM Study Type:ECHO WITH CARDIAC DOPPLER COMP Height: 66.1 in Weight: 153 lb BSA: 1.79 m2 Age: 11 1965,58Y Sex: M BP: 129/82 HR: 78 bpm Sonogrphr: Flor Downey RDCS, [facility] Pat. Stat.:Inpatient Room: [facility] Reason for Study:Coronary artery disease, Coronary bypass [...] Left Atrium LA VOLBP 39.1 ml [place] (Sys 5.81 cm [place] (Sys 6.21 cm Ratios IVS Ventricular Septum [...] cm2 Cardiovascular 2.28 cm Right Atrium [place] (Sys 5.35 cm RA Single Plane Right Atrium Ar 14 cm2 Volume (Systole 17.3 ml/m2 Right Ventricle [place] ([place] 7.23 cm RVIDd 2.72 cm MMODE [...] % Left Atrial Eje 21.5 % [place] (End 5.2 cm [place] (End 5.5 cm Left Atrial ED 31.9 ml/m2 Left Atrial ED 28.5 ml/m2 [place] (End 6.6 cm [place] (End 5.6 cm Left Atrial ES 45.3 ml/m2 Left Atrial ES 36.3 ml/m2 Global Longitud 19.8 % Global Longitud 5 % HR 76 bpm HR 75 bpm SV 13.4 ml/m2 SV 7.8 ml/m2 LA Biplane CO 1.7 l/min Left Atrial ES 43.9 ml/m2 Left Atrial Eje 29.2 % Global Longitud 12.4 % [place] (End 5.5 cm HR 76 bpm Left Atrial ED 31.1 ml/m2 SV 12.8 ml/m2 [place] (End 6.6 cm Left Ventricle Left Ventricula [...] 44 % Global Longitud 25.3 % [place] (End 4 cm HR 75 bpm Volume (Diastol 17.6 ml/m2 SV 13.9 ml/m2 [place] (End 4.9 cm Right Ventricle Right Ventricul 10.6 square centimeters per square meter Global Longitud 3.4 % [place] (End 6.8 cm Global Longitud -0.2 % [place] (End 7.1 cm Global Longitud 7.6 % Right Ventricul 10.2 square centimeters per square meter HR 75 bpm Right Ventricul 4.1 % <Electronic Signature> 08/05/2024 07:41 AM Patrick Reyes M.D. us Patrick Reyes MD ECHO Final Resul t * ECG 12 lead (08/04/2024 10:33 AM CDT) Only the most recent of3 resultswithin the time period is included. 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: : 1965 Requested By: PATRICK REYES Order Number: [id number] Reading MD: Patrick Reyes Measurements Intervals [place] Rate: 78 P: 7 VT: 155 QRS: 7 QRSD: 97 T: 193 QT: 409 QTc: 468 Interpretive Statements SINUS RHYTHM [address] DEVIATION AND MODERATE T-WAVE ABNORMALITY, CONSIDER ANTEROLATERAL ISCHEMIA [-0.1+ mV T WAVE IN V3-V6] Procedure Note Patrick Reyes MD - 08/05/[address] [facility] Test Date: 2024-08-04 Pat Name: MEDHAT ALONSO Department: 40 Room: [id number] Gender: Male 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: : 1965 Requested By: PATRICK REYES Order Number: [id number] Reading MD: Patrick Reyes Measurements Intervals [place] Rate: 78 P: 7 VT: 155 QRS: 7 QRSD: 97 T: 193 QT: 409 QTc: 468 Interpretive Statements SINUS RHYTHM ST DEVIATION AND MODERATE T-WAVE ABNORMALITY, CONSIDER ANTEROLATERALISCHEMIA [-0.1+ mV T WAVE IN V3-V6] us Patrick Reyes MD ECG ORDERABLES Final Resul t [facility] * XR CHEST PORTABLE (08/04/2024 5:46 [...] 7:29 AM Narrative 08/04/2024 7:31 AM CDT [place] [address] Examination: XR CHEST PORTABLE Exam time: 08/04/2024 5:46 AM Clinical history: Pleural effusion evaluation Comparison: 07/21/2024 Technique: One frontal view of the chest. Findings: No enlargement of pleural effusion. Trace haziness at the left base may indicate a small persistent effusion and atelectasis. No new findings. Stable heart, mediastinum, and bony structures. Procedure Note Rico Dorado MD - 08/04/[address] [address] Examination: XR CHEST PORTABLE Exam time: 08/04/2024 [...] 10.4(H) <5.7 % 08/04/2024 9:35 AM CDT [facility] Comment: ADA GUIDELINES 2010 5.7 TO 6.4% INCREASED RISK OF DIABETES > OR = 6.5% CONSISTENT WITH DIABETES ESTIMATED AVG GLUCOSE 252 mg/dL 08/04/2024 9:35 AM CDT [facility] 08/04/2024 5:33 AM CDT Jaz George MD LABORATORY Final Resu lt [facility] [address] [place] [address], * (ABNORMAL) LIPID PANEL (08/04/2024 5:33 AM CDT) Only the most recent of3 resultswithin the time period is included. Pathologist [facility] CHOLESTEROL 83 <200 MG/DL 08/04/2024 7:25 AM CDT [facility] TRIGLYCERIDES 205(H) <150 MG/DL 08/04/2024 7:25 AM CDT [facility] HDL 28(L) >40.0 MG/DL 08/04/2024 7:25 AM CDT [facility] LDL (CALCULATED) 14 <100 MG/DL 08/04/2024 7:25 AM CDT [facility] Comment:CALCULATED USING THE FRIEDEWALD EQUATION NON HDL CHOLESTEROL 55 <130 MG/DL 08/04/2024 7:25 AM CDT [facility] CHOL/HDL RATIO 3.0 0.0 - 4.5 08/04/2024 7:25 AM CDT [facility] VLDL CALCULATION 41 5 - 55 MG/DL 08/04/2024 7:25 AM CDT [facility] LIPID INTERPRETATION 08/04/2024 7:25 AM CDT [facility] Comment: NIH CONCENSUS REPORT RECOMMENDATIONS: ADULT CHILD LOW RISK: CHOLESTEROL <200 <170 TRIGLYCERIDE <150 --- HDL >=60 --- LDL <100 <110 BORDERLINE: CHOLESTEROL 200-239 170-199 TRIGLYCERIDE 150-199 --- HDL 40-59 --- LDL 100-159 110-129 HIGH RISK: CHOLESTEROL >=240 >=200 TRIGLYCERIDE >=200 --- HDL <40 --- LDL >=160 >=130 08/04/2024 5:33 AM CDT Jaz George MD LABORATORY Final Resu lt Performing Organization Address City/[facility]/ZIP Co de Phone Number [facility] [address] [place] [address], [place] [phone] * PROCALCITONIN (PCT) (08/04/2024 5:30 AM CDT) PROCALCITONIN <0.05 0.00 - 0.49 NG/ML 08/04/2024 9:53 AM CDT [facility] 08/04/2024 5:30 AM CDT Charity Collier NP LABORATORY Final Result Performing Organization Address City/[facility]/ZIP Co de Phone Number [facility] [address] [place] [address], [place] [phone] * (ABNORMAL) COMPREHENSIVE METABOLIC PANEL (07/21/2024 4:45 AM CDT) Only the most recent of8 resultswithin the time period is included. GLUCOSE 123(H) 70 - 99 MG/DL 07/21/2024 5:29 AM CDT [facility] BUN 41(H) 7 - 18 MG/DL 07/21/2024 5:29 AM T [facility] CREATININE S/P/B 1.83(H) 0.7 - 1.3 MG/DL 07/21/2024 5:29 AM CDT [facility] SODIUM S/P/B 137 136 - 145 MMOL/L 07/21/2024 5:29 AM CDT [facility] POTASSIUM S/P/B 3.9 3.5 - 5.1 MMOL/L 07/21/2024 5:29 AM T [facility] CHLORIDE S/P/B 107 97 - 115 MMOL/L 07/21/2024 5:29 AM T [facility] CO2 26.2 21 - 32 MMOL/L 07/21/2024 5:29 AM T [facility] CALCIUM S/P/B 8.1(L) 8.5 - 10.1 MG/DL 07/21/2024 5:29 AM T [facility] BILIRUBIN TOTAL S/P/B 0.6 0.2 - 1.2 MG/DL 07/21/2024 5:29 AM T [facility] Comment: THIS ASSAY IS NOT RECOMMENDED FOR PATIENTS UNDERGOING TREATMENT WITH ELTROMBOPAG DUE TO THE POTENTIAL FOR FALSELY ELEVATED RESULTS. TOTAL PROTEIN S/P/B 5.6(L) 6.4 - 8.2 G/DL 07/21/2024 5:29 AM T [facility] ALBUMIN S/P/B 2.2(L) 3.4 - 5.0 G/DL 07/21/2024 5:29 AM T [facility] AST 23 15 - 37 U/L 07/21/2024 5:29 AM T [facility] ALT 22 16 - 60 U/L 07/21/2024 5:29 AM CDT [facility] ALKALINE PHOSPHATASE S/P/B 96 50 - 136 U/L 07/21/2024 5:29 AM CDT [facility] ANION GAP 3.8 2 - 10 MMOL/L 07/21/2024 5:29 AM [facility]T [facility] [facility] BUN CREATININE RATIO 22.4 6 - 26 07/21/2024 5:29 AM CDT [facility] A/G RATIO 0.6(L) 1.0 - 2.0 RATIO 07/21/2024 5:29 AM CDT [facility] GFR ESTIMATE 42(L) >90 ML/MIN/1.7 3 M2 07/21/2024 5:29 AM CDT [facility] Comment: NOTE: eGFR is not calculated for patients <18 years of age or gender unknown. This is an estimated GFR calculation using the new CKD EPI creatinine equation without race and so does not require a correction factor for race. This estimated GFR should not be used for calculating drug doses. 07/21/2024 4:45 AM CDT Bari Bernabe MD LABORATORY Final Result [facility] [address] [place] [address], [place] [phone] * POTASSIUM, SERUM (07/19/2024 4:11 PM CDT) POTASSIUM S/P/B 3.9 3.5 - 5.1 MMOL/L 07/19/2024 4:28 PM CDT [facility] 07/19/2024 4:11 PM CDT Bari Bernabe MD LABORATORY Final Result [facility] [address] [place] [address], * (ABNORMAL) CG8 Plus-ISTAT (07/16/2024 3:47 AM CDT) Only the most recent of10 resultswithin the time period is included. [facility] TECH CODE 526,422 07/16/2024 3:51 AM CDT [facility] PH ARTERIAL 7.33(L) 7.35 - 7.45 07/16/2024 3:51 AM CDT [facility] PCO2 38.1 35.0 - 45.0 MM HG 07/16/2024 3:51 AM CDT [facility] PO2 38(LL) 80.0 - 100.0 MM HG 07/16/2024 3:51 AM CDT [facility] Comment:POINT OF CARE TESTIN G, CRITICAL RESULT GIVEN TO PRINT GRAPHIC DESIGNER. BASE DEFICIT 6.0 MEQ/L 07/16/2024 3:51 AM CDT [facility] BICARB ARTERIAL 20.0(L) 22.0 - 26.0 MEQ/L 07/16/2024 3:51 AM CDT [facility] TOTAL CO2 ARTERIAL 21 MEQ/L 07/16/2024 3:51 AM CDT [facility] O2 Saturation 68.0(LL) 90.0 - 100.0 % 07/16/2024 3:51 AM CDT [facility] Comment:POINT OF CARE TESTIN G, CRITICAL RESULT GIVEN TO PRINT GRAPHIC DESIGNER. SODIUM BLOOD GAS 139 135.0 - 145.0 MMOL/L 07/16/2024 3:51 AM CDT [facility] POTASSIUM BLOOD GAS 4.3 3.5 - 4.5 MMOL/L 07/16/2024 3:51 AM CDT [facility] CALCIUM BLOOD GAS 1.2 1.1 - 1.3 MMOL/L 07/16/2024 3:51 AM CDT [facility] GLUCOSE POC 103 70 - 110 MG/DL 07/16/2024 3:51 AM CDT [facility] HEMATOCRIT BLOOD GAS 25.0(L) 43.0 - 54.0 % 07/16/2024 3:51 AM CDT [facility] HEMOGLOBIN BLOOD GAS 8.5(L) 14.0 - 18.0 G/DL 07/16/2024 3:51 AM CDT [facility] 07/16/2024 3:47 AM CDT Charity Collier NP POINT OF CARE TEST ORDERABLES Final Result [facility] [address] [place] [address], [place] [phone] * (ABNORMAL) CBC, AUTO, NO DIFF (07/16/2024 3:45 AM CDT) WBC 13.15(H) 4.5 - 11.0 x10'3/uL 07/16/2024 4:31 AM CDT [facility] RBC 3.22(L) 4.70 - 6.10 x10'6/uL 07/16/2024 4:31 AM CDT [facility] HGB 9.3(L) 14.0 - 18.0 G/DL 07/16/2024 4:31 AM CDT [facility] HCT 27.9(L) 43.0 - 54.0 % 07/16/2024 4:31 AM CDT [facility] MCV 86.6 80.0 - 94.0 FL 07/16/2024 4:31 AM CDT [facility] MCH 28.9 27.0 - 31.0 PG 07/16/2024 4:31 AM CDT [facility] MCHC 33.3 32.0 - 36.0 G/DL 07/16/2024 4:31 AM CDT [facility] RDW 13.0 11.5 - 14.5 % 07/16/2024 4:31 AM CDT [facility] PLT 160 130 - 400 x10'3/uL 07/16/2024 4:31 AM CDT [facility] MPV 11.0 9.3 - 12.2 FL 07/16/2024 4:31 AM CDT [facility] 07/16/2024 3:45 AM CDT us Catalino Louie MD LABORATORY Final Result [facility] [address] [place] [address], [place] [phone] * (ABNORMAL) HEMOGLOBIN AND HEMATOCRIT (07/15/2024 3:30 PM CDT) [facility] Signature HGB 10.9(L) 14.0 - 18.0 G/DL 07/15/2024 3:59 PM CDT [facility] HCT 31.7(L) 43.0 - 54.0 % 07/15/2024 3:59 PM CDT [facility] 07/15/2024 3:30 PM CDT us Catalino Louie MD LABORATORY Final Result [facility] [address] [place] [address], [place] [phone] * PLATELET COUNT, AUTO (07/15/2024 3:30 PM CDT) PLT 169 130 - 400 x10'3/uL 07/15/2024 3:59 PM CDT [facility] MPV 10.5 9.3 - 12.2 FL 07/15/2024 3:59 PM CDT [facility] 07/15/2024 3:30 PM CDT us Catalino Louie MD LABORATORY Final Result [facility] [address] [place] [address], [place] [phone] * LACTIC ACID (07/15/2024 3:30 PM CDT) Pathologist [facility] LACTIC ACID VENOUS 1.6 0.4 - 2.0 MMOL/L 07/15/2024 4:04 PM CDT [facility] 07/15/2024 3:30 PM CDT us Catalino Louie MD LABORATORY Final Result [facility] [address] [place] [address], [place] [phone] * ELECTROLYTE PANEL (07/15/2024 3:30 PM CDT) SODIUM S/P/B 139 136 - 145 MMOL/L 07/15/2024 4:00 PM CDT [facility] POTASSIUM S/P/B 3.9 3.5 - 5.1 MMOL/L 07/15/2024 4:00 PM CDT [facility] CHLORIDE S/P/B 114 97 - 115 MMOL/L 07/15/2024 4:00 PM CDT [facility] CO2 21.6 21 - 32 MMOL/L 07/15/2024 4:00 PM CDT [facility] ANION GAP 3.4 2 - 10 MMOL/L 07/15/2024 4:00 PM CDT [facility] 07/15/2024 3:30 PM CDT us Catalino Louie MD LABORATORY Final Result [facility] [address] [place] [address], [place] [phone] * (ABNORMAL) GLUCOSE BLOOD, QNT (07/15/2024 3:30 PM CDT) GLUCOSE 139(H) 70 - 99 MG/DL 07/15/2024 4:00 PM CDT [facility] 07/15/2024 3:30 PM CDT us Catalino Louie MD LABORATORY Final Result Performing Organization Address City/[facility] Co de Phone Number [facility] [address] [place] [address], [place] [phone] * USE TRANSESOPHAGEAL ECHO (07/15/2024 3:20 PM CDT) Anatomical Region Laterality Modality Cardiac Echocardiogram 07/15/2024 6:47 AM CDT Narrative 07/16/2024 11:40 AM CDT ALEJANDRO Report Pat.Name: ROBLESGARRICKMEDHATID: [id number] .Date: 07/15/2024 Exam Time: 6:47:00 AM Study [...] - 07/16/2024 ALEJANDRO Report Pat.Name: MEDHAT ALONSO.ID: [id number] .Date: 07/15/2024 Exam Time: 6:47:00 AM Study Type:TRANSESOPHAGEAL ECHO (ALEJANDRO) Height: 66 in Weight: 158 lb BSA: 1.81 m2 Age: 11 1965,58Y Sex: M Pat. Stat.:Inpatient Room: [facility] Reason for Study:Coronary artery disease, Coronary bypass [...] 7.35 - 7.45 07/15/2024 3:39 PM CDT [facility] PCO2 39.0 35.0 - 45.0 MMHG 07/15/2024 3:39 PM CDT [facility] PO2 80.0(L) 83.0 - 108.0 MMHG 07/15/2024 3:39 PM CDT [facility] TOTAL CO2 ARTERIAL 23.2 19.0 - 24.0 MMOL/L 07/15/2024 3:39 PM CDT [facility] BASE DEFICIT 3.1(H) 0.0 - 3.0 MMOL/L 07/15/2024 3:39 PM CDT [facility] O2 SATURATION 95 94.0 - 98.0 % 07/15/2024 3:39 PM CDT [facility] BICARB ARTERIAL 22.0 21.0 - 28.0 MMOL/L 07/15/2024 3:39 PM CDT [facility] O2 ADMIN ARTERIAL 80% 07/15/2024 3:36 PM CDT [facility] DRAW SITE ARTERIAL ARTERIAL LINE DRAW 07/15/2024 3:36 PM CDT [facility] 07/15/2024 3:11 PM CDT us Catalino Louie MD LABORATORY Final Result [facility] [address] [place] [address], * (ABNORMAL) POCT activated clotting time (07/15/2024 1:41 PM CDT) Only the most recent of8 resultswithin the time period is included. ACTIVATED CLOTTING TIME (ACT HMT OR LMT) 108(L) 113 - 149 SEC 07/15/2024 4:29 PM CDT [facility] 07/15/2024 1:41 PM CDT Catalino Louie MD POCT ORDERABLES - DEVICE Fin al Result [facility] [address] [place] [address], * Introducer (07/15/2024 7:50 AM CDT) Narrative Eusebia Sánchez MD - 07/15/2024 7:50 AM CDT Eusebia Sánchez MD 07/15/2024 8:22 AM [place]/Introducer Placement: Date/Time: 07/15/2024 7:50 AM Patient Location: OR Placed Outside of This Facility?: No Procedure: Introducer with [place] Hannah Technique Used: Maximum Sterile Technique used, hand hygiene, Chlorhexadine skin prep, blood return present and guidewires used accounted for Location: Internal jugular Size: 9.0 Uz[place] Orientation: Right Insertion Attempts: 1 Therapy Type: [...] Sterile tegaderm dressing applied. Eusebia Sánchez MD [place] ANESTHESIA Final Result * Art Line (07/15/2024 [...] applied. No immediate complications. Eusebia Sánchez MD [place] ANESTHESIA Final Result * HEPARIN, ANTI XA, UFH (07/15/2024 3:00 AM CDT) Only the most recent of8 resultswithin the time period is included. HEPARIN ANTI XA UFH 0.35 0.30 - 0.70 IU/ML 07/15/2024 3:55 AM CDT [facility] Comment: UFH Therapeutic Anti Xa Ranges: Medical Therapeutic Range: 0.30 - 0.70 IU/mL Cardiac Therapeutic Range: 0.30 - 0.50 IU/mL Neuro Therapeutic Range: 0.20 - 0.40 IU/mL 07/15/2024 3:00 AM CDT Charity Collier NP LABORATORY Final Result [facility] [address] [place] [address], [place] [phone] * (ABNORMAL) THROMBOPLASTIN TIME PARTIAL,PTT (07/15/2024 3:00 AM CDT) PTT 72.9(H) 25.1 - 36.5 SEC 07/15/2024 3:55 AM CDT [facility] 07/15/2024 3:00 AM CDT Catalino Louie MD LABORATORY Final Result [facility] [address] [place] [address], * PROTIME/INR, VENOUS (07/15/2024 3:00 AM CDT) Only the most recent of4 resultswithin the time period is included. PROTIME 10.3 10.2 - 12.9 SEC 07/15/2024 3:55 AM CDT [facility] INR 0.9 07/15/2024 3:55 AM CDT [facility] Comment: Recommended INR Therapeutic Goals: 2.0-3.0 Routine Therapy 2.5-3.5 Mechanical Prosthetic Valves (High Risk) 07/15/2024 3:00 AM CDT Freida Sandra MD LABORATORY Final Re sult [facility] [address] [place] [address], * MRSA SCREENING (07/14/2024 2:10 PM CDT) SPEC DESCRIPTION NASAL 07/14/2024 2:13 PM CDT [facility] SPECIAL REQUESTS NO SPECIAL REQUEST 07/14/2024 2:13 PM CDT [facility] CULTURE RESULT NO METHICILLIN RESISTANT STAPHYLOCOCCUS AUREUS ISOLATED 07/15/2024 11:28 AM CDT [facility] SPECIMEN FROM INTERNAL NOSE / Unknown 07/14/2024 2:10 PM CDT 07/14/2024 2:17 PM CDT Catalino Louei MD MICROBIOLOGY - GENERAL ORDER ZAINAB Final Result [facility] [address] [place] [address], [place] [phone] * TYPE & SCREEN - Verify expiration date is current (07/14/2024 1:03 PM CDT) UNITS ORDERED 4 07/14/2024 2:41 PM CDT [facility] ABO/RH O POSITIVE 07/14/2024 2:41 PM CDT [facility] ANTIBODY SCREEN NEGATIVE 2:41 PM CDT [facility] SAMPLE EXPIRATION 07/17/2024,23 59 07/14/2024 2:41 PM CDT [facility] BLOOD UNIT NUMBER [id number] 07/15/2024 3:12 AM CDT [facility] PRODUCT: PC LEUKOPOOR 07/15/2024 3:12 AM CDT [facility] UNIT DIVISION 00 07/15/2024 3:12 AM CDT [facility] BLOOD UNIT STATUS UNIT RELEASED 07/18/2024 7:09 AM CDT [facility] TRANSFUSION STATUS OK TO TRANSFUSE 07/15/2024 3:12 AM CDT [facility] CROSSMATCH COMPATIBLE-EX M 07/15/2024 3:12 AM CDT [facility] BLOOD UNIT NUMBER [id number] 07/15/2024 3:12 AM CDT [facility] PRODUCT: PC LEUKOPOOR 07/15/2024 3:12 AM CDT [facility] UNIT DIVISION 00 07/15/2024 3:12 AM CDT [facility] BLOOD UNIT STATUS UNIT RELEASED 07/15/2024 3:58 PM CDT [facility] TRANSFUSION STATUS OK TO TRANSFUSE 07/15/2024 3:12 AM CDT [facility] CROSSMATCH COMPATIBLE-EX M 07/15/2024 3:12 AM CDT [facility] BLOOD UNIT NUMBER [id number] 07/15/2024 3:12 AM CDT [facility] PRODUCT: PC LEUKOPOOR 07/15/2024 3:12 AM CDT [facility] UNIT DIVISION 07/15/2024 3:12 AM CDT [facility] BLOOD UNIT STATUS UNIT RELEASED 07/15/2024 3:51 PM CDT [facility] TRANSFUSION STATUS OK TO TRANSFUSE 07/15/2024 3:12 AM CDT [facility] CROSSMATCH COMPATIBLE-EX M 07/15/2024 3:12 AM CDT [facility] BLOOD UNIT NUMBER [id number] 07/15/2024 3:12 AM CDT [facility] PRODUCT: PC LEUKOPOOR 07/15/2024 3:12 AM CDT [facility] UNIT DIVISION 07/15/2024 3:12 AM CDT [facility] BLOOD UNIT STATUS UNIT RELEASED 07/16/2024 7:25 AM CDT [facility] TRANSFUSION STATUS OK TO TRANSFUSE 07/15/2024 3:12 AM CDT [facility] CROSSMATCH COMPATIBLE-EX M 07/15/2024 3:12 AM CDT [facility] 07/14/2024 1:03 PM CDT Catalino Louie MD BLOOD BANK TEST ORDERABLES F inal Result [facility] [address] [place] [address], [place] [phone] * USE ECHOCARDIOGRAM W CON (07/14/2024 9:19 AM CDT) Anatomical Region Laterality Modality NA Echocardiogram 07/14/2024 8:39 AM CDT Narrative 07/14/2024 10:14 AM CDT Echocardiography Report Pat.Name: GAVIN MEDHAT Aaron Maldonado.ID: [id number] .Date: 07/14/2024 Refer.MD: [id number] OMAR JOSEPH EWDPROV EWDPROV Exam Time: 8:39:00 AM Study Type:ECHO WITH CARDIAC DOPPLER COMP Height: 66 in Weight: 159 lb BSA: 1.81 m2 Age: 11 1965,58Y Sex: M BP: 144/82 HR: 61 bpm Sonogrphr: Taylor Gates Pat. Stat.:Inpatient Room: [facility] Reason for Study:Coronary artery disease History [...] 27 mm Right Ventricle 19 mm Major [place] 76 mm MMODE TA Tricuspid Annul 21.2 mm <Electronic Signature> 07/14/2024 10:14 AM Patrick Reyes M.D. Procedure Note Patrick Reyes MD - 07/14/2024 Echocardiography Report Pat.Name: MEDHAT ALONSO Pat.ID: [id number] .Date: 07/14/2024 Refer.: [id number] OMAR JOSEPH EWDPROV EWDPROV Exam Time: 8:39:00 AM Study Type:ECHO WITH CARDIAC DOPPLER COMP Height: 66 in Weight: 159 lb BSA: 1.81 m2 Age: 11 1965,58Y Sex: M BP: 144/82 HR: 61 bpm Sonogrphr: Taylor Gates Pat. Stat.:Inpatient Room: [facility] Reason for Study:Coronary artery disease History [...] 27 mm Right Ventricle 19 mm Major [place] 76 mm MMODE TA Tricuspid Annul 21.2 mm <Electronic Signature> 07/14/2024 10:14 AM Patrick Reyes M.D. us Freida Sandra MD ECHO Final Re sult * USV CAROTID DUPLEX TODD (07/13/2024 11:32 AM CDT) Anatomical Region Laterality Modality Neck Vascular Ultraso und 07/13/2024 10:2 9 AM CDT Narrative 07/14/2024 4:43 PM CDT CAROTID ARTERY DUPLEX [facility] Pat.Name: Medhat Alonso Erica.ID: [id number] .Date: 07/13/2024 Exam Time: 10:29:00 AM Study Type:ARMANDO VS Duplex Carotid BIDOB Age: 11 1965,58Y Sex: M Sonogrphr: Sher Nieto RVT Pat. Stat.:Inpatient Room: [facility] History / Clinical:preop CABG Procedures: Robin [...] IMAGING VASCULAR LAB Pat.Name: Medhat Alonso Pat.ID: [id number] St.Date: 07/13/2024 Exam Time: 10:29:00 AM Study [...] PM Amaris Bustamante M.D. Catalino Louie MD [facility] Final Result * TSH W/REFLEX (07/13/2024 8:19 AM CDT) TSH 1.970 0.358 - 3.74 uIU/ML 07/13/2024 9:07 AM CDT [facility] Comment: HIGH DOSES OF BIOTIN MAY INTERFERE WITH THIS TEST RESULT. CORRELATION TO CLINICAL HISTORY AND PRESENTATION RECOMMENDED. 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
--- OUTSIDE RECORDS SUMMARY | 2024-08-23 08:13 | XMS_ITS | Clinical Summary ---
Author Organization [facility] Address [address] [place] [address] Phone Care Team Providers Care Training Mgr Name Role Phone Tobias Mckenzie MD Primary Care Provider [phone] Allergies No known active allergies Medications Blood [...] Done Comments Influenza Vaccine (#1) [address] [place] [address] [place] [employer] Care Teams Training Mgr Relationship Specialty Start Date End Date Tobias Mckenzie MD [address] [place] [address] PCP - General Internal Medicine 05/17/21
--- NOTE | 2024-08-23 09:19 | PC.NURSE ---
Patient back in room from CT. Will recheck blood glucose and verify insulin dosage with ERP.
[2024-08-23] MEDS: SODIUM CHLORIDE 0.9% IV 1,000 ML 999 ML IV CONT ×2 (09:20→09:21)
[2024-08-23] MEDS: INSULIN HUMAN REGULAR (*BKC) 1,000 UNITS/10 ML VIAL 10 UNITS IV PUSH (09:24)
--- NOTE | 2024-08-23 09:24 | PC.NURSE ---
Glucose 424, still to give 10 units
[2024-08-23] MEDS: cefTRIAXone 2 GM in SODIUM CHLORIDE 0.9% IV 100 ML 200 ML IVPB (11:51)
== END 2024-08-23 12:30 | disposition home or self-care (01) ==
PROVIDERS: Emergency Provider Emergency Medicine; Referring Provider Internal Medicine
DX: R07.89 Other chest pain (principal); J18.9 Pneumonia, unspecified organism; E11.65 Type 2 diabetes mellitus with hyperglycemia; I25.810 Atherosclerosis of coronary artery bypass graft(s) without angina pectoris; E78.5 Hyperlipidemia, unspecified; I10 Essential (primary) hypertension; Z95.1 Presence of aortocoronary bypass graft; Z87.891 Personal history of nicotine dependence
CPT/HCPCS: 36415; 71046; 71275; 80053; 82550; 82948; 84484; 85025; 85380; 93005; 96361; 96365; 96375; 99284; J0696; J1815; J7030; Q9967

== ENCOUNTER 2024-09-12 07:30 | Emergency (ER) | payer MEDICARE, SELFPAY ==
[2024-09-12] VITALS (29 sets, daily range): BP systolic 163–197; BP diastolic 97–114; PULSE 86–97; RESP 11–25; TEMP 36.6; O2SAT 96–100
--- NOTE | ~2024-09-12 | XR_ITS ---
XR chest 2V 09/12/2024 08:08 Indication: Left-sided chest pain Procedure: 2 view chest Comparison: 08/23/2024 Findings: Left basilar infiltrates. Status post median sternotomy for CABG. Heart size normal. Right lung clear. Impression: 1: Left basilar infiltrates, most likely represent atelectasis or developing pneumonia. Reviewed, dictated and finalized at location A. Impression: 1: Left basilar infiltrates, most likely represent atelectasis or developing pn eumonia.
--- NOTE | ~2024-09-12 | CT_ITS ---
EXAMINATION: CT chest abdomen pelvis wo con DATE: 09/12/2024 9:22 CDT INDICATION: TECHNIQUE: Computed tomography (CT) of the chest, abdomen, and pelvis was performed without intraveno us contrast. The dose-length product was 474.94 mGy-cm. Automated exposure control and iterative ezekiel nstruction technique were employed. COMPARISON: CT dated 08/23/2024 FINDINGS: CHEST CT: Status post median sternotomy for CABG. Dependent atelectasis. Cardiomegaly. No significant pleural o r pericardial effusion. No evidence for lymphadenopathy. Lung parenchyma is clear. No focal consolida tion or evidence of pneumothorax. ABDOMEN/PELVIS CT: The liver, spleen, pancreas, adrenal glands and kidneys are within normal limits. No hydronephrosis o r renal/ureteral stones. Bladder unremarkable. Nonobstructive bowel gas pattern. No focal lytic or blastic lesions. IMPRESSION: 1. No acute abnormality of the chest, abdomen or pelvis. Reviewed, dictated and finalized at location A.
--- NOTE | 2024-09-12 07:31 | ECG_ITS ---
Test Date: 2024-09-12 07:40:17 Measurements Intervals [place] Rate: 96 P: 29 FL: 142 QRS: -1 QRSD: 108 T: 205 QT: 340 QTc: 430 Interpretive Statements SINUS RHYTHM INCOMPLETE RIGHT BUNDLE BRANCH BLOCK EARLY PRECORDIAL R/S TRANSITION INFERIOR INFARCT, AGE INDETERMINATE MODERATE T-WAVE ABNORMALITY, CONSIDER ANTEROLATERAL ISCHEMIA ABNORMAL ECG Compared to ECG 08/23/2024 07:03:48 No significant changes Electronically Signed On 09-12-2024 08:00:15 CDT by Bj Rocha D.O.
--- OUTSIDE RECORDS SUMMARY | 2024-09-12 07:32 | XMS_ITS | Clinical Summary ---
Author Organization [facility] Address [address] [place] [address] Phone Care Team Providers Care Clinical Pharmacy Coordinator Name Role Phone Tobias Mckenzie MD Primary Care Provider [phone] Allergies No known active allergies Medications Blood [...] Done Comments Influenza Vaccine (#1) 20[address] [place] [address] [place] [employer] Care Teams Clinical Pharmacy Coordinator Relationship Specialty Start Date End Date Tobias Mckenzie MD [address] [place] [address] PCP - General Internal Medicine 05/17/21
--- OUTSIDE RECORDS SUMMARY | 2024-09-12 07:33 | XMS_ITS | Clinical Summary ---
Author Organization [facility] Address [address] [place] [address] Care Team Providers Care Torch Straightener Name Role Phone None, Provider MD Primary [...] weight gain 135 tablet 08/16/19 25 Active furosemide (LASIX) 40 MG tabletIndicat ions:Edema TAKE 1 TABLET (40 MG TOTAL) BY MOUTH DAILY. INDICATIONS: EDEMA 90 tablet 08/13/19 25 025 Discontinued furosemide (LASIX) 40 MG tabletIndicat ions:Edema Take 1 tablet (40 mg total) by mouth every other day. Indications: Edema 90 tablet 08/15/19 025 Discontinued(Re order) Active Problems Problem Noted Date Diagnosed Date Coronary artery disease invo lving ugashik coronary artery of ugashik heart without angina pectoris 08/14/2024 Mixed hyperlipidemia 08/14/2024 Chest pain 08/03/2024 STEMI (ST elevation myocardi al infarction) ([facility]) 07/12/2024 Essential hypertension 05/25/2021 Nonspecific abnormal results of function study o f kidney 05/25/2021 Encounters Date Type Department Care Team Description 08/14/2024 10:32 AM CDT - 08/14/2024 11:59 PM CDT Hospital Encounter [facility] [address] Charis Harden PA-C Discharge Disposition: Home or Self Care (Routine Discharge) 08/14/2024 10:30 AM CDT - 08/14/2024 10:31 AM CDT Hospital Encounter [facility] [place] [address] Charis Harden PA-C Discharge Disposition: Home or Self Care (Routine Discharge) 08/14/2024 10:00 AM CDT Office Visit [address] [address] Catalino Louie MD Follow Up (07/15/24 CABG x 5 ) 08/14/2024 9:30 AM CDT Office Visit [facility], [address] [address] Patrick Reyes MD France, Hallie A, PA-C Follow Up (hosp) 08/14/2024 Telephone [facility], [address] [address] Taylor, Manda S, RN Results; Medication Request (See notes) 08/14/2024 Travel 08/07/2024 10:00 AM CDT Home Care Visit [facility] Home [address] [address] Catrina Hardwick RN SN OASIS DISCHARGE/ASSESSMENT 08/07/2024 Hospital Follow-up Call [facility] [place] [address] Jennifer Dave LPN Follow Up Call ([facility] 08/03-08/05/24) 08/04/2024 8:15 AM CDT Home Care Visit [address] [address] Nida Saleh RN LIAISON VISIT 08/03/2024 6:36 PM CDT - 08/05/2024 12:08 PM CDT Hospital Encounter [facility] [place] [address] Jaz George MD Daniels, Darcy L, STEPHON Discharge Disposition: Home or Self Care (Routine Discharge) 08/03/2024 Travel 07/31/2024 10:15 AM CDT Home Care Visit [address] [address] Mela Amin LPN SN HOME VISIT 07/28/2024 3:44 PM CDT - 07/28/2024 11:59 PM CDT Hospital Encounter [facility] [address] [place] [facility] [place] [address] Catalino Louie MD Discharge Disposition: Home or Self Care (Routine Discharge) 07/28/2024 10:00 AM CDT Home Care Visit [address] [place] [address] Valentine Perez LPN SN HOME VISIT 07/28/2024 Orders Only [facility] [address] [facility] [address] Catalino Louie MD 07/24/2024 9:00 AM CDT Home Care Visit [facility] Home Care [address] [place] [address] Mela Amin LPN SN HOME VISIT 07/23/2024 Hospital Follow-up Call [facility] [place] [address] Jennifer Dave LPN 07/22/2024 8:45 AM CDT Home Care Visit [facility] Home Care [address] [place] [address] Nida Saleh, GAS STATION SERVICE ATTENDANT VISIT 07/22/2024 8:30 AM CDT Home Care Visit [facility] Home Care [address] [place] [address] Annamaria Dunn RN SN OASIS START OF CARE 07/22/2024 Telephone [facility], [address] [address] Catalino Louie MD Follow Up Call 07/22/2024 Plan of Care Documentation [address] [place] [address] 07/18/2024 9:00 AM CDT Home Care Visit [facility] Care [address] [place] [address] Nida Saleh, GAS STATION SERVICE ATTENDANT VISIT 07/15/2024 7:30 AM CDT - 07/15/2024 2:[address] [place] [address] Catalino Louie MD CORONARY ARTERY BYPASS GRAFTS TIMES FIVE USING LEFT INTERNAL MAMMARY ARTERY AND ENDOSCOPICALLY HARVESTED BILATERAL GREATER SAPHENOUS VEINS; TRANSESOPHAGEAL ECHOCARDIOGRAM, AORTIC SCAN, CARDIOPULMONARY BYPASS 07/15/2024 7:28 AM CDT Anesthesia Event [facility] [place] [address] Eusebia Sánchez MD 07/12/2024 10:36 PM CDT - 07/21/2024 3:55 PM CDT Hospital Encounter [facility] [place] [address] Jaida Sanders MD Malcolm, MD Manny Daniel John R, Charity Tabares, STEPHON Bernabe, Bari Dominguez MD Discharge Disposition: [...] materials from doctor or pharmacy Rarely 08/07/2024 [facility] Utilities Answer Date Recorded In the past 12 months has [facility] [employer], [employer], or water [employer] threatened to shut off services in your [...] any time in the past 12 m [facility], were you homeless or living in a care home (including now)? No 08/03/2024 Sex and Gender [...] st Contact Info) Description 02/19/2025 10:15 AM WINDOW TINTER Office Visit [facility] [address] [place], [place] [id number] Patrick Reyes MD [facility] [address] [place], [place] [id number] Health Maintenance Due Date Last Done Comments Colorectal Cancer Screening Colonoscopy (10 Years) 1965 Kidney Health Evaluation 1965 Annual Physical 12/30/1967 Diabetes: Retinopathy Eye Exam 1982 Hepatitis C 1982 DTaP, Tdap and Td Vaccines ( 1 - Tdap) 12/30/1983 Pneumococcal Vaccine: 50+ Years (1 of 2 - PCV) 12/30/1983 Zoster Vaccines (1 of 2) 2014 COVID-19 Vaccine (1 - 2023-2 5 season) 2023 Hemoglobin A1C 11/04/2024 08/04/2024, 07/15/2024, 07/12/2024 Lipid Panel 08/04/2025 08/04/2024, 07/15/2024, 07/13/2024 Meningococcal B Vaccine Aged Out No l onger eligible based on patient's age to complete this topic Meningococcal Vaccine Aged Out No eduar cale eligible based on patient's age to complete this topic RSV Immunizations Under 20 Months Aged Out No longer eligible b ased on patient's age to complete this topic Goals Goal Patient Goal Type Associated Problems Recent Progress Patient-Stated? Author Family - family caregiver with be involved in care transitions and discharge planning Lifestyle No Huang Henson, RN Interventions Community Resource Recommendations Community Resource Services Recommended Domains Addressed Status Status Reason/Outcome Date/Time [facility] Insecurity Services, Financial Assistance Housing Stability Recommended 08/24/2024 9:[address] [facility] Housing Insecurity Services Housing Stability Recommended 08/24/2024 9:19 PM CDT from Last 12 Months Medical Devices Implanted Type Area Director Paid Media Device Identifier Shelf Expiration Date Model / Serial / Lot Wire Sterum Suture Kit Myowire #7 1/2 Ccs-1 - [id number] Implanted:Qty: 1 on 07/15/2024 by Chaparro Cloud RNFA at [facility] Wire N/A: Sternum [employer] 09/06/2027 [id number] / / [id number] Description:2 WIRES IMPLANTE D Wire Sternotomy Suture Kit - [id number] Implanted:Qty: 1 on 07/15/2024 by Catalino Louie MD at [facility] Wire N/A: Sternum [employer] 03/08/2027 [id number] / / [id number] Description:5 WIRES IMPLANTE D Procedures Procedure Name Priority Date/Time Associated Diagnosis Comments XR CHEST PA+LAT Routine 08/14/2024 10:48 AM CDT Acute cough PRO-BRAIN NATRIURETIC PEPTIDE Routine 08/14/2024 10:41 AM CDT Acute cough Shortness of breath BASIC METABOLIC PANEL Routine 08/14/2024 10:41 AM CDT Coronary artery disease involving ugashik coronary artery of ugashik heart without angina pectoris POCT GLUCOSE - [...] Cardiac pacemaker in situ Coronary atherosclerosis of ugashik coronary artery CBC W/DIFF AUTOMATED Routine 07/28/2024 11:15 AM CDT Cardiac pacemaker in situ Coronary atherosclerosis of ugashik coronary artery POCT GLUCOSE - DOCKED DEVICE [...] AM CDT STEMI (ST elevation myocardial infarction) ([facility]) POCT GLUCOSE - DOCKED DEVICE Routine 07/15/2024 [...] 10:53 AM Narrative 08/14/2024 10:53 AM CDT [place] [address] 2 VIEWS OF THE CHEST Clinical history: Cough Comparison: August 04, 2024 2 views of the chest demonstrate the cardiac silhouette to be normal in size and appears stable. The pulmonary vessels appear normal. The Lungs are clear. No consolidations or effusions are seen. Procedure Note Robbie Carrasco MD - 08/14/2024 [place] [address] 2 VIEWS OF THE CHEST Clinical history: [...] Final Resul t * (ABNORMAL) PRO BNP ([facility]) (08/14/2024 10:41 AM CDT) Only the most recent of2 resultswithin the time period is included. PRO-B TYPE NATRIURETIC PEPTIDE 4,479(H) <125 PG/ML 08/14/2024 11:26 AM CDT [facility] Comment: CUT POINTS ESTABLISHED BY [...] ACUTE CHF. 08/14/2024 10:4 1 AM CDT Charis Harden PA-C LABORATORY Final Resul t [facility] [address] [place] [address], * (ABNORMAL) BASIC METABOLIC PANEL (08/14/2024 10:41 AM CDT) Only the most recent of7 resultswithin the time period is included. GLUCOSE 394(H) 70 - 99 MG/DL 08/14/2024 11:26 AM CDT [facility] BUN 30(H) 7 - 18 MG/DL 08/14/2024 11:26 AM CDT [facility] CREATININE S/P/B 1.78(H) 0.7 - 1.3 MG/DL 08/14/2024 11:26 AM CDT [facility] SODIUM S/P/B 133(L) 136 - 145 MMOL/L 08/14/2024 11:26 AM CDT [facility] POTASSIUM S/P/B 4.4 3.5 - 5.1 MMOL/L 08/14/2024 11:26 AM CDT [facility] CHLORIDE S/P/B 102 97 - 115 MMOL/L 08/14/2024 11:26 AM CDT [facility] CO2 27.5 21 - 32 MMOL/L 08/14/2024 11:26 AM CDT [facility] CALCIUM S/P/B 9.0 8.5 - 10.1 MG/DL 08/14/2024 11:26 AM CDT [facility] ANION GAP 3.5 2 - 10 MMOL/L 08/14/2024 11:26 AM CDT [facility] BUN CREATININE RATIO 16.9 6 - 26 08/14/2024 11:26 AM CDT [facility] GFR ESTIMATE 43(L) >90 ML/MIN/1.7 3 M2 08/14/2024 11:26 AM CDT [facility] Comment: NOTE: eGFR is not calculated for patients <18 years of age or gender unknown. This is an estimated GFR calculation using the new CKD EPI creatinine equation without race and so does not require a correction factor for race. This estimated GFR should not be used for calculating drug doses. 08/14/2024 10:4 1 AM CDT us Charis Harden PA-C LABORATORY Final Resul t [facility] [address] [place] [address], * (ABNORMAL) POCT glucose (08/05/2024 11:25 AM CDT) Only the most recent of77 resultswithin the time period is included. [facility] Signature GLUCOSE POC 125(H) 70 - 99 mg/dL 08/05/2024 11:29 AM CDT [facility] 08/05/2024 11:2 5 AM CDT Charity Leonela Collier WORKFORCE DEVELOPMENT SPECIALIST POCT ORDERABLES - DEVICE Pam carrasquillo Result [facility] [address] [place] [address], [place] [phone] * (ABNORMAL) CBC W/DIFF AUTOMATED (08/05/2024 4:02 AM CDT) Only the most recent of13 resultswithin the time period is included. WBC 6.69 4.5 - 11.0 x10'3/uL 08/05/2024 4:16 AM CDT [facility] RBC 3.55(L) 4.70 - 6.10 x10'6/uL 08/05/2024 4:16 AM CDT [facility] HGB 10.0(L) 14.0 - 18.0 G/DL 08/05/2024 4:16 AM CDT [facility] HCT 30.1(L) 43.0 - 54.0 % 08/05/2024 4:16 AM CDT [facility] MCV 84.8 80.0 - 94.0 FL 08/05/2024 4:16 AM CDT [facility] MCH 28.2 27.0 - 31.0 PG 08/05/2024 4:16 AM CDT [facility] MCHC 33.2 32.0 - 36.0 G/DL 08/05/2024 4:16 AM CDT [facility] RDW 13.9 11.5 - 14.5 % 08/05/2024 4:16 AM CDT [facility] PLT 369 130 - 400 x10'3/uL 08/05/2024 4:16 AM CDT [facility] MPV 9.7 9.3 - 12.2 FL 08/05/2024 4:16 AM CDT [facility] DIFFERENTIAL TYPE AUTOMATED DIFFERENTIAL 08/05/2024 4:16 AM CDT [facility] NEUTROPHILS % 65.2 % 08/05/2024 4:16 AM CDT [facility] LYMPHOCYTES % 19.4 % 08/05/2024 4:16 AM CDT [facility] MONOCYTES % 8.8 % 08/05/2024 4:16 AM CDT [facility] EOSINOPHILS 5.8 % 08/05/2024 4:16 AM CDT [facility] BASOPHILS 0.7 % 08/05/2024 4:16 AM CDT [facility] IMMATURE GRANS % 0.1 % 08/06/19 4:16 AM CDT [facility] ABS. NEUTROPHILS 4.35 1.80 - 7.70 x10'3/uL 08/05/2024 4:16 AM CDT [facility] ABS. LYMPHOCYTES 1.30 1.00 - 4.80 x10'3/uL 08/05/2024 4:16 AM CDT [facility] ABS. MONOCYTES 0.59 0.30 - 0.82 x10'3/uL 08/05/2024 4:16 AM CDT [facility] ABS. EOSINOPHILS 0.39 0.04 - 0.54 x10'3/uL 08/05/2024 4:16 AM CDT [facility] ABS. BASOPHILS 0.05 0.01 - 0.08 x10'3/uL 08/05/2024 4:16 AM CDT [facility] ABS. IMMATURE GRANULOCYTES 0.01 0.00 - 0.49 x10'3/uL 08/05/2024 4:16 AM CDT [facility] 08/05/2024 4:02 AM CDT Charity Collier WORKFORCE DEVELOPMENT SPECIALIST LABORATORY Final Result Performing Organization Address City/[facility]/ZIP Co de Phone Number [facility] [address] [place] [address], [place] [phone] * (ABNORMAL) TROPONIN, QUANT (08/05/2024 4:02 AM CDT) Only the most recent of8 resultswithin the time period is included. TROPONIN I HIGH SENSITIVITY 185(HH) <79 ng/L 08/05/2024 5:08 AM CDT [facility] Comment: NOT CALLED PER CRITICAL VALUE POLICY HIGH DOSES OF BIOTIN, TROPONIN-SPECIFIC AUTOANTIBODIES, AND ANTIBODY THERAPY CONTAINING HAMA MAY INTERFERE WITH THIS TEST RESULT. CORRELATION TO CLINICAL HISTORY AND PRESENTATION RECOMMENDED. 08/05/2024 4:02 AM CDT us Dariela Cobos WORKFORCE DEVELOPMENT SPECIALIST LABORATORY Final Result Performing Organization Address [facility] Co de Phone Number [facility] [address] [place] [address], [place] [phone] * MAGNESIUM (08/05/2024 4:02 AM CDT) Only the most recent of8 resultswithin the time period is included. MAGNESIUM 2.2 1.8 - 2.4 MG/DL 08/05/2024 4:33 AM CDT [facility] 08/05/2024 4:02 AM CDT us Charity Collier WORKFORCE DEVELOPMENT SPECIALIST LABORATORY Final Result Performing Organization Address City/[facility]/ZIP Co de Phone Number [facility] [address] [place] [address], * USE ECHO 2D FU LTD W CON (08/04/2024 4:24 PM CDT) Anatomical Region Laterality Modality NA Echocardiogram 08/04/2024 3:37 PM CDT Narrative 08/05/2024 7:41 AM CDT Echocardiography Report Pat.Name: MEDHAT ALONSO Pat.ID: [id number] .Date: 08/04/2024 Refer.MD: [id number] NATASHA Olmedo EWDPROV EWDPROV Exam Time: 3:37:00 PM Study Type:ECHO WITH CARDIAC DOPPLER COMP Height: 66.1 in Weight: 153 lb BSA: 1.79 m2 Age: 11 1965,58Y Sex: M BP: 129/82 HR: 78 bpm Sonogrphr: Flor Downey RD, [facility] Pat. Stat.:Inpatient Room: [facility] Reason for Study:Coronary artery disease, Coronary [...] Left Atrium LA VOLBP 39.1 ml Major [place] (Sys 5.81 cm Major [place] (Sys 6.21 cm Ratios IVS Ventricular Septum [...] cm2 Cardiovascular 2.28 cm Right Atrium Major [place] (Sys 5.35 cm RA Single Plane Right Atrium Ar 14 cm2 Volume (Systole 17.3 ml/m2 Right Ventricle Major [place] ([place] 7.23 cm RVIDd 2.72 cm MMODE [...] % Left Atrial Eje 21.5 % Major [place] (End 5.2 cm Major [place] (End 5.5 cm Left Atrial ED 31.9 ml/m2 Left Atrial ED 28.5 ml/m2 Major [place] (End 6.6 cm Major [place] (End 5.6 cm Left Atrial ES 45.3 ml/m2 Left Atrial ES 36.3 ml/m2 Global Longitud 19.8 % Global Longitud 5 % HR 76 bpm HR 75 bpm SV 13.4 ml/m2 SV 7.8 ml/m2 LA Biplane CO 1.7 l/min Left Atrial ES 43.9 ml/m2 Left Atrial Eje 29.2 % Global Longitud 12.4 % Major [place] (End 5.5 cm HR 76 bpm Left Atrial ED 31.1 ml/m2 SV 12.8 ml/m2 Major [place] (End 6.6 cm Left Ventricle Left Ventricula [...] 44 % Global Longitud 25.3 % Major [place] (End 4 cm HR 75 bpm Volume (Diastol 17.6 ml/m2 SV 13.9 ml/m2 Major [place] (End 4.9 cm Right Ventricle Right Ventricul 10.6 square centimeters per square meter Global Longitud 3.4 % Major [place] (End 6.8 cm Global Longitud -0.2 % Major [place] (End 7.1 cm Global Longitud 7.6 % Right Ventricul 10.2 square centimeters per square meter HR 75 bpm Right Ventricul 4.1 % <Electronic Signature> 08/05/2024 07:41 AM Patrick Reyes M.D. Procedure Note Patrick Reyes MD - 08/05/2024 Echocardiography Report Pat.Name: MEDHAT ALONSO Pat.ID: [id number] .Date: 08/04/2024 : [id number] NATASHA Olmedo EWDPROV EWDPROV Exam Time: 3:37:00 PM Study Type:ECHO WITH CARDIAC DOPPLER COMP Height: 66.1 in Weight: 153 lb BSA: 1.79 m2 Age: 11 1965,58Y Sex: M BP: 129/82 HR: 78 bpm Sonogrphr: Flor Downey RDCS, [facility] Pat. Stat.:Inpatient Room: 407 Reason for Study:Coronary artery disease, Coronary bypass [...] Left Atrium LA VOLBP 39.1 ml Major [place] (Sys 5.81 cm Major [place] (Sys 6.21 cm Ratios IVS Ventricular Septum [...] cm2 Cardiovascular 2.28 cm Right Atrium Major [place] (Sys 5.35 cm RA Single Plane Right Atrium Ar 14 cm2 Volume (Systole 17.3 ml/m2 Right Ventricle Major [place] ([place] 7.23 cm RVIDd 2.72 cm MMODE [...] % Left Atrial Eje 21.5 % Major [place] (End 5.2 cm Major [place] (End 5.5 cm Left Atrial ED 31.9 ml/m2 Left Atrial ED 28.5 ml/m2 Major [place] (End 6.6 cm Major [place] (End 5.6 cm Left Atrial ES 45.3 ml/m2 Left Atrial ES 36.3 ml/m2 Global Longitud 19.8 % Global Longitud 5 % HR 76 bpm HR 75 bpm SV 13.4 ml/m2 SV 7.8 ml/m2 LA Biplane CO 1.7 l/min Left Atrial ES 43.9 ml/m2 Left Atrial Eje 29.2 % Global Longitud 12.4 % Major [place] (End 5.5 cm HR 76 bpm Left Atrial ED 31.1 ml/m2 SV 12.8 ml/m2 Major [place] (End 6.6 cm Left Ventricle Left Ventricula [...] 44 % Global Longitud 25.3 % [place] (End 4 cm HR 75 bpm Volume (Diastol 17.6 ml/m2 SV 13.9 ml/m2 Major [place] (End 4.9 cm Right Ventricle Right Ventricul 10.6 square centimeters per square meter Global Longitud 3.4 % Major [place] (End 6.8 cm Global Longitud -0.2 % Major [place] (End 7.1 cm Global Longitud 7.6 % Right Ventricul 10.2 square centimeters per square meter HR 75 bpm Right Ventricul 4.1 % <Electronic Signature> 08/05/2024 07:41 AM Patrick Reyes M.D. us Patrick Reyes MD ECHO Final Resul t * ECG 12 lead (08/04/2024 10:33 AM CDT) Only the most recent of3 resultswithin the time period is included. 08/04/2024 10:3 3 AM CDT Narrative [facility] ([facility] RAD - 08/05/2024 9:[address] [facility] Test Date: 2024-08-04 Pat Name: MEDHAT ALONSO Department: 40 Room: [id number] Gender: Male Hearing Aide Technician: : 1965 Requested By: PATRICK REYES Order Number: [id number] Reading MD: Patrick Reyes Measurements Intervals [place] Rate: 78 P: 7 [place]: 155 QRS: 7 QRSD: 97 T: 193 QT: 409 QTc: 468 Interpretive Statements SINUS RHYTHM ST DEVIATION AND MODERATE T-WAVE ABNORMALITY, CONSIDER ANTEROLATERAL ISCHEMIA [-0.1+ mV T WAVE IN V3-V6] Procedure Note Patrick Reyes MD - 08/05/2024 [facility] Test Date: 2024-08-04 Pat Name: MEDHAT FREEMANDOUGIE Department: 40 Room: [id number] Gender: Male Hearing Aide Technician: : 1965 Requested By: PATRICK REYES Order Number: [id number] Reading MD: Patrick Reyes Measurements Intervals [place] Rate: 78 P: 7 [place]: 155 QRS: 7 QRSD: 97 T: 193 QT: 409 QTc: 468 Interpretive Statements SINUS RHYTHM ST DEVIATION AND MODERATE T-WAVE ABNORMALITY, CONSIDER ANTEROLATERALISCHEMIA [-0.1+ mV T WAVE IN V3-V6] us Patrick Reyes MD ECG ORDERABLES Final Resul t [facility] ([facility]) RAD * XR CHEST PORTABLE (08/04/2024 5:46 [...] 7:29 AM Narrative 08/04/2024 7:31 AM CDT [place] [address] Examination: XR CHEST PORTABLE Exam time: 08/04/2024 5:46 AM Clinical history: Pleural effusion evaluation Comparison: 07/21/2024 Technique: One frontal view of the chest. Findings: No enlargement of pleural effusion. Trace haziness at the left base may indicate a small persistent effusion and atelectasis. No new findings. Stable heart, mediastinum, and bony structures. Procedure Note Rico Dorado MD - 08/04/[address] [address] Examination: XR CHEST PORTABLE Exam time: 08/04/2024 [...] 10.4(H) <5.7 % 08/04/2024 9:35 AM CDT [facility] Comment: ADA GUIDELINES 2010 5.7 TO 6.4% INCREASED RISK OF DIABETES > OR = 6.5% CONSISTENT WITH DIABETES ESTIMATED AVG GLUCOSE 252 mg/dL 08/04/2024 9:35 AM CDT [facility] 08/04/2024 5:33 AM CDT Jaz George MD LABORATORY Final Resu lt [facility] [address] [place] [address], [place] [phone] * (ABNORMAL) LIPID PANEL (08/04/2024 5:33 AM CDT) Only the most recent of3 resultswithin the time period is included. CHOLESTEROL 83 <200 MG/DL 08/04/2024 7:25 AM CDT [facility] TRIGLYCERIDES 205(H) <150 MG/DL 08/04/2024 7:25 AM CDT [facility] HDL 28(L) >40.0 MG/DL 08/04/2024 7:25 AM CDT [facility] LDL (CALCULATED) 14 <100 MG/DL 08/04/2024 7:25 AM CDT [facility] Comment:CALCULATED USING THE FRIEDEWALD EQUATION NON HDL CHOLESTEROL 55 <130 MG/DL 08/04/2024 7:25 AM CDT [facility] CHOL/HDL RATIO 3.0 0.0 - 4.5 08/04/2024 7:25 AM CDT [facility] VLDL CALCULATION 41 5 - 55 MG/DL 08/04/2024 7:25 AM CDT [facility] LIPID INTERPRETATION 08/04/2024 7:25 AM CDT [facility] Comment: NIH CONCENSUS REPORT RECOMMENDATIONS: ADULT CHILD LOW RISK: CHOLESTEROL <200 <170 TRIGLYCERIDE <150 --- HDL >=60 --- LDL <100 <110 BORDERLINE: CHOLESTEROL 200-239 170-199 TRIGLYCERIDE 150-199 --- HDL 40-59 --- LDL 100-159 110-129 HIGH RISK: CHOLESTEROL >=240 >=200 TRIGLYCERIDE >=200 --- HDL <40 --- LDL >=160 >=130 08/04/2024 5:33 AM CDT Jaz George MD LABORATORY Final Resu lt [facility] [address] [place] [address], [place] [phone] * PROCALCITONIN (PCT) (08/04/2024 5:30 AM CDT) PROCALCITONIN <0.05 0.00 - 0.49 NG/ML 08/04/2024 9:53 AM CDT [facility] 08/04/2024 5:30 AM CDT Charity Collier NP LABORATORY Final Result [facility] [address] [place] [address], [place] [phone] * (ABNORMAL) COMPREHENSIVE METABOLIC PANEL (07/21/2024 4:45 AM CDT) Only the most recent of8 resultswithin the time period is included. [facility] GLUCOSE 123(H) 70 - 99 MG/DL 07/21/2024 5:29 AM CDT [facility] BUN 41(H) 7 - 18 MG/DL 07/21/2024 5:29 AM CDT [facility] CREATININE S/P/B 1.83(H) 0.7 - 1.3 MG/DL 07/21/2024 5:29 AM CDT [facility] SODIUM S/P/B 137 136 - 145 MMOL/L 07/21/2024 5:29 AM CDT [facility] POTASSIUM S/P/B 3.9 3.5 - 5.1 MMOL/L 07/21/2024 5:29 AM CDT [facility] CHLORIDE S/P/B 107 97 - 115 MMOL/L 07/21/2024 5:29 AM CDT [facility] CO2 26.2 21 - 32 MMOL/L 07/21/2024 5:29 AM CDT [facility] CALCIUM S/P/B 8.1(L) 8.5 - 10.1 MG/DL 07/21/2024 5:29 AM CDT [facility] BILIRUBIN TOTAL S/P/B 0.6 0.2 - 1.2 MG/DL 07/21/2024 5:29 AM CDT [facility] Comment: THIS ASSAY IS NOT RECOMMENDED FOR PATIENTS UNDERGOING TREATMENT WITH ELTROMBOPAG DUE TO THE POTENTIAL FOR FALSELY ELEVATED RESULTS. TOTAL PROTEIN S/P/B 5.6(L) 6.4 - 8.2 G/DL 07/21/2024 5:29 AM CDT [facility] ALBUMIN S/P/B 2.2(L) 3.4 - 5.0 G/DL 07/21/2024 5:29 AM CDT [facility] AST 23 15 - 37 U/L 07/21/2024 5:29 AM CDT [facility] ALT 22 16 - 60 U/L 07/21/2024 5:29 AM CDT [facility] ALKALINE PHOSPHATASE S/P/B 96 50 - 136 U/L 07/21/2024 5:29 AM CDT [facility] ANION GAP 3.8 2 - 10 MMOL/L 07/21/2024 5:29 AM CDT [facility] BUN CREATININE RATIO 22.4 6 - 26 07/21/2024 5:29 AM CDT [facility] A/G RATIO 0.6(L) 1.0 - 2.0 RATIO 07/21/2024 5:29 AM T [facility] GFR ESTIMATE 42(L) >90 ML/MIN/1.7 3 M2 07/21/2024 5:29 AM CDT [facility] Comment: NOTE: eGFR is not calculated for patients <18 years of age or gender unknown. This is an estimated GFR calculation using the new CKD EPI creatinine equation without race and so does not require a correction factor for race. This estimated GFR should not be used for calculating drug doses. 07/21/2024 4:45 AM CDT us Bari Bernabe MD LABORATORY Final Result [facility] [address] [place] [address], [place] [phone] * POTASSIUM, SERUM (07/19/2024 4:11 PM CDT) POTASSIUM S/P/B 3.9 3.5 - 5.1 MMOL/L 07/19/2024 4:28 PM CDT [facility] 07/19/2024 4:11 PM CDT Bari Bernabe MD LABORATORY Final Result [facility] [address] [place] [address], * (ABNORMAL) CG8 Plus-ISTAT (07/16/2024 3:47 AM CDT) Only the most recent of10 resultswithin the time period is included. [facility] TECH CODE 526,687 07/16/2024 3:51 AM CDT [facility] PH ARTERIAL 7.33(L) 7.35 - 7.45 07/16/2024 3:51 AM CDT [facility] PCO2 38.1 35.0 - 45.0 MM HG 07/16/2024 3:51 AM CDT [facility] PO2 38(LL) 80.0 - 100.0 MM HG 07/16/2024 3:51 AM CDT [facility] Comment:POINT OF CARE TESTIN G, CRITICAL RESULT GIVEN TO NUCLEAR ENGINEERING TECHNICIAN. BASE DEFICIT 6.0 MEQ/L 07/16/2024 3:51 AM CDT [facility] BICARB ARTERIAL 20.0(L) 22.0 - 26.0 MEQ/L 07/16/2024 3:51 AM CDT [facility] TOTAL CO2 ARTERIAL 21 MEQ/L 07/16/2024 3:51 AM CDT [facility] O2 Saturation 68.0(LL) 90.0 - 100.0 % 07/16/2024 3:51 AM CDT [facility] Comment:POINT OF CARE TESTIN G, CRITICAL RESULT GIVEN TO NUCLEAR ENGINEERING TECHNICIAN. SODIUM BLOOD GAS 139 135.0 - 145.0 MMOL/L 07/16/2024 3:51 AM CDT [facility] POTASSIUM BLOOD GAS 4.3 3.5 - 4.5 MMOL/L 07/16/2024 3:51 AM CDT [facility] CALCIUM BLOOD GAS 1.2 1.1 - 1.3 MMOL/L 07/16/2024 3:51 AM CDT [facility] GLUCOSE POC 103 70 - 110 MG/DL 07/16/2024 3:51 AM CDT [facility] HEMATOCRIT BLOOD GAS 25.0(L) 43.0 - 54.0 % 07/16/2024 3:51 AM CDT [facility] HEMOGLOBIN BLOOD GAS 8.5(L) 14.0 - 18.0 G/DL 07/16/2024 3:51 AM CDT [facility] 07/16/2024 3:47 AM CDT Charity Collier NP POINT OF CARE TEST ORDERABLES Final Result [facility] [address] [place] [address], [place] [phone] * (ABNORMAL) CBC, AUTO, NO DIFF (07/16/2024 3:45 AM CDT) WBC 13.15(H) 4.5 - 11.0 x10'3/uL 07/16/2024 4:31 AM CDT [facility] RBC 3.22(L) 4.70 - 6.10 x10'6/uL 07/16/2024 4:31 AM CDT [facility] HGB 9.3(L) 14.0 - 18.0 G/DL 07/16/2024 4:31 AM CDT [facility] HCT 27.9(L) 43.0 - 54.0 % 07/16/2024 4:31 AM CDT [facility] MCV 86.6 80.0 - 94.0 FL 07/16/2024 4:31 AM CDT [facility] MCH 28.9 27.0 - 31.0 PG 07/16/2024 4:31 AM CDT [facility] MCHC 33.3 32.0 - 36.0 G/DL 07/16/2024 4:31 AM CDT [facility] RDW 13.0 11.5 - 14.5 % 07/16/2024 4:31 AM CDT [facility] PLT 160 130 - 400 x10'3/uL 07/16/2024 4:31 AM CDT [facility] MPV 11.0 9.3 - 12.2 FL 07/16/2024 4:31 AM CDT [facility] 07/16/2024 3:45 AM CDT us Catalino Louie MD LABORATORY Final Result [facility] [address] [place] [address], [place] [phone] * (ABNORMAL) HEMOGLOBIN AND HEMATOCRIT (07/15/2024 3:30 PM CDT) [facility] Signature HGB 10.9(L) 14.0 - 18.0 G/DL 07/15/2024 3:59 PM CDT [facility] HCT 31.7(L) 43.0 - 54.0 % 07/15/2024 3:59 PM CDT [facility] 07/15/2024 3:30 PM CDT us Catalino Louie MD LABORATORY Final Result [facility] [address] [place] [address], [place] [phone] * PLATELET COUNT, AUTO (07/15/2024 3:30 PM CDT) PLT 169 130 - 400 x10'3/uL 07/15/2024 3:59 PM CDT [facility] MPV 10.5 9.3 - 12.2 FL 07/15/2024 3:59 PM CDT [facility] 07/15/2024 3:30 PM CDT us Catalino Louie MD LABORATORY Final Result Performing Organization Address City/[facility]/ZIP Co de Phone Number [facility] [address] [place] [address], [place] [phone] * LACTIC ACID (07/15/2024 3:30 PM CDT) LACTIC ACID VENOUS 1.6 0.4 - 2.0 MMOL/L 07/15/2024 4:04 PM CDT [facility] 07/15/2024 3:30 PM CDT us Catalino Louie MD LABORATORY Final Result [facility] [address] [place] [address], [place] [phone] * ELECTROLYTE PANEL (07/15/2024 3:30 PM CDT) SODIUM S/P/B 139 136 - 145 MMOL/L 07/15/2024 4:00 PM CDT [facility] POTASSIUM S/P/B 3.9 3.5 - 5.1 MMOL/L 07/15/2024 4:00 PM CDT [facility] CHLORIDE S/P/B 114 97 - 115 MMOL/L 07/15/2024 4:00 PM CDT [facility] CO2 21.6 21 - 32 MMOL/L 07/15/2024 4:00 PM CDT [facility] ANION GAP 3.4 2 - 10 MMOL/L 07/15/2024 4:00 PM CDT [facility] 07/15/2024 3:30 PM CDT us Catalino Louie MD LABORATORY Final Result Performing Organization Address City/[facility]/ZIP Co de Phone Number [facility] [address] [place] [address], [place] [phone] * (ABNORMAL) GLUCOSE BLOOD, QNT (07/15/2024 3:30 PM CDT) [facility] GLUCOSE 139(H) 70 - 99 MG/DL 07/15/2024 4:00 PM CDT [facility] 07/15/2024 3:30 PM CDT us Catalino Louie MD LABORATORY Final Result Performing Organization Address City/State/[facility] Co de Phone Number [facility] [address] [place] [address], [place] [phone] * USE TRANSESOPHAGEAL ECHO (07/15/2024 3:20 PM CDT) Anatomical Region Laterality Modality Cardiac Echocardiogram 07/15/2024 6:47 AM CDT Narrative 07/16/2024 11:40 AM CDT ALEJANDRO Report Pat.Name: MEDHAT ALONSO.ID: [id number] St.Date: 07/15/2024 Exam Time: 6:47:00 AM Study Type:TRANSESOPHAGEAL [...] - 07/16/2024 ALEJANDRO Report Pat.Name: MEDHAT ALONSO.ID: [id number] .Date: 07/15/2024 Exam Time: 6:47:00 AM Study [...] Signature> 07/16/2024 11:40 AM Patrick Reyes M.D. Catalino Louie MD ECHO Final Result * (ABNORMAL) ARTERIAL BLOOD GAS (07/15/2024 3:11 PM CDT) Only the most recent of2 resultswithin the time period is included. PH ARTERIAL 7.36 7.35 - 7.45 07/15/2024 3:39 PM CDT [facility] PCO2 39.0 35.0 - 45.0 MMHG 07/15/2024 3:39 PM CDT [facility] PO2 80.0(L) 83.0 - 108.0 MMHG 07/15/2024 3:39 PM CDT [facility] TOTAL CO2 ARTERIAL 23.2 19.0 - 24.0 MMOL/L 07/15/2024 3:39 PM CDT [facility] BASE DEFICIT 3.1(H) 0.0 - 3.0 MMOL/L 07/15/2024 3:39 PM T [facility] O2 SATURATION 95 94.0 - 98.0 % 07/15/2024 3:39 PM CDT [facility] BICARB ARTERIAL 22.0 21.0 - 28.0 MMOL/L 07/15/2024 3:39 PM T [facility] O2 ADMIN ARTERIAL 80% 07/15/2024 3:36 PM T [facility] DRAW SITE ARTERIAL ARTERIAL LINE DRAW 07/15/2024 3:36 PM T [facility] 07/15/2024 3:11 PM CDT us Catalino Louie MD LABORATORY Final Result Performing Organization Address City/[facility]/ZIP Co de Phone Number [facility] [address] [place] [address], [place] [phone] * (ABNORMAL) POCT activated clotting time (07/15/2024 1:41 PM CDT) Only the most recent of8 resultswithin the time period is included. ACTIVATED CLOTTING TIME (ACT HMT OR LMT) 108(L) 113 - 149 SEC 07/15/2024 4:29 PM CDT [facility] 07/15/2024 1:41 PM CDT us Catalino Louie MD POCT ORDERABLES - DEVICE Fin al Result Performing Organization Address [facility] [place]/[facility] Co de Phone Number [facility] [address] [place] [address], [place] [phone] * Introducer (07/15/2024 7:50 AM CDT) Narrative Eusebia Sánchez MD - 07/15/2024 7:50 AM CDT Eusebia Sánchez MD 07/15/2024 8:22 AM [place]/Introducer Placement: Date/Time: 07/15/2024 7:50 AM Patient Location: OR Placed Outside of This Facility?: No Procedure: Introducer with [place] Hannah Technique Used: Maximum Sterile Technique used, hand hygiene, Chlorhexadine skin prep, blood return present and guidewires used accounted for Location: Internal jugular Size: 9.0 Tamazight Orientation: Right Insertion Attempts: 1 Therapy Type: [...] Sterile tegaderm dressing applied. Eusebia Sánchez MD [place] ANESTHESIA Final Result * Art Line (07/15/2024 [...] applied. No immediate complications. Eusebia Sánchez MD [place] ANESTHESIA Final Result * HEPARIN, ANTI XA, UFH (07/15/2024 3:00 AM CDT) Only the most recent of8 resultswithin the time period is included. HEPARIN ANTI XA UFH 0.35 0.30 - 0.70 IU/ML 07/15/2024 3:55 AM CDT [facility] Comment: UFH Therapeutic Anti Xa Ranges: Medical Therapeutic Range: 0.30 - 0.70 IU/mL Cardiac Therapeutic Range: 0.30 - 0.50 IU/mL Neuro Therapeutic Range: 0.20 - 0.40 IU/mL 07/15/2024 3:00 AM CDT Charity Collier NP LABORATORY Final Result Performing Organization Address City/[facility]/ZIP Co de Phone Number [facility] [address] [place] [address], * (ABNORMAL) THROMBOPLASTIN TIME PARTIAL,PTT (07/15/2024 3:00 AM CDT) PTT 72.9(H) 25.1 - 36.5 SEC 07/15/2024 3:55 AM CDT [facility] 07/15/2024 3:00 AM CDT Catalino Louie MD LABORATORY Final Result Performing Organization Address [facility] [place]/[facility] Co de Phone Number [facility] [address] [place] [address], * PROTIME/INR, VENOUS (07/15/2024 3:00 AM CDT) Only the most recent of4 resultswithin the time period is included. PROTIME 10.3 10.2 - 12.9 SEC 07/15/2024 3:55 AM CDT [facility] INR 0.9 07/15/2024 3:55 AM CDT [facility] Comment: Recommended INR Therapeutic Goals: 2.0-3.0 Routine Therapy 2.5-3.5 Mechanical Prosthetic Valves (High Risk) 07/15/2024 3:00 AM CDT Freida Sandra MD LABORATORY Final Re sult Performing Organization Address City/[facility]/ZIP Co de Phone Number [facility] [address] [place] [address], * MRSA SCREENING (07/14/2024 2:10 PM CDT) SPEC DESCRIPTION NASAL 07/14/2024 2:13 PM CDT [facility] SPECIAL REQUESTS NO SPECIAL REQUEST 07/14/2024 2:13 PM CDT [facility] CULTURE RESULT NO METHICILLIN RESISTANT STAPHYLOCOCCUS AUREUS ISOLATED 07/15/2024 11:28 AM CDT [facility] SPECIMEN FROM INTERNAL NOSE / Unknown 07/14/2024 2:10 PM CDT 07/14/2024 2:17 PM CDT Catalino Louie MD MICROBIOLOGY - GENERAL ORDER ZAINAB Final Result [facility] [address] [place] [address], * TYPE & SCREEN - Verify expiration date is current (07/14/2024 1:03 PM CDT) UNITS ORDERED 4 07/14/2024 2:41 PM CDT [facility] ABO/RH O POSITIVE 07/14/2024 2:41 PM CDT [facility] ANTIBODY SCREEN NEGATIVE 2:41 PM CDT [facility] SAMPLE EXPIRATION 07/17/2024,23 59 07/14/2024 2:41 PM CDT [facility] BLOOD UNIT NUMBER [id number] 07/15/2024 3:12 AM CDT [facility] PRODUCT: PC LEUKOPOOR 07/15/2024 3:12 AM CDT [facility] UNIT DIVISION 00 07/15/2024 3:12 AM CDT [facility] BLOOD UNIT STATUS UNIT RELEASED 07/18/2024 7:09 AM CDT [facility] TRANSFUSION STATUS OK TO TRANSFUSE 07/15/2024 3:12 AM CDT [facility] CROSSMATCH COMPATIBLE-EX M 07/15/2024 3:12 AM CDT [facility] BLOOD UNIT NUMBER [id number] 07/15/2024 3:12 AM CDT [facility] PRODUCT: PC LEUKOPOOR 07/15/2024 3:12 AM CDT [facility] UNIT DIVISION 00 07/15/2024 3:12 AM CDT [facility] BLOOD UNIT STATUS UNIT RELEASED 07/15/2024 3:58 PM CDT [facility] TRANSFUSION STATUS OK TO TRANSFUSE 07/15/2024 3:12 AM CDT [facility] CROSSMATCH COMPATIBLE-EX M 07/15/2024 3:12 AM CDT [facility] BLOOD UNIT NUMBER [id number] 07/15/2024 3:12 AM CDT [facility] PRODUCT: PC LEUKOPOOR 07/15/2024 3:12 AM CDT [facility] UNIT DIVISION 07/15/2024 3:12 AM CDT [facility] BLOOD UNIT STATUS UNIT RELEASED 07/15/2024 3:51 PM CDT [facility] TRANSFUSION STATUS OK TO TRANSFUSE 07/15/2024 3:12 AM CDT [facility] CROSSMATCH COMPATIBLE-EX M 07/15/2024 3:12 AM CDT [facility] BLOOD UNIT NUMBER [id number] 07/15/2024 3:12 AM CDT [facility] PRODUCT: PC LEUKOPOOR 07/15/2024 3:12 AM CDT [facility] UNIT DIVISION 07/15/2024 3:12 AM CDT [facility] BLOOD UNIT STATUS UNIT RELEASED 07/16/2024 7:25 AM CDT [facility] TRANSFUSION STATUS OK TO TRANSFUSE 07/15/2024 3:12 AM CDT [facility] CROSSMATCH COMPATIBLE-EX M 07/15/2024 3:12 AM CDT [facility] 07/14/2024 1:03 PM CDT Catalino Louie MD BLOOD BANK TEST ORDERABLES F inal Result [facility] [address] [place] [address], [place] [phone] * USE ECHOCARDIOGRAM W CON (07/14/2024 9:19 AM CDT) Anatomical Region Laterality Modality NA Echocardiogram 07/14/2024 8:39 AM CDT Narrative 07/14/2024 10:14 AM CDT Echocardiography Report Pat.Name: MISSY MEDHAT Aaron Maldonado.ID: [id number] .Date: 07/14/2024 : [id number] OMAR JOSEPH EWDPROV EWDPROV Exam Time: 8:39:00 AM Study Type:ECHO WITH CARDIAC DOPPLER COMP Height: 66 in Weight: 159 lb BSA: 1.81 m2 Age: 11 1965,58Y Sex: M BP: 144/82 HR: 61 bpm Sonogrphr: Taylor Gates Pat. Stat.:Inpatient Room: [facility] Reason for Study:Coronary artery disease History [...] 27 mm Right Ventricle 19 mm Major Elwood 76 mm MMODE TA Tricuspid Annul 21.2 mm <Electronic Signature> 07/14/2024 10:14 AM Patrick Reyes M.D. Procedure Note Patrick Reyes MD - 07/14/2024 Echocardiography Report Pat.Name: MEDHAT ALONSO Pat.ID: [id number] .Date: 07/14/2024 Refer.: [id number] OMAR JOSEPH EWDPROV EWDPROV Exam Time: 8:39:00 AM Study Type:ECHO WITH CARDIAC DOPPLER COMP Height: 66 in Weight: 159 lb BSA: 1.81 m2 Age: 11 1965,58Y Sex: M BP: 144/82 HR: 61 bpm Sonogrphr: Taylor Gates Pat. Stat.:Inpatient Room: [facility] Reason for Study:Coronary artery disease History [...] 27 mm Right Ventricle 19 mm Major Elwood 76 mm MMODE TA Tricuspid Annul 21.2 mm <Electronic Signature> 07/14/2024 10:14 AM aPtrick Reyes M.D. us Freida Sandra MD ECHO Final Re sult * USV CAROTID DUPLEX TODD (07/13/2024 11:32 AM CDT) Anatomical Region Laterality Modality Neck Vascular Ultraso und 07/13/2024 10:2 9 AM CDT Narrative 07/14/2024 4:43 PM CDT CAROTID ARTERY DUPLEX [facility] Pat.Name: Medhat Alonso Pat.ID: [id number] .Date: 07/13/2024 Exam Time: 10:29:00 AM Study Type:ARMANDO VS Duplex Carotid BIDOB Age: 11 1965,58Y Sex: M Sonogrphr: Sher Nieto RVT Pat. Stat.:Inpatient Room: [facility] History / Clinical:preop CABG Procedures: Robin [...] IMAGING VASCULAR LAB Pat.Name: Medhat Alonso Pat.ID: [id number] .Date: 07/13/2024 Exam Time: 10:29:00 AM Study Type:ARMANDO VS Duplex Carotid BIDOB Age: 11 1965,58Y Sex: M Sonogrphr: Sher Nieto RVT Pat. Stat.:Inpatient Room: [facility] History / Clinical:preop CABG Procedures: Robin [...] PM Amaris Bustamante M.D. Catalino Louie MD [facility] Final Result * TSH W/REFLEX (07/13/2024 8:19 AM CDT) TSH 1.970 0.358 - 3.74 uIU/ML 07/13/2024 9:07 AM CDT [facility] Comment: HIGH DOSES OF BIOTIN MAY INTERFERE WITH THIS TEST RESULT. CORRELATION TO CLINICAL HISTORY AND PRESENTATION RECOMMENDED. FREE T4 NOT INDICATED 07/13/2024 8:19 AM CDT Freida Sandra MD LABORATORY Final Re sult [facility] [address] [place] [address], [place] [phone] from Last 3 Months Insurance [facility] Advance Directives Documents on File Type Date Recorded Patient Communications Supervisor Expl anation Advance Directives and Living Will [...] 10:51 PM 07/15/2024 3:10 PM Care Teams Torch Straightener Relationship Specialty Start Date End Date None, Provider, PCP - General UNKNOWN PHYSICIAN SPECIALTY 07/12/24
--- NOTE | 2024-09-12 07:37 | ED_ITS ---
HPI - Chest Pain General Chief Complaint: Chest Pain Stated Complaint: chest pain Time Seen by Provider: 09/12/24 07:36 Source: patient Mode of arrival: ambulatory Limitations: no limitations History of Present Illness HPI narrative: Patient is a 58-year-old male who had a massive STEMI in July of this year and 5 way bypass here with continuous chest pain since the surgery. He has left-sided chest pain that is been the same ever since surgery. The pain is reproducible upon palpation of the anterior chest wall at surgical site. No neck or jaw pain or back pain. He occasionally has tingling of the feet bilaterally. No shortness of breath. No nausea vomiting. No alcohol intake. MD complaint: chest pain Pertinent past history: coronary artery disease, prior [place], CABG ( X5) and other ( Diabetes type 2, hypertension, hyper lipid) Onset (ago): month(s) (2) Timing of current episode: episodic and daily Prior episodes: Yes Onset: during rest and during exertion Pain location: left chest Pain radiation: none Severity: mild Pain scale (0-10): 2 Quality: sharp Relieving factors: nothing Exacerbating factors: palpation Context: recent surgery ( CABG x5 in July 2024) Associated symptoms: other ( bilateral feet tingling which has been variable since and before the surgery) Treatment prior to arrival: none Risk Factors Coronary artery disease risk factors: diabetes, smoking history, hyperlipidemia and hypertension Thoracic aortic dissection risk factors: none Pulmonary embolism risk factors: recent surgery Related Data Home Medications ?Medication ?Instructions ?Recorded ?Confirmed ?Last Taken ?Type citalopram 20 mg tablet 20 mg PO HS 09/23/19 07/12/24 07/11/24 History lisinopril 20 1 tablet PO BID 09/23/19 07/12/24 07/11/24 History mg-hydrochlorothiazide 12.5 mg tablet atorvastatin 80 mg tablet 1 tablet PO HS 08/20/21 07/12/24 07/11/24 History doxazosin 4 mg tablet 1 tablet PO DAILY 08/20/21 07/12/24 07/11/24 History metoprolol succinate 100 mg 1 tablet PO DAILY 08/20/21 07/12/24 07/11/24 History tablet,extended release 24 hr insulin glargine 100 unit/mL (3 130 unit subcut DAILY 04/17/24 07/12/24 04/17/24 History mL) subcutaneous pen (Lantus Solostar U-100 Insulin) insulin lispro 100 unit/mL 36 unit subcut TIDWM 04/17/24 07/12/24 04/17/24 History subcutaneous pen (Humalog KwikPen (U-100) Insulin) Allergies Allergy/AdvReac Type Severity Reaction Status Date / Time No Known Allergies Allergy Verified 09/12/24 07:31 Review of Systems 2 Review of Systems: All systems reviewed & are unremarkable except as noted in HPI and below Constitutional: Constitutional: Reports no additional constitutional complaints Eyes: Eyes: Reports no additional eye complaints ENT: Reports system reviewed and no additional complaints, except as documented Cardiovascular: Cardiovascular: Reports no additional cardiovascular complaints Respiratory: Respiratory: Reports no additional respiratory complaints Gastrointestinal: Gastrointestinal: Reports no additional gastrointestinal complaints Genitourinary: Genitourinary: Reports no additional male genitourinary complaints Musculoskeletal: Musculoskeletal: Reports no additional musculoskeletal complaints Integumentary/Breasts: Skin/Breast: Reports system reviewed and no additional complaints, except as docu Neurologic: Reports system reviewed and no additional complaints, except as documented Psychiatric: Psychiatric: Reports no additional psychiatric complaints Endocrine: Endocrine: Reports no additional endocrine complaints Hematologic/Lymphatic: Hematologic/Lymphatic: Reports no additional hematologic/lymphatic complaints Allergic/Immunologic: Allergic/Immunologic: Reports no additional allergic/immunologic complaints [facility] Past Medical History Medical History Depression Cataracts, bilateral Hyperlipidemia Hypertension Type 2 diabetes mellitus Seasonal allergies Family History Family History Father Cerebrovascular accident Other Diabetes mellitus Heart disease Hypertension Social History Social History Smoking packs per day: 1 Smoking cigarettes per day: 20.0 Years smoked: 40 Smoking pack-years: 40.00 Smoking status: Former smoker Tobacco type: cigarettes Additional smoking assessment comments: Off and on 1 PPD smoker x40 years. Alcohol intake: never Alcohol use details: Occasional Substance use: never Substance use type: does not use Do You Feel Safe in your Home?: Yes Lack of Transportation: No Lack of Food: Never True Current Housing: I Have Housing Concerned About Future Housing: No Difficulty Paying Gas/Electric Bills: No Difficulty Paying for Meds: No Currently Unemployed: No Education: Decline to Answer Difficulty w/ Childcare or Family Care: No Spiritual care concerns: No Exam 2 Const: General: healthy appearing Nutritional Appearance: well nourished Orientation/consciousness: patient oriented x3 Limitations: no limitations HENMT: Head: normal to inspection Ears: external ears normal F alexander/Nose/Sinus: Normal external nose present Eyes: Conjunctivae: conjunctivae normal Pupils: Equal, round and reactive pupils present EOM: EOMs intact bilaterally Neck: Neck: normal visual inspection Chest: Chest palpation & inspection: normal inspection of the chest Resp: Effort & Inspection: normal respiratory effort and not labored A uscultation: clear to auscultation bilaterally and no crackles Cardio: Rate: regular rate Rhythm: regular rhythm Heart sounds: no murmurs GI: Inspection: non-distended GI Palp: Yes Soft to palpation and No Tenderness to palpation present (GI) Auscultation: normal bowel sounds : General: Yes bladder normal to palpation Back/Spine/Pelvis: Back: no CVA tenderness Skin: General skin exam: normal color Rashes: no rashes Wounds: no wounds Neuro: General: patient oriented x3, moves all extremities and no meningeal signs Cranial nerves: Yes Nystagmus not present Speech: normal speech G ait exam (Neuro): Normal gait present Extrem: General: normal to inspection Psych: Mental Status: mental status grossly normal Affect: normal affect Attitude: cooperative Course Vital Signs Vital signs: Vital Signs Temperature 36.6 C 09/12/24 07:30 Pulse Rate 97 09/12/24 07:30 Respiratory Rate 11 L 09/12/24 07:30 Blood Pressure 176/97 H 09/12/24 07:30 Pulse Oximetry 98 09/12/24 07:30 Oxygen Delivery Room Air 09/12/24 07:30 Temperature 36.6 C 09/12/24 07:30 Pulse Rate 97 09/12/24 07:30 Respiratory Rate 11 L 09/12/24 07:30 Blood Pressure 176/97 H 09/12/24 07:30 Pulse Oximetry 98 09/12/24 07:51 Oxygen Delivery Room Air 09/12/24 07:51 MDM - Chest Pain MDM Narrative Medical decision making narrative: patient is a 58-year-old male with left-sided chest pain since surgery and he has concerns that it has not resolved and here for workup. We will do cardiac workup. Discussed case with Dr. Lei cardiology at [facility] for he did bypass and they reviewed the case with the and we have decided to send the patient home. He can follow up with the rug dyer helper as outpatient in the next week. Lab Data Attestation: I reviewed the patient's lab results. 09/12/24 08:08 09/12/24 08:08 Labs: Lab Results 09/12/24 09/12/24 Range/Units 08:08 10:04 WBC 8.3 (4.8-10.8) K/mm3 RBC 4.45 L (4.70-6.10) M/mm3 Hgb 12.4 L (14.0-18.0) g/dL Hct 36.8 L (40.0-54.0) % MCV 82.7 (78.0-102.0) fL MCH 27.9 (27.0-31.0) pg MCHC 33.7 (32-36) g/dL RDW 13.2 (11.6-14.4) % Plt Count 266 (150-420) K/mm3 MPV 9.5 (8.7-11.0) fl Immature Gran % (Auto) 0.4 H (0.0-0.0) % Neut % (Auto) 76.4 H (50.0-70.0) % Lymph % (Auto) 13.3 L (18.0-42.0) % [place] % (Auto) 6.3 (2.0-11.0) % Eos % (Auto) 3.1 (1.0-6.0) % Baso % (Auto) 0.5 (0.0-1.0) % Lymph # (Auto) 1.10 (1.10-4.50) K/mm3 [place] # (Auto) 0.52 (0.10-0.90) K/mm3 Eos # (Auto) 0.26 (0.02-0.50) K/mm3 Baso # (Auto) 0.04 (0.00-0.10) K/mm3 Abs Immat Gran (auto) 0.03 H (0.00-0.00) K/mm3 Absolute Neuts (auto) 6.33 (1.70-7.20) K/mm3 Absolute Nucleated RBC 0.00 (0.00-0.00) K/mm3 Nucleated RBC % 0.0 (0-0.0) % PT 10.2 (9.50-12.1) Seconds INR 0.9 APTT 26.3 (23.9-30.70) Sec Sodium 137 (137-145) mmol/L Potassium 4.2 (3.4-5.0) mmol/L Chloride 105 (98-107) mmol/L Carbon Dioxide 25 (22-30) mmol/L Anion Gap 7 (4-12) mmol/L BUN 21 H (9-20) mg/dL Creatinine 1.47 H (0.7-1.3) mg/dL Estim Creat Clear Calc 44 ml/min Estimated GFR 49 L (59 - ) Glucose 306 H (65-110) mg/dL Calculated Osmolality 299 H (285-295) mOsm/kg Calcium 9.1 (8.4-10.2) mg/dL Total Bilirubin 0.5 (0.2-1.3) mg/dL AST 21 (17-59) U/L ALT 16 (6-50) U/L Alkaline Phosphatase 102 (38-126) U/L Troponin I 0.068 H* 0.061 H* (0.000-0.034) ng/mL NT-Pro-B Natriuret Pep 2910 H (19.9-100) pg/mL Total Protein 6.2 L (6.3-8.2) g/dL Albumin 3.6 (3.5-5.1) g/dL Lipase 428 H (23-300) U/L Imaging Data Attestation: I personally reviewed and interpreted this imaging study as follows: Radiologist's impression: chest x-ray shows Impression: 1: Left basilar infiltrates, most likely represent atelectasis or developing pneumonia. CT chest abdomen and pelvis is negative for acute process ECG Data EKG #1: Attestation: I personally reviewed and interpreted this ECG as follows: ECG completion date: 09/12/24 ECG completion time: 08:03 Prior ECG tracings: available for review ( No acute change from prior EKG) EKG Interpretation: normal rate, sinus rhythm, no ectopy, non-specific ST changes, normal QRS, normal QT and NL axis Discharge Plan Discharge Clinical Impression: Atypical chest pain, Chronic kidney insufficiency, Elevated troponin Patient Disposition: Home Condition: Stable Instructions: Chest Pain (ED) Additional Instructions: please follow-up with cardiology in the next week. Make sure the primary doctor follows the creatinine level for the kidneys. Patient Language: Chinese Prescriptions: No Action atorvastatin 80 mg tablet 1 tablet PO HS metoprolol succinate 100 mg tablet extended release 24 hr 1 tablet PO DAILY doxazosin 4 mg tablet 1 tablet PO DAILY amoxicillin-pot clavulanate 875-125 mg tablet 1 tablet PO Q12H Qty: 20 0RF lisinopril-hydrochlorothiazide 20-12.5 mg tablet 1 tablet PO BID citalopram 20 mg tablet 20 mg PO HS insulin glargine [Lantus Solostar U-100 Insulin] 100 unit/mL (3 mL) insulin pen 130 unit SUBCUT DAILY insulin lispro [Humalog KwikPen Insulin] 100 unit/mL insulin pen 36 unit SUBCUT TIDWM Glucagon Emergency Kit (human) 1 mg recon soln 1 mg subcut Q20M PRN (Reason: hypoglycemia) Qty: 1 0RF Rx Instructions: until target blood sugar attained insulin glargine [Lantus U-100 Insulin] 100 unit/mL Solution 60 unit subcut QHS Qty: 10 0RF dextrose [Glutose-15] 40 % Gel 15 g PO PRN PRN (Reason: Hypoglycemia) Qty: 1 0RF insulin aspart U-100 [Novolog U-100 Insulin aspart] 100 unit/mL Solution 4 - 8 unit subcut TIDWM Qty: 10 0RF Protocol: Insulin Corrective High-Dose Condition: glucose < 70 mg/dl Dose/Route: Follow hypoglycemia order Condition: glucose 70-200 mg/dl Dose/Route: No additional insulin Condition: glucose 201-250 mg/dl Dose/Route: 4 units sub-Q Condition: glucose 251-300 mg/dl Dose/Route: 5 units sub-Q Condition: glucose 301-350 mg/dl Dose/Route: 6 units sub-Q Condition: glucose 351-400 mg/dl Dose/Route: 8 units sub-Q Condition: glucose > 400 mg/dl Dose/Route: Call MD Protocol Text: *No Correction Dose at Bedtime* insulin aspart U-100 [Novolog U-100 Insulin aspart] 100 unit/mL Solution 2 - 4 unit subcut HS Qty: 10 0RF Protocol: Insulin Corrective High-Dose Condition: glucose < 70 mg/dl Dose/Route: Follow hypoglycemia order Condition: glucose 70-200 mg/dl Dose/Route: No additional insulin Condition: glucose 201-250 mg/dl Dose/Route: 2 units sub-Q Condition: glucose 251-300 mg/dl Dose/Route: 2 units sub-Q Condition: glucose 301-350 mg/dl Dose/Route: 3 units sub-Q Condition: glucose 351-400 mg/dl Dose/Route: 4 units sub-Q Condition: glucose > 400 mg/dl Dose/Route: Call MD Follow-up/Referrals: Juliane Dale MD [Primary Care Provider] - Time of Disposition: 11:30
--- NOTE | 2024-09-12 08:00 | PC.NURSE ---
Patient has not taken his blood pressure medication this morning, ERP is aware.
[2024-09-12 08:12] LABS: Hematocrit 36.8 % (40.0-54.0); Hemoglobin 12.4 g/dL (14.0-18.0); Immature Granulocyte Percent A 0.4 % (0.0-0.0); Lymphocytes Absolute Auto 1.10 K/mm3 (1.10-4.50); Mean Corpuscular HGB Conc 33.7 g/dL (32-36); Mean Corpuscular Hemoglobin 27.9 pg (27.0-31.0); Mean Corpuscular Volume 82.7 fL (78.0-102.0); Nucleated Red Blood Cells Absolute Auto 0.00 K/mm3 (0.00-0.00); Nucleated Red Blood Cells Perc 0.0 % (0-0.0); Platelet Count Result 266 K/mm3 (150-420); Red Blood Count 4.45 M/mm3 (4.70-6.10); White Blood Count 8.3 K/mm3 (4.8-10.8)
--- OUTSIDE RECORDS SUMMARY | 2024-09-12 08:16 | XMS_ITS | Clinical Summary ---
Author Organization [facility] Address [address] [place] [address] Phone Care Team Providers Care Senior Office Support Assistant Sosa Name Role Phone Tobias Mckenzie MD Primary Care Provider [phone] Allergies No known active allergies Medications Blood [...] Done Comments Influenza Vaccine (#1) 2024 [place] [address] [place] [employer] Care Teams Senior Office Support Assistant Sosa Relationship Specialty Start Date End Date Tobias Mckenzie MD [address] [place] [address] PCP - General Internal Medicine 05/17/21
--- OUTSIDE RECORDS SUMMARY | 2024-09-12 08:17 | XMS_ITS | Clinical Summary ---
Author Organization [facility] Address [address] [place] [address] Care Team Providers Care Frit Coater Name Role Phone None, Provider MD Primary [...] Diagnosed Date Coronary artery disease invo lving pauma coronary artery of pauma heart without angina pectoris 08/14/2024 Mixed hyperlipidemia 08/14/2024 Chest pain 08/03/2024 STEMI (ST elevation myocardi al infarction) ([facility]) 07/12/2024 Essential hypertension 05/25/2021 Nonspecific abnormal results of function study o f kidney 05/25/2021 Encounters Date Type Department Care Team Description 08/14/2024 10:32 AM CDT - 08/14/2024 11:59 PM CDT Hospital Encounter [facility] [place] [address] Charis Harden PA-C Discharge Disposition: Home or Self Care (Routine Discharge) 08/14/2024 10:30 AM CDT - 08/14/2024 10:31 AM CDT Hospital Encounter [facility] [place] [address] Charis Harden PA-C Discharge Disposition: Home or Self Care (Routine Discharge) 08/14/2024 10:00 AM CDT Office Visit [address] [address] Catalino Louie MD Follow Up (07/15/24 CABG x 5 ) 08/14/2024 9:30 AM CDT Office Visit [facility], [address] [address] Patrick Reyes MD France, Hallie A, PA-C Follow Up (hosp) 08/14/2024 Telephone [facility], [address] [address] Taylor, Manda S, RN Results; Medication Request (See notes) 08/14/2024 Travel 08/07/2024 10:00 AM CDT Home Care Visit [facility] Home [address] [address] Catrina Hardwick RN SN OASIS DISCHARGE/ASSESSMENT 08/07/2024 Hospital Follow-up Call [facility] [place] [address] Jennifer Dave LPN Follow Up Call ([facility] 08/03-08/05/24) 08/04/2024 8:15 AM CDT Home Care Visit [address] [address] Nida Saleh RN LIAISON VISIT 08/03/2024 6:36 PM CDT - 08/05/2024 12:08 PM CDT Hospital Encounter [facility] [place] [address] Jaz George MD Daniels, Darcy L, STEPHON Discharge Disposition: Home or Self Care (Routine Discharge) 08/03/2024 Travel 07/31/2024 10:15 AM CDT Home Care Visit [address] [address] Mela Amin LPN SN HOME VISIT 07/28/2024 3:44 PM CDT - 07/28/2024 11:59 PM CDT Hospital Encounter [facility] [address] [place] [address] Catalino Louie MD Discharge Disposition: Home or Self Care (Routine Discharge) 07/28/2024 10:00 AM CDT Home Care Visit [address] [place] [address] Valentine Perez LPN SN HOME VISIT 07/28/2024 Orders Only [facility] [address] [facility] [place] [address] Catalino Louie MD 07/24/2024 9:00 AM CDT Home Care Visit [facility] Home Care [address] [place] [address] Mela Amin LPN SN HOME VISIT 07/23/2024 Hospital Follow-up Call [facility] [address] Jennifer Dave LPN 07/22/2024 8:45 AM CDT Home Care Visit [facility] Home Care [address] [place] [address] Nida Saleh, MOTOR POLARIZER VISIT 07/22/2024 8:30 AM CDT Home Care Visit [facility] Home Care [address] [place] [address] Annamaria Dunn RN SN OASIS START OF CARE 07/22/2024 Telephone [facility], [address] [address] Catalino Louie MD Follow Up Call 07/22/2024 Plan of Care Documentation [address] [place] [address] 07/18/2024 9:00 AM CDT Home Care Visit [facility] Care [address] [place] [address] Nida Saleh, MOTOR POLARIZER VISIT 07/15/2024 7:30 AM CDT - 07/15/2024 2:[address] [place] [address] Catalino Louie MD CORONARY ARTERY BYPASS GRAFTS TIMES FIVE USING LEFT INTERNAL MAMMARY ARTERY AND ENDOSCOPICALLY HARVESTED BILATERAL GREATER SAPHENOUS VEINS; TRANSESOPHAGEAL ECHOCARDIOGRAM, AORTIC SCAN, CARDIOPULMONARY BYPASS 07/15/2024 7:28 AM CDT Anesthesia Event [facility] [address] Eusebia Sánchez MD 07/12/2024 10:36 PM CDT - 07/21/2024 3:55 PM CDT Hospital Encounter [facility] [place] [address] Jaida Sanders MD Malcolm, MD Manny Daniel [...] materials from doctor or pharmacy Rarely 08/07/2024 [facility] Utilities Answer Date Recorded In the past 12 months has [facility] [employer], [employer] [place] [employer], or water [employer] threatened to shut off services in your [...] any time in the past 12 m [facility], were you homeless or living in a residential (including now)? 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 Office Visit [facility] [address] [facility] [address] [place], [place] [id number] Patrick Reyes MD [address] [facility] [address] [place], [place] [id number] Health Maintenance Due Date Last Done Comments [...] Recommended Domains Addressed Status Status Reason/Outcome Date/Time [facility] Insecurity Services, Financial Assistance Housing Stability Recommended 08/24/2024 9:19 PM CDT [facility] Housing Insecurity Services Housing Stability Recommended 08/24/2024 9:19 PM CDT from Last 12 Months Medical Devices Implanted Type Area Parts Sales Manager Device Identifier Shelf Expiration Date Model / Serial / Lot Wire Sterum Suture Kit [employer] #7 1/2 Ccs-1 - [id number] Implanted:Qty: 1 on 07/15/2024 by Chaparro Cloud RNFA at [facility] Wire N/A: Sternum [employer] 09/06/2027 [id number] / / [id number] Description:2 WIRES IMPLANTE D Wire Sternotomy Suture Kit - [id number] Implanted:Qty: 1 on 07/15/2024 by Catalino Louie MD at [facility] Wire N/A: Sternum [employer] 03/08/2027 [id number] / / [id number] Description:5 WIRES IMPLANTE D Procedures Procedure Name Priority Date/Time Associated Diagnosis Comments XR CHEST PA+LAT Routine 08/14/2024 10:48 AM CDT Acute cough PRO-BRAIN NATRIURETIC PEPTIDE Routine 08/14/2024 10:41 AM CDT Acute cough Shortness of breath BASIC METABOLIC PANEL Routine 08/14/2024 10:41 AM CDT Coronary artery disease involving pauma coronary artery of pauma heart without angina pectoris POCT GLUCOSE - [...] Cardiac pacemaker in situ Coronary atherosclerosis of pauma coronary artery CBC W/DIFF AUTOMATED Routine 07/28/2024 11:15 AM CDT Cardiac pacemaker in situ Coronary atherosclerosis of pauma coronary artery POCT GLUCOSE - DOCKED DEVICE [...] AM CDT STEMI (ST elevation myocardial infarction) ([facility]) POCT GLUCOSE - DOCKED DEVICE Routine 07/15/2024 [...] 10:53 AM Narrative 08/14/2024 10:53 AM CDT [place] [address] 2 VIEWS OF THE CHEST Clinical history: Cough Comparison: August 04, 2024 2 views of the chest demonstrate the cardiac silhouette to be normal in size and appears stable. The pulmonary vessels appear normal. The Lungs are clear. No consolidations or effusions are seen. Procedure Note Robbie Carrasco MD - 08/14/2024 [place] [address] 2 VIEWS OF THE CHEST Clinical history: [...] Final Resul t * (ABNORMAL) PRO BNP ([facility]) (08/14/2024 10:41 AM CDT) Only the most recent of2 resultswithin the time period is included. PRO-B TYPE NATRIURETIC PEPTIDE 4,479(H) <125 PG/ML 08/14/2024 11:26 AM CDT [facility] Comment: CUT POINTS ESTABLISHED [...] Charis Harden PA-C LABORATORY Final Resul t [facility] [address] [place] [id number], * (ABNORMAL) BASIC METABOLIC PANEL (08/14/2024 10:41 AM CDT) Only the most recent of7 resultswithin the time period is included. GLUCOSE 394(H) 70 - 99 MG/DL 08/14/2024 11:26 AM CDT [facility] BUN 30(H) 7 - 18 MG/DL 08/14/2024 11:26 AM CDT [facility] CREATININE S/P/B 1.78(H) 0.7 - 1.3 MG/DL 08/14/2024 11:26 AM CDT [facility] SODIUM S/P/B 133(L) 136 - 145 MMOL/L 08/14/2024 11:26 AM CDT [facility] POTASSIUM S/P/B 4.4 3.5 - 5.1 MMOL/L 08/14/2024 11:26 AM CDT [facility] CHLORIDE S/P/B 102 97 - 115 MMOL/L 08/14/2024 11:26 AM CDT [facility] CO2 27.5 21 - 32 MMOL/L 08/14/2024 11:26 AM CDT [facility] CALCIUM S/P/B 9.0 8.5 - 10.1 MG/DL 08/14/2024 11:26 AM CDT [facility] ANION GAP 3.5 2 - 10 MMOL/L 08/14/2024 11:26 AM CDT [facility] BUN CREATININE RATIO 16.9 6 - 26 08/14/2024 11:26 AM CDT [facility] GFR ESTIMATE 43(L) >90 ML/MIN/1.7 3 M2 08/14/2024 11:26 AM CDT [facility] Comment: NOTE: eGFR is [...] Charis Harden PA-C LABORATORY Final Resul t [facility] [address] [place] [address], * (ABNORMAL) POCT glucose (08/05/2024 11:25 AM CDT) Only the most recent of77 resultswithin the time period is included. [facility] Signature GLUCOSE POC 125(H) 70 - 99 mg/dL 08/05/2024 11:29 AM CDT [facility] 08/05/2024 11:2 5 AM CDT Charity Leonela Collier PRESSER HAND POCT ORDERABLES - DEVICE Pam carrasquillo Result [facility] [address] [place] [address], [place] [phone] * (ABNORMAL) CBC W/DIFF AUTOMATED (08/05/2024 4:02 AM CDT) Only the most recent of13 resultswithin the time period is included. WBC 6.69 4.5 - 11.0 x10'3/uL 08/05/2024 4:16 AM CDT [facility] RBC 3.55(L) 4.70 - 6.10 x10'6/uL 08/05/2024 4:16 AM CDT [facility] HGB 10.0(L) 14.0 - 18.0 G/DL 08/05/2024 4:16 AM CDT [facility] HCT 30.1(L) 43.0 - 54.0 % 08/05/2024 4:16 AM CDT [facility] MCV 84.8 80.0 - 94.0 FL 08/05/2024 4:16 AM CDT [facility] MCH 28.2 27.0 - 31.0 PG 08/05/2024 4:16 AM CDT [facility] MCHC 33.2 32.0 - 36.0 G/DL 08/05/2024 4:16 AM CDT [facility] RDW 13.9 11.5 - 14.5 % 08/05/2024 4:16 AM CDT [facility] PLT 369 130 - 400 x10'3/uL 08/05/2024 4:16 AM CDT [facility] MPV 9.7 9.3 - 12.2 FL 08/05/2024 4:16 AM CDT [facility] DIFFERENTIAL TYPE AUTOMATED DIFFERENTIAL 08/05/2024 4:16 AM CDT [facility] NEUTROPHILS % 65.2 % 08/05/2024 4:16 AM CDT [facility] LYMPHOCYTES % 19.4 % 08/05/2024 4:16 AM CDT [facility] MONOCYTES % 8.8 % 08/05/2024 4:16 AM CDT [facility] EOSINOPHILS 5.8 % 08/05/2024 4:16 AM CDT [facility] BASOPHILS 0.7 % 08/05/2024 4:16 AM CDT [facility] IMMATURE GRANS % 0.1 % 08/06/19 4:16 AM CDT [facility] ABS. NEUTROPHILS 4.35 1.80 - 7.70 x10'3/uL 08/05/2024 4:16 AM CDT [facility] ABS. LYMPHOCYTES 1.30 1.00 - 4.80 x10'3/uL 08/05/2024 4:16 AM CDT [facility] ABS. MONOCYTES 0.59 0.30 - 0.82 x10'3/uL 08/05/2024 4:16 AM CDT [facility] ABS. EOSINOPHILS 0.39 0.04 - 0.54 x10'3/uL 08/05/2024 4:16 AM CDT [facility] ABS. BASOPHILS 0.05 0.01 - 0.08 x10'3/uL 08/05/2024 4:16 AM CDT [facility] ABS. IMMATURE GRANULOCYTES 0.01 0.00 - 0.49 x10'3/uL 08/05/2024 4:16 AM CDT [facility] 08/05/2024 4:02 AM CDT Charity Collier PRESSER HAND LABORATORY Final Result Performing Organization Address City/[facility]/ZIP Co de Phone Number [facility] [address] [place] [address], [place] [phone] * (ABNORMAL) TROPONIN, QUANT (08/05/2024 4:02 AM CDT) Only the most recent of8 resultswithin the time period is included. TROPONIN I HIGH SENSITIVITY 185(HH) <79 ng/L 08/05/2024 5:08 AM CDT [facility] Comment: NOT CALLED PER CRITICAL VALUE POLICY HIGH DOSES OF BIOTIN, TROPONIN-SPECIFIC AUTOANTIBODIES, AND ANTIBODY THERAPY CONTAINING HAMA MAY INTERFERE WITH THIS TEST RESULT. CORRELATION TO CLINICAL HISTORY AND PRESENTATION RECOMMENDED. 08/05/2024 4:02 AM CDT us Dariela Cobos PRESSER HAND LABORATORY Final Result Performing Organization Address [facility] Co de Phone Number [facility] [address] [place] [address], [place] [phone] * MAGNESIUM (08/05/2024 4:02 AM CDT) Only the most recent of8 resultswithin the time period is included. MAGNESIUM 2.2 1.8 - 2.4 MG/DL 08/05/2024 4:33 AM CDT [facility] 08/05/2024 4:02 AM CDT us Charity Collier PRESSER HAND LABORATORY Final Result Performing Organization Address City/[facility]/ZIP Co de Phone Number [facility] [address] [place] [address], * USE ECHO 2D FU LTD W CON (08/04/2024 4:24 PM CDT) Anatomical Region Laterality Modality NA Echocardiogram 08/04/2024 3:37 PM CDT Narrative 08/05/2024 7:41 AM CDT Echocardiography Report Pat.Name: MEDHAT ALONSO Pat.ID: [id number] .Date: 08/04/2024 Refer.MD: [id number] NATASHA Olmedo EWDPROV EWDPROV Exam Time: 3:37:00 PM Study Type:ECHO WITH CARDIAC DOPPLER COMP Height: 66.1 in Weight: 153 lb BSA: 1.79 m2 Age: 11 1965,58Y Sex: M BP: 129/82 HR: 78 bpm Sonogrphr: Flor Downey RD, [facility] Pat. Stat.:Inpatient Room: [facility] Reason for Study:Coronary artery disease, Coronary [...] Left Atrium LA VOLBP 39.1 ml [place] (Sys 5.81 cm [place] (Sys 6.21 cm Ratios IVS Ventricular [...] cm2 Cardiovascular 2.28 cm Right Atrium [place] (Sys 5.35 cm RA Single Plane Right Atrium Ar 14 cm2 Volume (Systole 17.3 ml/m2 Right Ventricle [place] ([place] 7.23 cm RVIDd 2.72 cm [...] % Left Atrial Eje 21.5 % [place] (End 5.2 cm [place] (End 5.5 cm Left Atrial ED 31.9 ml/m2 Left Atrial ED 28.5 ml/m2 [place] (End 6.6 cm [place] (End 5.6 cm Left Atrial ES 45.3 ml/m2 Left Atrial ES 36.3 ml/m2 Global Longitud 19.8 % Global Longitud 5 % HR 76 bpm HR 75 bpm SV 13.4 ml/m2 SV 7.8 ml/m2 LA Biplane CO 1.7 l/min Left Atrial ES 43.9 ml/m2 Left Atrial Eje 29.2 % Global Longitud 12.4 % [place] (End 5.5 cm HR 76 bpm Left Atrial ED 31.1 ml/m2 SV 12.8 ml/m2 [place] (End 6.6 cm Left Ventricle Left [...] 44 % Global Longitud 25.3 % [place] (End 4 cm HR 75 bpm Volume (Diastol 17.6 ml/m2 SV 13.9 ml/m2 [place] (End 4.9 cm Right Ventricle Right Ventricul 10.6 square centimeters per square meter Global Longitud 3.4 % [place] (End 6.8 cm Global Longitud -0.2 % [place] (End 7.1 cm Global Longitud 7.6 % Right Ventricul 10.2 square centimeters per square meter HR 75 bpm Right Ventricul 4.1 % <Electronic Signature> 08/05/2024 07:41 AM Patrick Reyes M.D. Procedure Note Patrick Reyes MD - 08/05/2024 Echocardiography Report Pat.Name: MEDHAT ALONSO Pat.ID: [id number] .Date: 08/04/2024 : [id number] NATASHA Olmedo EWDPROV EWDPROV Exam Time: 3:37:00 PM Study Type:ECHO WITH CARDIAC DOPPLER COMP Height: 66.1 in Weight: 153 lb BSA: 1.79 m2 Age: 11 1965,58Y Sex: M BP: 129/82 HR: 78 bpm Sonogrphr: Flor Downey RDCS, [facility] Pat. Stat.:Inpatient Room: 407 Reason for Study:Coronary [...] Left Atrium LA VOLBP 39.1 ml [place] (Sys 5.81 cm [place] (Sys 6.21 cm Ratios IVS Ventricular [...] cm2 Cardiovascular 2.28 cm Right Atrium [place] (Sys 5.35 cm RA Single Plane Right Atrium Ar 14 cm2 Volume (Systole 17.3 ml/m2 Right Ventricle [place] ([place] 7.23 cm RVIDd 2.72 cm [...] % Left Atrial Eje 21.5 % [place] (End 5.2 cm [place] (End 5.5 cm Left Atrial ED 31.9 ml/m2 Left Atrial ED 28.5 ml/m2 [place] (End 6.6 cm [place] (End 5.6 cm Left Atrial ES 45.3 ml/m2 Left Atrial ES 36.3 ml/m2 Global Longitud 19.8 % Global Longitud 5 % HR 76 bpm HR 75 bpm SV 13.4 ml/m2 SV 7.8 ml/m2 LA Biplane CO 1.7 l/min Left Atrial ES 43.9 ml/m2 Left Atrial Eje 29.2 % Global Longitud 12.4 % [place] (End 5.5 cm HR 76 bpm Left Atrial ED 31.1 ml/m2 SV 12.8 ml/m2 [place] (End 6.6 cm Left Ventricle Left [...] 44 % Global Longitud 25.3 % [place] (End 4 cm HR 75 bpm Volume (Diastol 17.6 ml/m2 SV 13.9 ml/m2 [place] (End 4.9 cm Right Ventricle Right Ventricul 10.6 square centimeters per square meter Global Longitud 3.4 % [place] (End 6.8 cm Global Longitud -0.2 % [place] (End 7.1 cm Global Longitud 7.6 [...] included. 08/04/2024 10:3 3 AM CDT Narrative [facility] ([facility] RAD - 08/05/2024 9:[address] [facility] Test Date: 2024-08-04 Pat Name: MEDHAT ALONSO Department: 40 Room: [id number] Gender: Male Full Decator Operator: : 1965 Requested By: PATRICK REYES Order Number: [id number] Reading MD: Patrick Reyes Measurements Intervals [place] Rate: 78 P: 7 MD: 155 QRS: 7 QRSD: 97 T: 193 QT: 409 QTc: 468 Interpretive Statements SINUS RHYTHM ST DEVIATION AND MODERATE T-WAVE ABNORMALITY, CONSIDER ANTEROLATERAL ISCHEMIA [-0.1+ mV T WAVE IN V3-V6] Procedure Note Patrick Reyes MD - 08/05/2024 [facility] Test Date: 2024-08-04 Pat Name: MEDHAT FREEMANDOUGIE Department: 40 Room: L40156 Gender: Male Full Decator Operator: : 1965 Requested By: PATRICK REYES Order Number: [id number] Reading MD: Patrick Reyes Measurements Intervals [place] Rate: 78 P: 7 MD: 155 QRS: 7 QRSD: 97 T: 193 QT: 409 QTc: 468 Interpretive Statements SINUS RHYTHM ST DEVIATION AND MODERATE T-WAVE ABNORMALITY, CONSIDER ANTEROLATERALISCHEMIA [-0.1+ mV T WAVE IN V3-V6] us Patrick Reyes MD ECG ORDERABLES Final Resul t [facility] ([facility]) RAD * XR CHEST PORTABLE (08/04/2024 5:46 [...] 7:29 AM Narrative 08/04/2024 7:31 AM CDT [place] [address] Examination: XR CHEST PORTABLE Exam time: 08/04/2024 5:46 AM Clinical history: Pleural effusion evaluation Comparison: 07/21/2024 Technique: One frontal view of the chest. Findings: No enlargement of pleural effusion. Trace haziness at the left base may indicate a small persistent effusion and atelectasis. No new findings. Stable heart, mediastinum, and bony structures. Procedure Note Rico Dorado MD - 08/04/[address] [address] Examination: XR CHEST PORTABLE Exam time: 08/04/2024 [...] 10.4(H) <5.7 % 08/04/2024 9:35 AM CDT [facility] Comment: ADA GUIDELINES 2010 5.7 TO 6.4% INCREASED RISK OF DIABETES > OR = 6.5% CONSISTENT WITH DIABETES ESTIMATED AVG GLUCOSE 252 mg/dL 08/04/2024 9:35 AM CDT [facility] 08/04/2024 5:33 AM CDT Jaz George MD LABORATORY Final Resu lt [facility] [address] [place] [id number], [place] [phone] * (ABNORMAL) LIPID PANEL (08/04/2024 5:33 AM CDT) Only the most recent of3 resultswithin the time period is included. CHOLESTEROL 83 <200 MG/DL 08/04/2024 7:25 AM CDT [facility] TRIGLYCERIDES 205(H) <150 MG/DL 08/04/2024 7:25 AM CDT [facility] HDL 28(L) >40.0 MG/DL 08/04/2024 7:25 AM CDT [facility] LDL (CALCULATED) 14 <100 MG/DL 08/04/2024 7:25 AM CDT [facility] Comment:CALCULATED USING THE FRIEDEWALD EQUATION NON HDL CHOLESTEROL 55 <130 MG/DL 08/04/2024 7:25 AM CDT [facility] CHOL/HDL RATIO 3.0 0.0 - 4.5 08/04/2024 7:25 AM CDT [facility] VLDL CALCULATION 41 5 - 55 MG/DL 08/04/2024 7:25 AM CDT [facility] LIPID INTERPRETATION 08/04/2024 7:25 AM CDT [facility] Comment: [facility] REPORT RECOMMENDATIONS: ADULT CHILD LOW RISK: CHOLESTEROL <200 <170 TRIGLYCERIDE <150 --- HDL >=60 --- LDL <100 <110 BORDERLINE: CHOLESTEROL 200-239 170-199 TRIGLYCERIDE 150-199 --- HDL 40-59 --- LDL 100-159 110-129 HIGH RISK: CHOLESTEROL >=240 >=200 TRIGLYCERIDE >=200 --- HDL <40 --- LDL >=160 >=130 08/04/2024 5:33 AM CDT Jaz George MD LABORATORY Final Resu lt [facility] [address] [place] [address], [place] [phone] * PROCALCITONIN (PCT) (08/04/2024 5:30 AM CDT) PROCALCITONIN <0.05 0.00 - 0.49 NG/ML 08/04/2024 9:53 AM CDT [facility] 08/04/2024 5:30 AM CDT Charity Collier NP LABORATORY Final Result [facility] [address] [place] [address], [place] [phone] * (ABNORMAL) COMPREHENSIVE METABOLIC PANEL (07/21/2024 4:45 AM CDT) Only the most recent of8 resultswithin the time period is included. [facility] GLUCOSE 123(H) 70 - 99 MG/DL 07/21/2024 5:29 AM CDT [facility] BUN 41(H) 7 - 18 MG/DL 07/21/2024 5:29 AM CDT [facility] CREATININE S/P/B 1.83(H) 0.7 - 1.3 MG/DL 07/21/2024 5:29 AM CDT [facility] SODIUM S/P/B 137 136 - 145 MMOL/L 07/21/2024 5:29 AM CDT [facility] POTASSIUM S/P/B 3.9 3.5 - 5.1 MMOL/L 07/21/2024 5:29 AM CDT [facility] CHLORIDE S/P/B 107 97 - 115 MMOL/L 07/21/2024 5:29 AM CDT [facility] CO2 26.2 21 - 32 MMOL/L 07/21/2024 5:29 AM CDT [facility] CALCIUM S/P/B 8.1(L) 8.5 - 10.1 MG/DL 07/21/2024 5:29 AM CDT [facility] BILIRUBIN TOTAL S/P/B 0.6 0.2 - 1.2 MG/DL 07/21/2024 5:29 AM CDT [facility] Comment: THIS ASSAY IS NOT RECOMMENDED FOR PATIENTS UNDERGOING TREATMENT WITH ELTROMBOPAG DUE TO THE POTENTIAL FOR FALSELY ELEVATED RESULTS. TOTAL PROTEIN S/P/B 5.6(L) 6.4 - 8.2 G/DL 07/21/2024 5:29 AM CDT [facility] ALBUMIN S/P/B 2.2(L) 3.4 - 5.0 G/DL 07/21/2024 5:29 AM CDT [facility] AST 23 15 - 37 U/L 07/21/2024 5:29 AM CDT [facility] ALT 22 16 - 60 U/L 07/21/2024 5:29 AM CDT [facility] ALKALINE PHOSPHATASE S/P/B 96 50 - 136 U/L 07/21/2024 5:29 AM CDT [facility] ANION GAP 3.8 2 - 10 MMOL/L 07/21/2024 5:29 AM CDT [facility] BUN CREATININE RATIO 22.4 6 - 26 07/21/2024 5:29 AM CDT [facility] A/G RATIO 0.6(L) 1.0 - 2.0 RATIO 07/21/2024 5:29 AM T [facility] GFR ESTIMATE 42(L) >90 ML/MIN/1.7 3 M2 07/21/2024 5:29 AM CDT [facility] Comment: NOTE: eGFR is [...] us Bari Bernabe MD LABORATORY Final Result [facility] [address] [place] [address], [place] [phone] * POTASSIUM, SERUM (07/19/2024 4:11 PM CDT) POTASSIUM S/P/B 3.9 3.5 - 5.1 MMOL/L 07/19/2024 4:28 PM CDT [facility] 07/19/2024 4:11 PM CDT Bari Bernabe MD LABORATORY Final Result [facility] [address] [place] [address], * (ABNORMAL) CG8 Plus-ISTAT (07/16/2024 3:47 AM CDT) Only the most recent of10 resultswithin the time period is included. [facility] TECH CODE 526,[id number] 07/16/2024 3:51 AM CDT [facility] PH ARTERIAL 7.33(L) 7.35 - 7.45 07/16/2024 3:51 AM CDT [facility] PCO2 38.1 35.0 - 45.0 MM HG 07/16/2024 3:51 AM CDT [facility] PO2 38(LL) 80.0 - 100.0 MM HG 07/16/2024 3:51 AM CDT [facility] Comment:POINT OF CARE TESTIN G, CRITICAL RESULT GIVEN TO RESPONDER. BASE DEFICIT 6.0 MEQ/L 07/16/2024 3:51 AM CDT [facility] BICARB ARTERIAL 20.0(L) 22.0 - 26.0 MEQ/L 07/16/2024 3:51 AM CDT [facility] TOTAL CO2 ARTERIAL 21 MEQ/L 07/16/2024 3:51 AM CDT [facility] O2 Saturation 68.0(LL) 90.0 - 100.0 % 07/16/2024 3:51 AM CDT [facility] Comment:POINT OF CARE TESTIN G, CRITICAL RESULT GIVEN TO RESPONDER. SODIUM BLOOD GAS 139 135.0 - 145.0 MMOL/L 07/16/2024 3:51 AM CDT [facility] POTASSIUM BLOOD GAS 4.3 3.5 - 4.5 MMOL/L 07/16/2024 3:51 AM CDT [facility] CALCIUM BLOOD GAS 1.2 1.1 - 1.3 MMOL/L 07/16/2024 3:51 AM CDT [facility] GLUCOSE POC 103 70 - 110 MG/DL 07/16/2024 3:51 AM CDT [facility] HEMATOCRIT BLOOD GAS 25.0(L) 43.0 - 54.0 % 07/16/2024 3:51 AM CDT [facility] HEMOGLOBIN BLOOD GAS 8.5(L) 14.0 - 18.0 G/DL 07/16/2024 3:51 AM CDT [facility] 07/16/2024 3:47 AM CDT Charity Collier NP POINT OF CARE TEST ORDERABLES Final Result [facility] [address] [place] [address], [place] [phone] * (ABNORMAL) CBC, AUTO, NO DIFF (07/16/2024 3:45 AM CDT) WBC 13.15(H) 4.5 - 11.0 x10'3/uL 07/16/2024 4:31 AM CDT [facility] RBC 3.22(L) 4.70 - 6.10 x10'6/uL 07/16/2024 4:31 AM CDT [facility] HGB 9.3(L) 14.0 - 18.0 G/DL 07/16/2024 4:31 AM CDT [facility] HCT 27.9(L) 43.0 - 54.0 % 07/16/2024 4:31 AM CDT [facility] MCV 86.6 80.0 - 94.0 FL 07/16/2024 4:31 AM CDT [facility] MCH 28.9 27.0 - 31.0 PG 07/16/2024 4:31 AM CDT [facility] MCHC 33.3 32.0 - 36.0 G/DL 07/16/2024 4:31 AM CDT [facility] RDW 13.0 11.5 - 14.5 % 07/16/2024 4:31 AM CDT [facility] PLT 160 130 - 400 x10'3/uL 07/16/2024 4:31 AM CDT [facility] MPV 11.0 9.3 - 12.2 FL 07/16/2024 4:31 AM CDT [facility] 07/16/2024 3:45 AM CDT us Catalino Louie MD LABORATORY Final Result [facility] [address] [place] [address], [place] [phone] * (ABNORMAL) HEMOGLOBIN AND HEMATOCRIT (07/15/2024 3:30 PM CDT) [facility] Signature HGB 10.9(L) 14.0 - 18.0 G/DL 07/15/2024 3:59 PM CDT [facility] HCT 31.7(L) 43.0 - 54.0 % 07/15/2024 3:59 PM CDT [facility] 07/15/2024 3:30 PM CDT us Catalino Louie MD LABORATORY Final Result [facility] [address] [place] [address], [place] [phone] * PLATELET COUNT, AUTO (07/15/2024 3:30 PM CDT) PLT 169 130 - 400 x10'3/uL 07/15/2024 3:59 PM CDT [facility] MPV 10.5 9.3 - 12.2 FL 07/15/2024 3:59 PM CDT [facility] 07/15/2024 3:30 PM CDT us Catalino Louie MD LABORATORY Final Result Performing Organization Address City/[facility]/ZIP Co de Phone Number [facility] [address] [place] [address], [place] [phone] * LACTIC ACID (07/15/2024 3:30 PM CDT) LACTIC ACID VENOUS 1.6 0.4 - 2.0 MMOL/L 07/15/2024 4:04 PM CDT [facility] 07/15/2024 3:30 PM CDT us Catalino Louie MD LABORATORY Final Result [facility] [address] [place] [address], [place] [phone] * ELECTROLYTE PANEL (07/15/2024 3:30 PM CDT) SODIUM S/P/B 139 136 - 145 MMOL/L 07/15/2024 4:00 PM CDT [facility] POTASSIUM S/P/B 3.9 3.5 - 5.1 MMOL/L 07/15/2024 4:00 PM CDT [facility] CHLORIDE S/P/B 114 97 - 115 MMOL/L 07/15/2024 4:00 PM CDT [facility] CO2 21.6 21 - 32 MMOL/L 07/15/2024 4:00 PM CDT [facility] ANION GAP 3.4 2 - 10 MMOL/L 07/15/2024 4:00 PM CDT [facility] 07/15/2024 3:30 PM CDT us Catalino Louie MD LABORATORY Final Result Performing Organization Address City/[facility]/ZIP Co de Phone Number [facility] [address] [place] [address], [place] [phone] * (ABNORMAL) GLUCOSE BLOOD, QNT (07/15/2024 3:30 PM CDT) [facility] GLUCOSE 139(H) 70 - 99 MG/DL 07/15/2024 4:00 PM CDT [facility] 07/15/2024 3:30 PM CDT us Catalino Louie MD LABORATORY Final Result Performing Organization Address City/State/[facility] Co de Phone Number [facility] [address] [place] [address], [place] [phone] * USE TRANSESOPHAGEAL ECHO (07/15/2024 3:20 PM CDT) Anatomical Region Laterality Modality Cardiac Echocardiogram 07/15/2024 6:47 AM CDT Narrative 07/16/2024 11:40 AM CDT ALEJANDRO Report Pat.Name: MEDHAT ALONSO.ID: [id number] St.Date: 07/15/2024 Exam Time: 6:47:00 AM Study [...] - 07/16/2024 ALEJANDRO Report Pat.Name: MEDHAT ALONSO.ID: [id number] .Date: 07/15/2024 Exam Time: 6:47:00 AM Study [...] 7.35 - 7.45 07/15/2024 3:39 PM CDT [facility] PCO2 39.0 35.0 - 45.0 MMHG 07/15/2024 3:39 PM CDT [facility] PO2 80.0(L) 83.0 - 108.0 MMHG 07/15/2024 3:39 PM CDT [facility] TOTAL CO2 ARTERIAL 23.2 19.0 - 24.0 MMOL/L 07/15/2024 3:39 PM CDT [facility] BASE DEFICIT 3.1(H) 0.0 - 3.0 MMOL/L 07/15/2024 3:39 PM T [facility] O2 SATURATION 95 94.0 - 98.0 % 07/15/2024 3:39 PM CDT [facility] BICARB ARTERIAL 22.0 21.0 - 28.0 MMOL/L 07/15/2024 3:39 PM T [facility] O2 ADMIN ARTERIAL 80% 07/15/2024 3:36 PM T [facility] DRAW SITE ARTERIAL ARTERIAL LINE DRAW 07/15/2024 3:36 PM T [facility] 07/15/2024 3:11 PM CDT us Catalino Louie MD LABORATORY Final Result Performing Organization Address City/[facility]/ZIP Co de Phone Number [facility] [address] [place] [address], [place] [phone] * (ABNORMAL) POCT activated clotting time (07/15/2024 1:41 PM CDT) Only the most recent of8 resultswithin the time period is included. ACTIVATED CLOTTING TIME (ACT HMT OR LMT) 108(L) 113 - 149 SEC 07/15/2024 4:29 PM CDT [facility] 07/15/2024 1:41 PM CDT us Catalino Louie MD POCT ORDERABLES - DEVICE Fin al Result Performing Organization Address [facility] Co de Phone Number [facility] [address] [place] [address], [place] [phone] * Introducer (07/15/2024 7:50 AM CDT) Narrative Eusebia Sánchez MD - 07/15/2024 7:50 AM CDT Eusebia Sánchez MD 07/15/2024 8:22 AM [facility]/Introducer Placement: Date/Time: 07/15/2024 7:50 AM Patient Location: OR Placed Outside of This Facility?: No Procedure: Introducer with [facility] Hannah Technique Used: Maximum Sterile Technique used, hand hygiene, Chlorhexadine skin prep, blood return present and guidewires used accounted for Location: Internal jugular Size: 9.0 Yoruba Orientation: Right Insertion Attempts: 1 Therapy Type: [...] - 0.70 IU/ML 07/15/2024 3:55 AM CDT [facility] Comment: UFH Therapeutic Anti Xa Ranges: Medical Therapeutic Range: 0.30 - 0.70 IU/mL Cardiac Therapeutic Range: 0.30 - 0.50 IU/mL Neuro Therapeutic Range: 0.20 - 0.40 IU/mL 07/15/2024 3:00 AM CDT Charity Collier NP LABORATORY Final Result Performing Organization Address City/[facility]/ZIP Co de Phone Number [facility] [address] [place] [address], * (ABNORMAL) THROMBOPLASTIN TIME PARTIAL,PTT (07/15/2024 3:00 AM CDT) PTT 72.9(H) 25.1 - 36.5 SEC 07/15/2024 3:55 AM CDT [facility] 07/15/2024 3:00 AM CDT Catalino Louie MD LABORATORY Final Result Performing Organization Address [facility] Co de Phone Number [facility] [address] [place] [address], * PROTIME/INR, VENOUS (07/15/2024 3:00 AM CDT) Only the most recent of4 resultswithin the time period is included. PROTIME 10.3 10.2 - 12.9 SEC 07/15/2024 3:55 AM CDT [facility] INR 0.9 07/15/2024 3:55 AM CDT [facility] Comment: Recommended INR Therapeutic Goals: 2.0-3.0 Routine Therapy 2.5-3.5 Mechanical Prosthetic Valves (High Risk) 07/15/2024 3:00 AM CDT Freida Sandra MD LABORATORY Final Re sult Performing Organization Address City/[facility]/ZIP Co de Phone Number [facility] [address] [place] [address], * MRSA SCREENING (07/14/2024 2:10 PM CDT) SPEC DESCRIPTION NASAL 07/14/2024 2:13 PM CDT [facility] SPECIAL REQUESTS NO SPECIAL REQUEST 07/14/2024 2:13 PM CDT [facility] CULTURE RESULT NO METHICILLIN RESISTANT STAPHYLOCOCCUS AUREUS ISOLATED 07/15/2024 11:28 AM CDT [facility] SPECIMEN FROM INTERNAL NOSE / Unknown 07/14/2024 2:10 PM CDT 07/14/2024 2:17 PM CDT Catalino Louie MD MICROBIOLOGY - GENERAL ORDER ZAINAB Final Result [facility] [address] [place] [address], * TYPE & SCREEN - Verify expiration date is current (07/14/2024 1:03 PM CDT) UNITS ORDERED 4 07/14/2024 2:41 PM CDT [facility] ABO/RH O POSITIVE 07/14/2024 2:41 PM CDT [facility] ANTIBODY SCREEN NEGATIVE 2:41 PM CDT [facility] SAMPLE EXPIRATION 07/17/2024,23 59 07/14/2024 2:41 PM CDT [facility] BLOOD UNIT NUMBER [id number] 07/15/2024 3:12 AM CDT [facility] PRODUCT: PC LEUKOPOOR 07/15/2024 3:12 AM CDT [facility] UNIT DIVISION 00 07/15/2024 3:12 AM CDT [facility] BLOOD UNIT STATUS UNIT RELEASED 07/18/2024 7:09 AM CDT [facility] TRANSFUSION STATUS OK TO TRANSFUSE 07/15/2024 3:12 AM CDT [facility] CROSSMATCH COMPATIBLE-EX M 07/15/2024 3:12 AM CDT [facility] BLOOD UNIT NUMBER [id number] 07/15/2024 3:12 AM CDT [facility] PRODUCT: PC LEUKOPOOR 07/15/2024 3:12 AM CDT [facility] UNIT DIVISION 00 07/15/2024 3:12 AM CDT [facility] BLOOD UNIT STATUS UNIT RELEASED 07/15/2024 3:58 PM CDT [facility] TRANSFUSION STATUS OK TO TRANSFUSE 07/15/2024 3:12 AM CDT [facility] CROSSMATCH COMPATIBLE-EX M 07/15/2024 3:12 AM CDT [facility] BLOOD UNIT NUMBER [id number] 07/15/2024 3:12 AM CDT [facility] PRODUCT: PC LEUKOPOOR 07/15/2024 3:12 AM CDT [facility] UNIT DIVISION 07/15/2024 3:12 AM CDT [facility] BLOOD UNIT STATUS UNIT RELEASED 07/15/2024 3:51 PM CDT [facility] TRANSFUSION STATUS OK TO TRANSFUSE 07/15/2024 3:12 AM CDT [facility] CROSSMATCH COMPATIBLE-EX M 07/15/2024 3:12 AM CDT [facility] BLOOD UNIT NUMBER [id number] 07/15/2024 3:12 AM CDT [facility] PRODUCT: PC LEUKOPOOR 07/15/2024 3:12 AM CDT [facility] UNIT DIVISION 07/15/2024 3:12 AM CDT [facility] BLOOD UNIT STATUS UNIT RELEASED 07/16/2024 7:25 AM CDT [facility] TRANSFUSION STATUS OK TO TRANSFUSE 07/15/2024 3:12 AM CDT [facility] CROSSMATCH COMPATIBLE-EX M 07/15/2024 3:12 AM CDT [facility] 07/14/2024 1:03 PM CDT Catalino Louie MD BLOOD BANK TEST ORDERABLES F inal Result [facility] [address] [place] [address], [place] [phone] * USE ECHOCARDIOGRAM W CON (07/14/2024 9:19 AM CDT) Anatomical Region Laterality Modality NA Echocardiogram 07/14/2024 8:39 AM CDT Narrative 07/14/2024 10:14 AM CDT Echocardiography Report Pat.Name: MISSY MEDHAT Aaron Maldonado.ID: [id number] .Date: 07/14/2024 : [id number] OMAR JOSEPH EWDPROV EWDPROV Exam Time: 8:39:00 AM Study Type:ECHO WITH CARDIAC DOPPLER COMP Height: 66 in Weight: 159 lb BSA: 1.81 m2 Age: 11 1965,58Y Sex: M BP: 144/82 HR: 61 bpm Sonogrphr: Taylor Gates Pat. Stat.:Inpatient Room: [facility] Reason for Study:Coronary artery disease History [...] 27 mm Right Ventricle 19 mm [place] 76 mm MMODE TA Tricuspid Annul 21.2 mm <Electronic Signature> 07/14/2024 10:14 AM Patrick Reyes M.D. Procedure Note Patrick Reyes MD - 07/14/2024 Echocardiography Report Pat.Name: MEDHAT ALONSO Pat.ID: [id number] .Date: 07/14/2024 Refer.: [id number] OMAR JOSEPH EWDPROV EWDPROV Exam Time: 8:39:00 AM Study Type:ECHO WITH CARDIAC DOPPLER COMP Height: 66 in Weight: 159 lb BSA: 1.81 m2 Age: 11 1965,58Y Sex: M BP: 144/82 HR: 61 bpm Sonogrphr: Taylor Gates Pat. Stat.:Inpatient Room: [facility] Reason for Study:Coronary artery disease History [...] 27 mm Right Ventricle 19 mm [place] 76 mm MMODE TA Tricuspid Annul 21.2 mm <Electronic Signature> 07/14/2024 10:14 AM Patrick Reyes M.D. us Freida Sandra MD ECHO Final Re sult * USV CAROTID DUPLEX TODD (07/13/2024 11:32 AM CDT) Anatomical Region Laterality Modality Neck Vascular Ultraso und 07/13/2024 10:2 9 AM CDT Narrative 07/14/2024 4:43 PM CDT CAROTID ARTERY DUPLEX [facility] Pat.Name: Medhat Alonso Pat.ID: [id number] .Date: 07/13/2024 Exam Time: 10:29:00 AM Study Type:ARMANDO VS Duplex Carotid BIDOB Age: 11 1965,58Y Sex: M Sonogrphr: Sher Nieto RVT Pat. Stat.:Inpatient Room: [facility] History / Clinical:preop CABG Procedures: Robin [...] IM[facility]ASC[facility] LAB Pat.Name: Medhat Alonso Pat.ID: [id number] .Date: 07/13/2024 Exam Time: 10:29:00 AM Study Type:ARMANDO VS Duplex Carotid BIDOB Age: 11 1965,58Y Sex: M Sonogrphr: Sher Nieto RVT Pat. Stat.:Inpatient Room: [facility] History / Clinical:preop CABG Procedures: Robin [...] PM Amaris Bustamante M.D. Catalino Louie MD [facility] Final Result * TSH W/REFLEX (07/13/2024 8:19 AM CDT) TSH 1.970 0.358 - 3.74 uIU/ML 07/13/2024 9:07 AM CDT [facility] Comment: HIGH DOSES OF BIOTIN MAY INTERFERE WITH THIS TEST RESULT. CORRELATION TO CLINICAL HISTORY AND PRESENTATION RECOMMENDED. 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
[2024-09-12 08:24] LABS: Alanine Aminotransferase 16 U/L (6-50); Albumin Level 3.6 g/dL (3.5-5.1); Alkaline Phosphatase 102 U/L (38-126); Anion Gap 7 mmol/L (4-12); Aspartate Amino Transferase 21 U/L (17-59); Bilirubin,Total 0.5 mg/dL (0.2-1.3); Blood Urea Nitrogen 21 mg/dL (9-20); Calcium 9.1 mg/dL (8.4-10.2); Carbon Dioxide 25 mmol/L (22-30); Chloride 105 mmol/L (98-107); Estimated CRCL calculation 44 ml/min; Estimated Glomerular Filt Rate 49; Glucose 306 mg/dL (65-110); Lipase 428 U/L (23-300); Osmolality Calculated 299 mOsm/kg (285-295); Sodium 137 mmol/L (137-145); Total Protein 6.2 g/dL (6.3-8.2)
[2024-09-12 08:26] LABS: INR 0.9; Partial Thromboplastin Time 26.3 Sec (23.9-30.70); Prothrombin Time 10.2 Seconds (9.50-12.1)
[2024-09-12 08:30] LABS: Potassium 4.2 mmol/L (3.4-5.0)
[2024-09-12 08:35] LABS: NT Pro B Type Natriuretic Pept 2910 pg/mL (19.9-100)
[2024-09-12 08:38] LABS: Troponin I 0.068 ng/mL (0.000-0.034)
--- NOTE | 2024-09-12 10:00 | PC.NURSE ---
ERP is aware of patient's blood pressure increasing.
[2024-09-12 10:35] LABS: Troponin I 0.061 ng/mL (0.000-0.034)
== END 2024-09-12 11:42 | disposition home or self-care (01) ==
PROVIDERS: Emergency Provider Emergency Medicine; PCP Internal Medicine
DX: R07.89 Other chest pain (principal); E11.22 Type 2 diabetes mellitus with diabetic chronic kidney disease; I12.9 Hypertensive chronic kidney disease with stage 1 through stage 4 chronic kidney disease, or unspecified chronic kidney disease; N18.9 Chronic kidney disease, unspecified; R79.89 Other specified abnormal findings of blood chemistry; I25.810 Atherosclerosis of coronary artery bypass graft(s) without angina pectoris; I25.2 Old myocardial infarction; Z95.1 Presence of aortocoronary bypass graft; Z87.891 Personal history of nicotine dependence
CPT/HCPCS: 36415; 71046; 71250; 74176; 80053; 83690; 83880; 84484; 85025; 85610; 85730; 93005; 99284

== ENCOUNTER 2024-11-19 13:56 | Emergency (ER) | payer MEDICARE, MEDICAID, SELFPAY ==
[2024-11-19] VITALS (30 sets, daily range): BP systolic 160–207; BP diastolic 90–107; PULSE 79–88; RESP 12–23; TEMP 36.6; O2SAT 95–99
--- NOTE | ~2024-11-19 | XR_ITS ---
EXAMINATION: XR chest 1V portable COMPARISON: No comparisons available. HISTORY: cp FINDINGS: The lungs are clear, no effusion. No pneumothorax. Heart is normal size. Mediastinal and hilar contours are within normal limits. Post sternotomy. Miscellaneous: None Impression: No acute cardiopulmonary abnormality. Reviewed, dictated and finalized at location P. Impression: No acute cardiopulmonary abnormality.
--- NOTE | ~2024-11-19 | CT_ITS ---
EXAMINATION: CT abdomen pelvis wo con DATE: 11/19/2024 14:57 INDICATION: Abdominal pain. Elevated lipase. TECHNIQUE: Computed tomography (CT) of the abdomen and pelvis was performed without intravenous contrast. Automated exposure control and iterative reconstruction technique were employed. The dose-length product was 353.73 mGy-cm. COMPARISON: CT abdomen and pelvis 09/12/2024 FINDINGS: The visualized portions of the lung bases demonstrate mild atelectasis. No pleural effusion. Cardiomegaly is noted. There are coronary artery calcifications. No pericardial effusion. There are changes of coronary artery bypass grafting. There is a small sliding hiatal hernia. The liver, gallb ladder, spleen, pancreas, adrenal glands, and kidneys are normal. There is no urolithiasis. The bladder is distended. The prostate is moderately enlarged. There is a right inguinal hernia containing fat. There are no dilated loops of bowel. The appendix is normal. There is an umbilical hernia containing fat. There is mild thoracic and lumbar spondylosis. IMPRESSION: 1. Normal pancreas. 2. Umbilical hernia containing fat. 3. Right inguinal hernia containing fat. Reviewed, dictated and finalized at location E.
--- NOTE | 2024-11-19 13:57 | ECG_ITS ---
Test Date: 2024-11-19 14:02:05 Measurements Intervals [place] Rate: 80 P: 24 [place]: 100 QRS: 0 QRSD: 112 T: 170 QT: 363 QTc: 419 Interpretive Statements SINUS RHYTHM WITH SHORT [place] INTERVAL INCOMPLETE RIGHT BUNDLE BRANCH BLOCK LEFT VENTRICULAR HYPERTROPHY AND ST-T CHANGE INFERIOR INFARCT, AGE INDETERMINATE BORDERLINE ST-T WAVE ABNORMALITY- ANTEROLATERAL LEADS BORDERLINE ECG Compared to ECG 09/12/2024 07:40:17 Short [place] interval now present Electronically Signed On 11-19-2024 14:18:31 CDT by Bj Rocha D.O.
--- NOTE | 2024-11-19 13:58 | ED.CHESTPAIN ---
HPI - Chest Pain General Chief Complaint: Chest Pain Stated Complaint: chest pain Time Seen by Provider: 11/19/24 13:57 Source: patient Mode of arrival: ambulatory Limitations: no limitations History of Present Illness HPI narrative: Patient is a 58-year-old male with left-sided chest pain for the past 3 weeks but in reality for the past 4 months since surgery. Patient presents after 3 weeks as is family told him he should get evaluated. No shortness of breath. Patient had open heart surgery 4 months ago. Patient has coronary disease, diabetes 2, hypertension, hyperlipidemia. MD complaint: chest pain and chest discomfort Pertinent past history: coronary artery disease, prior ND and CABG Onset (ago): week(s) (Three) Timing of current episode: episodic, daily, increasing and now resolved Prior episodes: Yes Onset: during exertion Pain location: substernal and left chest Pain radiation: none Severity: mild Pain scale (0-10): 3 Quality: tightness, heaviness and sharp Relieving factors: nothing Exacerbating factors: exertion Context: other (Patient is a heart/CABG patient 4 months ago and here with chest pain at this time that is resolved for the moment and worried about his symptoms) Associated symptoms: other (None) Treatment prior to arrival: none Risk Factors Coronary artery disease risk factors: diabetes, smoking history, hyperlipidemia and hypertension Thoracic aortic dissection risk factors: none Related Data Home Medications ?Medication ?Instructions ?Recorded ?Confirmed ?Last Taken ?Type citalopram 20 mg tablet 20 mg PO HS 09/23/19 07/12/24 07/11/24 History lisinopril 20 1 tablet PO BID 09/23/19 07/12/24 07/11/24 History mg-hydrochlorothiazide 12.5 mg tablet atorvastatin 80 mg tablet 1 tablet PO HS 08/20/21 07/12/24 07/11/24 History doxazosin 4 mg tablet 1 tablet PO DAILY 08/20/21 07/12/24 07/11/24 History metoprolol succinate 100 mg 1 tablet PO DAILY 08/20/21 07/12/24 07/11/24 History tablet,extended release 24 hr insulin glargine 100 unit/mL (3 30 unit subcut DAILY 04/17/24 07/12/24 04/17/24 History mL) subcutaneous pen (Lantus Solostar U-100 Insulin) insulin lispro 100 unit/mL 7 unit subcut TIDWM 04/17/24 07/12/24 04/17/24 History subcutaneous pen (Humalog KwikPen (U-100) Insulin) Allergies Allergy/AdvReac Type Severity Reaction Status Date / Time No Known Allergies Allergy Verified 11/19/24 14:17 Review of Systems Review of Systems: All systems reviewed & are unremarkable except as noted in HPI and below Constitutional: Constitutional: Reports no additional constitutional complaints Eyes: Eyes: Reports no additional eye complaints ENT: Reports system reviewed and no additional complaints, except as documented Cardiovascular: Cardiovascular: Reports no additional cardiovascular complaints Respiratory: Respiratory: Reports no additional respiratory complaints Gastrointestinal: Gastrointestinal: Reports no additional gastrointestinal complaints Genitourinary: Genitourinary: Reports no additional male genitourinary complaints Musculoskeletal: Musculoskeletal: Reports no additional musculoskeletal complaints Integumentary/Breasts: Skin/Breast: Reports system reviewed and no additional complaints, except as docu Neurologic: Reports system reviewed and no additional complaints, except as documented Psychiatric: Psychiatric: Reports no additional psychiatric complaints Endocrine: Endocrine: Reports no additional endocrine complaints Hematologic/Lymphatic: Hematologic/Lymphatic: Reports no additional hematologic/lymphatic complaints Allergic/Immunologic: Allergic/Immunologic: Reports no additional allergic/immunologic complaints PMFSH Past Medical History Medical History Depression Cataracts, bilateral Hyperlipidemia Hypertension Type 2 diabetes mellitus Seasonal allergies Family History Family History Father Cerebrovascular accident Other Diabetes mellitus Heart disease Hypertension Social History Social History Smoking packs per day: 1 Smoking cigarettes per day: 20.0 Years smoked: 40 Smoking pack-years: 40.00 Smoking status: Former smoker Tobacco type: cigarettes Additional smoking assessment comments: Off and on 1 PPD smoker x40 years. Alcohol intake: never Alcohol use details: Occasional Substance use: never Substance use type: does not use Do You Feel Safe in your Home?: Yes Lack of Transportation: No Lack of Food: Never True Current Housing: I Have Housing Concerned About Future Housing: No Difficulty Paying Gas/Electric Bills: No Difficulty Paying for Meds: No Currently Unemployed: No Education: Decline to Answer Difficulty w/ Childcare or Family Care: No Spiritual care concerns: No Exam Const: General: healthy appearing Nutritional Appearance: well nourished Orientation/consciousness: patient oriented x3 HENMT: Head: normal to inspection Ears: external ears normal Face/Nose/Sinus: Normal external nose present Eyes: Conjunctivae: conjunctivae normal Pupils: Equal, round and reactive pupils present EOM: EOMs intact bilaterally Neck: Neck: normal visual inspection Chest: Chest palpation & inspection: normal inspection of the chest Resp: Effort & Inspection: normal respiratory effort and not labored Auscultation: clear to auscultation bilaterally and no crackles Cardio: Rate: regular rate Rhythm: regular rhythm Heart sounds: no murmurs GI: Inspection: non-distended GI Palp: Yes Soft to palpation and No Tenderness to palpation present (GI) Auscultation: normal bowel sounds : General: Yes bladder normal to palpation Back/Spine/Pelvis: Back: no CVA tenderness Skin: General skin exam: normal color Rashes: no rashes Wounds: no wounds Neuro: General: patient oriented x3, moves all extremities and no meningeal signs Extrem: General: normal to inspection, no clubbing, cyanosis or edema and no pedal edema Psych: Mental Status: mental status grossly normal Affect: normal affect Attitude: cooperative Course Vital Signs Vital signs: Vital Signs Temperature 36.6 C 11/19/24 13:57 Pulse Rate 88 11/19/24 13:57 Respiratory Rate 18 11/19/24 13:57 Blood Pressure 207/103 H 11/19/24 13:57 Pulse Oximetry 97 11/19/24 13:57 Oxygen Delivery Room Air 11/19/24 13:57 Temperature 36.6 C 11/19/24 13:57 Pulse Rate 87 11/19/24 16:02 Respiratory Rate 12 11/19/24 16:02 Blood Pressure 199/107 H 11/19/24 16:02 Pulse Oximetry 97 11/19/24 16:02 Oxygen Delivery Room Air 11/19/24 14:54 MDM - Chest Pain MDM Narrative Medical decision making narrative: Patient is a 58-year-old male with coronary disease here with chest pain for the past 4 months since CABG. Will do a cardiac workup at this time. Lab Data Attestation: I reviewed the patient's lab results. 11/19/24 14:16 11/19/24 14:16 Labs: Lab Results 11/19/24 11/19/24 Range/Units 14:16 15:52 WBC 7.7 (4.8-10.8) K/mm3 RBC 4.99 (4.70-6.10) M/mm3 Hgb 13.6 L (14.0-18.0) g/dL Hct 39.7 L (40.0-54.0) % MCV 79.6 (78.0-102.0) fL MCH 27.3 (27.0-31.0) pg MCHC 34.3 (32-36) g/dL RDW 13.3 (11.6-14.4) % Plt Count 220 (150-420) K/mm3 MPV 10.1 (8.7-11.0) fl Immature Gran % (Auto) 0.3 H (0.0-0.0) % Neut % (Auto) 72.1 H (50.0-70.0) % Lymph % (Auto) 15.2 L (18.0-42.0) % [place] % (Auto) 8.1 (2.0-11.0) % Eos % (Auto) 3.4 (1.0-6.0) % Baso % (Auto) 0.9 (0.0-1.0) % Lymph # (Auto) 1.17 (1.10-4.50) K/mm3 [place] # (Auto) 0.62 (0.10-0.90) K/mm3 Eos # (Auto) 0.26 (0.02-0.50) K/mm3 Baso # (Auto) 0.07 (0.00-0.10) K/mm3 Abs Immat Gran (auto) 0.02 H (0.00-0.00) K/mm3 Absolute Neuts (auto) 5.54 (1.70-7.20) K/mm3 Absolute Nucleated RBC 0.00 (0.00-0.00) K/mm3 Nucleated RBC % 0.0 (0-0.0) % PT 9.5 (9.50-12.1) Seconds INR 0.8 APTT 26.0 (23.9-30.70) Sec D-Dimer 0.29 (0.19-0.50) mg/L Sodium 131 L (137-145) mmol/L Potassium 4.0 (3.4-5.0) mmol/L Chloride 98 (98-107) mmol/L Carbon Dioxide 25 (22-30) mmol/L Anion Gap 8 (4-12) mmol/L BUN 21 H (9-20) mg/dL Creatinine 1.58 H (0.7-1.3) mg/dL Estim Creat Clear Calc 40 ml/min Estimated GFR 45 L (59 - ) Glucose 450 H (65-110) mg/dL Calculated Osmolality 295 (285-295) mOsm/kg Calcium 8.6 (8.4-10.2) mg/dL Magnesium 1.9 (1.6-2.3) mg/dL Total Bilirubin 0.9 (0.2-1.3) mg/dL AST 20 (17-59) U/L ALT 13 (6-50) U/L Alkaline Phosphatase 99 (38-126) U/L Troponin I 0.132 H* Pending (0.000-0.034) ng/mL NT-Pro-B Natriuret Pep 4780 H (19.9-100) pg/mL Total Protein 6.1 L (6.3-8.2) g/dL Albumin 3.4 L (3.5-5.1) g/dL Lipase 376 H (23-300) U/L Imaging Data Attestation: I personally reviewed and interpreted this imaging study as follows: Radiologist's impression: Chest x-rays negative for acute process CT scan of the abdomen and pelvis is negative for acute process ECG Data EKG #1: Attestation: I personally reviewed and interpreted this ECG as follows: ECG completion date: 11/19/24 ECG completion time: 14:53 Prior ECG tracings: available for review (No acute changes from comparison of EKGs) EKG Interpretation: normal rate, sinus rhythm, no ectopy, non-specific ST changes (T-wave inversions which are the same on prior EKG), normal QRS, normal QT, left axis and NL axis Discharge Plan Discharge Clinical Impression: Acute non-ST elevation myocardial infarction (NSTEMI) Patient Disposition: Acute Care Hospital Condition: Stable Patient Language: Uzbek Prescriptions: No Action atorvastatin 80 mg tablet 1 tablet PO HS metoprolol succinate 100 mg tablet extended release 24 hr 1 tablet PO DAILY doxazosin 4 mg tablet 1 tablet PO DAILY lisinopril-hydrochlorothiazide 20-12.5 mg tablet 1 tablet PO BID citalopram 20 mg tablet 20 mg PO HS insulin glargine [Lantus Solostar U-100 Insulin] 100 unit/mL (3 mL) insulin pen 30 unit SUBCUT DAILY insulin lispro [Humalog KwikPen Insulin] 100 unit/mL insulin pen 7 unit SUBCUT TIDWM Glucagon Emergency Kit (human) 1 mg recon soln 1 mg subcut Q20M PRN (Reason: hypoglycemia) Qty: 1 0RF Rx Instructions: until target blood sugar attained Follow-up/Referrals: UNKNOWN,DOCTOR [Primary Care Provider] Time of Disposition: 16:00
[2024-11-19 14:20] LABS: Hematocrit 39.7 % (40.0-54.0); Hemoglobin 13.6 g/dL (14.0-18.0); Immature Granulocyte Percent A 0.3 % (0.0-0.0); Lymphocytes Absolute Auto 1.17 K/mm3 (1.10-4.50); Mean Corpuscular HGB Conc 34.3 g/dL (32-36); Mean Corpuscular Hemoglobin 27.3 pg (27.0-31.0); Mean Corpuscular Volume 79.6 fL (78.0-102.0); Nucleated Red Blood Cells Absolute Auto 0.00 K/mm3 (0.00-0.00); Nucleated Red Blood Cells Perc 0.0 % (0-0.0); Platelet Count Result 220 K/mm3 (150-420); Red Blood Count 4.99 M/mm3 (4.70-6.10); White Blood Count 7.7 K/mm3 (4.8-10.8)
[2024-11-19 14:31] LABS: Alanine Aminotransferase 13 U/L (6-50); Albumin Level 3.4 g/dL (3.5-5.1); Alkaline Phosphatase 99 U/L (38-126); Anion Gap 8 mmol/L (4-12); Aspartate Amino Transferase 20 U/L (17-59); Bilirubin,Total 0.9 mg/dL (0.2-1.3); Blood Urea Nitrogen 21 mg/dL (9-20); Calcium 8.6 mg/dL (8.4-10.2); Carbon Dioxide 25 mmol/L (22-30); Chloride 98 mmol/L (98-107); Estimated CRCL calculation 40 ml/min; Estimated Glomerular Filt Rate 45; Glucose 450 mg/dL (65-110); Lipase 376 U/L (23-300); Magnesium 1.9 mg/dL (1.6-2.3); Osmolality Calculated 295 mOsm/kg (285-295); Potassium 4.0 mmol/L (3.4-5.0); Sodium 131 mmol/L (137-145); Total Protein 6.1 g/dL (6.3-8.2)
[2024-11-19 14:38] LABS: INR 0.8; Partial Thromboplastin Time 26.0 Sec (23.9-30.70); Prothrombin Time 9.5 Seconds (9.50-12.1)
[2024-11-19 14:43] LABS: NT Pro B Type Natriuretic Pept 4780 pg/mL (19.9-100)
[2024-11-19 14:44] LABS: Troponin I 0.132 ng/mL (0.000-0.034)
[2024-11-19] MEDS: ASPIRIN 81 MG CHEWABLE TABLET 324 MG PO (16:08)
--- OUTSIDE RECORDS SUMMARY | 2024-11-19 16:11 | XMS_ITS | Encounter Summary ---
Author Organization [facility] Healthcare Address [address] [place] [address] Care Team Providers Care Talend Etl Developer Name Role Phone Tobias Mckenzie MD Primary Care Provide r Shayla Elias MD Primary Care Provider [phone] Tobias Mckenize MD Primary Care Provide r Encounter Details Date Type Department Care Team (Late st Contact Info) Description 07/12/2024 Orders Only [facility] Health Information Management [address] [place] [id number] Scanning, Provider Social History Tobacco Use Types Packs/Day Years Used Date Smoking Tobacco: Never Assessed Sex and Gender Information Value Date Recorded Sex Assigned at Not on file Legal Sex Male 2:12 PM CDT Gender Identity Not on file Sexual Orientation Not on file documented as of this encounter Plan of Treatment Not on file documented as of this encounter Procedures Procedure Name Priority Date/Time Associated Diagnosis Comments CARDIOLOGY DOCUMENT SCAN 07/12/2024 documented in this encounter Results * Cardiology Document Scan (07/12/2024) Anatomical Region Laterality Modality Other us Provider Scanning CV CARDIAC SERVICES PROCEDURES Final Result documented in this encounter Visit Diagnoses Not on filedocumented in this encounter Care Teams Talend Etl Developer Relationship Specialty Start Date End Date Tobias Mckenzie MD [address] [place] [address] PCP - General Family Medicine 10/24/21 10/28/24 Shayla Elias MD [address] [place] [address] PCP - General Family Medicine 10/29/24 11/16/24 Tobias Mckenzie MD [address] [place] [address] PCP - General Family Medicine 11/17/24 documented as of this encounter
--- OUTSIDE RECORDS SUMMARY | 2024-11-19 16:11 | XMS_ITS | Clinical Summary ---
Author Organization [facility] Address [address] [place] [address] Care Team Providers Care Bulwark Carpenter Name Role Phone None, Provider MD Primary Care Provider Unavaila ble Allergies No known active allergies Medications Insulin Glargine-yfgn 100 UNIT/ML SolutionIndicat ions:Diabetes Mellitus Inject 60 Units into the skin nightly. Indications: Diabetes 5 Active doxazosin (CARDURA) 4 MG tabletIndicatio ns:Hypertension Take 1 tablet (4 mg total) by mouth nightly at bedtime. Indications: High Blood Pressure 5 Active citalopram (CELEXA) 20 MG tabletIndicatio ns:Depression Take 1 tablet (20 mg total) by mouth daily. Indications: Depression 5 Active atorvastatin (LIPITOR) 80 MG tabletIndicatio ns:Hypercholest erolemia Take 1 tablet (80 mg total) by mouth daily. Indications: High Amount of Cholesterol in the Blood 5 Active aspirin 81 MG chewable tabletIndicatio ns:Coronary Artery Bypass Graft Chew 1 tablet (81 mg total) by mouth daily. Indications: Coronary Bypass Surgery 30 tablet 2 5 Active ferrous sulfate EC 324 (65 Fe) MG tabletIndicatio ns:Anemia Associated With Surgery Take 1 tablet (324 mg total) by mouth 2 (two) times daily with meals. Indications: Anemia Associated With Surgery 30 tablet 5 Active pantoprazole EC (PROTONIX) 40 MG tabletIndicatio ns:Coronary Artery Bypass Graft Take 1 tablet (40 mg total) by mouth daily. Indications: Coronary Bypass Surgery 30 tablet 5 Active traMADol (ULTRAM) 50 MG tabletIndicatio ns:Acute Pain < 7 Day Supply Take 1 tablet (50 mg total) by mouth every 6 (six) hours as needed for Pain. Indications: Acute Pain < 7 Day Supply 28 tablet 5 Active insulin lispro (HUMALOG/ADMELO G) 100 UNIT/ML injection (VIAL)Indicatio ns:Diabetes Mellitus Inject 10 Units into the skin 3 (three) times daily before meals. 6-10 units according to meals 5 Active insulin glargine (LANTUS) 100 UNIT/ML injection (VIAL)Indicatio ns:Diabetes Mellitus Inject 60 Units into the skin nightly at bedtime. Indications: Diabetes 5 Active acetaminophen (TYLENOL) 500 MG tabletIndicatio ns:Pain Take 2 tablets (1,000 mg total) by mouth every 6 (six) hours as needed. Indications: Pain 5 Active lisinopril (PRINIVIL) 2.5 MG tabletIndicatio ns:Hypertension Take 1 tablet (2.5 mg total) by mouth daily. Indications: High Blood Pressure 30 tablet 5 Active ONETOUCH ULTRA test strip 1 strip by Other route as needed. 5 Active nitroglycerin (NITROSTAT) 0.[address] 1 tablet (0.4 mg total) under the tongue every 5 (five) minutes as needed for Chest Pain. Maximum of 3 doses. 25 tablet 5 08/15/19 26 Active furosemide (LASIX) 40 MG tabletIndicatio ns:Edema Take 1 tablet (40 mg total) by mouth every other day. Indications: Edema Pt may take an additional tablet as needed for swelling and shortness of breath. Or 3 to 5 pound weight gain 135 tablet 5 Active metoprolol succinate ER (TOPROL-XL) 50 MG 24 hr tabletIndicatio ns:Coronary Artery Bypass Graft TAKE 1 TABLET (50 MG TOTAL) BY MOUTH DAILY. INDICATIONS: CORONARY BYPASS SURGERY 90 tablet 1 5 Active Active Problems Problem Noted Date Diagnosed Date Coronary artery disease invo lving [place] coronary artery of [place] heart without angina pectoris 08/14/2024 Mixed hyperlipidemia 08/14/2024 Chest pain 08/03/2024 STEMI (ST elevation myocardial infarction) 07/12 Essential hypertension 05/25/2021 Nonspecific abnormal results of function study o f kidney 05/25/2021 Encounters Date Type Department Care Team Description 11/19/2024 Hospital Encounter [facility] Telemetry Unit [address] [place] [address] Arnie Sumner MD 10/13/2024 Telephone [facility] [address] [place] [address] Kay Le MD Orders from Last 3 Months Family History Medical [...] materials from doctor or pharmacy Rarely 08/07/2024 [facility] Utilities Answer Date Recorded In the past 12 months has [facility] [place], [email or web address], or water [employer] threatened to shut off services in your [...] any time in the past 12 m [facility], were you homeless or living in a halfway (including now)? No 08/03/2024 Sex and Gender [...] st Contact Info) Description 02/19/2025 10:15 AM [employer] ST[employer]ER Office Visit [facility] [address] [place] [address] Kay Le MD [facility] [address] [place], [place] [id number] Health Maintenance Due Date Last Done Comments Colorectal Cancer Screening Colonoscopy (10 Years) 1964 Kidney Health Evaluation 1964 Annual Physical 12/30/1967 Diabetes: Retinopathy Eye Exam 1982 Hepatitis C 1982 DTaP, Tdap and Td Vaccines ( 1 - Tdap) 12/30/1983 Pneumococcal Vaccine: 50+ Years (1 of 2 - PCV) 12/30/1983 Zoster Vaccines (1 of 2) 2014 COVID-19 Vaccine (1 - 2023-2 5 season) 2024 Hemoglobin A1C 11/04/2024 08/04/2024, 07/15/2024, 07/12/2024 Influenza Adult (#1) 2024 Lipid Panel 08/04/2025 08/04/2024, 07/15/2024, 07/13/2024 Hepatitis A Vaccines Aged Out No long er eligible based on patient's age to complete this topic Meningococcal B Vaccine Aged Out No l [...] Recommended Domains Addressed Status Status Reason/Outcome Date/Time [facility] Housing Insecurity Services, Financial Assistance Housing Stability Recommended 08/24/2024 9:19 PM CDT [facility] Housing Insecurity Services Housing Stability Recommended 08/24/2024 9:19 PM CDT from Last 12 Months Medical Devices Implanted Type Area Field Laboratory Operator Device Identifier Shelf Expiration Date Model / Serial / Lot Wire Sterum Suture Kit [employer] #7 1/2 Ccs-1 - [id number] Implanted:Qty: 1 on 07/15/2024 by Chaparro Cloud RNFA at [facility] [place] Wire N/A: Sternum [employer] 09/06/2027 [id number] / / [id number] Description:2 WIRES IMPLANTE D Wire Sternotomy Suture Kit - [id number] Implanted:Qty: 1 on 07/15/2024 by Catalino Louie MD at [facility] Wire N/A: Sternum [employer] 03/08/2027 [id number] / / [id number] Description:5 WIRES IMPLANTE D Procedures Procedure Name Priority Date/Time Associated Diagnosis Comments LIPID PANEL Routine 08/04/2024 5:33 AM CDT HEMOGLOBIN, GLYCOSYLATED Routine 08/04/2024 5:33 AM CDT from Last 3 Months or Most Recently Relevant to Health Maintenance Results * (ABNORMAL) HEMOGLOBIN, GLYCOSYLATED (08/04/2024 5:33 AM CDT) HGB A1C 10.4(H) <5.7 % 08/04/2024 9:35 AM CDT [facility] Comment: ADA GUIDELINES 2010 5.7 TO 6.4% INCREASED RISK OF DIABETES > OR = 6.5% CONSISTENT WITH DIABETES ESTIMATED AVG GLUCOSE 252 mg/dL 08/04/2024 9:35 AM CDT [facility] 08/04/2024 5:33 AM CDT Jaz George MD LABORATORY Final Resu lt [facility] [address] [place] [address], * (ABNORMAL) LIPID PANEL (08/04/2024 5:33 AM CDT) CHOLESTEROL 83 <200 MG/DL 08/04/2024 7:25 AM CDT [facility] TRIGLYCERIDES 205(H) <150 MG/DL 08/04/2024 7:25 AM CDT [facility] HDL 28(L) >40.0 MG/DL 08/04/2024 7:25 AM CDT [facility] LDL (CALCULATED) 14 <100 MG/DL 08/04/2024 7:25 AM CDT [facility] Comment:CALCULATED USING THE FRIEDEWALD EQUATION NON HDL CHOLESTEROL 55 <130 MG/DL 08/04/2024 7:25 AM CDT [facility] CHOL/HDL RATIO 3.0 0.0 - 4.5 08/04/2024 7:25 AM CDT [facility] VLDL CALCULATION 41 5 - 55 MG/DL 08/04/2024 7:25 AM CDT [facility] LIPID INTERPRETATION 08/04/2024 7:25 AM CDT [facility] Comment: NIH CONCENSUS REPORT RECOMMENDATIONS: ADULT CHILD LOW RISK: CHOLESTEROL <200 <170 TRIGLYCERIDE <150 --- HDL >=60 --- LDL <100 <110 BORDERLINE: CHOLESTEROL 200-239 170-199 TRIGLYCERIDE 150-199 --- HDL 40-59 --- LDL 100-159 110-129 HIGH RISK: CHOLESTEROL >=240 >=200 TRIGLYCERIDE >=200 --- HDL <40 --- LDL >=160 >=130 08/04/2024 5:33 AM CDT Jaz George MD LABORATORY Final Resu lt [facility] [address] [place] [address], [place] [phone] from Last 3 Months or Most Recently Relevant to Health Maintenance Insurance [facility] MEDICARE MEDICAID Advance Directives Documents on File Type Date Recorded Patient Cosmetic Surgeon Expl anation Advance Directives and Living Will [...] 10:51 PM 07/15/2024 3:10 PM Care Teams Bulwark Carpenter Relationship Specialty Start Date End Date None, Provider, PCP - General UNKNOWN PHYSICIAN SPECIALTY 07/12/24
--- OUTSIDE RECORDS SUMMARY | 2024-11-19 16:11 | XMS_ITS | Clinical Summary ---
Author Organization [facility] [address] Address [address] [place] [address] Care Team Providers Care Senior Supply Chain Analyst Name Role Phone Tobias Mckenzie MD Primary Care Provide r Allergies No known active allergies Medications metoprolol XL (TOPROL-XL) 50 mg extended release tablet Take 1 tablet (50 mg total) by mouth daily 025 Active furosemide (LASIX) 40 mg tablet Take 1 tablet (40 mg total) by mouth every other day 025 Active aspirin 81 mg chewable tablet Take 1 tablet (81 mg total) by mouth daily 025 Active ferrous sulfate ER 324 mg (65 mg iron) EC tablet Take 1 tablet (324 mg total) by mouth 2 times daily 025 Active doxazosin (CARDURA) 4 mg tablet Take 1 tablet (4 mg total) by mouth daily 025 Active nitroglycerin (NITROSTAT) 0.[address] 1 tablet (0.4 mg total) under the tongue every 5 (five) minutes as needed 025 2025 Active aspirin-caffeine 500-32.5 mg tablet TEST BLOOD SUGAR ONCE DAILY DX. 250.00 E11.9 022 Active lisinopriL (PRINIVIL,ZESTRIL ) 10 mg tabletIndications :Hypertension associated with diabetes (HCC) Take 1 tablet (10 mg total) by mouth daily 30 tablet 025 2024 Active atorvastatin (LIPITOR) 80 mg tabletIndications :Mixed hyperlipidemia Take 1 tablet (80 mg total) by mouth daily 90 tablet [address] (PROTONIX) 40 mg EC tabletIndications :Gastroesophageal reflux disease without esophagitis Take 1 tablet (40 mg total) by mouth daily 30 tablet 025 2024 Active citalopram (CeleXA) 20 mg tabletIndications :Anxiety with Depression Take 1 tablet (20 mg total) by mouth daily 30 tablet 025 2024 Active amLODIPine (NORVASC) 10 mg tabletIndications :Type 2 diabetes mellitus with stage 3a chronic kidney disease, with long-term current use of insulin ([facility]) Take 1 tablet (10 mg total) by mouth daily 90 tablet 3 2025 Active insulin glargine 100 unit/mL vial for injectionIndicati ons:Type 2 diabetes mellitus with stage 3a chronic kidney disease, with long-term current use of insulin ([facility]) Inject 30 Units under the skin nightly 27 mL 1 2025 Active insulin lispro (HumaLOG) 200 unit/mL (3 mL) pen for injectionIndicati ons:Type 2 diabetes mellitus with stage 3a chronic kidney disease, with long-term current use of insulin ([facility]) Inject 0.05-0.1 mL (10-20 Units total) under the skin 3 (three) times a day with meals 27 mL 3 2025 Active Dexcom G7 Sensor deviceIndications :Type 2 diabetes mellitus with stage 3a chronic kidney disease, with long-term current use of insulin ([facility]) Use one sensor every 10 days 3 each Active Galaxy Digital Delica Plus Lancet 30 gauge miscIndications:T ype 2 diabetes mellitus with stage 3a chronic kidney disease, with long-term current use of insulin ([facility]) 2 x daily 100 each Active Galaxy Digital Verio Flex meter miscIndications:T ype 2 diabetes mellitus with stage 3a chronic kidney disease, with long-term current use of insulin ([facility]) One glucometer 1 each Active Bomberbotio test strips stripIndications: Type 2 diabetes mellitus with stage 3a chronic kidney disease, with long-term current use of insulin ([facility]) Check 2 x daily 100 each 11 Active Dexcom G7 Seal Delivery Vehicle Officer miscIndications:T ype 2 diabetes mellitus with stage 3a chronic kidney disease, with long-term current use of insulin ([facility]) For dexcom sensor use 1 each Active Jardiance 25 mg tabletIndications :Chronic Kidney Disease,type 2 diabetes mellitus Take 1 tablet (25 mg total) by mouth daily 30 tablet 5 2025 Active atorvastatin (LIPITOR) 80 mg tablet Take 1 tablet (80 mg total) by mouth daily 2024 Discontinued(T herapy completed) pantoprazole DR (PROTONIX) 40 mg EC tablet Take 1 tablet (40 mg total) by mouth daily 2024 Discontinued(R eorder) lisinopriL (PRINIVIL,ZESTRIL ) 2.5 mg tablet Take 1 tablet (2.5 mg total) by mouth daily 2024 Discontinued(T herapy completed) citalopram (CeleXA) 20 mg tablet Take 1 tablet (20 mg total) by mouth daily 2024 Discontinued(R eorder) insulin lispro (HumaLOG, ADMELOG) 100 unit/mL pen for injection Inject 5-7 Units under the skin as needed 2024 Discontinued insulin glargine 100 unit/mL vial for injection Inject 60 Units under the skin daily 2024 Discontinued Active Problems Problem Noted Date Diagnosed Date Accidental overdose of insulin 10/28/2024 Acute alteration in mental status 10/28/[address] elevation myocardia l infarction (STEMI) of anterior wall 10/28/2024 Chronic kidney insufficiency 10/28/2024 Effusion of knee joint, left 10/28/2024 Elevated brain natriuretic peptide (BNP) level 0 10/28/2024 Elevated troponin 10/28/2024 Hyperglycemia 10/28/2024 Hyperlipidemia 10/28/2024 Assessment & Plan (10/28/2024 10:04 PM CDT): Chronic, Stable. Chol 203/TG 381/HDL42/LDL 85 Continue Lipitor 80 mg daily. Orders: atorvastatin (LIPITOR) 80 mg tablet; Take 1 tablet (80 mg total) by mouth daily Hypokalemia 10/28/2024 Muscle strain, shoulder region 10/28/2024 Pleural effusion 10/28/2024 Pneumonia 10/28/2024 Prepatellar bursitis of left knee 10/28/2024 Type 2 diabetes mellitus 10/28/2024 Arteriosclerosis of coronary artery 08/14/2024 Atypical chest pain 08/03/2024 STEMI (ST elevation myocardial infarction) 07/12 Type 2 diabetes mellitus without complication Essential hypertension 05/25/2021 Nonspecific abnormal results of function study o f kidney 05/25/2021 Resolved Problems Problem Noted Date Diagnosed Date Resolved Date Hypoglycemia due to insulin 10/28/2024 10/28/2024 Encounters Date Type Department Care Team Description 11/17/2024 8:30 AM CDT Office Visit [facility] Diabetes and Endocrinology [address] [place], [place] [phone] Lilliana Berger MD Type 2 diabetes mellitus with stage 3a chronic kidney disease, with long-term current use of insulin (HCC) (Primary Dx); Stage 3a chronic kidney disease (HCC); Hypertension associated with diabetes (HCC); Hyperlipidemia associated with type 2 diabetes mellitus (HCC) 10/30/[address] [facility] Medical [facility] Primary Care at [address] [address] ProviderAmalia MD 10/29/2024 Results Follow-Up [facility] Primary Care at [place] [phone] Shayla Elias MD Hemoglobin A1c, Albumin Creatinine Ratio, Urine, Comprehensive metabolic panel, eGFR 10/28/2024 12:25 [place] [address] Type 2 DM with CKD stage 3 and hypertension (HCC); Stage 3a chronic kidney disease (HCC) 10/28/2024 11:30 AM CDT Office Visit [facility] Medical [facility] Primary Care at [address] [address] Shayla Elias MD Coronary artery disease involving coronary bypass graft of mentasta heart with refractory angina pectoris (Primary Dx); Stage 3a chronic kidney disease (HCC); Hypertension associated with diabetes (HCC); Type 2 DM with CKD stage 3 and hypertension (HCC); Anxiety and depression; Gastroesophageal reflux disease without esophagitis; Mixed hyperlipidemia; Colon cancer screening 10/28/[address] [facility] Medical [facility] Primary Care at [place] [phone] ProviderAmalia MD 10/20/[address] [facility] Medical [facility] Diabetes and Endocrinology [address] [place], [place] [phone] Lilliana Berger MD New Referral to Endocrinology from Last 3 Months Immunizations Immunization Administration Dates Next Due Tdap 10/11/2010 Surgical History Surgery Date Site/Laterality Comments CARDIAC SURGERY Medical History Medical History Date Comments Diabetes mellitus Hypertension Anxiety Depression GERD (gastroesophageal reflux disease) Hyperlipidemia Family History Medical History Relation Name Comments Diabetes Brother 1 No Known Problems Brother 2 No Known Problems Brother 3 Diabetes Father Heart disease Father Heart disease Mother Hypertension Mother Hypertension Sister 1 No Known Problems Sister 2 Relation Name Status Comments Brother 1 Brother 2 Alive Brother 3 Alive Father Mother Alive Sister 1 Alive Sister 2 Alive Social History Tobacco Use Types Packs/Day Years Used Date Smoking Tobacco: Former Cigarettes Smokeless Tobacco: Never Tobacco Cessation:Counseling Given: Not Answered PHQ-2 Answer Date Recorded PHQ-2 Total Score (If total score is 3 or more points, staff should administer the PHQ-9) 0 10/28/2024 Sex and Gender Information Value Date Recorded Sex Assigned at Not on file Legal Sex Male 2:12 PM CDT Gender Identity Not on file Sexual Orientation Not on file Obstetrics History Last Filed Vital Signs Vital Sign Reading Time Taken Comments Blood Pressure 160/90 11/17/2024 8:41 AM CDT Pulse 80 11/17/2024 8:41 AM CDT Temperature 36.1 C (96.9 F) 10/28/2024 11:14 AM CDT Respiratory Rate 15 11/17/2024 8:41 AM CDT Oxygen Saturation 96% 10/28/2024 11:14 AM CDT Inhaled Oxygen Concentration - - Weight 77.1 kg (170 lb) 11/17/2024 8:41 AM CDT Height 167.6 cm (5' 6) 11/17/2024 8:41 AM CDT Body Mass Index 27.44 11/17/2024 8:41 AM CDT Plan of Treatment Health Maintenance Due Date Last Done Comments Colon Cancer Screening-Colonoscopy 1964 Hepatitis C Screening 1964 Prostate Cancer Screening-PSA 1964 Foot Exam 1964 Hepatitis B Screening 1982 Regular Well Visit/Exam 18-64 1982 Pneumococcal vaccine <65 (1 of 2 - PCV) 12/30/1983 Influenza Vaccine (#1) 2024 Hemoglobin A1C 04/27/2025 10/28/2024 Lipid Panel 08/04/2025 08/04/2024, 08/04/2024 Albumin Creatinine Ratio, Urine 10/28/2025 10/28/2024 Depression Screening 10/28/2025 10/28/2024 Dilated Eye Exam 10/28/2025 10/10/2024, 10/10/2024 Postponed from 10/10/2025 (Patient declined, but will receive in the future) Zoster Vaccine (1 of 2) 10/28/2025 Post poned from 2014 (Insurance / Financial) eGFR 10/28/2025 10/28/2024 DTaP/Tdap/Td Vaccine (2 - Td or Tdap) 02/04/2026 10/11/2010 Postponed from 10/11 (Insurance / Financial) Procedures Procedure Name Priority Date/Time Associated Diagnosis Comments POCT GLUCOSE Routine 11/17/2024 8:43 AM CDT Type 2 diabetes mellitus with stage 3a chronic kidney disease, with long-term current use of insulin (HCC) EGFR Routine 10/28/2024 12:39 PM CDT Stage 3a chronic kidney disease (HCC) COMPREHENSIVE METABOLIC PANEL Routine 10/28/2024 12:39 PM CDT Stage 3a chronic kidney disease (HCC) ALBUMIN CREATININE RATIO, URINE Routine 10/28/2024 12:39 PM CDT Stage 3a chronic kidney disease (HCC) HEMOGLOBIN A1C Routine 10/28/2024 12:39 PM CDT Type 2 DM with CKD stage 3 and hypertension (HCC) DIABETES EYE EXAM Routine 10/10/2024 4:44 PM CDT DIABETES EYE EXAM Routine 10/10/2024 11:19 AM CDT LIPID PANEL Routine 08/04/2024 1:30 PM CDT from Last 3 Months or Most Recently Relevant to Health Maintenance Results * POCT glucose (11/17/2024 8:43 AM CDT) Glucose Blood, POC 247 Normal Fasting 70 - 100, Random <200 mg/dL Blood 11/17/2024 8:43 AM CDT [facility] López Dawn MD POINT OF CARE TEST ORDERABLES Final Result * (ABNORMAL) eGFR (10/28/2024 12:39 PM CDT) eGFR 50(L) >=60 mL/min/1. 73 m2 Comment: Interpretive Data Reference Interval Normal >/= 90 mL/min/1.73m2 Mildly decreased* 60 - 89 mL/min/1.73m2 Mildly to moderately decreased 45 - 59 mL/min/1.73m2 Moderately to severely decreased 30 - 44 mL/min/1.73m2 Severely decreased 15 - 29 mL/min/1.73m2 Kidney Failure < 15 mL/min/1.73m2 *Relative to young adult level Estimated glomerular filtration rate is determined by the 2020 CKD-EPI equation recommended by the National Kidney Foundation (A Unifying Approach to GFR Estimation: Recommendations of the NKF-ASK Task Force on Reassessing the Inclusion of Race in Diagnosing Kidney Disease, JASN 202). The CKD-EPI equation should not be used for patients with unstable renal function and has not been validated in children and those over 70. Current interpretive data was last reviewed 2020. Blood 10/28/2024 12:3 9 PM CDT 10/28/2024 2:07 PM CDT Result [facility] Jennifer Elias MD LAB BLOOD ORDERABLES Pam l Result Performing Organization Address [facility] Co de Phone Number [address] [address] * (ABNORMAL) Albumin Creatinine Ratio, Urine (10/28/2024 12:39 PM CDT) Pathologist [facility] Albumin Ur 2,431.0 mg/L Comment: Interpretive Data No reference range established. Current interpretive data was last revised 2018. Creatinine Ur 95.8 mg/dL [facility] Comment: Interpretive Data No reference range established. Current interpretive data was last revised 2018. Albumin Creatinine Ratio, Ur 2,538(H) 1 - 29 mg/g [facility] Urine 10/28/2024 12:3 9 PM CDT 10/28/2024 2:07 PM CDT Result [facility] Jennifer Elias MD LAB URINE ORDERABLES Pam l Result Performing Organization Address [facility] de Phone Number [address] [address] * (ABNORMAL) Hemoglobin A1c (10/28/2024 12:39 PM CDT) Hgb A1C 11.4(H) 4.0 - 5.6 % Estimated Average Glucose 280 mg/dL [facility] Comment: The ADA recommends reporting an estimated Average Glucose (eAG) with all Hemoglobin A1c results using the equation derived from a study of 507 normal and diabetic adults. Minority populations were underrepresented and children were not included. (Diabetes Care 31:6994-3942, 2008). The eAG is not equivalent to a fasting glucose. Blood 10/28/2024 12:3 9 PM CDT 10/28/2024 2:07 PM CDT Result [facility] Jennifer Elias MD LAB BLOOD ORDERABLES Pam l Result Performing Organization Address [facility]/ZIP Co de Phone Number [place] [phone] [facility] Department [place] [address] * (ABNORMAL) Comprehensive metabolic panel (10/28/2024 12:39 PM CDT) Sodium 135 135 - 145 mmol/L Potassium, pl 3.8 3.3 - 4.9 mmol/L [facility] Chloride 100 97 - 110 mmol/L [facility] CO2 24 22 - 32 mmol/L [facility] Anion gap 11 2 - 15 mmol/L [facility] BUN 21 6 - 25 mg/dL [facility] Creatinine 1.57(H) 0.80 - 1.30 mg/dL [facility] Glucose 239(H) 70 - 199 mg/dL [facility] Comment: Interpretive Data Fasting glucose >/= 126 mg/dl is diagnostic for diabetes. Fasting is defined as no caloric intake for at least 8 hours. Fasting glucose between 100 mg/dl to 125 mg/dl is diagnostic of prediabetes. In a patient with classic symptoms of hyperglycemia or hyperglycemic crisis, a random glucose >/= 200 mg/dl is diagnostic for diabetes. In the absence of unequivocal hyperglycemia, results should be confirmed by repeat testing. The classification and Diagnosis of Diabetes Diabetes Care 2021; 46: S19-S40. Current interpretive data was last revised 2022. Calcium 9.6 8.5 - 10.3 mg/dL [facility] Bilirubin, total 0.4 0.1 - 1.2 mg/dL [facility] Protein, pl 6.6 6.5 - 8.5 g/dL [facility] Albumin 3.7 3.5 - 5.0 g/dL [facility] Alk phos 123 40 - 130 Units/L [facility] ALT 10 7 - 55 Units/L [facility] AST 16 10 - 50 Units/L [facility] Blood 10/28/2024 12:3 9 PM CDT 10/28/2024 2:07 PM CDT [facility] Jennifer Elias MD LAB BLOOD ORDERABLES Pam l Result [address] [facility] Department [place] [address] * DIABETES EYE EXAM (10/10/2024 4:44 PM CDT) Historical Provider HEALTH MAINTENANCE Edited Result - Final * (ABNORMAL) DIABETES EYE EXAM (10/10/2024 11:19 AM CDT) SCRIBED DIABETIC DILATED EYE EXAM Abnormal Historical Provider HEALTH MAINTENANCE Final Result * (ABNORMAL) Lipid panel (08/04/2024 1:30 PM CDT) SCRIBED Cholesterol, Total 83 30 - 199 mg/dL EXTERNAL LAB SCRIBED Triglycerides 205(A) <=149 mg/dL EXTERNAL LAB SCRIBED HDL 28(A) >=40 mg/dL EXTERNAL LAB SCRIBED LDL 14 <=129 mg/dL EXTERNAL LAB Scribed Non-HDL Cholesterol 55 NONE mg/dL EXTERNAL LAB SCRIBED Total Cholesterol/HDL Ratio 3 NONE EXTERNAL LAB Blood Historical Provider LAB BLOOD ORDERABLES Edit ed Result - Final EXTERNAL LAB from Last 3 Months or Most Recently Relevant to Health Maintenance Insurance [facility] MEDICARE ADVANTAGE [facility] [facility] MEDICARE ADVANTAGE Care Teams Senior Supply Chain Analyst Relationship Specialty Start Date End Date Tobias Mckenzie MD [address] [place] [address] PCP - General Family Medicine 11/17/24
--- OUTSIDE RECORDS SUMMARY | 2024-11-19 16:11 | XMS_ITS | Encounter Summary ---
Author Organization [facility] Address [facility] [place] [address] Care Team Providers Care Synthetic Filament Spinner Name Role Phone None, Provider Primary Care Provider Miguel pineda Encounter Details Date Type Department Care Team (Late st Contact Info) Description 11/19/2024 Hospital Encounter [facility] [place] [address] Arnie Sumner MD [address] [place] [phone] [phone] (Work) Social History Tobacco Use Types Packs/Day Years Used Date Smoking Tobacco: Former Cigarettes Smokeless Tobacco: Never Comments:Quit c 2020 Alcohol Use Standard Drinks/Week [...] materials from doctor or pharmacy Rarely 08/07/2024 [facility] Utilities Answer Date Recorded In the past 12 months has th e electric, gas, oil, or water company threatened to shut off services in your [...] any time in the past 12 m [facility], were you homeless or living in a usp (including now)? No 08/03/2024 Sex and Gender Information Value Date Recorded Sex Assigned at Male 07/12/2024 10:54 PM CDT Legal Sex Male 7:04 PM CDT Gender Identity Male 07/12/2024 10:54 PM CDT Sexual Orientation Straight 07/12/2024 10 :54 PM CDT documented as of this encounter Functional Status * Are you deaf or do you have serious difficulty hearing Answer Date of Assessment Author Status No 08/05/2024 10:35 AM CDT Dione Schumacher RN Active * Are you blind or do you have serious difficulty seeing, even when wearing glasses? Answer Date of Assessment Author Status No 08/05/2024 10:35 AM CDT Dione Schumacher RN Active * Do you have serious difficulty walking or climbing stairs? Answer Date of Assessment Author Status No 08/05/2024 10:35 AM CDT Dione Schumacher RN Active * Do you have difficulty dressing or bathing? Answer Date of Assessment Author Status No 08/05/2024 10:35 AM CDT Dione Schumacher RN Active * Because of a physical, mental, or emotional condition, do you have difficulty doing errands alone such as visiting a doctor's office or shopping? Answer Date of Assessment Author Status No 08/05/2024 10:35 AM CDT Dione Schumacher RN Active documented as of this encounter Mental Status * Because of a physical, mental, or emotional condition, do you have serious difficulty concentrating, remembering, or making decisions? Answer Entry Date Author Status No 08/05/2024 10:35 AM MERRYT Dione Schumacher RN Active documented in this encounter Plan of Treatment Upcoming Encounters Date Type Department Care Team (Late st Contact Info) Description 02/19/2025 10:15 AM SOURCING COORDINATOR [facility] [address] [place] [address] Kay Le MD [facility] [address] [place] [address] documented as of this encounter Goals Goal Patient Goal Type Associated Problems Recent Progress Patient-Stated? Author Family - family caregiver with be involved in care transitions and discharge planning Lifestyle No Huang Henson RN documented as of this encounter Visit Diagnoses Diagnosis NSTEMI (non-ST elevated myocardial infarction) ([facility]/HCC [facility])- Primary Acute myocardial infarction, subendocardial infarction, episode of care unspecified documented in this encounter Care Teams Synthetic Filament Spinner Relationship Specialty Start Date End Date None, Provider, PCP - General UNKNOWN PHYSICIAN SPECIALTY 07/12/24 documented as of this encounter
--- NOTE | 2024-11-19 16:21 | PC.NURSE ---
attempted to call report. awaiting return call. pt to go to room 425 at [facility].
[2024-11-19 16:23] LABS: Troponin I 0.144 ng/mL (0.000-0.034)
[2024-11-19] MEDS: HEPARIN SOD/D5W 100 UNITS/ML 25,000 UNITS/250 ML BAG 8 UNITS IV CONT (16:40)
--- OUTSIDE RECORDS SUMMARY | 2024-11-19 16:40 | XMS_ITS | Encounter Summary ---
Author Organization [facility] Address [facility] [place] [address] Care Team Providers Care On Site Wastewater Systems Technician Name Role Phone None, Provider Primary Care Provider Miguel pineda Encounter Details Date Type Department Care Team (Late st Contact Info) Description 11/19/2024 Hospital Encounter [facility] [place] [address] Arnie Sumner MD [address] [place] [address] [phone] (Work) Social History Tobacco Use Types Packs/Day [...] materials from doctor or pharmacy Rarely 08/07/2024 [facility] Utilities Answer Date Recorded In the [...] any time in the past 12 m [facility], were you homeless or living in [...] st Contact Info) Description 02/19/2025 10:15 AM STAMP CLASSIFIER [facility] [address] [place] [address] Kay Le MD [facility] [address] [place] [address] documented as of this encounter Goals Goal Patient Goal Type Associated Problems Recent Progress Patient-Stated? Author Family - family caregiver with be involved in care transitions and discharge planning Lifestyle No Huang Henson RN documented as of this encounter Visit Diagnoses Diagnosis NSTEMI (non-ST elevated myocardial infarction) ([facility]/HCC [facility])- Primary Acute myocardial infarction, subendocardial infarction, episode of care unspecified documented in this encounter Care Teams On Site Wastewater Systems Technician Relationship Specialty Start Date End Date None, Provider, PCP - General UNKNOWN PHYSICIAN SPECIALTY 07/12/24 documented as of this encounter
--- OUTSIDE RECORDS SUMMARY | 2024-11-19 16:40 | XMS_ITS | Clinical Summary ---
Author Organization [facility] [address] Address [address] [place] [address] Care Team Providers Care Supervisor Fertilizer Name Role Phone Tobias Mckenzie MD Primary [...] disease, with long-term current use of insulin ([facility]) Take 1 tablet (10 mg total) by mouth daily 90 tablet 3 2025 Active insulin glargine 100 unit/mL vial for injectionIndicati ons:Type 2 diabetes mellitus with stage 3a chronic kidney disease, with long-term current use of insulin ([facility]) Inject 30 Units under the skin nightly 27 mL 1 2025 Active insulin lispro (HumaLOG) 200 unit/mL (3 mL) pen for injectionIndicati ons:Type 2 diabetes mellitus with stage 3a chronic kidney disease, with long-term current use of insulin ([facility]) Inject 0.05-0.1 mL (10-20 Units total) under the skin 3 (three) times a day with meals 27 mL 3 2025 Active Dexcom G7 Sensor deviceIndications :Type 2 diabetes mellitus with stage 3a chronic kidney disease, with long-term current use of insulin ([facility]) Use one sensor every 10 days 3 each Active Differential Dynamics Delica Plus Lancet 30 gauge miscIndications:T ype 2 diabetes mellitus with stage 3a chronic kidney disease, with long-term current use of insulin ([facility]) 2 x daily 100 each Active Differential Dynamics Verio Flex meter miscIndications:T ype 2 diabetes mellitus with stage 3a chronic kidney disease, with long-term current use of insulin ([facility]) One glucometer 1 each Active VuCOMPio test strips stripIndications: Type 2 diabetes mellitus with stage 3a chronic kidney disease, with long-term current use of insulin ([facility]) Check 2 x daily 100 each 11 Active Dexcom G7 Machine Printer Hose miscIndications:T ype 2 diabetes mellitus with stage 3a chronic kidney disease, with long-term current use of insulin ([facility]) For dexcom sensor use 1 each Active [...] Description 11/17/2024 8:30 AM CDT Office Visit [facility] Diabetes and Endocrinology [address] [place], [place] [id number] Lilliana Berger MD Type 2 diabetes mellitus with stage 3a chronic kidney disease, with long-term current use of insulin (HCC) (Primary Dx); Stage 3a chronic kidney disease (HCC); Hypertension associated with diabetes (HCC); Hyperlipidemia associated with type 2 diabetes mellitus (HCC) 10/30/2024 Orders Only [facility] Medical [facility] Primary Care at [address] [address] ProviderAmalia MD 10/29/2024 Results Follow-Up [facility] Primary Care at [place] [id number] Shayla Elias MD Hemoglobin A1c, Albumin Creatinine Ratio, Urine, Comprehensive metabolic panel, eGFR 10/28/2024 12:25 [place] [address] Type 2 DM with CKD stage 3 and hypertension (HCC); Stage 3a chronic kidney disease (HCC) 10/28/2024 11:30 AM CDT Office Visit [facility] Medical [facility] Primary Care at [address] [address] Shayla Elias MD 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 (Primary Dx); Stage 3a chronic kidney disease (HCC); Hypertension associated with diabetes (HCC); Type 2 DM with CKD stage 3 and hypertension (HCC); Anxiety and depression; Gastroesophageal reflux disease without esophagitis; Mixed hyperlipidemia; Colon cancer screening 10/28/2024 Orders Only [facility] Medical [facility] Primary Care at [place] [id number] ProviderAmalia MD 10/20/2024 Telephone [facility] Medical [facility] Diabetes and Endocrinology [address] [place], [place] [phone] Lilliana Berger MD New Referral to Endocrinology [...] <200 mg/dL Blood 11/17/2024 8:43 AM CDT [facility] López Dawn MD POINT OF CARE TEST [...] PM CDT 10/28/2024 2:07 PM CDT Result [facility] Jennifer Elias MD LAB BLOOD ORDERABLES Pam l Result Performing Organization Address [facility] Co de Phone Number [address] [address] * (ABNORMAL) Albumin Creatinine Ratio, Urine (10/28/2024 12:39 PM CDT) Pathologist [facility] Albumin Ur 2,431.0 mg/L Comment: Interpretive Data No reference range established. Current interpretive data was last revised 2018. Creatinine Ur 95.8 mg/dL [facility] Comment: Interpretive Data No reference range established. Current interpretive data was last revised 2018. Albumin Creatinine Ratio, Ur 2,538(H) 1 - 29 mg/g [facility] Urine 10/28/2024 12:3 9 PM CDT 10/28/2024 2:07 PM CDT Result [facility] Jennifer Elias MD LAB URINE ORDERABLES Pam l Result Performing Organization Address [facility] de Phone Number [address] [address] * (ABNORMAL) Hemoglobin A1c (10/28/2024 12:39 PM CDT) Hgb A1C 11.4(H) 4.0 - 5.6 % Estimated Average Glucose 280 mg/dL [facility] Comment: The ADA recommends reporting an estimated Average Glucose (eAG) with all Hemoglobin A1c results using the equation derived from a study of 507 normal and diabetic adults. Minority populations were underrepresented and children were not included. (Diabetes Care 31:2495-0967, 2008). The eAG is not equivalent to a fasting glucose. Blood 10/28/2024 12:3 9 PM CDT 10/28/2024 2:07 PM CDT Result [facility] Jennifer Elias MD LAB BLOOD ORDERABLES Pam l Result Performing Organization Address [facility]/ZIP Co de Phone Number [place] [phone] [facility] [place] [address] * (ABNORMAL) Comprehensive metabolic panel (10/28/2024 12:39 PM CDT) Sodium 135 135 - 145 mmol/L Potassium, pl 3.8 3.3 - 4.9 mmol/L [facility] Chloride 100 97 - 110 mmol/L [facility] CO2 24 22 - 32 mmol/L [facility] Anion gap 11 2 - 15 mmol/L [facility] BUN 21 6 - 25 mg/dL [facility] Creatinine 1.57(H) 0.80 - 1.30 mg/dL [facility] Glucose 239(H) 70 - 199 mg/dL [facility] Comment: Interpretive Data Fasting glucose >/= 126 [...] 2022. Calcium 9.6 8.5 - 10.3 mg/dL [facility] Bilirubin, total 0.4 0.1 - 1.2 mg/dL [facility] Protein, pl 6.6 6.5 - 8.5 g/dL [facility] Albumin 3.7 3.5 - 5.0 g/dL [facility] Alk phos 123 40 - 130 Units/L [facility] ALT 10 7 - 55 Units/L [facility] AST 16 10 - 50 Units/L [facility] Blood 10/28/2024 12:3 9 PM CDT 10/28/2024 2:07 PM CDT [facility] Jennifer Elias MD LAB BLOOD ORDERABLES Pam l Result [place] [address] [facility] [place] [address] * DIABETES EYE EXAM (10/10/2024 4:44 PM [...] Most Recently Relevant to Health Maintenance Insurance [facility] MEDICARE ADVANTAGE IDPA [facility] MEDICARE ADVANTAGE Care Teams Supervisor Fertilizer Relationship Specialty Start Date End Date Tobias Mckenzie MD [address] [place] [address] PCP - General Family Medicine 11/17/24
--- OUTSIDE RECORDS SUMMARY | 2024-11-19 16:40 | XMS_ITS | Clinical Summary ---
Author Organization [facility] Address [address] [place] [address] Care Team Providers Care Traffic Enumerator Name Role Phone None, Provider MD Primary [...] Diagnosed Date Coronary artery disease invo lving kake coronary artery of kake heart without angina pectoris 08/14/2024 Mixed hyperlipidemia 08/14/2024 Chest pain 08/03/2024 STEMI (ST elevation myocardial infarction) 07/12 Essential hypertension 05/25/2021 Nonspecific abnormal results of function study o f kidney 05/25/2021 Encounters Date Type Department Care Team Description 11/19/2024 Hospital Encounter [facility] Telemetry Unit [address] [place] [address] Arnie Sumner MD 10/13/2024 Telephone [facility] [place] [address] Kay Le MD Orders from Last 3 [...] materials from doctor or pharmacy Rarely 08/07/2024 [facility] Utilities Answer Date Recorded In the past 12 months has [facility] [employer], or water [employer] threatened to shut off services in your [...] any time in the past 12 m [facility], were you homeless or living in a senior living (including now)? No 08/03/2024 Sex and Gender [...] st Contact Info) Description 02/19/2025 10:15 AM UNHAIRING MACHINE OPERATOR Office Visit [facility] [place] [address] Kay Le MD Three [facility] [address] [place], [place] [id number] Health Maintenance Due Date Last Done Comments [...] Recommended Domains Addressed Status Status Reason/Outcome Date/Time [facility] Housing Insecurity Services, Financial Assistance Housing Stability Recommended 08/24/2024 9:19 PM CDT [facility] Housing Insecurity Services Housing Stability Recommended 08/24/2024 9:19 PM CDT from Last 12 Months Medical Devices Implanted Type Area General Forecaster Device Identifier Shelf Expiration Date Model / Serial / Lot Wire Sterum Suture Kit [employer] #7 1/2 Ccs-1 - [id number] Implanted:Qty: 1 on 07/15/2024 by Chaparro Cloud RNFA at [facility] [place] Wire N/A: Sternum [employer] 09/06/2027 [id number] / / [id number] Description:2 WIRES IMPLANTE D Wire Sternotomy Suture Kit - [id number] Implanted:Qty: 1 on 07/15/2024 by Catalino Louie MD at [facility] Wire N/A: Sternum [employer] 03/08/2027 [id number] / / [id number] Description:5 WIRES IMPLANTE D Procedures Procedure Name Priority Date/Time Associated Diagnosis Comments LIPID PANEL Routine 08/04/2024 5:33 AM CDT HEMOGLOBIN, GLYCOSYLATED Routine 08/04/2024 5:33 AM CDT from Last 3 Months or Most Recently Relevant to Health Maintenance Results * (ABNORMAL) HEMOGLOBIN, GLYCOSYLATED (08/04/2024 5:33 AM CDT) HGB A1C 10.4(H) <5.7 % 08/04/2024 9:35 AM CDT [facility] Comment: ADA GUIDELINES 2010 5.7 TO 6.4% INCREASED RISK OF DIABETES > OR = 6.5% CONSISTENT WITH DIABETES ESTIMATED AVG GLUCOSE 252 mg/dL 08/04/2024 9:35 AM CDT [facility] 08/04/2024 5:33 AM CDT Jaz George MD LABORATORY Final Resu lt [facility] [address] [place] [address], * (ABNORMAL) LIPID PANEL (08/04/2024 5:33 AM CDT) CHOLESTEROL 83 <200 MG/DL 08/04/2024 7:25 AM CDT [facility] TRIGLYCERIDES 205(H) <150 MG/DL 08/04/2024 7:25 AM CDT [facility] HDL 28(L) >40.0 MG/DL 08/04/2024 7:25 AM CDT [facility] LDL (CALCULATED) 14 <100 MG/DL 08/04/2024 7:25 AM CDT [facility] Comment:CALCULATED USING THE FRIEDEWALD EQUATION NON HDL CHOLESTEROL 55 <130 MG/DL 08/04/2024 7:25 AM CDT [facility] CHOL/HDL RATIO 3.0 0.0 - 4.5 08/04/2024 7:25 AM CDT [facility] VLDL CALCULATION 41 5 - 55 MG/DL 08/04/2024 7:25 AM CDT [facility] LIPID INTERPRETATION 08/04/2024 7:25 AM CDT [facility] Comment: NIH CONCENSUS REPORT RECOMMENDATIONS: ADULT CHILD LOW RISK: CHOLESTEROL <200 <170 TRIGLYCERIDE <150 --- HDL >=60 --- LDL <100 <110 BORDERLINE: CHOLESTEROL 200-239 170-199 TRIGLYCERIDE 150-199 --- HDL 40-59 --- LDL 100-159 110-129 HIGH RISK: CHOLESTEROL >=240 >=200 TRIGLYCERIDE >=200 --- HDL <40 --- LDL >=160 >=130 08/04/2024 5:33 AM CDT Jaz George MD LABORATORY Final Resu lt [facility] [address] [place] [address], [place] [phone] from Last 3 Months or Most Recently Relevant to Health Maintenance Insurance [facility] MEDICARE MEDICAID Advance Directives Documents on File Type Date Recorded Patient Sales Audit Clerk Expl anation Advance Directives and Living Will [...] 10:51 PM 07/15/2024 3:10 PM Care Teams Traffic Enumerator Relationship Specialty Start Date End Date None, Provider, PCP - General UNKNOWN PHYSICIAN SPECIALTY 07/12/24
--- OUTSIDE RECORDS SUMMARY | 2024-11-19 16:40 | XMS_ITS | Clinical Summary ---
Author Organization [facility] Address [address] [place] [address] Phone Care Team Providers Care Envelope Sealer Name Role Phone Tobias Mckenzie MD Primary Care Provider [phone] Allergies No known active allergies Medications Blood [...] Done Comments Influenza Vaccine (#1) 2024 [place] [address] [employer] Care Teams Envelope Sealer Relationship Specialty Start Date End Date Tobias Mckenzie MD [address] [place] [address] PCP - General Internal Medicine 05/17/21
--- OUTSIDE RECORDS SUMMARY | 2024-11-19 16:40 | XMS_ITS | Encounter Summary ---
Author Organization [facility] Address [address] [place] [address] Care Team Providers Care Analysis Manager Name Role Phone Tobias Mckenzie MD Primary Care Provide r Shayla Elais MD Primary Care Provider [phone] Tobias Mckenzie MD Primary Care Provide r Encounter Details Date Type Department Care Team (Late st Contact Info) Description 07/12/2024 Orders Only [facility] Health Information Management [address] [place] [address] Scanning, Provider Social History Tobacco Use Types [...] on filedocumented in this encounter Care Teams Analysis Manager Relationship Specialty Start Date End Date Tobias Mckenzie MD [address] [place] [address] PCP - General Family Medicine 10/24/21 10/28/24 Shayla Elias MD [address] [place] [address] PCP - General Family Medicine 10/29/24 11/16/24 Tobias Mckenzie MD [address] [place] [address] PCP - General Family Medicine 11/17/24 documented as of this encounter
== END 2024-11-19 17:18 | disposition short-term general hospital (02) ==
PROVIDERS: Emergency Provider Emergency Medicine
DX: I21.4 Non-ST elevation (NSTEMI) myocardial infarction (principal); E11.9 Type 2 diabetes mellitus without complications; E78.5 Hyperlipidemia, unspecified; I10 Essential (primary) hypertension; I25.2 Old myocardial infarction; I25.810 Atherosclerosis of coronary artery bypass graft(s) without angina pectoris; Z95.1 Presence of aortocoronary bypass graft; Z87.891 Personal history of nicotine dependence
CPT/HCPCS: 36415; 71045; 74176; 80053; 83690; 83735; 83880; 84484; 85025; 85380; 85610; 85730; 93005; 96365; 99285; A9270; J1644

== ENCOUNTER 2025-01-12 11:18 | Emergency (ER) | payer MEDICARE, MEDICAID, SELFPAY ==
[2025-01-12] VITALS (17 sets, daily range): BP systolic 166–188; BP diastolic 90–104; PULSE 62–69; RESP 14–17; TEMP 35.9; O2SAT 97–100
--- NOTE | ~2025-01-12 | XR_ITS ---
Examination: XR chest 1V portable Clinical History: LEFT SIDED CP Comparison: 11/19/2024 Technique: Portable AP Findings: Heart size normal. Subtle bibasilar opacities. No acute bony abnormality. IMPRESSION: 1. Mild bibasilar atelectasis. Reviewed, dictated and finalized at location [facility]. [facility]
--- NOTE | 2025-01-12 11:28 | ECG_ITS ---
Test Date: 2025-01-12 11:29:08 Measurements Intervals [place] Rate: 65 P: 40 SD: 118 QRS: -11 QRSD: 82 T: 214 QT: 380 QTc: 397 Interpretive Statements SINUS RHYTHM WITH SHORT SD INTERVAL LEFT VENTRICULAR HYPERTROPHY AND ST-T CHANGE INFERIOR INFARCT, AGE INDETERMINATE BORDERLINE ST-T WAVE ABNORMALITY- LATERAL LEADS ABNORMAL ECG Compared to ECG 11/19/2024 14:02:05 NO SIGNIFICANT CHANGE Electronically Signed On 01-12-2025 11:42:54 EQUIPMENT CLEANER by Bj Rocha D.O.
--- NOTE | 2025-01-12 11:30 | ED.CHESTPAIN ---
HPI - Chest Pain General Chief Complaint: Chest Pain Stated Complaint: chest pain Time Seen by Provider: 01/12/25 11:27 Source: patient Mode of arrival: ambulatory Limitations: no limitations History of Present Illness HPI narrative: Patient is a 59-year-old male with coronary artery disease and vascular disease here with chest pain of the left chest on and off for the past week. No shortness of breath. No nausea vomiting or diarrhea. He had x5 open-heart surgery this year as well as stents this year. He had a left carotid artery repair as well recently. 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 Onset (ago): week(s) (One) Timing of current episode: episodic and daily Prior episodes: Yes Onset: during rest and during exertion Pain location: substernal and left chest Pain radiation: none Severity: moderate Pain scale (0-10): 4 Quality: heaviness Relieving factors: nothing Exacerbating factors: nothing Context: recent surgery and other (Patient has chest pain over the past week and multiple cardiac and vascular events this year as well) Associated symptoms: other (None) Treatment prior to arrival: aspirin Risk Factors Coronary artery disease risk factors: diabetes, smoking history, hyperlipidemia and hypertension Pulmonary embolism risk factors: recent surgery Related Data Home Medications ?Medication ?Instructions ?Recorded ?Confirmed ?Last Taken ?Type citalopram 20 mg tablet 20 mg PO HS 09/23/19 07/12/24 07/11/24 History atorvastatin 80 mg tablet 1 tablet PO HS 08/20/21 07/12/24 07/11/24 History insulin glargine 100 unit/mL (3 30 unit subcut DAILY 04/17/24 07/12/24 04/17/24 History mL) subcutaneous pen (Lantus Solostar U-100 Insulin) blood-glucose sensor (Dexcom G7 01/12/25 01/12/25 Unknown History Sensor device) blood-glucose,metal door assembler,cont 01/12/25 01/12/25 Unknown History (Dexcom G7 Cast Shell Grinder) clopidogrel 75 mg tablet mg 01/12/25 Unknown History dapagliflozin propanediol 10 mg mg 01/12/25 Unknown History tablet (Farxiga) ergocalciferol (vitamin D2) 1,250 01/12/25 Unknown History mcg (50,000 unit) capsule furosemide 40 mg tablet mg 01/12/25 Unknown History insulin lispro 200 unit/mL (3 mL) subcut 01/12/25 Unknown History subcutaneous pen (Humalog KwikPen U-200 Insulin) isosorbide mononitrate 30 mg mg PO 01/12/25 Unknown History tablet,extended release 24 hr lisinopril 20 mg tablet mg 01/12/25 Unknown History metoprolol succinate 25 mg mg PO 01/12/25 Unknown History tablet,extended release 24 hr pantoprazole 40 mg tablet,delayed mg PO 01/12/25 Unknown History release spironolactone 25 mg tablet mg 01/12/25 Unknown History Allergies Allergy/AdvReac Type Severity Reaction Status Date / Time No Known Allergies Allergy Verified 01/12/25 11:23 Review of Systems Review of Systems: All systems reviewed & are unremarkable except as noted in HPI and below Constitutional: Constitutional: Reports no additional constitutional complaints Eyes: Eyes: Reports no additional eye complaints ENT: Reports system reviewed and no additional complaints, except as documented Cardiovascular: Cardiovascular: Reports no additional cardiovascular complaints Respiratory: Respiratory: Reports no additional respiratory complaints Gastrointestinal: Gastrointestinal: Reports no additional gastrointestinal complaints Genitourinary: Genitourinary: Reports no additional male genitourinary complaints Musculoskeletal: Musculoskeletal: Reports no additional musculoskeletal complaints Integumentary/Breasts: Skin/Breast: Reports system reviewed and no additional complaints, except as docu Neurologic: Reports system reviewed and no additional complaints, except as documented Psychiatric: Psychiatric: Reports no additional psychiatric complaints Endocrine: Endocrine: Reports no additional endocrine complaints Hematologic/Lymphatic: Hematologic/Lymphatic: Reports no additional hematologic/lymphatic complaints Allergic/Immunologic: Allergic/Immunologic: Reports no additional allergic/immunologic complaints [facility] Past Medical History Medical History Depression Cataracts, bilateral Hyperlipidemia Hypertension Type 2 diabetes mellitus Seasonal allergies Family History Family History Father Cerebrovascular accident Other Diabetes mellitus Heart disease Hypertension Social History Social History Smoking packs per day: 1 Smoking cigarettes per day: 20.0 Years smoked: 40 Smoking pack-years: 40.00 Smoking status: Former smoker Tobacco type: cigarettes Additional smoking assessment comments: Off and on 1 PPD smoker x40 years. Alcohol intake: never Alcohol use details: Occasional Substance use: never Substance use type: does not use Lack of Transportation: No Lack of Food: Never True Current Housing: I Have Housing Concerned About Future Housing: No Difficulty Paying Gas/Electric Bills: No Difficulty Paying for Meds: No Currently Unemployed: No Education: Decline to Answer Difficulty w/ Childcare or Family Care: No Spiritual care concerns: No Exam Const: General: healthy appearing Nutritional Appearance: well nourished Orientation/consciousness: patient oriented x3 Limitations: no limitations HENMT: Head: normal to inspection Ears: external ears normal Face/Nose/Sinus: Normal external nose present Eyes: Conjunctivae: conjunctivae normal Pupils: Equal, round and reactive pupils present EOM: EOMs intact bilaterally Neck: Neck: normal visual inspection Chest: Chest palpation & inspection: normal inspection of the chest Resp: Effort & Inspection: normal respiratory effort and not labored Auscultation: clear to auscultation bilaterally and no crackles Cardio: Rate: regular rate Rhythm: regular rhythm Heart sounds: no murmurs GI: Inspection: non-distended GI Palp: Yes Soft to palpation and No Tenderness to palpation present (GI) Auscultation: normal bowel sounds : General: Yes bladder normal to palpation Back/Spine/Pelvis: Back: no CVA tenderness Skin: General skin exam: normal color Rashes: no rashes Wounds: no wounds Neuro: General: patient oriented x3, moves all extremities and no meningeal signs Extrem: General: normal to inspection Psych: Mental Status: mental status grossly normal Affect: normal affect Attitude: cooperative Course Vital Signs Vital signs: Vital Signs Temperature 35.9 C L 01/12/25 11:18 Pulse Rate 65 01/12/25 11:18 Respiratory Rate 17 01/12/25 11:18 Blood Pressure 188/104 H 01/12/25 11:18 Pulse Oximetry 100 01/12/25 11:18 Oxygen Delivery Room Air 01/12/25 11:18 Temperature 35.9 C L 01/12/25 11:18 Pulse Rate 67 01/12/25 14:01 Respiratory Rate 14 01/12/25 14:01 Blood Pressure 182/90 H 01/12/25 14:00 Pulse Oximetry 98 01/12/25 14:01 Oxygen Delivery Room Air 01/12/25 11:18 MDM MDM Narrative Medical decision making narrative: Patient is a 59-year-old male with chest pain and known coronary artery disease and vasculopathy. Aspirin x2 taken at home prior to visit. Cardiopulmonary workup. Workup essentially negative and we will call supervising editor news reel. Discuss case with supervising editor news reel. While we were calling the supervising editor news reel, patient decided to leave AMA and signed the form. Patient said he is waiting and did not want to wait any longer as well as did not want transfer anymore at this time. Initially, patient was interested in all medical care. Patient is AAO x4 and has the decision making capacity to agree to AMA. Risks and benefits reviewed. Morbidity and mortality reviewed. Patient will call the supervising editor news reel tomorrow for an appointment. I did speak to the supervising editor news reel on-call and reviewed some of the case but the patient decided AMA at that exact time. No final transfer conclusion was made between me and the supervising editor news reel as the patient was leaving AMA. Differential Diagnosis Differential Diagnosis: MD, NSTEMI, musculoskeletal pain Lab Data MDM Lab Attestation statement: I personally reviewed the patient's lab results. 01/12/25 11:41 01/12/25 11:41 Labs: Lab Results 01/12/25 01/12/25 Range/Units 11:41 13:42 WBC 7.3 (4.8-10.8) K/mm3 RBC 4.60 L (4.70-6.10) M/mm3 Hgb 13.1 L (14.0-18.0) g/dL Hct 38.9 L (40.0-54.0) % MCV 84.6 (78.0-102.0) fL MCH 28.5 (27.0-31.0) pg MCHC 33.7 (32-36) g/dL RDW 14.9 H (11.6-14.4) % Plt Count 274 (150-420) K/mm3 MPV 10.2 (8.7-11.0) fl Immature Gran % (Auto) 0.1 H (0.0-0.0) % Neut % (Auto) 69.3 (50.0-70.0) % Lymph % (Auto) 16.7 L (18.0-42.0) % Cross % (Auto) 9.2 (2.0-11.0) % Eos % (Auto) 4.0 (1.0-6.0) % Baso % (Auto) 0.7 (0.0-1.0) % Lymph # (Auto) 1.21 (1.10-4.50) K/mm3 Cross # (Auto) 0.67 (0.10-0.90) K/mm3 Eos # (Auto) 0.29 (0.02-0.50) K/mm3 Baso # (Auto) 0.05 (0.00-0.10) K/mm3 Abs Immat Gran (auto) 0.01 H (0.00-0.00) K/mm3 Absolute Neuts (auto) 5.03 (1.70-7.20) K/mm3 Absolute Nucleated RBC 0.00 (0.00-0.00) K/mm3 Nucleated RBC % 0.0 (0-0.0) % PT 10.5 (9.50-12.1) Seconds INR 0.9 APTT 26.2 (23.9-30.70) Sec D-Dimer 0.28 (0.19-0.50) mg/L Sodium 139 (137-145) mmol/L Potassium 3.9 (3.4-5.0) mmol/L Chloride 106 (98-107) mmol/L Carbon Dioxide 27 (22-30) mmol/L Anion Gap 6 (4-12) mmol/L BUN 27 H (9-20) mg/dL Creatinine 1.80 H (0.7-1.3) mg/dL Estim Creat Clear Calc 34 ml/min Estimated GFR 39 L (59 - ) Glucose 90 (65-110) mg/dL Calculated Osmolality 293 (285-295) mOsm/kg Calcium 8.7 (8.4-10.2) mg/dL Total Bilirubin 0.8 (0.2-1.3) mg/dL AST 31 (17-59) U/L ALT 28 (6-50) U/L Alkaline Phosphatase 89 (38-126) U/L Troponin I 0.016 0.015 (0.000-0.034) ng/mL NT-Pro-B Natriuret Pep 3160 H (19.9-100) pg/mL Total Protein 6.3 (6.3-8.2) g/dL Albumin 3.9 (3.5-5.1) g/dL Lipase 90 (23-300) U/L Imaging Data Attestation: I personally reviewed and interpreted this imaging study as follows: Radiologist's impression: ITS Impressions Chest X-Ray 01/12/25 11:40 IMPRESSION: 1. Mild bibasilar atelectasis. ECG Data EKG #1: Attestation: I personally reviewed and interpreted this ECG as follows: ECG completion date: 01/12/25 ECG completion time: 12:47 Prior ECG tracings: available for review Interpretation: No acute changes from prior EKG normal rate, sinus rhythm, no ectopy, non-specific ST changes, normal QRS, normal QT and left axis Discharge Plan Discharge Clinical Impression: LYNDA (acute kidney injury) Chest pain Qualifiers: Chest pain type: unspecified Qualified Code(s): R07.9 - Chest pain, unspecified Patient Disposition: Left Against Medical Advice Condition: Stable Patient Language: Luxembourgish Prescriptions: No Action atorvastatin 80 mg tablet 1 tablet PO HS furosemide 40 mg tablet lisinopril 20 mg tablet isosorbide mononitrate 30 mg tablet extended release 24 hr PO clopidogrel 75 mg tablet spironolactone 25 mg tablet pantoprazole 40 mg tablet,delayed release (DR/EC) PO metoprolol succinate 25 mg tablet extended release 24 hr PO ergocalciferol (vitamin D2) 1,250 mcg (50,000 unit) capsule (DME) Dexcom G7 Sensor Device MISCELLANEOUS (DME) Dexcom G7 Cast Shell Grinder Misc MISCELLANEOUS dapagliflozin propanediol [Farxiga] 10 mg tablet Humalog KwikPen Insulin 200 unit/mL (3 mL) insulin pen SUBCUT citalopram 20 mg tablet 20 mg PO HS insulin glargine [Lantus Solostar U-100 Insulin] 100 unit/mL (3 mL) insulin pen 30 unit SUBCUT DAILY Glucagon Emergency Kit (human) 1 mg recon soln 1 mg subcut Q20M PRN (Reason: hypoglycemia) Qty: 1 0RF Rx Instructions: until target blood sugar attained Follow-up/Referrals: UNKNOWN,DOCTOR [Non-Staff] Time of Disposition: 15:49
[2025-01-12 11:46] LABS: Hematocrit 38.9 % (40.0-54.0); Hemoglobin 13.1 g/dL (14.0-18.0); Immature Granulocyte Percent A 0.1 % (0.0-0.0); Lymphocytes Absolute Auto 1.21 K/mm3 (1.10-4.50); Mean Corpuscular HGB Conc 33.7 g/dL (32-36); Mean Corpuscular Hemoglobin 28.5 pg (27.0-31.0); Mean Corpuscular Volume 84.6 fL (78.0-102.0); Nucleated Red Blood Cells Absolute Auto 0.00 K/mm3 (0.00-0.00); Nucleated Red Blood Cells Perc 0.0 % (0-0.0); Platelet Count Result 274 K/mm3 (150-420); Red Blood Count 4.60 M/mm3 (4.70-6.10); White Blood Count 7.3 K/mm3 (4.8-10.8)
[2025-01-12 11:59] LABS: Alanine Aminotransferase 28 U/L (6-50); Albumin Level 3.9 g/dL (3.5-5.1); Alkaline Phosphatase 89 U/L (38-126); Anion Gap 6 mmol/L (4-12); Aspartate Amino Transferase 31 U/L (17-59); Bilirubin,Total 0.8 mg/dL (0.2-1.3); Blood Urea Nitrogen 27 mg/dL (9-20); Calcium 8.7 mg/dL (8.4-10.2); Carbon Dioxide 27 mmol/L (22-30); Chloride 106 mmol/L (98-107); Estimated CRCL calculation 34 ml/min; Estimated Glomerular Filt Rate 39; Glucose 90 mg/dL (65-110); Lipase 90 U/L (23-300); Osmolality Calculated 293 mOsm/kg (285-295); Potassium 3.9 mmol/L (3.4-5.0); Sodium 139 mmol/L (137-145); Total Protein 6.3 g/dL (6.3-8.2)
[2025-01-12 12:01] LABS: INR 0.9; Partial Thromboplastin Time 26.2 Sec (23.9-30.70); Prothrombin Time 10.5 Seconds (9.50-12.1)
[2025-01-12 12:07] LABS: NT Pro B Type Natriuretic Pept 3160 pg/mL (19.9-100)
[2025-01-12 12:11] LABS: Troponin I 0.016 ng/mL (0.000-0.034)
[2025-01-12] MEDS: SODIUM CHLORIDE 0.9% IV 1,000 ML 999 ML IV CONT (12:48)
[2025-01-12 14:10] LABS: Troponin I 0.015 ng/mL (0.000-0.034)
--- NOTE | 2025-01-12 14:50 | PC.NURSE ---
Pt states that he would like to leave AMA. MD Brigitte made aware. MD Brigitte at bedside.
== END 2025-01-12 15:47 | disposition left against medical advice (07) ==
PROVIDERS: Emergency Provider Emergency Medicine
DX: N17.9 Acute kidney failure, unspecified (principal); R07.9 Chest pain, unspecified; I10 Essential (primary) hypertension; E78.5 Hyperlipidemia, unspecified; I25.10 Atherosclerotic heart disease of native coronary artery without angina pectoris; I25.2 Old myocardial infarction; E11.9 Type 2 diabetes mellitus without complications; Z95.1 Presence of aortocoronary bypass graft; Z79.899 Other long term (current) drug therapy; Z79.4 Long term (current) use of insulin; Z87.891 Personal history of nicotine dependence
CPT/HCPCS: 36415; 71045; 80053; 83690; 83880; 84484; 85025; 85380; 85610; 85730; 93005; 99284; J7030